=== PATIENT | female | born 1945 | race Caucasian/White ===

== ENCOUNTER 2018-11-25 09:14 | Inpatient (IN) ==
--- NOTE | 2018-10-26 16:10 | PAT Medication Instructions ---
Medication Instructions Date of Service October 26, 2018 Home Medications amlodipine-benazepril 1 cap PO QAM aspirin [Aspir-Low] 81 mg PO HS calcium citrate-vitamin D3 1 tab PO BID dicyclomine 20 mg PO BID esomeprazole magnesium [Nexium] 40 mg PO BID interferon beta-1b [Betaseron] 1 dose SUBCUT Q OTHER DAY potassium chloride 20 meq PO UD pravastatin 80 mg PO HS pregabalin [Lyrica] 75 mg PO BID ranitidine HCl 150 mg PO HS venlafaxine [Effexor XR] 150 mg PO QAM ASK your prescriber and surgeon interferon beta-1b [Betaseron] 1 dose SUBCUT Q OTHER DAY aspirin [Aspir-Low] 81 mg PO HS DO NOT take the morning of surgery amlodipine-benazepril 1 cap PO QAM calcium citrate-vitamin D3 1 tab PO BID dicyclomine 20 mg PO BID potassium chloride 20 meq PO UD ranitidine HCl 150 mg PO HS Take morning of surgery With a small sip of water, OTHERWISE NOTHING TO EAT OR DRINK AFTER MIDNIGHT: esomeprazole magnesium [Nexium] 40 mg PO BID pregabalin [Lyrica] 75 mg PO BID venlafaxine [Effexor XR] 150 mg PO QAM Take evening before surgery calcium citrate-vitamin D3 1 tab PO BID dicyclomine 20 mg PO BID esomeprazole magnesium [Nexium] 40 mg PO BID pravastatin 80 mg PO HS pregabalin [Lyrica] 75 mg PO BID ranitidine HCl 150 mg PO HS Other Notes If you have any questions please call us at [phone] or [phone] or [phone] or [phone]
--- NOTE | 2018-10-27 09:07 | Anesthesiology Consultation ---
Date of Service October 27, 2018 Assessment & Plan (1) Encounter for pre-operative examination: - Cardio addendum: 11/23/18: DSE ordered/reviewed- "acceptable risk to proceed with upcoming surgery without any additional CV testing or intervention." - Possible difficult intubation due to decreased cervical extension/anatomy.* Chart Review Chart Review: Acceptable Risk for Surgery and Patient seen in Pre Admission Te sting Teaching & Discussion Pre-Anesthesia Teaching/Discussion Notes: Instructed NPO after midnight before surgery,except medications with 15 cc of water. Medication instructions provided according to the PAT guidelines. History Surgery Operation Date: 11/25/18 10:55 Proposed Procedures p Laparoscopic Hiatal Hernia Repair, Possible Mesh - Harshil Oconnell, Height/Weight Height: 5 ft 3 in Weight: 69.6 kg Allergies Allergy/AdvReac Type Severity Reaction Status Date / Time No Known Allergies Allergy Verified 10/21/18 15:42 Medications Home Medications Medication Instructions Recorded Confirmed Last Taken amlodipine-benazepril 1 cap PO QAM 10/21/18 10/21/18 Unknown aspirin [Aspir-Low] 81 mg PO HS 10/21/18 10/21/18 Unknown calcium citrate-vitamin D3 1 tab PO BID 10/21/18 10/21/18 Unknown [Citracal + D Maximum] dicyclomine 20 mg PO BID 10/21/18 10/21/18 Unknown esomeprazole magnesium [Nexium] 40 mg PO BID 10/21/18 10/21/18 Unknown interferon beta-1b [Betaseron] 1 dose SUBCUT Q OTHER DAY 10/21/18 10/21/18 U nknown potassium chloride 20 meq PO UD 10/21/18 10/21/18 Unknown pravastatin 80 mg PO HS 10/21/18 10/21/18 Unknown pregabalin [Lyrica] 75 mg PO BID 10/21/18 10/21/18 Unknown ranitidine HCl 150 mg PO HS 10/21/18 10/21/18 Unknown venlafaxine [Effexor XR] 150 mg PO QAM 10/21/18 10/21/18 Unknown Past Medical History Medical History Anxiety Cancer BREAST CANCER S/P CHEMO/RADIATION (20+ YEARS AGO) Depression Fibromyalgia GERD (gastroesophageal reflux disease) CONTROLLED Gout Hyperlipidemia Hypertension Migraine Mitral valve disease ?HX MITRAL STENOSIS PER PATIENT; NO MITRAL STENOSIS OR ANY SIGNIFICANT VALVULAR DISEASE NOTED ON 11/17/18 DSE Multiple sclerosis SPEECH/BALANCE ISSUES; STABLE Osteoarthritis Restless leg syndrome Sleep apnea CPAP; NON-COMPLIANT Temporomandibular joint disorder Past Family History Family History Mother Family history of diabetes mellitus Sister Family history of diabetes mellitus Brother Family history of diabetes mellitus Past Surgical History Surgical History History of appendectomy History of cardiac cath 5 YEARS AGO= NO STENTS History of cataract surgery B/L History of colonoscopy History of esophagogastroduodenoscopy (EGD) History of hysterectomy History of tooth extraction History of total hip arthroplasty RIGHT Hx of lumpectomy RIGHT BREAST Past Anesthesia History No Hx of Anesthesia Complications and No Family Hx of Anesthesia Complications History of PONV No Motion Sickness Screening History of Motion Sickness: Yes Social History Smoking Status: Never smoker Do You Dip or Chew Tobacco: No Hx Alcohol Use: No Hx Substance Use: No substance use type: does not use Exercise / Class Metabolic Activity III < 4 Walking/Shop/Light housework (USES CANE PRN LONG DISTANCES) Review of Systems Patient denies chest pain, shortness of breath, cough, wheezing, palpitations. Physical Exam Vital Signs VITALS BP 119/70 P 98 TEMP 97.7 SP02 93%RA RESP 18 PHYSICAL Decreased cervical extension Full TMJ range of motion. TMD 3 finger breaths Mallampati Score 4 Dentition: missing molars/sides Lungs: clear throughout to auscultation Cardiac: regular rate and rhythm, no murmurs noted Spine: kyphosis Carotid arteries: negative bruit Extremities: no edema Testing Electrocardiogram Date: 10/27/18 NSR at 94bpm. NS TWA. Stress Test Date: 11/17/18 Type: DSE Negative DSE/stress EKG at 99% MPHR. Frequent PVC's. No chest pain. Technically difficult study. EF 55-60%. No RWMA. No significant valvular disease. Laboratory Results 10/27/18 09:52 10/27/18 09:52 Blood Type B Negative 10/27/18 09:52 Antibody Screen NEGATIVE 10/27/18 09:52
[2018-10-27 11:06] LABS: Basophils # (auto) 0.01 K/uL (0-0.2); Basophils % (auto) 0.2 %; Eosinophils # (auto) 0.05 K/uL (0-0.5); Eosinophils % (auto) 0.9 %; Hematocrit (blood only) 40.4 % (37-47); Hemoglobin 13.5 g/dL (12.0-16.0); Immature Granulocytes # (auto) 0.02 K/uL (0.00-0.02); Immature Granulocytes % (auto) 0.4 %; Lymphocytes # (auto) 1.57 K/uL (1.2-3.4); Lymphocytes % (auto) 28.6 %; Mean Corpuscular Hgb Conc 33.4 g/dL (32-36); Mean Corpuscular Volume 87.6 fL (80-100); Mean Platelet Volume 10.9 fL (7.4-10.4); Monocytes # (auto) 0.69 K/uL (0.11-0.59); Monocytes % (auto) 12.6 %; Neutrophils # (auto) 3.15 K/uL (1.4-6.5); Neutrophils % (auto) 57.3 %; Platelet Count 206 K/uL (130-400); RDW Coefficient of Variation 13.4 % (11.5-14.5); RDW Standard Deviation 42.7 fL (36.4-46.3); Red Blood Count 4.61 M/uL (4.2-5.4); White Blood Count 5.49 K/uL (4.8-10.8)
[2018-10-27 11:13] LABS: BUN Creatinine Ratio 17.9 (10-20); Calcium 9.5 mg/dl (8.5-10.1); Creatinine Clr Calc Pharmacy 73.3 ml/min; Est GFR (African American) 102.6; Est GFR (Non-African American) 88.5
[~2018-11-25 09:14] MED LIST: CEFAZOLIN 2000MG 2,000 MG/15 ML SYR IV SCH; DEXAMETHASONE SOD INJ 4 MG/ML VIAL ONE; GLYCOPYRROLATE 0.2 MG/ML VIAL ONE; HYDROmorphone INJ 2 MG/ML SYR/VIAL ONE; LIDOCAINE HCL 2% 2 ML VIAL/AMP(20MG/ML) INFIL ONE; LR 15ML/HR IV SCH; MIDAZOLAM HCL 1 MG/ML 2ML VIAL ONE; NEOSTIGMINE METHYLSULFATE 5 MG/5 ML SYR ONE; ONDANSETRON INJ 2 MG/ML 2 ML VIAL ONE; PROPOFOL IV EMULSION 10 MG/ML 20 ML VIAL IV ONE; ROCURONIUM BROMIDE 10 MG/ML 5 ML VIAL ONE; fentaNYL citrate 100 MCG/2 ML VIAL ONE
[2018-11-25] MEDS ORDERED: HYDROmorphone INJ 2 MG/ML SYR/VIAL ONE ×2 (09:31→13:17)
[2018-11-25] MEDS ORDERED: BUPIVACAINE/EPINEPHRINE 0.5% MPF 1:200,000 30 ML VIAL ONE (10:17)
--- NOTE | 2018-11-25 10:27 | History & Physical Report ---
Date of Service November 25, 2018 Assessment & Plan (1) Hiatal hernia with GERD: Plan is to repair the symptomatic hiatal hernia. pt aware all her symptoms may not resolve as she also has esophageal dysmotility b/c of the dysmotility, Her GI doctor does not recommend fundoplication, which I agree with. discussed risks ( bleeding/infection/dvt/pe/mi/cva/dysphagia/injury to other organs such as spleen, stomach, diaphragm etc...) questions answered will proceed with hiatal hernia repair. (2) Esophageal dysmotility: History of Present Illness Primary Care Provider: NO PCP pt with hx of gerd/dysphagia and w/u revealed large hiatal hernia. Allergies Allergy/AdvReac Type Severity Reaction Status Date / Time No Known Allergies Allergy Verified 11/25/18 09:35 Home Medications Home Medications Medication Instructions Recorded Confirmed Type amlodipine-benazepril 1 cap PO QAM 10/21/18 11/25/18 History aspirin [Aspir-Low] 81 mg PO HS 10/21/18 11/25/18 History calcium citrate-vitamin D3 1 tab PO BID 10/21/18 11/25/18 History [Citracal + D Maximum] dicyclomine 20 mg PO BID 10/21/18 11/25/18 History esomeprazole magnesium [Nexium] 40 mg PO BID 10/21/18 11/25/18 History interferon beta-1b [Betaseron] 1 dose SUBCUT Q OTHER DAY 10/21/18 11/25/18 History potassium chloride 20 meq PO UD 10/21/18 11/25/18 History pravastatin 80 mg PO HS 10/21/18 11/25/18 History pregabalin [Lyrica] 75 mg PO BID 10/21/18 11/25/18 History ranitidine HCl 150 mg PO HS 10/21/18 11/25/18 History venlafaxine [Effexor XR] 150 mg PO QAM 10/21/18 11/25/18 History Past Med/Surg History Family History Mother Family history of diabetes mellitus Sister Family history of diabetes mellitus Brother Family history of diabetes mellitus Social History Preferred Language: Yakut Communication Ability: Effective Pie Maker Machine Required: No Beliefs That Will Affect Care: None Current Living Situation: Spouse Other Information That Helps Us Care for You: No Feels Safe at Home: Yes Safety Concerns: Feels Safe At This Time Smoking Status: Never smoker Do You Dip or Chew Tobacco: No Second Hand Exposure: No Tobacco Cessation Education Requested by Patient: No Hx Alcohol Use: No Hx Substance Use: No Review of Systems dysphagia. gerd. SOB Physical Exam Vital Signs (Past 24 Hours): Last Vital Signs Temp 36.5 C 11/25/18 09:43 Pulse 95 H 11/25/18 09:43 Resp 18 11/25/18 09:43 BP 128/86 11/25/18 09:43 Pulse Ox 97 11/25/18 09:43 Physical Exam: alert/oriented. nad Heent: Pearla. eomi Heart: RRR Lungs: CTA b/l abd: soft. nt. nd. ext: no c/c/e
[2018-11-25] MEDS ORDERED: HYDROmorphone INJ 0.5 MG/0.5 ML SYR IV PRN ×3 (10:29→18:47)
[2018-11-25] MEDS ORDERED: fentaNYL citrate 100 MCG/2 ML VIAL IV PRN ×2 (10:29→18:48)
[2018-11-25] MEDS ORDERED: ONDANSETRON INJ 2 MG/ML 2 ML VIAL IV PRN (10:29)
[2018-11-25] MEDS ORDERED: ATROPINE SULFATE 0.1 MG/ML 10ML SYR IV PRN (10:29)
[2018-11-25] MEDS ORDERED: ePHEDrine sulfate 50 MG/ML AMP IV PRN (10:29)
[2018-11-25] MEDS ORDERED: LARYING-O-JET KIT (LTA) ONE (10:56)
[2018-11-25] MEDS ORDERED: raNITIdine HCl 25 MG/ML VIAL ONE (10:56)
[2018-11-25] MEDS ORDERED: fentaNYL citrate 100 MCG/2 ML VIAL ONE ×4 (10:56→13:17)
[2018-11-25] MEDS ORDERED: METHYLENE BLUE 0.5% 10 ML VIAL ONE (11:29)
[2018-11-25] MEDS ORDERED: PROPOFOL IV EMULSION 10 MG/ML 20 ML VIAL IV ONE (11:29)
[2018-11-25] MEDS ORDERED: ePHEDrine sulfate 50 MG/ML AMP ONE (13:47)
[2018-11-25] MEDS ORDERED: ePHEDrine sulfate 50 MG/ML SYR ONE (13:47)
[2018-11-25] MEDS ORDERED: GLYCOPYRROLATE 0.2 MG/ML VIAL ONE (13:47)
[2018-11-25] MEDS ORDERED: ESMOLOL HCL INJ 10 MG/ML 10ML VIAL IV ONE ×2 (13:47→13:59)
[2018-11-25] MEDS ORDERED: PHENYLEPHRINE HCL 10 MG/ML VIAL ONE ×2 (13:47→17:28)
[2018-11-25] MEDS ORDERED: TISSEEL FIBRIN SEALANT 10ML TOP ONE (14:26)
[2018-11-25] MEDS ORDERED: ALBUMIN HUMAN 5% 12.5 GM/250 ML VIAL IV ONE ×2 (15:29→16:17)
--- NOTE | 2018-11-25 16:09 | Anesthesiology Progress Note ---
Date of Service November 25, 2018 Assessment & Plan (1) Esophageal tear: Subjective Patient with esophageal tear intraop requiring additional surgeons to assist in repair. Esophgeal stent placed unsuccessfully by surgeon and now plan is to open patient for further exploration and repair. Patient noted to have subQ crepitus and surgeons aware. Type and screen was ordered intraop and second IV was inserted (patient right arm restrict) and arterial line was placed by Dr. Martinez (who resumed care of this patient). Full report was given and will determine later if this patient can be appropriately extubated at the end of the procedure. They will also determine appropriate placement whether that be ICU vs surgical floor. Physical Exam Vital Signs: Last Vital Signs Temp 36.5 C 11/25/18 09:43 Pulse 95 H 11/25/18 09:43 Resp 18 11/25/18 09:43 BP 128/86 11/25/18 09:43 Pulse Ox 97 11/25/18 09:43 Results & Data Medications Administered Cefazolin Sodium (Ancef 2000mg) 2,000 mg in 15 mls @ 3.75 mls/min IV PREOP CHERRY; Protocol Stop: 11/25/18 18:00 Last Admin: 11/25/18 10:31 Dose: 3.75 mls/min Documented by: [id number] Lactated Ringer's (Lr) 1,000 mls @ 15 mls/hr IV .Q24H CHERRY Stop: 11/26/18 05:59 Last Infusion: 11/25/18 10:35 Dose: 0 mls/hr Documented by: [id number] Admin: 11/25/18 09:59 Dose: 15 mls/hr Documented by: [id number] (1) Esophageal tear Encounter type: initial encounter Qualified Code(s): S11.21XA - Laceration without foreign body of pharynx and cervical esophagus, initial encounter
[2018-11-25] MEDS ORDERED: CEFAZOLIN 250 MG/ML 1 GM VIAL ONE (16:18)
--- NOTE | 2018-11-25 17:28 | Post Operative Brief Note ---
Immediate Post Op Note v1 Date of Surgery November 25, 2018 Pre & Post Diagnosis Operation Date: 11/25/18 10:55 Pre-Op Diagnosis: Iatrogenic perforation distal esophagus Post-op diagnosis: same Procedure Operation Date: 11/25/18 10:55 Actual Procedures 1. Attempted repair esophageal perforation laparoscopically 2. Attempted insertion esophageal stent 3. Laparotomy with repair of distal esophageal perforation and buttress with fundus patch Surgeon Juan Alfaro MD, FACS Co- Surgeon: Bridgette Cowan DO Projection Camera Operator Marv MAXWELL Estimated Blood Loss 100 Findings Consistent with Post-Op Diagnosis Drains Albright Catheter and Other (Arvizu gastrostomy tube)
--- NOTE | 2018-11-25 18:14 | XRay Report ---
XR CHEST AND ABDOMEN 2 VIEWS CLINICAL HISTORY: Abnormal intraoperative instrument count COMPARISON STUDY: No previous studies for comparison. FINDINGS: There is an endotracheal tube positioned 4.2 cm above the jose antonio. There is extensive subcut aneous emphysema involving both chest ivory and the neck. There are surgical clips in the right axill linda and breast region. There is a right upper quadrant catheter. There is a hemostat projected outsid e the patient to the right of midline. There is a drain projected over the epigastrium. There is radi ographic evidence of mild congestive failure/fluid overload. There is left lower lobe peripheral cons olidation. IMPRESSION: 1. No retained instruments are visualized 2. Other findings as described above. Electronically signed by: Justin Graff M.D. 11/25/2018 6:12 PM
[2018-11-25] MEDS ORDERED: PROPOFOL IV EMULSION 10 MG/ML 100 ML VIAL IV ONE (18:46)
[2018-11-25] MEDS ORDERED: HYDROmorphone INJ 1 MG/ML SYRINGE IV PRN (18:47)
[2018-11-25] MEDS ORDERED: fentaNYL DRIP 1,250 MCG/250 ML BAG IV PRN (18:48)
[2018-11-25] MEDS: PROPOFOL 1,000 MG/100 ML VIAL IV PRN (18:50)
--- NOTE | 2018-11-25 18:53 | Operative Report ---
Post Operative Report Pre & Post Diagnosis Operation Date: 11/25/18 10:55 Pre-Op Diagnosis: Hiatal Hernia Post-Op Diagnosis: hiatal hernia; presbyesophagus; Procedure Operation Date: 11/25/18 10:55 Actual Procedures p Attempted repair esophageal perforation laparoscopically; Attempted insertion esophageal stent; Laparotomy with repair of distal esophageal perforation and bu ttress with fundus patch(Not Applicable) - Harshil Oconnell DO s Exploratory Laparotomy(Not Applicable) - Harshil Oconnell DO Surgeon Harshil Oconnell DO\Laith Alfaro MD Vacuum Filter Operator Marv MAXWELL Estimated Blood Loss 100 Findings Consistent with Post-Op Diagnosis Specimens none Description of Procedure After informed consent was obtained the patient was taken to the operating room and placed in supine position. After successful intubation the abdomen was sterilely prepped and draped in usual fashion. A supraumbilical incision was made with an 11 blade scalpel and carried down through the soft tissue using electrocautery. The anterior rectus fascia was opened using electrocautery and 2 #0 Vicryl stay sutures were placed. Peritoneum was elevated with hemostats and incised under direct vision. A finfer sweep was performed. A 12 mm Medeiros trocar was placed and the abdomen was insufflated to 18 mmHg. Laparoscope was inserted and the abdomen examined 360 degrees. A subxiphoid 12 mm port, a right upper quadrant 5 mm port, a right flank 5 mm port and a left flank 5 mm port were all placed under direct vision. A liver retractor as well as a table billy chment was placed to help elevate the left lobe of the liver. Once we did this we saw a moderate sized hiatal hernia with gastric incarceration as well as partial gastric volvulus. We began by using the harmonic scalpel to take down some of the short gastric vessels laterally as well as the hernia sac along the left sahil and continued to take it down anteriorly. We then came up along the right sahil the diaphragm and took down the hernia sac on the medial side. Eventually we were able to work our way around anteriorly and free up the entire hernia sac and then we were able to untwist and reduce the stomach. At this point in time I had asked anesthesia to pass a 50 Spanish bougie. During this process I rolled the fundus of the stomach slightly medially to get a view and noticed that the bougie had perforated the lower third of the esophagus on the posterolateral side. At this point in time I called our thoracic surgeon Dr. Alfaro who graciously came over and scrubbed in and he and I performed the remainder of the case together. Please see his dictation for the majority of the esophageal repair. I was able to free up the retrogastric space using primarily blunt dissection and primarily closed the hiatal hernia defect with the Endo Stitch device in O [facility] with simple interrupted sutures. After Dr. Alfaro scrubbed in we performed an intraoperative EGD to evaluate the situation. We were able to identify the small perforation and laparoscopically attempted to repair it. We attempted this multiple times as well as attempted an esophageal stent but she had very poor tissue protoplasm... ultimately we ended up performing a laparotomy with primary repair and fundal buttress. There was no leak as air tested with the endoscope at the end of the procedure. Again please see Dr. Ch's full operative note for the details regarding the esophageal repair. Once he was done with the esophageal repair I then placed a Arvizu gastrostomy tube. I placed a 3-0 silk pursestring on the distal stomach. We then made a small gastrotomy and through 1 of the trocar sites advanced a Arvizu gastric/jejunostomy tube. We did test the balloon prior to insertion. We inserted the tube into the stomach and through the pylorus down and around the duodenal sweep. We then secured the silk pursestring. We then inflated the gastric balloon to 20 cc of saline. We pulled this up to the anterior abdominal wall. I also used 2-0 silk with two-point fixation to secure the stomach to the anterior abdominal wall. I then placed a 19 Spanish Arturo drain through 1 of the trocar sites and up along the right sahil the diaphragm into the chest cavity. It was secured to the skin using 2-0 silk as well. We then thoroughly irrigated the abdomen. I closed the fascia using 0-looped PDS starting at either pole and running and securing them in the midline. Soft tissue was irrigated and skin was closed using skin nalini. Sterile dressing was applied. The patient was transferred to the intensive care unit in critical condition and remained intubated. My physician diploma medical assistant was present to the entire case and assisted in all aspects of the procedure. I attest to the content of the Intraoperative Record and any orders documented therein. Any exceptions are noted below.
[2018-11-25 18:58] LABS: iSTAT Arterial Blood Gas HCO3 19 meg/L (19-24); iSTAT Arterial Blood Gas pCO2 34 mmHg (35-46); iSTAT Arterial Blood Gas pH 7.36 (7.35-7.45); iSTAT Carbon Dioxide 20 mEq/l (24-31)
[2018-11-25 18:58] LABS: iSTAT Creatinine 0.7 mg/dl (0.6-1.3); iSTAT Hemoglobin 11.6 g/dl (12.0-16.0); iSTAT Ionized Calcium 1.23 mmol/l (1.12-1.32); iSTAT Potassium 2.9 mEq/L (3.3-5.0)
[2018-11-25 18:58] LABS: iSTAT Arterial Blood Gas HCO3 22 meg/L (19-24); iSTAT Arterial Blood Gas pCO2 49 mmHg (35-46); iSTAT Arterial Blood Gas pH 7.26 (7.35-7.45); iSTAT Carbon Dioxide 24 mEq/l (24-31)
[2018-11-25 18:58] LABS: iSTAT Arterial Blood Gas HCO3 19 meg/L (19-24); iSTAT Arterial Blood Gas pCO2 30 mmHg (35-46); iSTAT Carbon Dioxide 19 mEq/l (24-31)
--- NOTE | 2018-11-25 18:59 | Anesthesiology Progress Note ---
Date of Service November 25, 2018 Anesthesia Post Procedure Vital Signs Vital Signs: Temp Pulse Resp BP Pulse Ox 11/25/18 09:43 97.7 F 95 H 18 128/86 97 Pain Intensity Anterior Head: Pain Intensity: 7 Notes Mental Status: alert / awake / arousable and see notes below Patient Amnestic to Procedure: Yes Nausea / Vomiting: adequately controlled Pain: adequately controlled Airway Patency, RR, SpO2: stable & adequate BP & HR: stable & adequate Hydration State: stable & adequate Anesthetic Complications: no major complications apparent and see Notes below Notes: Pt remained intubated post-operatively. Pt was transferred to SICU with O2 and monitors. Pt had stable vital signs during transport. Report was given to the ICU staff. Care was transferred to the ICU team.
[2018-11-25] MEDS: POTASSIUM CHLORIDE / WTR 10 MEQ/100 ML PLCT IV SCH ×4 (19:06→23:40)
--- NOTE | 2018-11-25 19:18 | XRay Report ---
XR chest 1V portable CLINICAL HISTORY: Postoperative examination COMPARISON STUDY: No previous studies for comparison. FINDINGS: There is an endotracheal tube 4.7 cm above the jose antonio. The heart is mildly enlarged. There is aortic tortuosity. There is no lobar consolidation. Surgical clips project over the right axillary region right breast. There is extensive bilateral subcutaneous emphysema with the chest ivory extend ing to the neck. No pneumothorax is visualized.[ There is a surgical drain projecting over the epigas trium. IMPRESSION: 1. Endotracheal tube 4.7 cm above the jose antonio 2. Extensive subcutaneous emphysema 3. No evidence of focal pulmonary consolidation Electronically signed by: Justin Graff M.D. 11/25/2018 7:17 PM
[2018-11-25] MEDS ORDERED: PIPERACILL/TAZOBAC CONSULT ACTIVE PRN (19:40)
[2018-11-25] MEDS ORDERED: PIPERACILLIN/TAZOBACTAM 3.375 GM in DEXTROSE 5% 100 ML IV ONE (20:00)
[2018-11-25 20:15] LABS: Creatinine Clr Calc Pharmacy 51.6 ml/min; Est GFR (African American) 76.6; Est GFR (Non-African American) 66.1
[2018-11-25] MEDS: LACTATED RINGER'S 1,000 ML IV SCH (20:22)
[2018-11-25 21:33] LABS: Hematocrit (blood only) 32.7 % (37-47); Hemoglobin 11.2 g/dL (12.0-16.0); Mean Corpuscular Hgb Conc 34.3 g/dL (32-36); Mean Corpuscular Volume 85.2 fL (80-100); Mean Platelet Volume 9.6 fL (7.4-10.4); Platelet Count 147 K/uL (130-400); RDW Coefficient of Variation 13.6 % (11.5-14.5); RDW Standard Deviation 42.4 fL (36.4-46.3); Red Blood Count 3.84 M/uL (4.2-5.4); White Blood Count 8.04 K/uL (4.8-10.8)
[2018-11-25 21:51] LABS: BUN Creatinine Ratio 16.6 (10-20); Calcium 8.5 mg/dl (8.5-10.1); Creatinine Clr Calc Pharmacy 59.8 ml/min; Est GFR (African American) 86.1; Est GFR (Non-African American) 74.3; Magnesium 1.5 mg/dl (1.8-2.4); Phosphorus 2.5 mg/dl (2.5-4.9)
--- NOTE | 2018-11-25 22:05 | Critical Care Consultation ---
Date of Consultation November 25, 2018 Assessment & Plan (1) Esophageal tear: Reason Critically Ill: 72-year-old female presents to ICU postoperatively from initial hiatal hernia repair complicated by esophageal perforation requiring open buttress with fundus patch. Left intubated and sedated postop. Neuro - [facility] ICU: [facility], intubated and sedated on ventilator Sedation: Propofol, fentanyl Cardiac - Hypertension: Continue home amlodipinebenazepril when appropriate, A-line left in place postop HLD: Continue home dose ranitidine HCl Currently hemodynamically stable without pressors and NSR, will continue to monitor on telemetry, and continuous monitoring with erick Respiratory - Ventilatory support following procedurecurrently intubated with 7.0 ETT, 21 at lips - VC 12/ 450/5/50% -AB.36/34/271/19 -CXR revealed extensive subcutaneous emphysema, surgical team aware, monitori ng -Pulmonary toilet -HOB greater than 30 degrees -will wean vent in a.m. GI - Hiatal hernia repair/esophageal perforationhiatal hernia repair complicated with esophageal perforation, attempted laparoscopic repair with stent unsuccessful, required open repair with fundus patch -G/J-tube inserted intraoperatively, gastric port to low intermittent suction -N.p.o. -Follow-up GI recs GERDcontinue home meds when appropriate RENAL/LYTES - Hypokalemiapatient takes calcium home meds -We will monitor routine BMPs and treat appropriately Maximize electrolyteS - Albright insertedstrict I's and O's ENDO - Hyperglycemiarequiring insulin drip -We will collect hemoglobin A1c a.m. HEME - H&H stable, monitor with routine CBCs ID - Empiric Zosyn LINES/IV ACCESS - Peripheral IVs, ETT, G/J-tube, Albright, erick DVT PROPHYLAXIS - SCDs, holding anticoagulation per recent surgery (2) Hiatal hernia with GERD: (3) Hypertension: (4) Hyperlipidemia: Supervising Physician Co-Signing Physician Notes I have personally evaluated and examined this patient. I agree with assessment and plan of Shae GARCIA. I discussed this patient with Dr. Alfaro and examined the patient immediately upon arrival in the ICU. We will leave the patient intubated overnight for possible hemodynamic instabilities. Patient had prolonged surgery acute blood loss anemia. Care was transferred to Shae GARCIA I have personally spent 35 minutes of critical care time in the direct management of this patient. This is a life/limb threatening event. This includes time spent evaluating patient, direct bedside care, chart review, placing orders, interpretation of diagnostic studies, discussion with consultants, patient, and/or family members regarding treatment decisions, as well as other required patient management activities. This time is exclusive of all separately billable procedures, and teaching time and separate from and in addition to any other critical care service time. History of Present Illness Attending Physician: Harshil Oconnell, History of Present Illness Ms. Farooq is a 72-year-old female with past medical history of hiatal hernia, GERD, dysphagia who presents to the ICU postoperatively. Patient initially was admitted for scheduled hiatal hernia repair which was complicated with esophageal perforation requiring additional surgery intraoperatively. Laparoscopic attempt to repair esophageal perforation was unsuccessful and patient required open repair of buttress with fundus patch. G/J-tube inserted during procedure. She was left intubated postoperatively and transferred to ICU. Patient presents to the ICU intubated and sedated. Noted subcutaneous crepitus on exam with primary and surgical teams aware and monitoring. Hemodynamically stable on ventilator. Will remain in ICU for management at this time. Allergies Allergy/AdvReac Type Severity Reaction Status Date / Time No Known Allergies Allergy Verified 11/25/18 09:35 Home Medications Home Medications Medication Instructions Recorded Confirmed Type amlodipine-benazepril 1 cap PO QAM 10/21/18 11/25/18 History aspirin [Aspir-Low] 81 mg PO HS 10/21/18 11/25/18 History calcium citrate-vitamin D3 1 tab PO BID 10/21/18 11/25/18 History [Citracal + D Maximum] dicyclomine 20 mg PO BID 10/21/18 11/25/18 History esomeprazole magnesium [Nexium] 40 mg PO BID 10/21/18 11/25/18 History interferon beta-1b [Betaseron] 1 dose SUBCUT Q OTHER DAY 10/21/18 11/25/18 History potassium chloride 20 meq PO UD 10/21/18 11/25/18 History pravastatin 80 mg PO HS 10/21/18 11/25/18 History pregabalin [Lyrica] 75 mg PO BID 10/21/18 11/25/18 History ranitidine HCl 150 mg PO HS 10/21/18 11/25/18 History venlafaxine [Effexor XR] 150 mg PO QAM 10/21/18 11/25/18 History Patient History Family History Mother Family history of diabetes mellitus Sister Family history of diabetes mellitus Brother Family history of diabetes mellitus Social History Preferred Language: Romanian Communication Ability: Effective Formula Checker Required: No Beliefs That Will Affect Care: None Current Living Situation: Spouse Other Information That Helps Us Care for You: No Feels Safe at Home: Yes Safety Concerns: Feels Safe At This Time Smoking Status: Unknown if ever smoked Review of Systems Review of Systems: Unobtainable due to cognitive status and Unobtainable due to endotracheal tube Physical Exam Eyes: PERRL, conjunctivae normal, anicteric sclerae ENMT: ETT 7.0, 21 of the lip Neck: trachea midline, no thyromegaly + neck crepitus Respiratory: normal respiratory effort, lungs clear to auscultation Symmetrical chest rise Cardiovascular: RRR, no murmur, no edema Heart Sounds: normal S1 and normal S2 Extremities: normal capillary refill Gastrointestinal (Abdomen): Abdomen obese, soft. Tenderness over surgical site. Midline abdominal surgical incision well approximated. G/J-tube present, no draining from dressing. Bowel sounds auscultated in all 4 quadrants. Skin: Subcutaneous crepitus palpated in neck and upper anterior chest Neurologic: Sedated, PERRLA, moves all extremities Genitourinary: Albright inserted, adequate urine output Results & Data Vital Signs (Past 12 Hours) Vital Signs Temp Pulse Pulse Resp BP BP BP 11/25/18 21:33 89 12 11/25/18 21:00 87 162/75 H 11/25/18 20:02 91 H 166/71 H 11/25/18 20:00 34.7 C L 91 H 90 17 166/71 H 11/25/18 19:45 93 H 11/25/18 19:30 95 H 11/25/18 19:25 95 H 135/86 11/25/18 19:15 98 H 11/25/18 19:14 98 H 11/25/18 18:55 33.9 C L 94 H 12 135/86 11/25/18 18:50 33.3 C L 93 H 12 106/90 11/25/18 18:45 33.3 C L 89 12 105/90 11/25/18 18:40 33.3 C L 91 H 12 134/114 H 11/25/18 18:35 33.2 C L 93 H 12 100/83 11/25/18 18:29 94 H 12 143/79 H Pulse Ox 11/25/18 21:33 100 11/25/18 21:00 100 11/25/18 20:02 100 11/25/18 20:00 100 11/25/18 19:45 100 11/25/18 19:30 100 11/25/18 19:25 100 11/25/18 19:15 100 11/25/18 19:14 100 11/25/18 18:55 100 11/25/18 18:50 100 11/25/18 18:45 100 11/25/18 18:40 98 11/25/18 18:35 90 11/25/18 18:29 98 Laboratory Results Laboratory Results - last 24 hr 11/25/18 11/25/18 11/25/18 09:38 16:13 16:19 WBC RBC Hgb POC Hgb 11.6 L Hct POC Hct 34 L MCV MCH MCHC RDW Std Deviation RDW Coeff of Tomas Plt Count MPV Immature Gran % (Auto) Neut % (Auto) Lymph % (Auto) [place] % (Auto) Eos % (Auto) Baso % (Auto) Immature Gran # (Auto) Neut # (Auto) Lymph # (Auto) [place] # (Auto) Eos # (Auto) Baso # (Auto) Ovalocytes Echinocytes POC pH 7.26 L POC pCO2 49 H POC pO2 343 H POC HCO3 22 POC Total CO2 24 23 L POC Base Excess -5.0 POC ABG O2 Sat 100.0 H POC Sodium 141 Sodium POC Potassium 2.9 L Potassium POC Chloride 106 Chloride Carbon Dioxide Anion Gap POC Anion Gap 16.0 POC BUN 13 BUN Creatinine POC Creatinine 0.7 Est Cr Clr Drug Dosing Est GFR ( Amer) Est GFR (Non-Af Amer) BUN/Creatinine Ratio Glucose POC Glucose POC Glucose (other) 215 H Lactate Calcium POC Ioniz Calcium Sophie 1.23 Phosphorus Magnesium Nasal Screen MRSA (PCR) Blood Type B Negative Antibody Screen NEGATIVE 11/25/18 11/25/18 11/25/18 16:20 17:14 17:34 WBC RBC Hgb POC Hgb Hct POC Hct MCV MCH MCHC RDW Std Deviation RDW Coeff of Tomas Plt Count MPV Immature Gran % (Auto) Neut % (Auto) Lymph % (Auto) [place] % (Auto) Eos % (Auto) Baso % (Auto) Immature Gran # (Auto) Neut # (Auto) Lymph # (Auto) [place] # (Auto) Eos # (Auto) Baso # (Auto) Ovalocytes Echinocytes POC pH 7.40 7.36 POC pCO2 30 L 34 L POC pO2 303 H 271 H POC HCO3 19 19 POC Total CO2 19 L 20 L POC Base Excess -6.0 -6.0 POC ABG O2 Sat 100.0 H 100.0 H POC Sodium Sodium POC Potassium Potassium 3.1 L POC Chloride Chloride Carbon Dioxide Anion Gap POC Anion Gap POC BUN BUN Creatinine POC Creatinine Est Cr Clr Drug Dosing Est GFR ( Amer) Est GFR (Non-Af Amer) BUN/Creatinine Ratio Glucose POC Glucose POC Glucose (other) Lactate Calcium POC Ioniz Calcium Sophie Phosphorus Magnesium Nasal Screen MRSA (PCR) Blood Type Antibody Screen 11/25/18 11/25/18 11/25/18 19:43 19:51 20:42 WBC RBC Hgb POC Hgb Hct POC Hct MCV MCH MCHC RDW Std Deviation RDW Coeff of Tomas Plt Count MPV Immature Gran % (Auto) Neut % (Auto) Lymph % (Auto) [place] % (Auto) Eos % (Auto) Baso % (Auto) Immature Gran # (Auto) Neut # (Auto) Lymph # (Auto) [place] # (Auto) Eos # (Auto) Baso # (Auto) Ovalocytes Echinocytes POC pH POC pCO2 POC pO2 POC HCO3 POC Total CO2 POC Base Excess POC ABG O2 Sat POC Sodium Sodium POC Potassium Potassium POC Chloride Chloride Carbon Dioxide Anion Gap POC Anion Gap POC BUN BUN Creatinine 0.87 POC Creatinine Est Cr Clr Drug Dosing 51.6 Est GFR ( Amer) 76.6 Est GFR (Non-Af Amer) 66.1 BUN/Creatinine Ratio Glucose POC Glucose 233 H POC Glucose (other) Lactate Calcium POC Ioniz Calcium Sophie Phosphorus Magnesium Nasal Screen MRSA (PCR) Negative Blood Type Antibody Screen 11/25/18 11/25/18 11/25/18 21:24 21:24 21:24 WBC 8.04 RBC 3.84 L Hgb 11.2 L POC Hgb Hct 32.7 L POC Hct MCV 85.2 MCH 29.2 MCHC 34.3 RDW Std Deviation 42.4 RDW Coeff of Tomas 13.6 Plt Count 147 MPV 9.6 Immature Gran % (Auto) 0.1 Neut % (Auto) 85.8 Lymph % (Auto) 8.8 [place] % (Auto) 5.3 Eos % (Auto) 0.0 Baso % (Auto) 0.0 Immature Gran # (Auto) 0.01 Neut # (Auto) 6.89 H Lymph # (Auto) 0.71 L [place] # (Auto) 0.43 Eos # (Auto) 0.00 Baso # (Auto) 0.00 Ovalocytes 1+ Echinocytes 1+ POC pH POC pCO2 POC pO2 POC HCO3 POC Total CO2 POC Base Excess POC ABG O2 Sat POC Sodium Sodium 142 POC Potassium Potassium 3.0 L POC Chloride Chloride 111 H Carbon Dioxide 21 Anion Gap 10.0 POC Anion Gap POC BUN BUN 13 Creatinine 0.79 POC Creatinine Est Cr Clr Drug Dosing 59.8 Est GFR ( Amer) 86.1 Est GFR (Non-Af Amer) 74.3 BUN/Creatinine Ratio 16.6 Glucose 286 H POC Glucose POC Glucose (other) Lactate 3.5 H* Calcium 8.5 POC Ioniz Calcium Sophie Phosphorus 2.5 Magnesium 1.5 L Nasal Screen MRSA (PCR) Blood Type Antibody Screen (1) Esophageal tear Encounter type: initial encounter Qualified Code(s): S11.21XA - Laceration without foreign body of pharynx and cervical esophagus, initial encounter
[2018-11-25 22:17] LABS: Echinocytes 1+; Immature Granulocytes # (auto) 0.01 K/uL (0.00-0.02); Immature Granulocytes % (auto) 0.1 %; Lymphocytes # (auto) 0.71 K/uL (1.2-3.4); Lymphocytes % (auto) 8.8 %; Monocytes # (auto) 0.43 K/uL (0.11-0.59); Monocytes % (auto) 5.3 %; Neutrophils # (auto) 6.89 K/uL (1.4-6.5); Neutrophils % (auto) 85.8 %; Ovalocytes 1+
[2018-11-25] MEDS ORDERED: MAGNESIUM SULFATE / D5W 1 GM/100 ML BAG IV ONE (22:25)
[2018-11-25] MEDS ORDERED: ICU PROTOCOL FOR HYPERGLYCEMIA PRN (22:34)
[2018-11-25] MEDS ORDERED: DEXTROSE 50% 50 ML SYRINGE IV PRN (23:00)
[2018-11-25] MEDS ORDERED: CARBOHYDRATES FOR HYPOGLYCEMIA PO PRN (23:00)
[2018-11-25] MEDS ORDERED: INSULIN REGULAR 250 UNITS in SODIUM CHLORIDE 0.9% 247.5 ML IV SCH (23:00)
[2018-11-25] MEDS ORDERED: GLUCOSE 10 TABS/TUBE PO PRN (23:00)
[2018-11-25] MEDS ORDERED: NovoLIN-R BOLUS FROM BAG IV ONE (23:00)
[2018-11-25] MEDS ORDERED: GLUCAGON FOR INJ 1 MG VIAL IM PRN (23:00)
[2018-11-25] MEDS ORDERED: GLUCOSE 40% GEL 15 GM TUBE PO PRN (23:00)
[2018-11-25] MEDS ORDERED: PHARMACY GLYCEMIC MGMT CONSULT PRN (23:02)
[2018-11-26] MEDS: POTASSIUM CHLORIDE / WTR 10 MEQ/100 ML PLCT IV SCH ×2 (00:40→01:40)
[2018-11-26] MEDS: PROPOFOL 1,000 MG/100 ML VIAL IV PRN (01:55)
[2018-11-26] MEDS ORDERED: LACTATED RINGER'S 250 ML IV ONE (02:16)
[2018-11-26] MEDS: PIPERACILLIN/TAZOBACTAM 3.375 GM in DEXTROSE 5% 100 ML IV SCH ×3 (02:29→19:44)
--- NOTE | 2018-11-26 03:29 | Critical Care Progress Note ---
Date of Service November 26, 2018 Assessment & Plan (1) Esophageal tear: Reason Critically Ill: 72-year-old female presents to ICU postoperatively from initial hiatal hernia repair complicated by esophageal perforation requiring open buttress with fundus patch. Left intubated and sedated postop. Neuro - [facility]: [facility], intubated and sedated on ventilator Sedation: Propofol, fentanyl Cardiac - Hypertension: Continue home amlodipinebenazepril when appropriate, A-line left in place postop HLD: Continue home dose ranitidine HCl Currently hemodynamically stable without pressors and NSR, will continue to monitor on telemetry, and continuous monitoring with erick Respiratory - Ventilatory support following procedurecurrently intubated with 7.0 ETT, 21 at lips - VC 12/ 450/5/50% -AB.36/34/271/19 -CXR revealed extensive subcutaneous emphysema, surgical team aware, monitoring -Pulmonary toilet -HOB greater than 30 degrees -will wean vent in a.m. GI - Hiatal hernia repair/esophageal perforationhiatal hernia repair complicated with esophageal perforation, attempted laparoscopic repair with stent unsuccessful, required open repair with fundus patch -G/J-tube inserted intraoperatively, gastric port to low intermittent suction -N.p.o. -Follow-up GI recs GERDcontinue home meds when appropriate RENAL/LYTES - Hypokalemiapatient takes calcium home meds -We will monitor routine BMPs and treat appropriately Maximize electrolyteS - Albright insertedstrict I's and O's ENDO - Hyperglycemiarequiring insulin drip -We will collect hemoglobin A1c a.m. HEME - H&H stable, monitor with routine CBCs ID - Empiric Zosyn LINES/IV ACCESS - Peripheral IVs, ETT, G/J-tube, Albright, erick DVT PROPHYLAXIS - SCDs, holding anticoagulation per recent surgery (2) Hiatal hernia with GERD: (3) Hypertension: (4) Hyperlipidemia: Supervising Physician Co-Signing Physician Notes I have personally evaluated and examined this patient. I agree with assessment and plan of Shae GARCIA. Patient discussed in multidisciplinary rounds Weaning towards extubation today, adding fluconazole postop day 1 less than 24 hours out from surgery with fever continue Zosyn. Will discuss with Anish/Dominic regarding possible trickle of tube feeds and utilization of COHEN for meds, gastric portion to gravity drain at this time. On insulin infusion. I have personally spent 40 minutes of critical care time in the direct management of this patient. This is a life/limb threatening event. This includes time spent evaluating patient, direct bedside care, chart review, placing orders, interpretation of diagnostic studies, discussion with consultants, patient, and/or family members regarding treatment decisions, as well as other required patient management activities. This time is exclusive of all separately billable procedures, and teaching time and separate from and in addition to any other critical care service time. Clinical update: 154 reviewed surgery notes, no use of feeding tube. Patient successfully liberated from ventilator, continuing antibiotics. Subjective Ms. Farooq is a 72-year-old female with past medical history of hiatal hernia, GERD, dysphagia who presents to the ICU postoperatively. Patient initially was admitted for scheduled hiatal hernia repair which was complicated with esophageal perforation requiring additional surgery intraoperatively. Laparoscopic attempt to repair esophageal perforation was unsuccessful and patient required open repair of buttress with fundus patch. G/J-tube inserted during procedure. She was left intubated postoperatively and transferred to ICU. Patient presented to the ICU intubated and sedated. Noted subcutaneous crepitus on exam with primary and surgical teams aware and monitoring. Hemodynamically stable on ventilator. Patient given 250 cc bolus overnight for decreased urine output and softening pressures with appropriate response. No other acute events overnight. Patient remains hemodynamically stable and intubated and sedated on ventilator. Will begin ventilator weaning this a.m. Review of Systems 2 Review of Systems: Unobtainable due to cognitive status and Unobtainable due to endotracheal tube Physical Exam Eyes: PERRL, conjunctivae normal, anicteric sclerae Neck: trachea midline, no thyromegaly + neck crepitus Respiratory: Intubated with ETT 7.0, 21 at lips; lungs clear to auscultation, bilateral breath sounds, symmetrical chest rise Cardiovascular: RRR, no murmur, no edema Heart Sounds: normal S1 and normal S2 Extremities: normal capillary refill Gastrointestinal (Abdomen): Abdomen obese, soft, midline surgical incision well approximated, G/J-tube, bowel sounds auscultated all 4 quadrants Skin: no rashes, warm and dry Neurologic: Sedated, PERRLA, moves all extremities Genitourinary: Albright, adequate urine output Results & Data Vital Signs (Past 12 Hours) Vital Signs Temp Pulse Pulse Resp BP BP BP 11/26/18 03:00 88 145/67 H 11/26/18 02:30 85 11/26/18 02:07 84 12 11/26/18 02:00 85 11/26/18 01:30 86 11/26/18 01:00 85 11/26/18 00:30 84 11/26/18 00:00 80 156/76 H 11/25/18 23:50 79 14 11/25/18 23:30 83 11/25/18 23:00 82 11/25/18 22:00 86 11/25/18 21:33 89 12 11/25/18 21:31 87 11/25/18 21:30 88 11/25/18 21:00 87 162/75 H 11/25/18 20:02 91 H 166/71 H 11/25/18 20:00 34.7 C L 91 H 90 17 166/71 H 11/25/18 19:45 93 H 11/25/18 19:30 95 H 11/25/18 19:25 95 H 135/86 11/25/18 19:15 98 H 11/25/18 19:14 98 H 11/25/18 18:55 33.9 C L 94 H 12 135/86 11/25/18 18:50 33.3 C L 93 H 12 106/90 11/25/18 18:45 33.3 C L 89 12 105/90 11/25/18 18:40 33.3 C L 91 H 12 134/114 H 11/25/18 18:35 33.2 C L 93 H 12 100/83 11/25/18 18:29 94 H 12 143/79 H Pulse Ox 11/26/18 03:00 96 11/26/18 02:30 97 11/26/18 02:07 98 11/26/18 02:00 98 11/26/18 01:30 98 11/26/18 01:00 99 11/26/18 00:30 99 11/26/18 00:00 98 11/25/18 23:50 99 11/25/18 23:30 99 11/25/18 23:00 100 11/25/18 22:00 100 11/25/18 21:33 100 11/25/18 21:31 100 11/25/18 21:30 100 11/25/18 21:00 100 11/25/18 20:02 100 11/25/18 20:00 100 11/25/18 19:45 100 11/25/18 19:30 100 11/25/18 19:25 100 11/25/18 19:15 100 11/25/18 19:14 100 11/25/18 18:55 100 11/25/18 18:50 100 11/25/18 18:45 100 11/25/18 18:40 98 11/25/18 18:35 90 11/25/18 18:29 98 (1) Esophageal tear Encounter type: initial encounter Qualified Code(s): S11.21XA - Laceration without foreign body of pharynx and cervical esophagus, initial encounter
[2018-11-26 03:54] LABS: Hematocrit (blood only) 30.8 % (37-47); Hemoglobin 10.6 g/dL (12.0-16.0); Mean Corpuscular Hgb Conc 34.4 g/dL (32-36); Mean Corpuscular Volume 84.6 fL (80-100); Mean Platelet Volume 9.9 fL (7.4-10.4); Platelet Count 148 K/uL (130-400); RDW Coefficient of Variation 13.6 % (11.5-14.5); Red Blood Count 3.64 M/uL (4.2-5.4); White Blood Count 6.98 K/uL (4.8-10.8)
[2018-11-26 04:14] LABS: BUN Creatinine Ratio 19.2 (10-20); Calcium 8.4 mg/dl (8.5-10.1); Creatinine Clr Calc Pharmacy 71.5 ml/min; Est GFR (African American) 101.6; Est GFR (Non-African American) 87.6; Phosphorus 1.4 mg/dl (2.5-4.9); Potassium 3.6 mmol/L (3.5-5.1)
[2018-11-26 04:15] LABS: Immature Granulocytes # (auto) 0.01 K/uL (0.00-0.02); Immature Granulocytes % (auto) 0.1 %; Lymphocytes # (auto) 0.36 K/uL (1.2-3.4); Lymphocytes % (auto) 5.2 %; Monocytes # (auto) 0.76 K/uL (0.11-0.59); Monocytes % (auto) 10.9 %; Neutrophils # (auto) 5.85 K/uL (1.4-6.5); Neutrophils % (auto) 83.8 %
[2018-11-26] MEDS ORDERED: POTASSIUM PHOS 3 MMOL/1 ML INFUSION IV STA (04:27)
--- NOTE | 2018-11-26 04:56 | Consultation Report ---
DATE OF CONSULTATION: 11/25/2018 INTRAOPERATIVE CONSULT INDICATION AND REASON FOR CONSULT: Dr. Oconnell admitted and operated on this very nice 72-year-old female electively today on 11/25/2018. During a routine procedure when he noticed that the tip of the bougie which had been inserted had perforated the distal esophagus on the left lateral side. I was asked to come in and help repair this. The patient was hemodynamically stable when I arrived in the operating room. I scrubbed in to help Dr. Oconnell. It is a very complicated case. I attempted to place an esophageal stent which was not successful. We ended up having to open the abdomen and via laparotomy repair this distal esophageal perforation and do a patch with the gastric fundus. Dr. Oconnell also placed a gastrostomy tube and a feeding tube. After the procedure, I went out and spoke to the patient's in detail about the issues which are risen. He will speak to Dr. Oconnell later when the case is completed. I explained to him this is a serious development and we will be watching her very closely. For details of this operative report, please refer to my operative note.
[2018-11-26] MEDS ORDERED: POTASSIUM PHOSPHATE 9 MMOL in SODIUM CHLORIDE 0.9% 250 ML IV ONE (05:00)
--- NOTE | 2018-11-26 05:27 | Operative Report ---
DATE OF OPERATION: 11/25/2018 PREOPERATIVE DIAGNOSIS: Intraoperative perforation of distal esophagus. POSTOPERATIVE DIAGNOSIS: Intraoperative perforation of distal esophagus. PROCEDURE PERFORMED: 1. Attempted repair of distal esophageal perforation laparoscopically. 2. Upper endoscopy with attempted esophageal stent placement. 3. Laparotomy with repair of the distal esophageal perforation and a gastric patch using the fundus. ANESTHESIA: General anesthesia, endotracheal intubation. SURGEON: Juan Alfaro MD. COSURGEON: Dr. Oconnell. KNAPSACK SPRAYER SURGEON: Kane Barajas PA-C INDICATION FOR PROCEDURE AND FINDINGS: Very nice 72-year-old female with a very large hiatal hernia which was becoming more symptomatic and also has multiple sclerosis who was scheduled for elective laparoscopic repair. Dr. Oconnell brought his patient to the operating room and began his operation on 11/25/2018. However, he noticed after a rather routine surgery that the tip of the bougie had perforated the distal esophagus on the left side laterally. He called me to come in. Canceling rest my office hours, I then presented to the operating room and could see the bougie quite easily. I then attempted to repair this perforation by using an EndoStitch with Ti-Cron suture and it appeared we put in a few sutures and I did not see evidence of an air leak. I then performed an upper endoscopy while Dr. Oconnell closed the laparoscopic incisions. We attempted to place an NG tube aided by the gastroscope, however, I did not like the way it is felt and I pulled it back out. Upon replacing the gastroscope and looking down into the distal esophagus, I was not happy with the site of the repair. It was leaking. For this reason, we re-repaired this area. We felt an esophageal stent would be helpful and placed a guidewire through the esophagoscope without difficulty into the stomach. It should be noted I could pass the esophagoscope easily into the stomach. I then selected a Cook 20 mm x 125 mm partially covered stent. I then using fluoroscopy, we marked the proximal and distal aspects of the repair and then over the guidewire, I inserted the stent. I was not happy with the way this felt. I had holdup at the area of the repair. I manipulated this several minutes and then stopped. At this point, Dr. Oconnell had already closed the abdomen. I was very concerned about this, I asked Dr. Oconnell to reinsert the laparoscopes and he did and we did not see evidence of any perforation. I was concerned in the way it felt however, We elected to remove the stent which we had not been deployed and put the gastroscope down again, and we did not see evidence of an obvious perforation. We still felt strongly that a stent would be helpful in this case, so again I put the stent in, at this time it felt the same but I felt we were in place under fluoroscopy. Stent was then deployed. Upon placing the esophagoscope back it was apparent that we had injured the repair of the esophagus. For this reason, we decided at this point to simply open the abdomen and repair this perforation.. An upper midline incision was performed. Upon going in, we did not see any evidence of any bleeding. Did not have obvious soiling of the peritoneal cavity and the stomach looked quite good. Just at the GE junction, the tip of the stent was seen. This was removed and upon evaluating the perforation, I was quite concerned. I then repaired this using several 3-0 interrupted Vicryl sutures in a transverse fashion. At this point, Dr. Oconnell was at the head of the table with the gastroscope and would insufflate air and we repaired all the holes we could see to finally there was no leaking. The gastroscope easily passed through this. I then used a 3-0 silk and sutured the gastric fundus to the esophagus and the anterior crural rim. I did this in 3 separate sutures. This covered the repair quite nicely with the gastric fundus. Esophagoscopy looked quite good. Dr. Oconnell then completed the case and inserted a gastrostomy tube with a feeding tube. We did not lose much blood, but this is a very long case and was quite difficult. I had a long discussion with the patient's afterwards. I attest to the content of the Intraoperative Record and any orders documented therein. Any exceptions are noted below. RAGHU
[2018-11-26] MEDS: LACTATED RINGER'S 1,000 ML IV SCH ×3 (05:28→16:49)
[2018-11-26 05:29] LABS: iSTAT Arterial Blood Gas HCO3 20 meg/L (19-24); iSTAT Arterial Blood Gas pCO2 35 mmHg (35-46); iSTAT Arterial Blood Gas pH 7.36 (7.35-7.45); iSTAT Carbon Dioxide 21 mEq/l (24-31); iSTAT FiO2 30 %; iSTAT Site Art Line
--- NOTE | 2018-11-26 06:27 | Critical Care Progress Note ---
Date of Service November 26, 2018 Results & Data Vital Signs (Past 12 Hours) Vital Signs Temp Pulse Pulse Resp BP BP BP 11/26/18 05:04 96 H 12 11/26/18 03:00 88 145/67 H 11/26/18 02:30 85 11/26/18 02:07 84 12 11/26/18 02:00 85 11/26/18 01:30 86 11/26/18 01:00 85 11/26/18 00:30 84 11/26/18 00:00 80 156/76 H 11/25/18 23:50 79 14 11/25/18 23:30 83 11/25/18 23:00 82 11/25/18 22:00 86 11/25/18 21:33 89 12 11/25/18 21:31 87 11/25/18 21:30 88 11/25/18 21:00 87 162/75 H 11/25/18 20:02 91 H 166/71 H 11/25/18 20:00 34.7 C L 91 H 90 17 166/71 H 11/25/18 19:45 93 H 11/25/18 19:30 95 H 11/25/18 19:25 95 H 135/86 11/25/18 19:15 98 H 11/25/18 19:14 98 H 11/25/18 18:55 33.9 C L 94 H 12 135/86 11/25/18 18:50 33.3 C L 93 H 12 106/90 11/25/18 18:45 33.3 C L 89 12 105/90 11/25/18 18:40 33.3 C L 91 H 12 134/114 H 11/25/18 18:35 33.2 C L 93 H 12 100/83 11/25/18 18:29 94 H 12 143/79 H Pulse Ox 11/26/18 05:04 96 11/26/18 03:00 96 11/26/18 02:30 97 11/26/18 02:07 98 11/26/18 02:00 98 11/26/18 01:30 98 11/26/18 01:00 99 11/26/18 00:30 99 11/26/18 00:00 98 11/25/18 23:50 99 11/25/18 23:30 99 04/18/19 23:00 100 11/25/18 22:00 100 11/25/18 21:33 100 11/25/18 21:31 100 11/25/18 21:30 100 11/25/18 21:00 100 11/25/18 20:02 100 11/25/18 20:00 100 11/25/18 19:45 100 11/25/18 19:30 100 11/25/18 19:25 100 11/25/18 19:15 100 11/25/18 19:14 100 11/25/18 18:55 100 11/25/18 18:50 100 11/25/18 18:45 100 11/25/18 18:40 98 11/25/18 18:35 90 11/25/18 18:29 98
[2018-11-26 06:34] LABS: Estimated Average Glucose 114 mg/dl; Hemoglobin A1C 5.6 % (4.5-5.6)
--- NOTE | 2018-11-26 06:48 | XRay Report ---
XR chest 1V portable CLINICAL HISTORY: f/u dyspnea COMPARISON STUDY: 11/25/2018 FINDINGS: Endotracheal tube is 4 cm above the jose antonio. Subcutaneous emphysema is improved. Mild stable cardiomegaly. Lungs remain grossly clear. IMPRESSION: 1. Endotracheal tube 4 cm above the jose antonio. 2. Improving subcutaneous emphysema. 3. Lungs are considered generally clear. The above report was generated using voice recognition software. It may contain grammatical, syntax or spelling errors. Electronically signed by: Natanael Mobley M.D. 11/26/2018 6:47 AM
[2018-11-26] MEDS: FLUCONAZOLE 200 MG/100 ML BAG IV SCH ×4 (08:53→13:10)
[2018-11-26] MEDS ORDERED: INSULIN ASPART 100 UNITS/ML 3 ML PEN SC SCH (09:00)
[2018-11-26] MEDS: HEPARIN SOD 5,000 UNIT/0.5 ML VIAL SQ SCH ×2 (09:01→20:25)
--- NOTE | 2018-11-26 09:09 | Pharmacy Report ---
Pharmacy Glycemic Short Note 2 - Date of Service November 26, 2018 - Glycemic Short BSG Results (Last 24 hours): 11/25/18 11/25/18 11/25/18 16:19 19:43 21:24 Glucose 286 H POC Glucose 233 H POC Glucose (other) 215 H 11/25/18 11/26/18 11/26/18 22:53 00:16 01:18 Glucose POC Glucose 299 H 257 H 254 H POC Glucose (other) 11/26/18 11/26/18 11/26/18 02:25 03:27 03:41 Glucose 173 H POC Glucose 226 H 178 H POC Glucose (other) 11/26/18 11/26/18 11/26/18 04:18 05:12 06:26 Glucose POC Glucose 169 H 190 H 158 H POC Glucose (other) 11/26/18 11/26/18 11/26/18 07:11 08:15 08:33 Glucose POC Glucose 142 H 100 H 96 POC Glucose (other) 11/26/18 08:51 Glucose POC Glucose 98 POC Glucose (other) OUTPATIENT ANTIDIABETIC REGIMEN: * N/A (no home medications for DM) * A1c = 5.6% 11/26/18 ASSESSMENT: * Non-diabetic admitted to ICU following procedure for hiatal hernia with subsequent esophageal tear * Pt was on vent this AM but is now extubated * Insulin drip was required overnight due to BSGs in upper 200s but as of this AM BSG dropped to upper 90's and drip was placed on hold * Upon chart review, it appears that patient was possibly given dexamethasone IV in the OR (anesthesia does not chart electronically and dexamethasone was dispensed in the OR for this patient). Written anesthesia record not currently available for review. * I suspect pt was given steroids in OR and that this combined with surgical stressors and [facility] ventilation led to hyperglycemia post-op requiring IV insulin drip. * Tube feeds may be initiated later today * Will transition patient off the insulin drip this AM. Will use low doses of insulin as stressors lessening at this point. Doses will be based on weight and low stress level. PLAN FOR INPATIENT GLYCEMIC CONTROL: * DC insulin drip at this time * Basal insulin * Lantus 7 units SQ x 1 this AM, then BID per the following scale: * 0 units if BSG less than 140 * 7 units if BSG 140-200 * 10 units if BSG above 200 * Bolus insulin * NovoLog per scale Q 4 hrs initially * Goal Range: Low 120 mg/dL - High 150 mg/dL * Correction Factor: 25 mg/dL/unit * Nutritional / Prandial insulin per carb ratio of 1 unit per 15 grams CHO consumed PLAN FOR DISCHARGE: * most likely will not require therapy on discharge as acute stressors are causing insulin resistance in a non-diabetic.
[2018-11-26 09:45] LABS: INR 1.1 (0.9-1.1); Partial Thromboplastin Time 27.6 Seconds (21.0-31.0); Prothrombin Time 10.8 Seconds (9.0-12.0)
[2018-11-26] MEDS ORDERED: INSULIN GLARGINE SOLOSTAR 100 UNITS/ML 3 ML PEN SC SCH (10:00)
--- NOTE | 2018-11-26 12:08 | Surgery Progress Note ---
Date of Service November 26, 2018 Assessment & Plan (1) Esophageal tear: POD 1 doing ok so far continue antibiotics would NOT use feeding tube yet....keep G-tube to suction supportive care. pending how she's doing clinically may consider doing leak test early to mid next week. Subjective pt doing ok. extubated without issue this AM. still sedate. opens eyes but cannot answer questions yet. Physical Exam Physical Exam: VSS. comfortable/resting. drain with scant/serous output G-tube putting out bile/acid good respiratory effort. Results & Data Vital Signs (Past 12 Hours) Vital Signs Temp Pulse Resp BP Pulse Ox 11/26/18 08:13 89 11 L 95 11/26/18 07:34 95 H 12 95 11/26/18 07:00 38 C H 94 H 12 138/61 95 11/26/18 06:30 92 H 95 11/26/18 06:00 85 96 11/26/18 05:30 96 H 96 11/26/18 05:04 96 H 12 96 11/26/18 05:00 96 H 96 11/26/18 04:54 97 H 96 11/26/18 04:31 88 96 11/26/18 04:00 87 96 11/26/18 03:30 86 95 11/26/18 03:00 88 145/67 H 96 11/26/18 02:30 85 97 11/26/18 02:07 84 12 98 11/26/18 02:00 85 98 11/26/18 01:30 86 98 11/26/18 01:00 85 99 11/26/18 00:30 84 99 (1) Esophageal tear Encounter type: initial encounter Qualified Code(s): S11.21XA - Laceration wi thout foreign body of pharynx and cervical esophagus, initial encounter
[2018-11-26] MEDS: INSULIN ASPART 100 UNITS/ML 3 ML PEN SC SCH ×3 (12:34→19:46)
[2018-11-26] MEDS ORDERED: ACETAMINOPHEN 1,000 MG/100 ML VIAL IV STA (18:23)
[2018-11-26] MEDS: INSULIN GLARGINE SOLOSTAR 100 UNITS/ML 3 ML PEN SC SCH (20:25)
--- NOTE | 2018-11-26 21:22 | Progress Note ---
DATE: 11/26/2018 Ms. Farooq was seen today on 11/26/2018. She is now extubated. I am a bit concerned about her interactions neurologically; however, her was present at the bedside in the afternoon and states that this has not surprised him at all due to her multiple sclerosis. She is making good urine. Quite pleased with her vital signs. She is not draining much from her stomach. She has put out very good urine. She put out about 195 mL through the [place] drain and put out 250 total from her gastrostomy tube. Her extremities are warm. She is moving air well. White count 6980 with a hemoglobin of 10.6. She is currently on 3 liters with good saturations. She does move all extremities and does respond to stimuli, but I am still concerned about her neurologically. ASSESSMENT AND PLAN: Postoperative day #1, status post complicated repair of esophageal perforation, distal esophagus. The patient certainly does not appear to have any evidence of ongoing sepsis. I would be very concerned about her temperature elevation, but we will continue to watch. I was pleased with her x-ray today.
[2018-11-26 23:50] LABS: Appearance Urine Clear (Clear); Bilirubin Urine Negative (Negative); Blood Urine Negative (Negative); Color Urine Yellow; Glucose Urine UA Negative (Negative); Ketones Urine Negative (Negative); Leukocyte Esterase Urine Negative (Negative); Nitrite Urine Negative (Negative); Protein Urine Negative (Negative); Specific Gravity Urine 1.011 (1.000-1.030); Urobilinogen Urine Negative (Negative); pH Urine 6.5 (4.5-7.5)
[2018-11-27] MEDS: LACTATED RINGER'S 1,000 ML IV SCH ×2 (01:21→08:28)
[2018-11-27] MEDS: HYDROmorphone INJ 0.5 MG/0.5 ML SYR IV PRN ×3 (01:21→18:22)
[2018-11-27] MEDS: INSULIN ASPART 100 UNITS/ML 3 ML PEN SC SCH ×5 (01:21→17:20)
[2018-11-27] MEDS: PIPERACILLIN/TAZOBACTAM 3.375 GM in DEXTROSE 5% 100 ML IV SCH ×3 (02:34→20:50)
[2018-11-27 04:19] LABS: Eosinophils # (auto) 0.01 K/uL (0-0.5); Eosinophils % (auto) 0.1 %; Hematocrit (blood only) 31.6 % (37-47); Hemoglobin 10.5 g/dL (12.0-16.0); Immature Granulocytes # (auto) 0.02 K/uL (0.00-0.02); Immature Granulocytes % (auto) 0.2 %; Lymphocytes # (auto) 1.18 K/uL (1.2-3.4); Lymphocytes % (auto) 12.2 %; Mean Corpuscular Hgb Conc 33.2 g/dL (32-36); Mean Corpuscular Volume 86.8 fL (80-100); Mean Platelet Volume 10.8 fL (7.4-10.4); Monocytes # (auto) 0.98 K/uL (0.11-0.59); Monocytes % (auto) 10.1 %; Neutrophils % (auto) 77.4 %; Platelet Count 138 K/uL (130-400); RDW Standard Deviation 44.8 fL (36.4-46.3); Red Blood Count 3.64 M/uL (4.2-5.4); White Blood Count 9.69 K/uL (4.8-10.8)
[2018-11-27 04:39] LABS: BUN Creatinine Ratio 18.8 (10-20); Calcium 8.4 mg/dl (8.5-10.1); Creatinine Clr Calc Pharmacy 113.9 ml/min; Est GFR (African American) 117.9; Est GFR (Non-African American) 101.7; Magnesium 1.9 mg/dl (1.8-2.4); Potassium 3.2 mmol/L (3.5-5.1)
[2018-11-27 04:40] LABS: Phosphorus 1.8 mg/dl (2.5-4.9)
[2018-11-27] MEDS ORDERED: POTASSIUM PHOS 3 MMOL/1 ML INFUSION IV STA ×2 (05:10→13:56)
[2018-11-27] MEDS ORDERED: POTASSIUM PHOSPHATE 9 MMOL in SODIUM CHLORIDE 0.9% 250 ML IV ONE (05:15)
[2018-11-27] MEDS: POTASSIUM CHLORIDE / WTR 10 MEQ/100 ML PLCT IV SCH ×2 (05:57→07:11)
--- NOTE | 2018-11-27 06:26 | Critical Care Progress Note ---
Date of Service November 27, 2018 Assessment & Plan (1) Esophageal tear: Reason Critically Ill: 72-year-old female presents to ICU postoperatively from initial hiatal hernia repair complicated by esophageal perforation requiring open buttress with fundus patch. Left intubated and sedated postop. Neuro - Altered Mental Status Cardiac - Tachycardic with rates up to the 160s and hypertensive this morning. Irregularly irregular this morning indicating diagnosis of Afib with RVR - Treated with one time doses of Lopressor IV and Amiodarone which provided rate control, patient currently in afib with rates in the 70s. - Workup this morning included TSH which was normal and ECG which did not indicate any ischemia. - Currently hemodynamically stable, will continue to monitor on telemetry, and continuous monitoring with erick Respiratory - Was extubated on 11/26 and currently on NC supplemental O2, maintaining appropriate O2 sats. GI - Hiatal hernia repair/esophageal perforationhiatal hernia repair complicated with esophageal perforation, attempted laparoscopic repair with stent un successful, required open repair with fundus patch -G/J-tube inserted intraoperatively, gastric port to low intermittent suction -N.p.o. -Follow-up GI recs GERDcontinue home meds when appropriate Renal/lytes- Hypokalemia3.2 today - Continue with routine BMPs, treat appropriately Creatinine stable - Albright in placestrict I's and O's Endo - ICU hyperglycemic protocol Heme - Hemoglobin stable, no signs of bleeding ID - Empiric Zosyn and Fluconazole - has been febrile, treating with Yylenol IV Lines - Peripheral IVs, ETT, G/J-tube, Albright, erick DVT Ppx - SCDs, holding anticoagulation per recent surgery Subjective Caveat: History Limited by - Altered Mental Status Suzie only able to verbally state her name this morning. Is sleepy but easily arousable. Review of Systems Review of Systems: Other (Caveat: Unobtainable - Altered Mental Status) Physical Exam Constitutional: WD/WN, vitals as above no acute distress Eyes: opens eyes to voice but does not follow commands to follow finger for EOM testing Neck: normal visual inspection and trachea midline Respiratory: normal respiratory effort, lungs clear to auscultation Cardiovascular: Rate/Rhythm: + tachycardic and + irregularly irregular Gastrointestinal (Abdomen): Inspection/Auscultation: normal bowel sounds Percussion/Palpation: abdomen soft dressing in place, intact, dry. Musculoskeletal: Head/Neck/Chest: normocephalic Skin: no rashes, warm and dry Neurologic: moves all extremities Psychiatric: opens eyes to voice, answers her first name only for orientation to person, is sleepy but responds to stimulus, does smile, but then will fall back asleep. Results & Data Vital Signs (Past 12 Hours) Vital Signs Temp Pulse Pulse Resp BP Pulse Ox 11/27/18 06:00 37.9 C H 97 H 20 144/82 H 94 11/27/18 05:00 37.7 C H 100 H 20 155/79 H 92 11/27/18 04:00 37.7 C H 90 20 142/89 H 95 11/27/18 03:00 36.7 C 91 H 18 132/85 96 11/27/18 02:00 37.6 C H 85 20 128/79 94 11/27/18 01:00 37.7 C H 89 20 128/89 95 11/27/18 00:00 37.8 C H 87 20 132/78 95 11/26/18 23:00 37.8 C H 87 20 123/75 95 11/26/18 22:00 38.3 C H 88 20 133/73 93 11/26/18 21:00 38.3 C H 89 22 126/85 93 11/26/18 20:00 38.5 C H 99 H 22 147/93 H 97 11/26/18 19:00 38.5 C H 105 H 91 Resident Activity Tracking Resident Involvement: Resident Care Provided Care Provided: Adult Hospital Medicine (ICU) (1) Esophageal tear Encounter type: initial encounter Qualified Code(s): S11.21XA - Laceration without foreign body of pharynx and cervical esophagus, initial encounter
--- NOTE | 2018-11-27 07:32 | XRay Report ---
XR chest 1V portable CLINICAL HISTORY: Respiratory failure. Follow-up study. COMPARISON STUDY: 11/26/2018 FINDINGS: The heart remains enlarged. There is been interval removal of the endotracheal tube. There is developing bibasilar atelectasis/consolidation left worse than right. Trace pleural effusions are suspected.[ IMPRESSION: 1. Interval removal of the endotracheal tube 2. Interval development of bibasilar atelectasis/consolidation. 3. Suspected trace pleural effusions Electronically signed by: Justin Graff M.D. 11/27/2018 7:31 AM
[2018-11-27] MEDS ORDERED: METOPROLOL TARTRATE 1 MG/ML VIAL IV STA ×3 (08:10→10:59)
[2018-11-27] MEDS ORDERED: AMIODARONE IV BOLUS / DRIP IV STA (08:35)
[2018-11-27] MEDS ORDERED: AMIODARONE / D5W 150 MG/100 ML BAG IV STA (08:35)
[2018-11-27] MEDS ORDERED: AMIODARONE 150MG / 100ML D5W IV ONE (08:38)
[2018-11-27] MEDS ORDERED: AMIODARONE / D5W 360 MG/200 ML BAG IV SCH (08:45)
--- NOTE | 2018-11-27 08:48 | Surgery Progress Note ---
Date of Service November 27, 2018 Assessment & Plan (1) Esophageal tear: POD 2 now in a-fib +febrile. still with good BP and good urine OP agree with adding diflucan would check cortisol level too continue antibiotics/supportive care ICU team attempting conversion of afib would hold on TF's for now Subjective pod 2. pt awake but appears somnolent. difficult to obtain any interaction currently. Physical Exam Physical Exam: wound looks good ALDEN scant/serous G-tube with 500 cc bilious. Results & Data Vital Signs (Past 12 Hours) Vital Signs Temp Pulse Pulse Resp BP BP Pulse Ox 11/27/18 08:41 155 H 129/95 11/27/18 08:24 160 H 157/110 H 11/27/18 06:00 37.9 C H 97 H 20 144/82 H 94 11/27/18 05:00 37.7 C H 100 H 20 155/79 H 92 11/27/18 04:00 37.7 C H 90 20 142/89 H 95 11/27/18 03:00 36.7 C 91 H 18 132/85 96 11/27/18 02:00 37.6 C H 85 20 128/79 94 11/27/18 01:00 37.7 C H 89 20 128/89 95 11/27/18 00:00 37.8 C H 87 20 132/78 95 11/26/18 23:00 37.8 C H 87 20 123/75 95 11/26/18 22:00 38.3 C H 88 20 133/73 93 11/26/18 21:00 38.3 C H 89 22 126/85 93 (1) Esophageal tear Encounter type: initial encounter Qualified Code(s): S11.21XA - Laceration without foreign body of pharynx and cervical esophagus, initial encounter
[2018-11-27] MEDS: HEPARIN SOD 5,000 UNIT/0.5 ML VIAL SQ SCH ×2 (08:55→20:51)
[2018-11-27] MEDS: INSULIN GLARGINE SOLOSTAR 100 UNITS/ML 3 ML PEN SC SCH ×2 (08:55→21:12)
--- NOTE | 2018-11-27 09:45 | Surgery Progress Note ---
Date of Service November 27, 2018 Assessment & Plan (1) Esophageal tear: POD #2 surgical repair -discussed with Dr. Oconnell: -G-tube to remain on suction and not to be use for tube feeds yet -case discussed with np: -beta-blockers have been initiated for rapid a-fib -broad spectrum antibiotics are in place (zosyn); anti-fungals added, blood cultures sent and are pending -leukocytosis not noted -CXR shows bibasilar atlectasis -will discuss plans for nutrition as well as DVT prevention with np Subjective Pt. does not verbalize, however will nod her head at time when asked questions. Discussed with RN--pt. noted to be hemodynamically stable, but febrile. She has developed a-fib with RVR. Pt. has passed flatus but no BM. G tube has put out about 500 cc fluid last 12 hours. Physical Exam Constitutional: no acute distress Respiratory: BS are present bilaterally but decreased at bases. No wheezing or use of accessory muscles. Cardiovascular: IRR--rapid a-fib noted on monitor Gastrointestinal (Abdomen): Abdomen is soft and tender to palpation. Bowel sounds not present. Results & Data Vital Signs (Past 12 Hours) Vital Signs Temp Pulse Pulse Resp BP BP Pulse Ox 11/27/18 08:41 155 H 129/95 11/27/18 08:24 160 H 157/110 H 11/27/18 06:00 37.9 C H 97 H 20 144/82 H 94 11/27/18 05:00 37.7 C H 100 H 20 155/79 H 92 11/27/18 04:00 37.7 C H 90 20 142/89 H 95 11/27/18 03:00 36.7 C 91 H 18 132/85 96 11/27/18 02:00 37.6 C H 85 20 128/79 94 11/27/18 01:00 37.7 C H 89 20 128/89 95 11/27/18 00:00 37.8 C H 87 20 132/78 95 11/26/18 23:00 37.8 C H 87 20 123/75 95 11/26/18 22:00 38.3 C H 88 20 133/73 93 (1) Esophageal tear Encounter type: initial encounter Qualified Code(s): S11.21XA - Laceration without foreign body of pharynx and cervical esophagus, initial encounter
[2018-11-27] MEDS: FLUCONAZOLE 200 MG/100 ML BAG IV SCH ×2 (10:37→11:49)
[2018-11-27] MEDS ORDERED: METOPROLOL TARTRATE 1 MG/ML VIAL IV ONE (11:00)
[2018-11-27] MEDS ORDERED: POTASSIUM PHOSPHATE 21 MMOL in SODIUM CHLORIDE 0.9% 500 ML IV ONE (14:45)
[2018-11-27] MEDS ORDERED: ACETAMINOPHEN 1,000 MG/100 ML VIAL IV STA (14:59)
[2018-11-27] MEDS: AMIODARONE / D5W 360 MG/200 ML BAG IV SCH (15:04)
[2018-11-27] MEDS: NORMOSOL-R 1,000 ML IV SCH (15:04)
--- NOTE | 2018-11-27 17:04 | Anesthesiology Progress Note ---
Date of Service November 27, 2018 Anesthesia Post Procedure Vital Signs Vital Signs: Temp Pulse Pulse Resp BP BP Pulse Ox 11/27/18 13:00 38.3 C H 76 140/82 94 11/27/18 12:00 38.4 C H 78 139/93 95 11/27/18 11:07 150 H 131/87 11/27/18 11:00 38.4 C H 151 H 131/87 95 11/27/18 10:00 38.4 C H 130 H 132/103 H 95 11/27/18 09:00 38.2 C H 128 H 127/92 91 11/27/18 08:41 155 H 129/95 11/27/18 08:24 160 H 157/110 H 11/27/18 08:00 38 C H 99 H 158/89 H 95 11/27/18 07:00 38 C H 97 H 135/93 98 11/27/18 06:00 37.9 C H 97 H 20 144/82 H 94 11/27/18 05:00 37.7 C H 100 H 20 155/79 H 92 11/27/18 04:00 37.7 C H 90 20 142/89 H 95 11/27/18 03:00 36.7 C 91 H 18 132/85 96 11/27/18 02:00 37.6 C H 85 20 128/79 94 11/27/18 01:00 37.7 C H 89 20 128/89 95 11/27/18 00:00 37.8 C H 87 20 132/78 95 11/26/18 23:00 37.8 C H 87 20 123/75 95 11/26/18 22:00 38.3 C H 88 20 133/73 93 11/26/18 21:00 38.3 C H 89 22 126/85 93 11/26/18 20:00 38.5 C H 99 H 22 147/93 H 97 11/26/18 19:00 38.5 C H 105 H 91 11/26/18 18:01 38.4 C H 103 H 186/119 H 93 11/26/18 18:00 38.4 C H 98 H 93 Notes Mental Status: alert / awake / arousable (patient awake and resting in bed. Will nod to questions.) and see notes below Pain: adequately controlled Airway Patency, RR, SpO2: stable & adequate (SpO2 96% on 3L O2 nasal cannula) BP & HR: stable & adequate (currently on IV amiodarone maintenance dose. Hemodynamics stable. HR 70s, BP 156/87. Pt is Febrile 37.9 C) Hydration State: stable & adequate Notes: Pt awake/resting in bed. Will nod to questions. Currently on IV Amiodarone maintenance dose for recent onset Afib. Hemodynamics stable with HRs 70s, BP- 156/87. Febrile 37.9 C. Currently receiving Zosyn and Fluconazole
[2018-11-28] MEDS: HYDROmorphone INJ 0.5 MG/0.5 ML SYR IV PRN ×3 (00:31→13:07)
[2018-11-28] MEDS: INSULIN ASPART 100 UNITS/ML 3 ML PEN SC SCH ×4 (00:31→18:22)
[2018-11-28] MEDS: PIPERACILLIN/TAZOBACTAM 3.375 GM in DEXTROSE 5% 100 ML IV SCH ×3 (02:17→19:35)
[2018-11-28] MEDS: NORMOSOL-R 1,000 ML IV SCH (02:18)
[2018-11-28] MEDS: AMIODARONE / D5W 360 MG/200 ML BAG IV SCH ×2 (02:18→14:49)
[2018-11-28 03:51] LABS: Basophils # (auto) 0.01 K/uL (0-0.2); Basophils % (auto) 0.1 %; Eosinophils # (auto) 0.04 K/uL (0-0.5); Eosinophils % (auto) 0.4 %; Hematocrit (blood only) 32.3 % (37-47); Hemoglobin 11.2 g/dL (12.0-16.0); Immature Granulocytes # (auto) 0.04 K/uL (0.00-0.02); Immature Granulocytes % (auto) 0.4 %; Lymphocytes % (auto) 9.7 %; Mean Corpuscular Hgb Conc 34.7 g/dL (32-36); Mean Corpuscular Volume 84.3 fL (80-100); Mean Platelet Volume 10.4 fL (7.4-10.4); Monocytes # (auto) 0.97 K/uL (0.11-0.59); Monocytes % (auto) 9.4 %; Neutrophils # (auto) 8.24 K/uL (1.4-6.5); Platelet Count 159 K/uL (130-400); RDW Coefficient of Variation 13.8 % (11.5-14.5); RDW Standard Deviation 42.4 fL (36.4-46.3); Red Blood Count 3.83 M/uL (4.2-5.4)
[2018-11-28 04:28] LABS: Albumin Level 2.4 gm/dl (3.4-5.0); BUN Creatinine Ratio 15.3 (10-20); Bilirubin,Total 0.6 mg/dl (0.2-1); Calcium 8.3 mg/dl (8.5-10.1); Est GFR (African American) 127.6; Est GFR (Non-African American) 110.1; Phosphorus 1.6 mg/dl (2.5-4.9); Potassium 3.2 mmol/L (3.5-5.1); Total Protein 5.2 gm/dl (6.4-8.2); Troponin I 0.021 ng/ml (0-0.045)
[2018-11-28] MEDS ORDERED: POTASSIUM PHOS 3 MMOL/1 ML INFUSION IV STA ×2 (06:00→10:32)
[2018-11-28] MEDS ORDERED: POTASSIUM PHOSPHATE 15 MMOL in SODIUM CHLORIDE 0.9% 250 ML IV ONE (06:15)
[2018-11-28] MEDS: POTASSIUM CHLORIDE / WTR 10 MEQ/100 ML PLCT IV SCH ×3 (06:39→08:56)
--- NOTE | 2018-11-28 07:47 | Surgery Progress Note ---
Date of Service November 28, 2018 Assessment & Plan (1) Esophageal tear: POD #3 surgical repair -case was discussed with Dr. Oconnell yesterday: -G-tube to remain on suction and not to be use for tube feeds -concrete rod buster managing numerous other issues: -amiodarone in place for a-fib -broad spectrum antibiotics are in place (zosyn); anti-fungals are in place -blood culture are (-) to date -CXR shows bilateral atelectasis and pleural effusio -there is no leukocytosis -TPN not felt to be needed yet -DVT prophylaxis with sub-q heparin in place Subjective Pt. does not verbalize, but will intermittently nod her head when asked direct questions. Physical Exam Respiratory: normal respiratory effort; no respiratory distress and no labored breathing BS noted to have decreased sound at bases Cardiovascular: IRR Gastrointestinal (Abdomen): -pain noted with palpation; BS are absent Musculoskeletal: pedal pulse are palpable Results & Data Vital Signs (Past 12 Hours) Vital Signs Temp Pulse Resp BP BP Pulse Ox 11/28/18 06:00 78 20 168/88 H 154/89 H 95 11/28/18 05:00 89 18 148/96 H 144/83 H 96 11/28/18 04:00 37.4 C 75 20 171/84 H 149/82 H 96 11/28/18 03:00 37.3 C 75 20 161/96 H 159/97 H 93 11/28/18 02:00 37.3 C 79 20 159/85 H 141/83 H 95 11/28/18 01:00 37.5 C 74 20 153/92 H 150/84 H 94 11/28/18 00:00 37.5 C 67 20 155/87 H 152/75 H 94 11/27/18 23:00 37.3 C 80 20 167/86 H 156/74 H 95 11/27/18 22:00 37.3 C 74 20 140/93 94 11/27/18 21:00 37.3 C 79 20 154/89 H 156/77 H 94 11/27/18 20:00 37.4 C 74 20 154/74 H 152/75 H 94 (1) Esophageal tear Encounter type: initial encounter Qualified Code(s): S11.21XA - Laceration without foreign body of pharynx and cervical esophagus, initial encounter
--- NOTE | 2018-11-28 07:49 | XRay Report ---
XR chest 1V portable HISTORY: Respiratory failure. COMPARISON: Chest 11/27/2018. FINDINGS: Interval progression of the pulmonary edema and moderate bilateral pleural effusions. There are low lung volumes. No pneumothorax. Old, healed right-sided rib fractures. Appears to be a surgic al drain within the upper abdomen. The heart remains enlarged. IMPRESSION: Interval progression of the pulmonary edema and moderate bilateral pleural effusions. Electronically signed by: Boo Gar M.D. 11/28/2018 7:48 AM
[2018-11-28] MEDS: HEPARIN SOD 5,000 UNIT/0.5 ML VIAL SQ SCH ×2 (08:03→20:19)
[2018-11-28] MEDS: INSULIN GLARGINE SOLOSTAR 100 UNITS/ML 3 ML PEN SC SCH (08:06)
--- NOTE | 2018-11-28 09:49 | Surgery Progress Note ---
Date of Service November 28, 2018 Assessment & Plan (1) Esophageal tear: POD 3 hemodynamically stable. converted from a-fib. HR 80's. good urine op. thoracic drain still serous only OOB today. hopefully will "wake up" soon and start becoming more oriented. fever curve improving. no leukocytosis. continue current care. may consider slowly starting tube feeds tomorrow. Subjective pt more awake however not able to respond/answer. appears comfortable. smiling. Physical Exam Physical Exam: wound c/d/i. no drainage. thoracic drain-pink/serous. G- tube in place putting out bilious/acidic fluid. NAD. Results & Data Vital Signs (Past 12 Hours) Vital Signs Temp Pulse Resp BP BP Pulse Ox 11/28/18 06:00 78 20 168/88 H 154/89 H 95 11/28/18 05:00 89 18 148/96 H 144/83 H 96 11/28/18 04:00 37.4 C 75 20 171/84 H 149/82 H 96 11/28/18 03:00 37.3 C 75 20 161/96 H 159/97 H 93 11/28/18 02:00 37.3 C 79 20 159/85 H 141/83 H 95 11/28/18 01:00 37.5 C 74 20 153/92 H 150/84 H 94 11/28/18 00:00 37.5 C 67 20 155/87 H 152/75 H 94 11/27/18 23:00 37.3 C 80 20 167/86 H 156/74 H 95 11/27/18 22:00 37.3 C 74 20 140/93 94 (1) Esophageal tear Encounter type: initial encounter Qualified Code(s): S11.21XA - Laceration without foreign body of pharynx and cervical esophagus, initial encounter
[2018-11-28] MEDS: FLUCONAZOLE 200 MG/100 ML BAG IV SCH ×2 (10:07→11:38)
[2018-11-28] MEDS ORDERED: POTASSIUM PHOSPHATE 40 MMOL in SODIUM CHLORIDE 0.9% 1000ML 1,000 ML IV ONE (10:45)
--- NOTE | 2018-11-28 10:45 | Critical Care Progress Note ---
Date of Service November 28, 2018 Assessment & Plan (1) Esophageal tear: Reason Critically Ill: 72-year-old female presents to ICU postoperatively from initial hiatal hernia repair complicated by esophageal perforation requiring open buttress with fundus patch. Neuro - Acute encephalopathy CAM ICU: Positive -Per report with prior hip replacement patient took 2 to 3 days to regain orientation Cardiac - Hypertension: Holding home amlodipinebenazepril: Will give when able to take oral medications Atrial fibrillation -We will discontinue IV fluid given positive fluid balance -Continue amiodarone infusion secondary to atrial irritability on bedside monitor HLD: We will restart statin when able to take p.o. Respiratory - Pleural effusion: Likely reactionary from systemic inflammatory response of surgery GI - Hiatal hernia repair/esophageal perforationhiatal hernia repair complicated with esophageal perforation, attempted laparoscopic repair with stent unsuccessful, required open repair with fundus patch -postop day 3 -N.p.o. -We will consider tube feeds tomorrow GERDcontinue home meds when appropriate RENAL/LYTES - [id number] Meq potassium acetate, 40 mmol potassium phosphate Optimize electrolytes -Fluid balance of 1800 mL's positive - Could discontinue Albright ENDO - Hyperglycemialikely reactionary: Normal hemoglobin A1c HEME - Acute blood loss anemia secondary to surgery ID - Esophageal perforation -Zosyn and Diflucan empiric treatment of 7 days LINES/IV ACCESS - Peripheral IVs, G/J-tube, Albright DVT PROPHYLAXIS - SCDs, heparin for chemical prophylaxis Continued ICU observation Case was discussed with Dr. Oconnell of general surgery (2) Hiatal hernia with GERD: (3) Hypertension: (4) Hyperlipidemia: Subjective Continued improvement of mental status pt more awake however not able to respond/answer. appears comfortable. smiling. Review of Systems Review of Systems: Unobtainable due to reduced consciousness Physical Exam Physical Exam: General: Alert. nontoxic. Skin: Warm, dry, incision clean dry and intact examined with general surgery Head: Atraumatic Ears, nose, mouth and throat: airway patent Cardiovascular: Normal peripheral perfusion Respiratory: no respiratory distress Gastrointestinal: Non distended bilious appearing fluid draining from Arvizu tube Musculoskeletal: No deformity Results & Data Vital Signs (Past 12 Hours) Vital Signs Temp Pulse Resp BP BP Pulse Ox 11/28/18 06:00 78 20 168/88 H 154/89 H 95 11/28/18 05:00 89 18 148/96 H 144/83 H 96 11/28/18 04:00 37.4 C 75 20 171/84 H 149/82 H 96 11/28/18 03:00 37.3 C 75 20 161/96 H 159/97 H 93 11/28/18 02:00 37.3 C 79 20 159/85 H 141/83 H 95 11/28/18 01:00 37.5 C 74 20 153/92 H 150/84 H 94 11/28/18 00:00 37.5 C 67 20 155/87 H 152/75 H 94 11/27/18 23:00 37.3 C 80 20 167/86 H 156/74 H 95 Laboratory Results 11/28/18 11/28/18 11/28/18 Range/Units 08:05 03:39 03:39 WBC 10.30 (4.8-10.8) K/uL RBC 3.83 L (4.2-5.4) M/uL Hgb 11.2 L (12.0-16.0) g/dL Hct 32.3 L (37-47) % MCV 84.3 (80-100) fL MCH 29.2 (25-34) pg MCHC 34.7 (32-36) g/dL RDW Std Deviation 42.4 (36.4-46.3) fL RDW Coeff of Tomas 13.8 (11.5-14.5) % Plt Count 159 (130-400) K/uL MPV 10.4 (7.4-10.4) fL Immature Gran % (Auto) 0.4 % Neut % (Auto) 80.0 % Lymph % (Auto) 9.7 % Blanco % (Auto) 9.4 % Eos % (Auto) 0.4 % Baso % (Auto) 0.1 % Immature Gran # (Auto) 0.04 H (0.00-0.02) K/uL Neut # (Auto) 8.24 H (1.4-6.5) K/uL Lymph # (Auto) 1.00 L (1.2-3.4) K/uL Blanco # (Auto) 0.97 H (0.11-0.59) K/uL Eos # (Auto) 0.04 (0-0.5) K/uL Baso # (Auto) 0.01 (0-0.2) K/uL Sodium 141 (136-145) mmol/L Potassium 3.2 L (3.5-5.1) mmol/L Chloride 109 H (98-107) mmol/L Carbon Dioxide 31 (21-32) mmol/L Anion Gap 1.0 L (3-11) BUN 5 L (7-18) mg/dl Creatinine 0.33 L (0.6-1.2) mg/dl Est Cr Clr Drug Dosing 145.0 ml/min Est GFR ( Amer) 127.6 Est GFR (Non-Af Amer) 110.1 BUN/Creatinine Ratio 15.3 (10-20) Glucose 104 H (70-99) mg/dl POC Glucose 105 H (70-99) Calcium 8.3 L (8.5-10.1) mg/dl Phosphorus 1.6 L (2.5-4.9) mg/dl Magnesium 2.0 (1.8-2.4) mg/dl Total Bilirubin 0.6 (0.2-1) mg/dl Direct Bilirubin (0-0.2) mg/dl AST 52 H (15-37) U/L ALT 61 (12-78) U/L Alkaline Phosphatase 57 (45-117) U/L Troponin I 0.021 (0-0.045) ng/ml Total Protein 5.2 L (6.4-8.2) gm/dl Albumin 2.4 L (3.4-5.0) gm/dl TSH (0.300-4.500) uIu/ml Random Cortisol mcg/dl Specimen Hemolysis 11/28/18 11/27/18 11/27/18 Range/Units 00:28 21:01 17:13 WBC (4.8-10.8) K/uL RBC (4.2-5.4) M/uL Hgb (12.0-16.0) g/dL Hct (37-47) % MCV (80-100) fL MCH (25-34) pg MCHC (32-36) g/dL RDW Std Deviation (36.4-46.3) fL RDW Coeff of Tomas (11.5-14.5) % Plt Count (130-400) K/uL MPV (7.4-10.4) fL Immature Gran % (Auto) % Neut % (Auto) % Lymph % (Auto) % Blanco % (Auto) % Eos % (Auto) % Baso % (Auto) % Immature Gran # (Auto) (0.00-0.02) K/uL Neut # (Auto) (1.4-6.5) K/uL Lymph # (Auto) (1.2-3.4) K/uL Blanco # (Auto) (0.11-0.59) K/uL Eos # (Auto) (0-0.5) K/uL Baso # (Auto) (0-0.2) K/uL Sodium (136-145) mmol/L Potassium (3.5-5.1) mmol/L Chloride (98-107) mmol/L Carbon Dioxide (21-32) mmol/L Anion Gap (3-11) BUN (7-18) mg/dl Creatinine (0.6-1.2) mg/dl Est Cr Clr Drug Dosing ml/min Est GFR ( Amer) Est GFR (Non-Af Amer) BUN/Creatinine Ratio (10-20) Glucose (70-99) mg/dl POC Glucose 98 84 91 (70-99) Calcium (8.5-10.1) mg/dl Phosphorus (2.5-4.9) mg/dl Magnesium (1.8-2.4) mg/dl Total Bilirubin (0.2-1) mg/dl Direct Bilirubin (0-0.2) mg/dl AST (15-37) U/L ALT (12-78) U/L Alkaline Phosphatase (45-117) U/L Troponin I (0-0.045) ng/ml Total Protein (6.4-8.2) gm/dl Albumin (3.4-5.0) gm/dl TSH (0.300-4.500) uIu/ml Random Cortisol mcg/dl Specimen Hemolysis 11/27/18 11/27/18 11/27/18 Range/Units 12:44 09:32 09:32 WBC (4.8-10.8) K/uL RBC (4.2-5.4) M/uL Hgb (12.0-16.0) g/dL Hct (37-47) % MCV (80-100) fL MCH (25-34) pg MCHC (32-36) g/dL RDW Std Deviation (36.4-46.3) fL RDW Coeff of Tomas (11.5-14.5) % Plt Count (130-400) K/uL MPV (7.4-10.4) fL Immature Gran % (Auto) % Neut % (Auto) % Lymph % (Auto) % Blanco % (Auto) % Eos % (Auto) % Baso % (Auto) % Immature Gran # (Auto) (0.00-0.02) K/uL Neut # (Auto) (1.4-6.5) K/uL Lymph # (Auto) (1.2-3.4) K/uL Blanco # (Auto) (0.11-0.59) K/uL Eos # (Auto) (0-0.5) K/uL Baso # (Auto) (0-0.2) K/uL Sodium (136-145) mmol/L Potassium (3.5-5.1) mmol/L Chloride (98-107) mmol/L Carbon Dioxide (21-32) mmol/L Anion Gap (3-11) BUN (7-18) mg/dl Creatinine (0.6-1.2) mg/dl Est Cr Clr Drug Dosing ml/min Est GFR ( Amer) Est GFR (Non-Af Amer) BUN/Creatinine Ratio (10-20) Glucose (70-99) mg/dl POC Glucose 110 H (70-99) Calcium (8.5-10.1) mg/dl Phosphorus (2.5-4.9) mg/dl Magnesium (1.8-2.4) mg/dl Total Bilirubin (0.2-1) mg/dl Direct Bilirubin (0-0.2) mg/dl AST (15-37) U/L ALT (12-78) U/L Alkaline Phosphatase (45-117) U/L Troponin I (0-0.045) ng/ml Total Protein (6.4-8.2) gm/dl Albumin (3.4-5.0) gm/dl TSH 3.060 (0.300-4.500) uIu/ml Random Cortisol 31.19 mcg/dl Specimen Hemolysis (1) Esophageal tear Encounter type: initial encounter Qualified Code(s): S11.21XA - Laceration without foreign body of pharynx and cervical esophagus, initial encounter
[2018-11-28] MEDS: POTASSIUM ACETATE 20 MEQ in 0.9 % SODIUM CHLORIDE 100 ML IV SCH ×3 (11:37→16:12)
--- NOTE | 2018-11-28 14:28 | Pharmacy Report ---
Pharmacy Glycemic Sign Off Nt - Date of Service November 28, 2018 - Assessment & Plan ASSESSMENT: * Pharmacy was consulted by Aaron Rahman PA-C on 11/25/18 for glycemic control and to write orders per [facility] inpatient glycemic control protocol. * Patient has been receiving/requiring 0 units of insulin per day for adequate glycemic control * BSGs ranging 87-110 mg/dl * Regimen has only required no adjustments over the past 48hrs to achieve this level of control * No insulin given past 2 days after initial insulin drip and Lantus 7 units x 1 dose on 11/26/18 * Do not anticipate further changes in patient status that would quickly deteriorate glycemic control (i.e. patient to be NPO for upcoming procedure, steroids tapering, starting tube feedings, etc). PLAN FOR INPATIENT GLYCEMIC CONTROL: No changes needed to current regimen. * Discontinued basal insulin with Lantus order * Continue NovoLog per scale ACHS/Q6hrs while NPO * Goal range = 110-140 mg/dl * CF = 30 mg/dl/unit * CR = 1 unit for ever 15 g CHO consumed * Pharmacy is signing off of glycemic consult and will no longer be making adjustments to inpatient regimen. Please feel free to re-consult if needed. Thank you.
[2018-11-28] MEDS: BETASERON SC SCH (18:10)
[2018-11-29] MEDS: HYDROmorphone INJ 0.5 MG/0.5 ML SYR IV PRN ×4 (00:33→20:04)
[2018-11-29] MEDS: INSULIN ASPART 100 UNITS/ML 3 ML PEN SC SCH ×4 (00:38→18:21)
[2018-11-29] MEDS: AMIODARONE / D5W 360 MG/200 ML BAG IV SCH ×2 (02:37→14:45)
[2018-11-29] MEDS: PIPERACILLIN/TAZOBACTAM 3.375 GM in DEXTROSE 5% 100 ML IV SCH ×3 (02:40→20:03)
[2018-11-29 05:15] LABS: Basophils # (auto) 0.02 K/uL (0-0.2); Basophils % (auto) 0.2 %; Eosinophils # (auto) 0.04 K/uL (0-0.5); Eosinophils % (auto) 0.4 %; Hematocrit (blood only) 35.2 % (37-47); Hemoglobin 11.9 g/dL (12.0-16.0); Immature Granulocytes # (auto) 0.02 K/uL (0.00-0.02); Immature Granulocytes % (auto) 0.2 %; Lymphocytes # (auto) 1.01 K/uL (1.2-3.4); Lymphocytes % (auto) 10.8 %; Mean Corpuscular Hgb Conc 33.8 g/dL (32-36); Mean Corpuscular Volume 86.3 fL (80-100); Mean Platelet Volume 10.2 fL (7.4-10.4); Monocytes # (auto) 1.12 K/uL (0.11-0.59); Monocytes % (auto) 11.9 %; Neutrophils # (auto) 7.18 K/uL (1.4-6.5); Neutrophils % (auto) 76.5 %; Platelet Count 194 K/uL (130-400); RDW Coefficient of Variation 13.8 % (11.5-14.5); RDW Standard Deviation 43.5 fL (36.4-46.3); Red Blood Count 4.08 M/uL (4.2-5.4); White Blood Count 9.39 K/uL (4.8-10.8)
--- NOTE | 2018-11-29 05:41 | Procedure Note ---
Procedure Note Date of Service November 29, 2018 Procedure: [employer] Indwelling Peripherally Inserted IV Catheter Placement Attending: Dr. Bray APC: Aaron Rahman PA-C Indication: Need for IV Access, Poor Vascular Access Anesthesia: None A time-out was completed verifying correct patient, procedure, site, positioning, and implant(s) or special equipment if applicable. Utilizing bedside ultrasound, vascularity of the LEFT upper extremity was assessed. Vessel size was noted for appropriate catheter selection and skin was marked with gentle pressure. Patients LEFT upper extremity was prepped and draped in the usual sterile fashion utilizing chlorhexidine. Ultrasound guidance was used to aid needle placement. A 22 g Endurance Catheter was introduced into the LEFT Forearm vein under direct ultrasound guidance. Guide wire was easily deployed without resistance. Catheter was threaded over the guide wire without resistance and the entire apparatus was removed intact. Good venous blood return was noted in the catheter. The IV catheter was easily flushed with sterile saline flush. Sterile clave was attached to the end of the catheter and good blood return was again noted. Tourniquet was released. StatLock device and sterile dressing were applied. The patient tolerated the procedure well. Blood Loss: Minimal Complications: None Procedural Ultrasound Guidance: Procedure Date: 11/29/2018 Indication: Poor Vascular Access Attending: Dr. Bray APC: Aaron Rahman PA-C Artery/Veins Identified: YES Access confirmed in Vein with ultrasound: YES Complications: NONE Patient tolerated procedure: WELL Coding
[2018-11-29 05:55] LABS: Albumin Level 2.4 gm/dl (3.4-5.0); BUN Creatinine Ratio 14.9 (10-20); Bilirubin,Total 0.8 mg/dl (0.2-1); Calcium 8.7 mg/dl (8.5-10.1); Creatinine Clr Calc Pharmacy 129.3 ml/min; Est GFR (African American) 122.9; Phosphorus 2.2 mg/dl (2.5-4.9); Total Protein 5.7 gm/dl (6.4-8.2)
--- NOTE | 2018-11-29 06:51 | XRay Report ---
XR chest 1V portable CLINICAL HISTORY: Abnormal chest x-ray. Follow-up study. COMPARISON STUDY: 11/28/2018 FINDINGS: The heart remains enlarged. There are decreasing bilateral pleural effusions. There is impr oving bilateral pulmonary edema. There is improving aeration of the lung bases. The surgical drain wi thin the upper abdomen.[ IMPRESSION: 1. Improving pulmonary edema. Decreasing bilateral pleural effusions, and improving aeration of the l champ bases. Electronically signed by: Justin Graff M.D. 11/29/2018 6:49 AM
[2018-11-29] MEDS: HEPARIN SOD 5,000 UNIT/0.5 ML VIAL SQ SCH ×2 (07:53→22:10)
[2018-11-29] MEDS: FLUCONAZOLE 200 MG/100 ML BAG IV SCH ×2 (09:38→10:38)
--- NOTE | 2018-11-29 12:56 | Surgery Progress Note ---
Date of Service November 29, 2018 Assessment & Plan (1) Esophageal tear: POD 4 clinically doing ok... delirium slowly improving d/w Dr. Alfaro. will plan leak test/swallow study once pt more awake will start tube feeds through jauregui tube slowly. ok to transfer to [facility]. will consult medicine. Subjective pt slightly more awake but still not answering questions. appears comfortable. at bedside. Physical Exam Physical Exam: awake/but disoriented. ALDEN serous G-tube: bilious wound looks good. appears comfortable. VSS afebrile. Results & Data Vital Signs (Past 12 Hours) Vital Signs Temp Pulse Pulse Resp BP BP BP 11/29/18 09:00 102 H 22 163/84 H 11/29/18 08:00 105 H 25 H 169/98 H 11/29/18 07:00 37.0 C 91 H 16 178/101 H 11/29/18 06:00 36.9 C 89 18 150/89 H 11/29/18 05:00 37.0 C 91 H 18 11/29/18 04:00 37.3 C 78 20 153/101 H 11/29/18 03:00 37.3 C 93 H 18 143/95 H 11/29/18 02:00 37.4 C 81 20 158/86 H 11/29/18 01:00 37.4 C 82 23 134/85 Pulse Ox 11/29/18 09:00 94 11/29/18 08:00 93 11/29/18 07:00 94 11/29/18 06:00 95 11/29/18 05:00 99 11/29/18 04:00 95 11/29/18 03:00 98 11/29/18 02:00 97 11/29/18 01:00 95 (1) Esophageal tear Encounter type: initial encounter Qualified Code(s): S11.21XA - Laceration without foreign body of pharynx and cervical esophagus, initial encounter
--- NOTE | 2018-11-29 13:57 | Critical Care Progress Note ---
Date of Service November 29, 2018 Assessment & Plan (1) Esophageal tear: Impression: 1. Hiatal hernia, esophageal tear, status post open surgical repair. 2. Delirium, secondary to metabolic encephalopathy due to medications. 3. Hypertension. 4. New onset A. fib. 5. Postop abdominal pain, well controlled. Plan: 1. Continue current antibiotics including Diflucan and Zosyn. 2. GI prophylaxis. 3. Minimize narcotics. 4. Continue with amiodarone. 5. PEG tube management per surgery. 6. Hopefully starting tube feeding soon. 7. Glucose control. 8. DVT prophylaxis. 9. At some point she would require full anticoagulation once cleared by surgery. 10. Discussed with the patient, all her questions been answered. Discussed with the staff on rounds and details. Critical care time spent with the patient was 45 minutes. Subjective The patient is confused however she is answering questions or following commands, she does have occasional pain with movement mainly, denies any heartburn, no chest pain, no nausea or vomiting, she went into new onset A. fib, she has been maintained on amiodarone for rate control. Blood pressure has been variable but still elevated. Review of Systems Review of Systems: Review of system showed minimal abdominal pain, no nausea or vomiting, she is somewhat confused but answering questions and following commands, no chest pain, no skin rash, no sore throat, no visual disturbances, no focal weakness. Rest of her review of system otherwise was unremarkable. Physical Exam Physical Exam: Vital signs are stable except for blood pressure elevated at 180/100, heart rate is variable but well controlled, 94% on room air, no JVD, S1-S2 irregularly irregular, distant breath sounds bilaterally, abdomen is postop tenderness, expectedly, slight edema in the right lower extremity. Neurologically she is nonfocal. Delirium with disorientation to time and place. Results & Data Vital Signs (Past 12 Hours) Vital Signs Temp Pulse Pulse Resp BP BP BP 11/29/18 12:00 37.1 C 89 20 179/116 H 11/29/18 11:00 91 H 18 156/102 H 11/29/18 09:00 102 H 22 163/84 H 11/29/18 08:00 105 H 25 H 169/98 H 11/29/18 07:00 37.0 C 91 H 16 178/101 H 11/29/18 06:00 36.9 C 89 18 150/89 H 11/29/18 05:00 37.0 C 91 H 18 11/29/18 04:00 37.3 C 78 20 153/101 H 11/29/18 03:00 37.3 C 93 H 18 143/95 H 11/29/18 02:00 37.4 C 81 20 158/86 H Pulse Ox 11/29/18 12:00 94 11/29/18 11:00 95 11/29/18 09:00 94 11/29/18 08:00 93 11/29/18 07:00 94 11/29/18 06:00 95 11/29/18 05:00 99 11/29/18 04:00 95 11/29/18 03:00 98 11/29/18 02:00 97 Laboratory Results Labs were reviewed with normal CBC, BMP, albumin is slightly low, stable kidney function. Diagnostic Findings I have reviewed the chest x-ray from previous which showed small lung volumes, otherwise no infiltrate, small left-sided pleural effusion. (1) Esophageal tear Encounter type: initial encounter Qualified Code(s): S11.21XA - Laceration without foreign body of pharynx and cervical esophagus, initial encounter
[2018-11-29] MEDS: IMPACT LIQD 1.0 CAL 1,000 ML BAG GT SCH (14:36)
[2018-11-29] MEDS: METOPROLOL TARTRATE 1 MG/ML VIAL IV SCH ×3 (14:37→20:03)
--- NOTE | 2018-11-29 14:40 | Post Anesthesia Assessment ---
Date of Service November 29, 2018 Post Sedation Assessment Vital Signs Temp Pulse Pulse Resp BP BP BP 11/29/18 14:37 87 179/116 H 11/29/18 12:00 37.1 C 89 20 179/116 H 11/29/18 11:00 91 H 18 156/102 H 11/29/18 09:00 102 H 22 163/84 H 11/29/18 08:00 105 H 25 H 169/98 H 11/29/18 07:00 37.0 C 91 H 16 178/101 H 11/29/18 06:00 36.9 C 89 18 150/89 H 11/29/18 05:00 37.0 C 91 H 18 11/29/18 04:00 37.3 C 78 20 153/101 H 11/29/18 03:00 37.3 C 93 H 18 143/95 H 11/29/18 02:00 37.4 C 81 20 158/86 H 11/29/18 01:00 37.4 C 82 23 134/85 11/29/18 00:00 37.6 C H 96 H 23 141/88 H 11/28/18 23:00 77 24 152/94 H 11/28/18 22:00 37.8 C H 90 20 154/95 H 11/28/18 21:00 37.8 C H 88 26 H 155/84 H 11/28/18 20:00 37.9 C H 96 H 20 150/87 H 11/28/18 19:00 37.9 C H 90 17 150/87 H 150/97 H 11/28/18 18:00 37.9 C H 84 26 H 170/90 H 11/28/18 17:00 37.8 C H 82 16 168/101 H 11/28/18 16:00 37.8 C H 85 19 142/105 H 11/28/18 15:00 37.7 C H 83 21 160/101 H Pulse Ox 11/29/18 14:37 11/29/18 12:00 94 11/29/18 11:00 95 11/29/18 09:00 94 11/29/18 08:00 93 11/29/18 07:00 94 11/29/18 06:00 95 11/29/18 05:00 99 11/29/18 04:00 95 11/29/18 03:00 98 11/29/18 02:00 97 11/29/18 01:00 95 11/29/18 00:00 99 11/28/18 23:00 98 11/28/18 22:00 96 11/28/18 21:00 97 11/28/18 20:00 97 11/28/18 19:00 94 11/28/18 18:00 98 11/28/18 17:00 98 11/28/18 16:00 96 11/28/18 15:00 97 Recovery Score Activity: Moves 4 extremities Respiration: Deep Breath/Cough Circulation: +/-20% PreAnes Value Consciousness: Arouseable (by name) Oxygen Saturation: O2 needed for >90% Post Anesthesia Score: 8 Post Sedation Plan On clinical assessment, the patient appears to have tolerated the sedation without complications. Patient is recovering as anticipated. Patient will continue to be monitored by nursing and may be discharged when sedation discharge criteria are met per below protocol. Upon Completions of procedure and additional 15 minutes continue every 5 minute vital signs and the P.A.R. score; then discharge to a Phase I or Fast Track to Phase II per the following guidelines: * Discharge Patient to appropriate Phase II area if PAR is 8 or greater or return to pre- procedure baseline. The post - procedure orders will be as directed. * If PAR score is less than 8 or not return to pre-procedure baseline then patient will follow Phase I monitoring till PAR is reached for Phase II. The Phase I may be done in procedure room or may call to secure a Phase I area. * If naloxone or flumazenil are used for reversal, hold in Phase I for continued monitoring from when last reversal dose was given for a minimum of 60 minutes or longer pending the nurse and/or physician discretion of patient condition before discharge to Phase II. Please call the Sedation Physician to re-evaluate and complete post-note for discharge to Phase II area. Do NOT discharge from procedure sedation or Phase 1 until post- sedation evaluation note is complete by procedure /sedation MD Sedation Discharge Instructions to be given to the patient at discharge to home.
--- NOTE | 2018-11-29 19:30 | Progress Note ---
DATE: 11/29/2018 The patient was seen today. She looks greatly improved. I had a long discussion with the patient's at the bedside. She is answering questions more appropriately. She is much more interactive. Interestingly enough, her was nonplussed by all of this. He states, "This is just as she was after her other surgeries." The patient is on room air and has excellent vital signs. Her pressure has been a bit high. Her temperature has come down. Her maximal temperature over the last 24 hours has been 37.6 and she is 37.1 now. She is moving air fairly well without wheezing or rales. She has an irregularly irregular heart rate. Tongue is midline. She is much better neurologically. She has some mild edema of her lower extremities. She has a small left pleural effusion, we will keep an eye on radiographically. ASSESSMENT AND PLAN: Postoperative day 4 status post repair of an iatrogenic esophageal tear. I think the patient looks quite good. She has put out serous-appearing fluid from her drain and only 75 mL the last 24 hours. She is putting out bilious drainage from her G-tube. She has made good urine. Her BUN and creatinine are 5 and 0.37. Her liver functions are fairly normal. Albumin is a bit low. White count is 9390 with hemoglobin which is stable at 11.9. I would like to check a Gastrografin swallow in the near future. I will discuss this with Dr. Oconnell. Her is also quite pleased with her progress. M[facility] HOSPITALMillicent
--- NOTE | 2018-11-29 21:34 | Consultation ---
Date of Consultation November 29, 2018 Assessment & Plan (1) Hypertension: (2) Esophageal tear: (3) Hiatal hernia with GERD: 72yoF with hx of multiple sclerosis, HTN, HLD, new onset Afib, JOSE MARIA, breast cancer 20 years ago s/p chemo/radiation, migraine headaches, anxiety/depression, gout, fibromyalgia, RLS, GERD, dysphagia, hiatal hernia s/p repair post op day 4 with iatrogenic esophageal perforation. Hiatal hernia attempted repair complicated by iatrogenic esophageal perforation during probe insertion which was repaired only not hiatal hernia- post op day 4 -Operated on 11/25/[address] Oconnell and Dr. Alfaro -ALDEN with 75ml of serosanguinous output in the past 24 hrs - care per surgery -Gtube placed -Enteral feeds started today - Impact at 15ml/hr -Blood cultures negative -Continue Zosyn and Diflucan empiric coverage 7 days total -Continue Ranitidine IV -Continue Dilaudid 0.2mg Q2H PRN for pain -Consider Swallow study tomorrow as pt's mental status continues to improve AMS: likely metabolic encephalopathy secondary to medications vs. delirum -pt received propofol, and fentanyl while intubated and on dilaudid for post op pain control -No concern for infection at this time and pt on empiric coverage with diflucan and zosyn -Minimize narcotics, wean off dilaudid as pain improves -Continue to monitor, appears to be slowly improving New onset Afib -Continue Lopressor 5mg IV Q4H - convert to PO once able to take PO or give medications through G-tube -Start anticoagulation once cleared by surgery Hypoxia in the setting of post op pulmonary edema, hx of JOSE MARIA on CPAP: improving -Successfully extubated and on 6L NC now -Wean O2 as tolerated Multiple Sclerosis -Continue Betaseron SQ HTN/HLD -Continue home amlodipine-benazepril and pravastatin - once able to take PO or can give medications through G-tube -On Lopressor 5mg IV Q4H Anxiety/depression -Continue effexor - once able to take PO or can give medications through G-tube Fibromyalgia -Continue Lyrica - once able to take PO or can give medications through G-tube DVT prop: Heparin Code: Unable to determine based on pt's mental status and no family being in the room Dispo: PCU telemetry in the AM if pt continues to improve (4) New onset a-fib: (5) Multiple sclerosis: (6) Hyperlipidemia: (7) Delirium: (8) Anxiety and depression: Supervising Physician Co-Signing Physician Notes Pt seen/examined following resident MD Paris Cardoza. Managemant discussed with resident, surgery notes reviewed 72 y/o F Hx MS, HTN, HLD, AF, JOSE MARIA, migraines, anxiety/depression, gout, RLS, GERD - the pt underwent hiatal hernia repair which was complicated by esophageal perforation. The medical service is consulted in the post-op period where she has been in the ICU although is showing signs of recovery and is intended for transfer to the floor. It was reported that she became bradycardic after admin of OV B elisa for HTN. HTN has been poorly controlled. The pt has exhibited marked confusion since the surgery. She is not able to provide me with information directly although she can obey some simple commands on occasion. OE Awake - disoriented S1,2 R CTA - shallow effort There is no abdominal distention No CCE No motor deficits P: She has a PEG in place due to her esoph perf - management per surgery HTN had been poorly controlled - we will add PRN Hydralazine as she became bradycardic with a B elisa Due to her AF she may ultimately need a pacer Can receive remainder of her meds IV or via PEG She does not have adequate access and we will order a PICC as she will likely remain hospitalized for an extended period. History of Present Illness Requesting Physician: Dr. Oconnell Reason for Consultation: Post op management Attending Physician: Harshil Oconnell, DO History of Present Illness 72yoF with hx of multiple sclerosis, HTN, HLD, new onset Afib, JOSE MARIA, breast cancer 20 years ago s/p chemo/radiation, migraine headaches, anxiety/depression, gout, RLS, GERD, dysphagia, hiatal hernia with repair attempt complicated by iatrogenic esophageal perforation - post op day 4. Laparoscopic attempt to repair esophageal perforation was unsuccessful and patient required open repair of buttress with fundus patch. G-tube inserted during procedure. She was left intubated postoperatively and transferred to ICU on 11/25/18. Now extubated with improving pulmonary edema requiring 6L NC. Pat ient is alert but confused and disoriented. When evaluated this evening she was unable to answer orientation questions and pleasantly smiling. When asked if she has any discomfort she would not respond. However she was cooperative with exam. Allergies Allergy/AdvReac Type Severity Reaction Status Date / Time No Known Allergies Allergy Verified 11/25/18 09:35 Home Medications Home Medications Medication Instructions Recorded Confirmed Type amlodipine-benazepril 1 cap PO QAM 10/21/18 11/25/18 History aspirin [Aspir-Low] 81 mg PO HS 10/21/18 11/25/18 History calcium citrate-vitamin D3 1 tab PO BID 10/21/18 11/25/18 History [Citracal + D Maximum] dicyclomine 20 mg PO BID 10/21/18 11/25/18 History esomeprazole magnesium [Nexium] 40 mg PO BID 10/21/18 11/25/18 History interferon beta-1b [Betaseron] 1 dose SUBCUT Q OTHER DAY 10/21/18 11/25/18 History potassium chloride 20 meq PO UD 10/21/18 11/25/18 History pravastatin 80 mg PO HS 10/21/18 11/25/18 History pregabalin [Lyrica] 75 mg PO BID 10/21/18 11/25/18 History ranitidine HCl 150 mg PO HS 10/21/18 11/25/18 History venlafaxine [Effexor XR] 150 mg PO QAM 10/21/18 11/25/18 History Patient History Medical History Anxiety Cancer BREAST CANCER S/P CHEMO/RADIATION (20+ YEARS AGO) Depression Fibromyalgia GERD (gastroesophageal reflux disease) CONTROLLED Gout Hyperlipidemia Hypertension Migraine Multiple sclerosis SPEECH/BALANCE ISSUES; STABLE Osteoarthritis Restless leg syndrome Sleep apnea CPAP; NON-COMPLIANT Temporomandibular joint disorder Mitral valve disease ?HX MITRAL STENOSIS PER PATIENT; NO MITRAL STENOSIS OR ANY SIGNIFICANT VALVULAR DISEASE NOTED ON 11/17/18 DSE Surgical History History of appendectomy History of cardiac cath 5 YEARS AGO= NO STENTS History of cataract surgery B/L History of colonoscopy History of esophagogastroduodenoscopy (EGD) History of hysterectomy History of tooth extraction History of total hip arthroplasty RIGHT Hx of lumpectomy RIGHT BREAST Family History Mother Family history of diabetes mellitus Sister Family history of diabetes mellitus Brother Family history of diabetes mellitus Social History Preferred Language: Italian Communication Ability: Impaired Tube Roller Required: No Beliefs That Will Affect Care: None Current Living Situation: Spouse Other Information That Helps Us Care for You: No Feels Safe at Home: Yes Safety Concerns: Feels Safe At This Time Smoking Status: Unknown if ever smoked Review of Systems Review of Systems: Limited due to patient's mental status Physical Exam Physical Exam: General: In NAD Neuro: alert but not oriented to person, place, time or situation CV: Regular rate, irregular rhythm, no m/r/g PULM: CTAB equal breath sounds bilaterally ABDOMEN: +BS, non-distended, soft, patient groans when incision site palpated, dressing C/D/I LE: no calf TTP, no LE edema Results & Data Vital Signs (Past 12 Hours) Vital Signs Temp Pulse Pulse Resp BP BP Pulse Ox 11/29/18 20:03 81 164/99 H 11/29/18 19:00 36.9 C 79 18 197/90 H 93 11/29/18 18:01 77 24 175/90 H 94 11/29/18 18:00 75 26 H 95 11/29/18 17:31 75 22 188/97 H 95 11/29/18 17:00 70 21 200/105 H 93 11/29/18 16:31 81 174/114 H 11/29/18 16:30 84 17 95 11/29/18 16:01 37.2 C 84 19 174/114 H 94 11/29/18 16:00 89 0 L 93 11/29/18 15:30 78 23 95 11/29/18 15:01 75 21 184/106 H 96 11/29/18 15:00 77 25 H 96 11/29/18 14:37 87 179/116 H 11/29/18 14:18 91 H 18 174/115 H 95 11/29/18 14:17 96 H 20 169/126 H 95 11/29/18 13:00 91 H 24 183/101 H 94 11/29/18 12:00 37.1 C 89 20 179/116 H 94 11/29/18 11:00 91 H 18 156/102 H 95 Laboratory Results Abnormal lab results 11/29/18 11/29/18 11/29/18 Range/Units 05:06 05:06 06:24 RBC 4.08 L (4.2-5.4) M/uL Hgb 11.9 L (12.0-16.0) g/dL Hct 35.2 L (37-47) % Neut # (Auto) 7.18 H (1.4-6.5) K/uL Lymph # (Auto) 1.01 L (1.2-3.4) K/uL [place] # (Auto) 1.12 H (0.11-0.59) K/uL BUN 5 L (7-18) mg/dl Creatinine 0.37 L (0.6-1.2) mg/dl POC Glucose (70-99) Phosphorus 2.2 L (2.5-4.9) mg/dl Direct Bilirubin 0.3 H (0-0.2) mg/dl AST 39 H (15-37) U/L Total Protein 5.7 L (6.4-8.2) gm/dl Albumin 2.4 L (3.4-5.0) gm/dl 11/29/18 11/29/18 Range/Units 11:20 18:10 RBC (4.2-5.4) M/uL Hgb (12.0-16.0) g/dL Hct (37-47) % Neut # (Auto) (1.4-6.5) K/uL Lymph # (Auto) (1.2-3.4) K/uL [place] # (Auto) (0.11-0.59) K/uL BUN (7-18) mg/dl Creatinine (0.6-1.2) mg/dl POC Glucose 116 H 117 H (70-99) Phosphorus (2.5-4.9) mg/dl Direct Bilirubin (0-0.2) mg/dl AST (15-37) U/L Total Protein (6.4-8.2) gm/dl Albumin (3.4-5.0) gm/dl Diagnostic Findings XR chest 1V portable CLINICAL HISTORY: Abnormal chest x-ray. Follow-up study. COMPARISON STUDY: 11/28/2018 FINDINGS: The heart remains enlarged. There are decreasing bilateral pleural effusions. There is improving bilateral pulmonary edema. There is improving aeration of the lung bases. The surgical drain within the upper abdomen.[ IMPRESSION: 1. Improving pulmonary edema. Decreasing bilateral pleural effusions, and improving aeration of the lung bases. Medications Administered Current Inpatient Medications Dextrose (Dextrose 50%) 25 - 50 ml IV UD PRN; Protocol PRN Reason: Hypoglycemia Protocol Stop: 12/25/18 22:59 Enteral Nutritional Formula (Impact 1.0 Ludwig) 0 ml GT UD CHERRY; Protocol Stop: 12/29/18 13:59 Last Admin: 11/29/18 14:36 Dose: 1,000 ml Documented by: Glucagon (Glucagen) 1 mg IM UD PRN; Protocol PRN Reason: Hypoglycemia Protocol Stop: 12/25/18 22:59 Glucose (Glucose 40%) 15 - 30 gm PO UD PRN; Protocol PRN Reason: Hypoglycemia Protocol Stop: 12/25/18 22:59 Glucose (Dex4 Glucose) 4 - 8 tabs PO UD PRN; Protocol PRN Reason: Hypoglycemia Protocol Stop: 12/25/18 22:59 Heparin Sodium (Porcine) (Heparin Sodium (Porcine)) 5,000 units SQ BID CHERRY Stop: 12/26/18 08:59 Last Admin: 11/29/18 07:53 Dose: 5,000 units Documented by: Hydromorphone HCl (Dilaudid) 0.2 mg IV Q2H PRN PRN Reason: Pain Stop: 12/10/18 08:08 Last Admin: 11/29/18 20:04 Dose: 0.2 mg Documented by: Piperacillin Sod/Tazobactam (Sod 3.375 gm/ Dextrose) 115 mls @ 28.75 mls/hr IV Q8H CHERRY; Protocol Stop: 12/06/18 02:59 Last Admin: 11/29/18 20:03 Dose: 28.8 mls/hr Documented by: Ranitidine HCl 50 mg/ Dextrose 102 mls @ 200 mls/hr IV Q8H CHERRY Stop: 12/25/18 19:59 Last Infusion: 11/29/18 20:34 Dose: Infused Documented by: Fluconazole (Diflucan) 200 mg in 100 mls @ 100 mls/hr IV DAILY@1000,1100 [facility] Stop: 12/05/18 11:59 Last Infusion: 11/29/18 12:53 Dose: Infused Documented by: Amiodarone HCl/Dextrose (Nexterone / D5w) 360 mg in 200 mls @ 16.667 mls/hr IV .Q12H [facility] Stop: 12/27/18 14:44 Last Admin: 11/29/18 14:45 Dose: 0.5 mg/min, 16.7 mls/hr Documented by: Insulin Aspart (Novolog Flexpen) 0 units SC Q6 [facility] Stop: 12/27/18 17:59 Last Admin: 11/29/18 18:21 Dose: Not Given Documented by: Metoprolol Tartrate (Lopressor) 5 mg IV Q4 [facility] Stop: 12/29/18 14:25 Last Admin: 11/29/18 20:03 Dose: 5 mg Documented by: Miscellaneous (Carbohydrates For Hypoglycemia) 15 - 30 gm PO PRN PRN PRN Reason: Hypoglycemia Treatment Stop: 12/25/18 22:59 Miscellaneous Information (Consult) 1 ea N/A UD PRN PRN Reason: Consult Stop: 12/25/18 19:39 Betaseron 1 ea SC Q48H [facility] Stop: 12/28/18 17:59 Last Admin: 11/28/18 18:10 Dose: 1 ea Documented by: Ondansetron HCl (Zofran) 4 mg IV Q4H PRN PRN Reason: Nausea And Vomiting Stop: 12/25/18 18:46 Resident Activity Tracking Resident Involvement: Resident Care Provided Care Provided: Adult Hospital Medicine (1) Esophageal tear Encounter type: initial encounter Qualified Code(s): S11.21XA - Laceration without foreign body of pharynx and cervical esophagus, initial encounter
[2018-11-30] MEDS: METOPROLOL TARTRATE 1 MG/ML VIAL IV SCH ×6 (00:04→20:50)
[2018-11-30] MEDS: INSULIN ASPART 100 UNITS/ML 3 ML PEN SC SCH ×4 (00:05→18:50)
[2018-11-30] MEDS: AMIODARONE / D5W 360 MG/200 ML BAG IV SCH ×2 (03:01→15:15)
[2018-11-30] MEDS: PIPERACILLIN/TAZOBACTAM 3.375 GM in DEXTROSE 5% 100 ML IV SCH ×3 (03:02→20:47)
[2018-11-30] MEDS: HYDROmorphone INJ 0.5 MG/0.5 ML SYR IV PRN ×5 (03:38→21:59)
[2018-11-30 04:31] LABS: Basophils # (auto) 0.01 K/uL (0-0.2); Basophils % (auto) 0.1 %; Eosinophils # (auto) 0.14 K/uL (0-0.5); Hematocrit (blood only) 35.4 % (37-47); Hemoglobin 12.1 g/dL (12.0-16.0); Immature Granulocytes # (auto) 0.07 K/uL (0.00-0.02); Lymphocytes # (auto) 1.07 K/uL (1.2-3.4); Lymphocytes % (auto) 15.1 %; Mean Corpuscular Hgb Conc 34.2 g/dL (32-36); Mean Corpuscular Volume 85.5 fL (80-100); Mean Platelet Volume 9.6 fL (7.4-10.4); Monocytes % (auto) 16.9 %; Neutrophils # (auto) 4.59 K/uL (1.4-6.5); Neutrophils % (auto) 64.9 %; Platelet Count 207 K/uL (130-400); RDW Coefficient of Variation 13.7 % (11.5-14.5); RDW Standard Deviation 43.2 fL (36.4-46.3); Red Blood Count 4.14 M/uL (4.2-5.4); White Blood Count 7.08 K/uL (4.8-10.8)
[2018-11-30 04:47] LABS: BUN Creatinine Ratio 20.9 (10-20); Calcium 9.2 mg/dl (8.5-10.1); Creatinine Clr Calc Pharmacy 112.1 ml/min; Est GFR (African American) 116.9; Est GFR (Non-African American) 100.9; Potassium 3.5 mmol/L (3.5-5.1)
--- NOTE | 2018-11-30 07:39 | Progress Note ---
DATE: 11/30/2018 Suzie Farooq was seen today. She seems better to me. The nurses state that she is in quite a bit of pain; however, she appears to be comfortable, I had to awake in her from sleep. She is answering questions better. She is in atrial fibrillation with a controlled rate. There have been some issues with her blood pressure. She put out 80 mL of serous fluid from her ALDEN drain. Her urine output has been quite good. She has moved her bowels. We started using her Arvizu tube for feeding. Her white count is normal. Her electrolytes look good. I have discussed this case with the house staff. We are going to check a Gastrografin swallow in the morning. There may be some issues with her inability to stand. I have discussed this case with Dr. Oconnell. I think that we can move her out to a regular room at this point.
[2018-11-30] MEDS: HydrALAZINE HCL 20 MG/ML VIAL IV SCH ×3 (08:15→18:11)
[2018-11-30] MEDS: HEPARIN SOD 5,000 UNIT/0.5 ML VIAL SQ SCH ×2 (08:18→20:50)
[2018-11-30] MEDS ORDERED: HydrALAZINE HCL 20 MG/ML VIAL IV PRN (08:40)
--- NOTE | 2018-11-30 09:23 | Surgery Progress Note ---
Date of Service November 30, 2018 Assessment & Plan (1) Esophageal tear: POD 5 stable. dianelys tube feeds. +BM. will slowly increase WBC normal/afebrile consult PT/OT transfer to Tele will plan swallow study once alert enough to cooperate d/w Dr. Alfaro Subjective pt continues to slowly become more alert. conversing now but still quite disoriented. appears comfortable. Physical Exam Physical Exam: alert/disoriented wound looks good thoracic drain serous'vss. afebrile. Results & Data Vital Signs (Past 12 Hours) Vital Signs Temp Pulse Pulse Resp BP BP Pulse Ox 11/30/18 08:09 77 187/100 H 11/30/18 06:00 73 22 196/99 H 98 11/30/18 05:00 70 18 209/103 H 98 11/30/18 04:00 71 20 181/99 H 94 11/30/18 03:36 80 195/101 H 11/30/18 03:00 78 18 195/101 H 99 11/30/18 02:00 74 18 208/91 H 99 11/30/18 01:00 71 21 194/98 H 99 11/30/18 00:04 69 201/104 H 11/30/18 00:00 37.0 C 63 19 201/104 H 100 11/29/18 23:00 65 24 192/97 H 100 11/29/18 22:00 73 21 149/93 H 98 (1) Esophageal tear Encounter type: initial encounter Qualified Code(s): S11.21XA - Laceration without foreign body of pharynx and cervical esophagus, initial encounter
[2018-11-30] MEDS: FLUCONAZOLE 200 MG/100 ML BAG IV SCH ×2 (09:25→12:47)
[2018-11-30] MEDS: POTASSIUM CHLORIDE / WTR 10 MEQ/100 ML PLCT IV SCH ×4 (11:22→15:21)
--- NOTE | 2018-11-30 15:08 | Hospitalist Progress Note ---
Date of Service November 30, 2018 Assessment & Plan (1) Hypertension: (2) Esophageal tear: 72-year-old female presents to ICU postoperatively from initial hiatal hernia repair complicated by esophageal perforation requiring open buttress with fundus patch. was intubated and and extubated postop. Hospitalist consulted for medical management, Hypertension: Accelerated hypertension, blood pressure still high, continue IV Lopressor and hydralazine, will resume home amlodipinebenazepril , hydralazine as needed, HLD: Continue home medicine Hiatal hernia repair/esophageal perforation hiatal hernia repair complicated with esophageal perforation, attempted laparoscopic repair with stent unsuccessful, required open repair with fundus patch This will be management by the primary team, G/J-tube inserted intraoperatively, gastric port to low intermittent suction, continue n.p.o. GERDcontinue home meds when appropriate, f/u GI input, Abdominal perforation continue empiric Zosyn Anxiety and depression, she was on Effexor at home, continue watch, DVt px, SCDs, holding anticoagulation per recent surgery (3) Hiatal hernia with GERD: (4) New onset a-fib: (5) Multiple sclerosis: (6) Hyperlipidemia: (7) Delirium: (8) Anxiety and depression: Subjective However only awake, orientated times her own name, nursing staff report to me that patient just get Dilaudid for the pain Review of systems not able to obtain pt continues to slowly become more alert. conversing now but still quite disoriented. appears comfortable. Review of Systems Review of Systems: Unobtainable due to mental health condition Obesity, confused, lethargic, Head was normocephalic, pupils equal round response to the night, it was normal nose was normal mild dry mucous membranes, neck was supple heart rate , S1-S2 irregularly irregular, distant breath sounds bilaterally, abdomen is postop tenderness, trace edema in the right lower extremities Neurologically she is nonfocal. No facial droop, moves upper and lower extremities, Results & Data Vital Signs (Past 12 Hours) Vital Signs Temp Pulse Pulse Resp BP BP BP 11/30/18 12:56 36.5 C 73 18 152/96 H 11/30/18 12:00 67 13 11/30/18 11:44 75 140/79 11/30/18 11:00 74 18 140/79 11/30/18 10:30 76 14 145/91 H 11/30/18 10:00 71 20 147/87 H 11/30/18 09:31 72 22 154/83 H 11/30/18 09:00 71 22 170/92 H 11/30/18 08:31 70 0 L 162/94 H 11/30/18 08:09 77 187/100 H 11/30/18 08:00 37.2 C 76 22 187/100 H 11/30/18 07:02 70 22 11/30/18 06:00 73 22 196/99 H 11/30/18 05:00 70 18 209/103 H 11/30/18 04:00 71 20 181/99 H 11/30/18 03:36 80 195/101 H Pulse Ox 11/30/18 12:56 96 11/30/18 12:00 94 11/30/18 11:44 11/30/18 11:00 96 11/30/18 10:30 99 11/30/18 10:00 99 11/30/18 09:31 98 11/30/18 09:00 99 11/30/18 08:31 100 11/30/18 08:09 11/30/18 08:00 93 11/30/18 07:02 99 11/30/18 06:00 98 11/30/18 05:00 98 11/30/18 04:00 94 11/30/18 03:36 Laboratory Results - last 24 hr 11/29/18 11/29/18 11/30/18 18:10 23:39 04:21 WBC 7.08 RBC 4.14 L Hgb 12.1 Hct 35.4 L MCV 85.5 MCH 29.2 MCHC 34.2 RDW Std Deviation 43.2 RDW Coeff of Tomas 13.7 Plt Count 207 MPV 9.6 Immature Gran % (Auto) 1.0 Neut % (Auto) 64.9 Lymph % (Auto) 15.1 [place] % (Auto) 16.9 Eos % (Auto) 2.0 Baso % (Auto) 0.1 Immature Gran # (Auto) 0.07 H Neut # (Auto) 4.59 Lymph # (Auto) 1.07 L [place] # (Auto) 1.20 H Eos # (Auto) 0.14 Baso # (Auto) 0.01 Sodium Potassium Chloride Carbon Dioxide Anion Gap BUN Creatinine Est Cr Clr Drug Dosing Est GFR ( Amer) Est GFR (Non-Af Amer) BUN/Creatinine Ratio Glucose POC Glucose 117 H 113 H Calcium 11/30/18 11/30/18 04:21 11:48 WBC RBC Hgb Hct MCV MCH MCHC RDW Std Deviation RDW Coeff of Tomas Plt Count MPV Immature Gran % (Auto) Neut % (Auto) Lymph % (Auto) [place] % (Auto) Eos % (Auto) Baso % (Auto) Immature Gran # (Auto) Neut # (Auto) Lymph # (Auto) [place] # (Auto) Eos # (Auto) Baso # (Auto) Sodium 137 Potassium 3.5 Chloride 104 Carbon Dioxide 32 Anion Gap 1.0 L BUN 9 Creatinine 0.43 L Est Cr Clr Drug Dosing 112.1 Est GFR ( Amer) 116.9 Est GFR (Non-Af Amer) 100.9 BUN/Creatinine Ratio 20.9 H Glucose 122 H POC Glucose 111 H Calcium 9.2 (1) Esophageal tear Encounter type: initial encounter Qualified Code(s): S11.21XA - Laceration without foreign body of pharynx and cervical esophagus, initial encounter
--- NOTE | 2018-11-30 15:50 | Critical Care Progress Note ---
Date of Service November 30, 2018 Assessment & Plan (1) Esophageal tear: Impression: 1. Hiatal hernia, esophageal tear, status post open surgical repair. 2. Delirium, secondary to metabolic encephalopathy due to medications. 3. Hypertension. 4. New onset A. fib. 5. Postop abdominal pain, well controlled. Plan: 1. Continue current antibiotics including Diflucan and Zosyn. 2. GI prophylaxis. 3. Minimize narcotics. 4. Continue with amiodarone, it can be changed once the J-tube is okay from surgical standpoint to be used for medications. 5. PEG tube management per surgery, the patient was started on trickle feeding.. 6. Replacement of her potassium. 7. Glucose control. 8. DVT prophylaxis. 9. Anticoagulation for paroxysmal A. fib once okay with surgery. 10. Continue with Lopressor and add hydralazine for blood pressure control. Discussed with the staff on rounds and details. Critical care time spent with the patient was 35 minutes. Subjective Although continued to be confused but she is much more improved. Answer questions and following commands, lethargic at times, denies any nausea or vomiting, minimal pain mainly in the epigastric area, no back pain, no increased swelling in her lower extremities, no headache, no fever and no events overnight as well. Review of Systems Review of Systems: Review of system otherwise was unremarkable though it was limited due to the patient confusion. Physical Exam Physical Exam: Vital signs are stable, S1-S2, regular rate and rhythm, lungs are clear, 96% on room air, abdomen is benign and postop, no edema, neurologically apart from confusion she is nonfocal. Results & Data Vital Signs (Past 12 Hours) Vital Signs Temp Pulse Pulse Resp BP BP BP 11/30/18 12:56 36.5 C 73 18 152/96 H 11/30/18 12:00 67 13 11/30/18 11:44 75 140/79 11/30/18 11:00 74 18 140/79 11/30/18 10:30 76 14 145/91 H 11/30/18 10:00 71 20 147/87 H 11/30/18 09:31 72 22 154/83 H 11/30/18 09:00 71 22 170/92 H 11/30/18 08:31 70 0 L 162/94 H 11/30/18 08:09 77 187/100 H 11/30/18 08:00 37.2 C 76 22 187/100 H 11/30/18 07:02 70 22 11/30/18 06:00 73 22 196/99 H 11/30/18 05:00 70 18 209/103 H 11/30/18 04:00 71 20 181/99 H Pulse Ox 11/30/18 12:56 96 11/30/18 12:00 94 11/30/18 11:44 11/30/18 11:00 96 11/30/18 10:30 99 11/30/18 10:00 99 11/30/18 09:31 98 11/30/18 09:00 99 11/30/18 08:31 100 11/30/18 08:09 11/30/18 08:00 93 11/30/18 07:02 99 11/30/18 06:00 98 11/30/18 05:00 98 11/30/18 04:00 94 Laboratory Results Labs were reviewed which showed stable CBC, BMP, slight hypokalemia. Diagnostic Findings No new imaging. (1) Esophageal tear Encounter type: initial encounter Qualified Code(s): S11.21XA - Laceration without foreign body of pharynx and cervical esophagus, initial encounter
[2018-11-30] MEDS: BETASERON SC SCH (18:12)
[2018-12-01] MEDS: INSULIN ASPART 100 UNITS/ML 3 ML PEN SC SCH ×5 (00:33→23:59)
[2018-12-01] MEDS: HYDROmorphone INJ 0.5 MG/0.5 ML SYR IV PRN ×5 (00:56→22:22)
[2018-12-01] MEDS: METOPROLOL TARTRATE 1 MG/ML VIAL IV SCH ×6 (00:57→20:41)
[2018-12-01] MEDS: HydrALAZINE HCL 20 MG/ML VIAL IV SCH ×4 (00:58→18:14)
[2018-12-01] MEDS: AMIODARONE / D5W 360 MG/200 ML BAG IV SCH ×2 (02:10→14:16)
[2018-12-01] MEDS: PIPERACILLIN/TAZOBACTAM 3.375 GM in DEXTROSE 5% 100 ML IV SCH ×3 (03:46→20:41)
[2018-12-01 06:32] LABS: Albumin Level 2.5 gm/dl (3.4-5.0); BUN Creatinine Ratio 20.7 (10-20); Creatinine Clr Calc Pharmacy 89.3 ml/min; Est GFR (African American) 108.5; Est GFR (Non-African American) 93.6; Potassium 3.5 mmol/L (3.5-5.1)
[2018-12-01 06:36] LABS: Albumin Globulin Ratio 0.8 (0.9-2); Bilirubin,Total 0.7 mg/dl (0.2-1); Globulin 3.2 gm/dl (2.5-4.0); Phosphorus 3.1 mg/dl (2.5-4.9); Total Protein 5.7 gm/dl (6.4-8.2)
--- NOTE | 2018-12-01 07:14 | Surgery Progress Note ---
Date of Service December 01, 2018 Assessment & Plan (1) Esophageal tear: POD 6 doing ok clinically. dianelys TF's . will continue to increase slowly. d/w Dr. Alfaro. If she can cooperate, will plan swallow study clinically stable. Subjective pt awake but still disoriented. no new issues per nursing. Physical Exam Physical Exam: abd: soft. incision looks good. ALDEN serous. Arvizu tube in place/functioning. Results & Data Vital Signs (Past 12 Hours) Vital Signs Temp Pulse Pulse Resp BP BP Pulse Ox 12/01/18 03:32 37.1 C 78 18 124/67 95 12/01/18 03:04 80 124/67 12/01/18 00:57 81 131/78 12/01/18 00:00 81 11/30/18 23:30 36.9 C 79 18 131/78 94 11/30/18 20:50 86 147/88 H (1) Esophageal tear Encounter type: initial encounter Qualified Code(s): S11.21XA - Laceration without foreign body of pharynx and cervical esophagus, initial encounter
[2018-12-01] MEDS: HEPARIN SOD 5,000 UNIT/0.5 ML VIAL SQ SCH ×2 (07:24→20:40)
[2018-12-01] MEDS: FLUCONAZOLE 200 MG/100 ML BAG IV SCH ×2 (09:15→10:15)
[2018-12-01] MEDS: SODIUM CHLORIDE 0.9% 1000ML 1,000 ML IV SCH (13:47)
--- NOTE | 2018-12-01 14:21 | Hospitalist Progress Note ---
Date of Service December 01, 2018 Assessment & Plan (1) Hypertension: (2) Esophageal tear: 72-year-old female presents to ICU postoperatively from initial hiatal hernia repair complicated by esophageal perforation requiring open buttress with fundus patch. was intubated and and extubated postop. Hospitalist consulted for medical management. Patient was transferred to PCU on November 09, 2018, continue stable and improving, Hypertension: Accelerated hypertension, has been continue IV Lopressor and hydralazine, patient currently n.p.o., cont hold amlodipinebenazepril , hydralazine as needed, HLD: Continue home medicine Hiatal hernia repair/esophageal perforation hiatal hernia repair complicated with esophageal perforation, attempted laparoscopic repair with stent unsuccessful, required open repair with fundus patch This will be management by the primary team, and chest surgeon, G/J-tube inserted intraoperatively, gastric port to low intermittent suction, continue n.p.o. GERDcontinue home meds when appropriate, f/u GI input, Abdominal perforation continue empiric Zosyn Anxiety and depression, she was on Effexor at home, continue watch, Discussed with patient's risk-benefit PICC line, answered all questions, DVt px, SCDs, holding anticoagulation per recent surgery (3) Hiatal hernia with GERD: (4) New onset a-fib: (5) Multiple sclerosis: (6) Hyperlipidemia: (7) Delirium: (8) Anxiety and depression: Subjective More awake and alert, oriented to name , BD and place, however still feeling tired and looks confused, review of system is unemarkable, denies fever chills denies any abdominal pain diarrhea constipation Review of Systems Review of Systems: All systems reviewed & are unremarkable except as noted in HPI & below Physical Exam Physical Exam: General: looks mild confusion, but is much than yesterday, NAD CV: Regular rate, irregular rhythm, no m/r/g PULM: CTAB equal breath sounds bilaterally ABDOMEN: +BS, non-distended, soft, patient groans when incision site palpated, dressing C/D/I Albright catheter , ALDEN drainage well reduced G-tube in place LE: no calf TTP, no LE edema Neuro: alert but not oriented to person, place, time or situation Results & Data Vital Signs (Past 12 Hours) Vital Signs Temp Pulse Pulse Resp BP BP Pulse Ox 12/01/18 12:43 75 124/67 04/24/19 11:01 36.6 C 74 18 124/74 98 12/01/18 08:00 75 12/01/18 07:38 37.0 C 65 18 124/71 96 12/01/18 07:24 80 124/67 12/01/18 03:32 37.1 C 78 18 124/67 95 12/01/18 03:04 80 124/67 Laboratory Results - last 24 hr 11/30/18 11/30/18 12/01/18 18:30 23:55 05:37 Sodium Potassium Chloride Carbon Dioxide Anion Gap BUN Creatinine Est Cr Clr Drug Dosing Est GFR ( Amer) Est GFR (Non-Af Amer) BUN/Creatinine Ratio Glucose POC Glucose 85 111 H 110 H Calcium Phosphorus Magnesium Total Bilirubin AST ALT Alkaline Phosphatase Total Protein Albumin Globulin Albumin/Globulin Ratio 12/01/18 12/01/18 05:44 12:56 Sodium 138 Potassium 3.5 Chloride 103 Carbon Dioxide 28 Anion Gap 7.0 BUN 11 Creatinine 0.54 L Est Cr Clr Drug Dosing 89.3 Est GFR ( Amer) 108.5 Est GFR (Non-Af Amer) 93.6 BUN/Creatinine Ratio 20.7 H Glucose 112 H POC Glucose 127 H Calcium 10.0 Phosphorus 3.1 Magnesium 2.0 Total Bilirubin 0.7 AST 44 H ALT 47 Alkaline Phosphatase 93 Total Protein 5.7 L Albumin 2.5 L Globulin 3.2 Albumin/Globulin Ratio 0.8 L (1) Esophageal tear Encounter type: initial encounter Qualified Code(s): S11.21XA - Laceration without foreign body of pharynx and cervical esophagus, initial encounter
--- NOTE | 2018-12-01 17:29 | Progress Note ---
DATE: 12/01/2018 The patient is seen today on postop day 6 status post repair of her iatrogenic esophageal perforation. Quite frankly, I think she looks great. She is now on the second floor. Her vital signs are stable. Her abdomen is soft. She does have some bowel sounds. She is not really putting out much from her Bairon-Bull, serous drainage only 50 mL. She is making urine. She is tolerating tube feeds and moved her bowels yesterday. I actually saw this patient in conjunction with Dr. Oconnell today. We are going to order a barium swallow later today and I have discussed this with the radiologist. I am quite pleased with the patient and I am quite hopeful that her esophagogram does not show a leak; however, certainly clinically she is greatly improved. She still has some neurologic issues, not really answering questions appropriately, but according to her , she is talking and moving all extremities and her states, "she does this every time she had surgery." We will continue to follow closely.
--- NOTE | 2018-12-01 17:35 | XRay Report ---
XR chest 1V portable CLINICAL HISTORY: post right IJ insertion COMPARISON STUDY: 11/29/2018 FINDINGS: There is been interval placement of a right internal jugular central venous catheter. The t ip projects near the atriocaval junction. There is no pneumothorax. The heart is enlarged. There is r esolving pulmonary vascular congestion. There is an upper abdominal surgical drain. There are improvi ng basilar airspace opacities. There are surgical clips overlying the right breast and right axillary region. IMPRESSION: 1. Interval placement of a right internal jugular central venous catheter 2. No evidence of pneumothorax. Electronically signed by: Justin Graff M.D. 12/01/2018 5:14 PM
[2018-12-01] MEDS ORDERED: Nursing to Pharmacy Communication ONE (17:52)
--- NOTE | 2018-12-01 18:21 | Procedure Note ---
Procedure Note Date of Service December 01, 2018 Note Central line placement, requested by Dr. Oconnell for IV infusion, the patient failed placement of PICC line due to difficulty visualizing the vein. Consent obtained from the son who was at the bedside, risk and benefit explained the de tails, agreed to the procedure. Under ultrasound guidance, the patient was placed in supine position, using strict sterile field, right IJ anteriorly was approached, the skin was prepped with chlorhexidine, the IJ was visualized above the carotid, with careful axis with a needle, using Seldinger technique, the line was placed without scalpel, to 15 cm, secured with 2 sutures, covered with surgical dressing, all ports were flushed with saline. Tolerated the procedure very well, no immediate complication. Chest x-ray reviewed showed the tip of the catheter at the SVC junction, no pneumothorax, may use the line. Timeout was performed by the nursing staff earlier. Thank you Coding
[2018-12-01] MEDS: ONDANSETRON INJ 2 MG/ML 2 ML VIAL IV PRN (20:40)
[2018-12-02] MEDS: HydrALAZINE HCL 20 MG/ML VIAL IV SCH ×5 (00:02→23:51)
[2018-12-02] MEDS: METOPROLOL TARTRATE 1 MG/ML VIAL IV SCH ×7 (00:02→23:52)
[2018-12-02] MEDS: AMIODARONE / D5W 360 MG/200 ML BAG IV SCH ×3 (01:50→23:50)
[2018-12-02] MEDS: PIPERACILLIN/TAZOBACTAM 3.375 GM in DEXTROSE 5% 100 ML IV SCH ×3 (03:55→20:19)
[2018-12-02] MEDS: HYDROmorphone INJ 0.5 MG/0.5 ML SYR IV PRN ×3 (04:08→23:52)
[2018-12-02] MEDS ORDERED: ACETAMINOPHEN 65 ML IV ONE (04:15)
[2018-12-02] MEDS: INSULIN ASPART 100 UNITS/ML 3 ML PEN SC SCH ×4 (06:01→23:52)
[2018-12-02 06:30] LABS: Hematocrit (blood only) 29.2 % (37-47); Hemoglobin 9.9 g/dL (12.0-16.0); Mean Corpuscular Hgb Conc 33.9 g/dL (32-36); Mean Corpuscular Volume 84.9 fL (80-100); Mean Platelet Volume 9.6 fL (7.4-10.4); Platelet Count 261 K/uL (130-400); RDW Coefficient of Variation 14.1 % (11.5-14.5); RDW Standard Deviation 43.6 fL (36.4-46.3); Red Blood Count 3.44 M/uL (4.2-5.4); White Blood Count 10.94 K/uL (4.8-10.8)
[2018-12-02 07:00] LABS: Albumin Level 2.1 gm/dl (3.4-5.0); BUN Creatinine Ratio 27.9 (10-20); Calcium 9.5 mg/dl (8.5-10.1); Creatinine Clr Calc Pharmacy 76.5 ml/min; Est GFR (African American) 103.1; Potassium 3.3 mmol/L (3.5-5.1)
[2018-12-02 07:03] LABS: Albumin Globulin Ratio 0.7 (0.9-2); Bilirubin,Total 0.5 mg/dl (0.2-1); Globulin 2.9 gm/dl (2.5-4.0); Phosphorus 3.5 mg/dl (2.5-4.9)
[2018-12-02] MEDS: SODIUM CHLORIDE 0.9% 1000ML 1,000 ML IV SCH (08:11)
[2018-12-02] MEDS: HEPARIN SOD 5,000 UNIT/0.5 ML VIAL SQ SCH ×2 (08:15→21:29)
[2018-12-02] MEDS: FLUCONAZOLE 200 MG/100 ML BAG IV SCH ×2 (10:03→11:05)
[2018-12-02] MEDS: POTASSIUM CHLORIDE / WTR 10 MEQ/100 ML PLCT IV SCH ×2 (10:07→11:05)
--- NOTE | 2018-12-02 13:57 | Hospitalist Progress Note ---
Date of Service December 02, 2018 Assessment & Plan (1) Hypertension: (2) Esophageal tear: 72-year-old female was admitted to ICU postoperatively on November 25, from initial hiatal hernia repair complicated by esophageal perforation requiring open buttress with fundus patch. was intubated and and extubated postop. Hospitalist consulted for medical management. Patient was transferred to PCU on November 29, 2018, continue stable and improving, on November 29, 2018hospitalist consult for medical management, her internal condition has been stable improving Left are phlebitis is checking Doppler ultrasound to rule out DVT, ordered warm compression, pain control, Hypertension: has been continue IV Lopressor and hydralazine, patient currently n.p.o., cont hold amlodipinebenazepril , hydralazine as needed, HLD: Continue home medicine, hold his medicine because on n.p.o., Hiatal hernia repair/esophageal perforation hiatal hernia repair complicated with esophageal perforation, attempted laparoscopic repair with stent unsuccessful, required open repair with fundus patch This will be management by the primary team, and chest surgeon, G/J-tube inserted intraoperatively , continue n.p.o. GERDcontinue home meds when appropriate, continue Zantac for GI prophylaxis, Abdominal perforation , see above, continue empiric Zosyn, is also on Diflucan because of possible treatment for a fungal in the ICU after perforation, he has been 7 days, no obvious signs of fungimiaa, spiking fever I feel should be okay to discontinue Anxiety and depression, was on Effexor at home, continue watch, Discussed with patient's risk-benefit PICC line, answered all questions, DVt px, SCDs, and heparin for DVT prophylaxis, (3) Hiatal hernia with GERD: (4) New onset a-fib: (5) Multiple sclerosis: (6) Hyperlipidemia: (7) Delirium: (8) Anxiety and depression: Subjective Was not able to get PICC line because of neck cellulitis yesterday, instead she got right IJ, and TPN started, nursing staff reported left arm erythema and swelling and tender, Patient generally doing okay, smiling conversational, breathing room air, more interactive, Review of Systems Review of Systems: Not completed because of decreased cognition, Mild lethargic, is looks better than yesterday, Head was normocephalic, pupils equal round response to the night, it was normal nose was normal mild dry mucous membranes, neck was supple heart rate , S1-S2 irregularly irregular, distant breath sounds bilaterally, abdomen is postop tenderness, mild tenderness, decreased bowel sounds trace edema in the right lower extremities Neurologically no facial droop is noted speech is a local weakness, No facial droop, moves upper and lower extremities, Physical Exam Physical Exam: General: looks much better than yesterday, NAD CV: normal rate, irregular rhythm, no m/r/g PULM: CTAB equal breath sounds bilaterally ABDOMEN: +BS, non-distended, soft, patient groans when incision site palpated, dressing C/D/I Albright catheter , ALDEN drainage well reduced G-tube in place LE: left arm TTP, no LE edema Neuro: alert , oriented to person, place, however not BD and time Results & Data Vital Signs (Past 12 Hours) Vital Signs Temp Pulse Pulse Resp BP BP BP 12/02/18 11:00 36.6 C 72 18 103/69 12/02/18 08:12 72 115/63 12/02/18 07:43 36.7 C 69 19 116/65 12/02/18 04:08 76 108/97 12/02/18 03:11 37.8 C H 75 18 108/68 Pulse Ox 12/02/18 11:00 94 12/02/18 08:12 12/02/18 07:43 93 12/02/18 04:08 12/02/18 03:11 96 Laboratory Results - last 24 hr 12/01/18 12/01/18 12/02/18 18:19 23:55 05:56 WBC RBC Hgb Hct MCV MCH MCHC RDW Std Deviation RDW Coeff of Tomas Plt Count MPV Sodium Potassium Chloride Carbon Dioxide Anion Gap BUN Creatinine Est Cr Clr Drug Dosing Est GFR ( Amer) Est GFR (Non-Af Amer) BUN/Creatinine Ratio Glucose POC Glucose 129 H 146 H 131 H Calcium Phosphorus Magnesium Total Bilirubin AST ALT Alkaline Phosphatase Total Protein Albumin Globulin Albumin/Globulin Ratio 12/02/18 12/02/18 12/02/18 06:11 06:11 11:35 WBC 10.94 H RBC 3.44 L Hgb 9.9 L Hct 29.2 L MCV 84.9 MCH 28.8 MCHC 33.9 RDW Std Deviation 43.6 RDW Coeff of Tomas 14.1 Plt Count 261 MPV 9.6 Sodium 135 L Potassium 3.3 L Chloride 102 Carbon Dioxide 31 Anion Gap 2.0 L BUN 17 D Creatinine 0.63 Est Cr Clr Drug Dosing 76.5 Est GFR ( Amer) 103.1 Est GFR (Non-Af Amer) 89.0 BUN/Creatinine Ratio 27.9 H Glucose 134 H POC Glucose 103 H Calcium 9.5 Phosphorus 3.5 Magnesium 2.0 Total Bilirubin 0.5 AST 38 H ALT 43 Alkaline Phosphatase 94 Total Protein 5.0 L Albumin 2.1 L Globulin 2.9 Albumin/Globulin Ratio 0.7 L Microbiology 11/26/18 22:18 Blood Blood Culture - Final No growth 11/26/18 22:01 Blood Blood Culture - Final No growth (1) Esophageal tear Encounter type: initial encounter Qualified Code(s): S11.21XA - Laceration without foreign body of pharynx and cervical esophagus, initial encounter
[2018-12-02] MEDS: BETASERON SC SCH (14:34)
--- NOTE | 2018-12-02 15:30 | Surgery Progress Note ---
Date of Service December 02, 2018 Assessment & Plan (1) Esophageal tear: hopefully tomorrow we can attempt swallow study increase activity -discussed with nursing. OOB to chair at least tonight will continue to slowly increase TF's. tolerating so far. +BM Subjective more awake/alert today. faimily at bedside. still mild/moderate confusion Physical Exam Physical Exam: alert. answers some questions appropriately. ALDEN serous wound looks good. Results & Data Vital Signs (Past 12 Hours) Vital Signs Temp Pulse Pulse Resp BP BP Pulse Ox 12/02/18 11:00 36.6 C 72 18 103/69 94 12/02/18 08:12 72 115/63 12/02/18 07:43 36.7 C 69 19 116/65 93 12/02/18 04:08 76 108/97 (1) Esophageal tear Encounter type: initial encounter Qualified Code(s): S11.21XA - Laceration without foreign body of pharynx and cervical esophagus, initial encounter
--- NOTE | 2018-12-02 16:01 | Ultrasound Report ---
US venous doppler UE LT CLINICAL HISTORY: 72 years-old Female presenting with to rule out dvt. TECHNIQUE: Real-time grayscale and color and spectral Doppler ultrasound imaging of the veins of the left upper extremity was performed. Compression and augmentation were also utilized. COMPARISON: None. FINDINGS: LEFT: Internal jugular vein: Patent. Subclavian vein: Patent. Axillary vein: Patent. Brachial vein: Patent. Basilic vein (superficial): Patent. Cephalic vein (superficial): Filling defect consistent with thrombus 1.7 cm from the subclavian vein. Radial vein: Patent. Ulnar vein: Patent. Other: None. IMPRESSION: 1. No evidence of deep venous thrombosis. 2. Acute superficial venous thrombosis in the cephalic vein 1.7 cm from the subclavian vein. The report will be called/faxed according to standard departmental protocol. Electronically signed by: Markel Ross M.D. 12/02/2018 4:00 PM
--- NOTE | 2018-12-02 19:23 | Progress Note ---
DATE: 12/02/2018 Ms. Farooq was seen today and she is much more awake and alert. She is on room air. Her drain around her repair site is almost 75 mL over the last day. She is moving her bowels and tolerating her tube feedings. Her white count today is 10,940 with a hemoglobin of 9.9. She did spike a temperature to 37.8, but she is down to 36.6 today. Her cultures thus far have all been negative, although she has not been cultured since the . Due to technical difficulties, we did not obtain our barium swallow. I would like to do that tomorrow, but she really does look better to me. I am quite pleased with her neurologic recovery. She will see how she does and hopefully be able to get that swallow tomorrow.
[2018-12-02] MEDS: IMPACT LIQD 1.0 CAL 1,000 ML BAG GT SCH (21:55)
[2018-12-03] MEDS: PIPERACILLIN/TAZOBACTAM 3.375 GM in DEXTROSE 5% 100 ML IV SCH ×3 (03:50→21:12)
[2018-12-03] MEDS: METOPROLOL TARTRATE 1 MG/ML VIAL IV SCH ×5 (03:51→21:12)
[2018-12-03] MEDS: SODIUM CHLORIDE 0.9% 1000ML 1,000 ML IV SCH (03:51)
[2018-12-03] MEDS: INSULIN ASPART 100 UNITS/ML 3 ML PEN SC SCH ×3 (06:12→17:45)
[2018-12-03] MEDS: HydrALAZINE HCL 20 MG/ML VIAL IV SCH ×3 (06:14→17:33)
[2018-12-03] MEDS ORDERED: ACETAMINOPHEN 65 ML IV ONE (06:45)
[2018-12-03 07:00] LABS: BUN Creatinine Ratio 29.5 (10-20); Calcium 9.4 mg/dl (8.5-10.1); Creatinine Clr Calc Pharmacy 89.3 ml/min; Est GFR (African American) 108.5; Est GFR (Non-African American) 93.6; Magnesium 1.9 mg/dl (1.8-2.4); Potassium 3.6 mmol/L (3.5-5.1)
[2018-12-03 07:12] LABS: Albumin Globulin Ratio 0.7 (0.9-2); Bilirubin,Total 0.6 mg/dl (0.2-1); Globulin 2.9 gm/dl (2.5-4.0); Phosphorus 1.9 mg/dl (2.5-4.9); Total Protein 4.9 gm/dl (6.4-8.2)
[2018-12-03] MEDS: HEPARIN SOD 5,000 UNIT/0.5 ML VIAL SQ SCH ×2 (08:04→21:13)
--- NOTE | 2018-12-03 08:26 | Surgery Progress Note ---
Date of Service December 03, 2018 Assessment & Plan (1) Esophageal tear: no acute changes had fever last last night. wbc today still pending will check urine/blood cx's/cxr. restart antifungals continue zosyn pt not ready to cooperated with UGI. will obtain when capable. she is tolerating tube feeds and drained so we should be ok to take our time evaluating. continue to encourage OOB/PT Subjective awake/alert. still confused. about the same as yesterday. dianelys TF's @ 45 cc's /hour Physical Exam Physical Exam: wound looks good. ALDEN scant /serous alert but disoriented. appears comfortable. Results & Data Vital Signs (Past 12 Hours) Vital Signs Temp Pulse Pulse Resp BP BP Pulse Ox 12/03/18 07:03 75 18 93 12/03/18 06:19 39.1 C H 12/03/18 04:05 37.4 C 80 22 136/65 94 12/03/18 03:51 80 130/65 12/02/18 23:52 80 116/61 12/02/18 23:35 37.5 C 80 26 H 116/61 91 (1) Esophageal tear Encounter type: initial encounter Qualified Code(s): S11.21XA - Laceration without foreign body of pharynx and cervical esophagus, initial encounter
--- NOTE | 2018-12-03 08:50 | XRay Report ---
XR chest 1V portable CLINICAL HISTORY: 72 years-old Female presenting with post op, fever. TECHNIQUE: Portable upright AP view of the chest was obtained. COMPARISON: 12/01/2018. FINDINGS: Right internal jugular central venous catheter terminates in the lower SVC. Numerous overlying entry level web developer al leads project over the thorax degrading evaluation. An abdominal surgical drain may be in place pr ojecting over the epigastrium. Skin nalini also noted in the midline abdomen. Atherosclerosis of the aortic arch. Cardiac silhouette mildly enlarged. Lung aeration is improved at the lung bases most pr onounced on the left.. No focal opacity. No large effusion or pneumothorax. Surgical clips noted in t he right axilla or within the right breast. IMPRESSION: 1. Improved aeration of the lung bases. 2. Cardiomegaly. 3. Unchanged position of the right IJ central venous catheter. Electronically signed by: Markel Ross M.D. 12/03/2018 8:48 AM
[2018-12-03] MEDS: FLUCONAZOLE 200 MG/100 ML BAG IV SCH (09:09)
--- NOTE | 2018-12-03 11:20 | CT Scan Report ---
CT OF THE ABDOMEN AND PELVIS WITHOUT CONTRAST CLINICAL HISTORY: Status post repair of esophageal perforation and oral contrast swallow using Optira y. COMPARISON STUDY: KUB November 25, 2018. TECHNIQUE: Axial images of the abdomen and pelvis were obtained without IV contrast. Images were revi ewed in the axial, sagittal, and coronal planes. Automated exposure control was utilized for the natividad dy. A dose lowering technique was utilized adhering to the principles of ALARA. FINDINGS: Imaged portions of the lower chest partially visualize small to moderate right and small le ft pleural effusions with atelectasis. No pneumatosis, free air or portal venous gas is present. Skin nalini from laparotomy are noted. There is no fluid collection is suggest an abscess. There is trac e fluid within the laparotomy site. There is oral contrast within the distal esophagus, stomach and d uodenum. There is no extraluminal contrast. Bairon-Bull drain is in place. There is no definite opa cification. Intraluminal catheter within the stomach is noted. Unenhanced images of the liver, spleen , adrenal glands and pancreas are unremarkable. There is no evidence for a bowel obstruction. There i s moderate presacral infiltration/fluid. There is a moderate amount of stool within the rectum. A Fol ey balloon within the bladder is noted. Right hip arthroplasty is incidentally noted. Old T12 mary jarad fracture is present. There are postoperative findings within the right breast. IMPRESSION: 1. No contrast extravasation to suggest leak status post distal esophageal repair. 2. Small to moderate right and small left pleural effusions. 3. Moderate presacral fluid with mild perirectal infiltration, a nonspecific finding. No extraluminal gas. Moderate amount stool within the rectum. No bowel obstruction. Electronically signed by: Micheal Worthy M.D. 12/03/2018 11:18 AM
[2018-12-03] MEDS: AMIODARONE / D5W 360 MG/200 ML BAG IV SCH (11:57)
--- NOTE | 2018-12-03 12:08 | Fluoroscopy Report ---
SINGLE CONTRAST SWALLOW UTILIZING OPTIRAY CLINICAL HISTORY: Status post repair of esophageal perforation. COMPARISON STUDY: Chest radiograph performed earlier today. FLUOROSCOPY TIME: 3.3 minutes. Cine fluoroscopic imaging was performed. FINDINGS: Surgical drains are in place. There are skin nalini from laparotomy. No extraluminal contr ast is identified to suggest a leak. There is moderate narrowing at the gastroesophageal junction whi ch is expected. There is mild holdup of contrast within the esophagus. However, contrast did pass int o the stomach. Gastric emptying is suboptimally assessed on this exam. IMPRESSION: 1. No extraluminal contrast to suggest leak status post esophageal repair. 2. Moderate narrowing at the gastroesophageal junction which is expected. Mild holdup of contrast wit hin the esophagus. However, contrast did pass into the stomach. Electronically signed by: Micheal Worthy M.D. 12/03/2018 12:07 PM
[2018-12-03] MEDS ORDERED: POTASSIUM PHOS 3 MMOL/1 ML INFUSION IV STA (12:16)
[2018-12-03] MEDS ORDERED: POTASSIUM PHOSPHATE 21 MMOL in SODIUM CHLORIDE 0.9% 500 ML IV ONE (12:30)
--- NOTE | 2018-12-03 12:34 | XRay Report ---
KUB HISTORY: F/U contrast study COMPARISON: Abdomen and pelvis CT 12/03/2018. FINDINGS: There is again noted a gastrojejunostomy tube which terminates in the expected location of the duodenal/jejunal junction. This remains unchanged. There is a midline percutaneous drain identifi ed the tip at the level of the distal esophagus. There is residual contrast within the stomach, uncha nged. Right hip prosthesis. Mildly distended gas and stool-filled colon. This favors a mild ileus. N o renal calculi. No ureteral calculi. No pneumoperitoneum or pneumatosis. Midline skin nalini are no reza. IMPRESSION: 1. Contrast remains within the stomach. No extraluminal contrast to suggest a leak.. 2. Mildly distended gas and stool focal which favors a mild ileus. No evidence for bowel obstruction. 3. Lines/tubes remain unchanged in position Electronically signed by: Boo Gar M.D. 12/03/2018 12:33 PM
--- NOTE | 2018-12-03 15:20 | Cardiology Consultation ---
Date of Consultation December 03, 2018 Assessment & Plan (1) New onset a-fib: Patient had an episode of atrial fibrillation and associated high ventricular rates in the postoperative period. It is unclear whether this is related to her operation and acute illness or whether this is simply paroxysmal atrial fibrillation finally identified during this admission. She has had symptoms of palpitations for some time. These are self limited and may represent paroxysmal atrial fibrillation. She did have a lot of atrial ectopy on her dobutamine study which also suggests some substrate for development of atrial fibrillation. Her echocardiogram was surprisingly normal. She is not appear to have a large left atrium or significant valvular disease. I would agree with continuation of amiodarone in the perioperative period. I think we can treat this in a similar fashion to other episodes of atrial fibrillation associated with thoracic surgery. As she cannot take oral medications currently I will keep her on the amiodarone infusion until she can take pills. Metoprolol can certainly be stopped. When she is taking oral medications I would advocate 400 milligrams of amiodarone twice daily for perhaps 5 days and then switch to 200 milligrams daily. This can be continued on discharged and amiodarone readdressed in the outpatient setting. With respect to anticoagulation. Her chads Vasc score is 3. This would put her in a category of patients who likely benefit from systemic anticoagulation. I would advocate initiation of anticoagulation some point prior to discharge at the discretion of her surgeons. My preference would be either Xarelto 20 milligrams daily or Eliquis 5 milligrams twice daily. I will be away from the hospital for the next 2 days. Please address any questions regarding her cardiac care to Dr. Zhou Jimenez the intern product marketing manager on- call. History of Present Illness Reason for Consultation: Atrial fibrillation Requesting Physician: Lindsay Attending Physician: Harshil Oconnell DO History of Present Illness The patient is a 72-year-old woman without a known history of cardiac disease who recently underwent operative intervention for large hiatal hernia. This appears to have been complicated by esophageal perforation. Her hospital course was also complicated by an episode of atrial fibrillation and associated rapid ventricular response. At the time the arrhythmia occurred the patient underwent an amiodarone infusion and eventually affected return to normal sinus rhythm. She has not been able to take oral medications as result of her recent surgery and has been maintained on amiodarone infusion since that time. I reviewed the patient's outpatient chart suggests that she does have occasional palpitations. I reviewed the symptoms with the patient and her today in the both endorse occasional episodes of palpitations. These appear to be fairly short-lived. Did not appear to be associated with other symptoms. She cannot recall the episode of atrial fibrillation during her hospitalization. Currently she claims to be comfortable. She has some discomfort at her operative site but this appears to be fairly minor. She denies any breathing difficulty. She is not aware of any palpitations currently. No chest pain. In general she ambulates with a cane and is limited by her multiple sclerosis and prior hip replacement. She does have some dyspnea while at ascending stairs or performing moderate activity. She does not report history of orthopnea or paroxysmal nocturnal dyspnea. Allergies Allergy/AdvReac Type Severity Reaction Status Date / Time No Known Allergies Allergy Verified 11/25/18 09:35 Home Medications Home Medications Medication Instructions Recorded Confirmed Type Betaseron 1 dose SUBCUT Q OTHER DAY 10/21/18 11/25/18 History Lyrica 75 mg PO BID 10/21/18 11/25/18 History amlodipine-benazepril 1 cap PO QAM 10/21/18 11/25/18 History aspirin [Aspir-Low] 81 mg PO HS 10/21/18 11/25/18 History calcium citrate-vitamin D3 1 tab PO BID 10/21/18 11/25/18 History [Citracal + D Maximum] dicyclomine 20 mg PO BID 10/21/18 11/25/18 History esomeprazole magnesium [Nexium] 40 mg PO BID 10/21/18 11/25/18 History pravastatin 80 mg PO HS 10/21/18 11/25/18 History ranitidine HCl 150 mg PO HS 10/21/18 11/25/18 History venlafaxine [Effexor XR] 150 mg PO QAM 10/21/18 11/25/18 History amiodarone 200 mg PO DAILY #30 tab 12/17/18 Rx ferrous sulfate 325 mg PO BID #60 tab 12/17/18 Rx potassium chloride 20 meq PO DAILY #30 tab 12/17/18 11/25/18 Rx Patient History Medical History Phlebitis (Acute) Hypophosphatemia Anxiety Cancer BREAST CANCER S/P CHEMO/RADIATION (20+ YEARS AGO) Depression Fibromyalgia GERD (gastroesophageal reflux disease) CONTROLLED Gout Hyperlipidemia Hypertension Migraine Multiple sclerosis SPEECH/BALANCE ISSUES; STABLE Osteoarthritis Restless leg syndrome Sleep apnea CPAP; NON-COMPLIANT Temporomandibular joint disorder Mitral valve disease ?HX MITRAL STENOSIS PER PATIENT; NO MITRAL STENOSIS OR ANY SIGNIFICANT VALVULAR DISEASE NOTED ON 11/17/18 DSE Surgical History History of appendectomy History of cardiac cath 5 YEARS AGO= NO STENTS History of cataract surgery B/L History of colonoscopy History of esophagogastroduodenoscopy (EGD) History of hysterectomy History of tooth extraction History of total hip arthroplasty RIGHT Hx of lumpectomy RIGHT BREAST Family History Mother Family history of diabetes mellitus Sister Family history of diabetes mellitus Brother Family history of diabetes mellitus Social History Preferred Language: Maltese Communication Ability: Impaired Cement Paver Required: No Beliefs That Will Affect Care: None Current Living Situation: Spouse Other Information That Helps Us Care for You: No Feels Safe at Home: Yes Safety Concerns: Feels Safe At This Time Smoking Status: Unknown if ever smoked Review of Systems Review of Systems: Unobtainable due to cognitive status The patient was able to follow commands and did answer some questions although it is unclear whether she was providing accurate history. Some of the history was obtained by her . Physical Exam Physical Exam: She is alert oriented to person. Mood affect appear normal. She answered all questions appropriately. HEENT: Sclerae are anicteric. Pupils are equal and reactive to light and accommodation. Extraocular movements were intact. Neuro: Cranial nerves intact Neck: Examination of the submandibular region did not reveal any significant lymphadenopathy. Carotids are palpable bilaterally and free of bruits on auscultation. There was no evidence of jugular venous distention. The thyroid was not enlarged. Lungs: Lungs are clear to auscultation bilaterally. There are no rales wheezes or rhonchi. She has normal respiratory effort without use of accessory muscles. There is normal pulmonary excursion. Cardiac: The rhythm was regular. S1 and S2 were normal. There are no murmurs on examination. The PMI was not markedly displaced on palpation. Abdomen: There is a large abdominal bandaged with both a feeding tube in a drain. Extremities: Patient has bilateral radial pulses that are equal in intensity. There is no evidence cyanosis or clubbing. There was no evidence of significant peripheral edema bilaterally. Skin: There are no rashes noted on examination today. Results & Data Vital Signs (Past 12 Hours) Vital Signs Temp Pulse Pulse Resp BP BP Pulse Ox 12/03/18 11:59 70 12/03/18 11:28 36.5 C 68 18 126/68 92 12/03/18 07:03 75 18 93 12/03/18 06:19 39.1 C H 12/03/18 04:05 37.4 C 80 22 136/65 94 12/03/18 03:51 80 130/65 Laboratory Results Abnormal Lab Results 12/02/18 12/02/18 12/03/18 18:08 23:06 05:30 Sodium Potassium Chloride Carbon Dioxide Anion Gap BUN Creatinine Est Cr Clr Drug Dosing Est GFR ( Amer) Est GFR (Non-Af Amer) BUN/Creatinine Ratio Glucose POC Glucose 138 H 134 H 153 H Calcium Phosphorus Magnesium Total Bilirubin AST ALT Alkaline Phosphatase Total Protein Albumin Globulin Albumin/Globulin Ratio 12/03/18 12/03/18 06:06 11:57 Sodium 136 Potassium 3.6 Chloride 103 Carbon Dioxide 29 Anion Gap 4.0 BUN 16 Creatinine 0.54 L Est Cr Clr Drug Dosing 89.3 Est GFR ( Amer) 108.5 Est GFR (Non-Af Amer) 93.6 BUN/Creatinine Ratio 29.5 H Glucose 129 H POC Glucose 111 H Calcium 9.4 Phosphorus 1.9 L D Magnesium 1.9 Total Bilirubin 0.6 AST 44 H ALT 53 Alkaline Phosphatase 112 Total Protein 4.9 L Albumin 2.0 L Globulin 2.9 Albumin/Globulin Ratio 0.7 L Diagnostic Findings Dobutamine echocardiogram performed on 11/17/2018: Normal LV function. Ejection fraction 55-60 percent. No valvular abnormalities. No evidence of ischemia. ECG Additional Comments: EKG on 11/27/2018 demonstrated atrial fibrillation rapid ventricular response
--- NOTE | 2018-12-03 16:21 | Hospitalist Progress Note ---
Date of Service December 03, 2018 Assessment & Plan (1) Esophageal tear: The patient suffered an esophageal tear intraoperatively during hiatal hernia repair. CT scan today and video swallow negative for leakage. Surgery is following and will order diet when appropriate.The patient has had i ntermittent fever and blood cultures and urine cultures are pending. She remains on intravenous Zosyn therapy and intravenous fluconazole therapy. Present on Admission?: Yes (2) New onset a-fib: Currently in normal sinus rhythm. Cardiac echo was unremarkable. Cardiology consultation noted. Intravenous metoprolol has been discontinued. She will will remain on intravenous amiodarone until taking p.o. at which time she will be switched to oral amiodarone therapy. Present on Admission?: No (3) Hypertension: Currently being treated with intravenous hydralazine. Controlled Present on Admission?: Yes (4) Hypophosphatemia: Corrected with intravenous Potassium phosphate infusion. Serial labs pending. Present on Admission?: No (5) Phlebitis: Superficial left cephalic vein thrombosis being treated with Subcutaneous heparin therapy Present on Admission?: No (6) DVT prophylaxis: Continue subcutaneous heparin therapy Subjective The patient is alert but seems to be somewhat confused. She had a CAT scan of the abdomen and video swallow todayWhich did not reveal any evidence of leakage.Hopefully she can be started on a clear liquid diet soon. She has had some fever and blood cultures and urine cultures were obtained. Cardiology consultation was also requested and she will remain on intravenous amiodarone until she is taking oral medication. Metoprolol intravenously has been discontinued. Cardiac echo reveals normal left ventricular ejection fraction. Review of Systems Review of Systems: Unobtainable due to cognitive status Physical Exam Constitutional: WD/WN, vitals as above Eyes: PERRL, conjunctivae normal, anicteric sclerae ENMT: external ear and nose normal, oropharynx normal Neck: trachea midline, no thyromegaly Respiratory: normal respiratory effort, lungs clear to auscultation Cardiovascular: Rate/Rhythm: regular rate and regular rhythm Heart Sounds: normal S1, normal S2 and + murmur (1+ blowing systolic murmur at the apex) Gastrointestinal (Abdomen): Inspection/Auscultation: + abdomen distended and normal bowel sounds Percussion/Palpation: no guarding, abdomen not rigid and no ascites Skin: no rashes, warm and dry Neurologic: moves all extremities; no focal motor deficits Results & Data Vital Signs (Past 12 Hours) Vital Signs Temp Pulse Pulse Resp BP BP Pulse Ox 12/03/18 16:03 75 12/03/18 15:21 36.9 C 75 24 134/68 94 12/03/18 11:59 70 12/03/18 11:28 36.5 C 68 18 126/68 92 12/03/18 07:03 75 18 93 12/03/18 06:19 39.1 C H Laboratory Results 12/02/18 06:11 Laboratory Tests 12/02/18 06:11 WBC 10.94 H 12/03/18 06:06 Diagnostic Findings XR chest 1V portable CLINICAL HISTORY: 72 years-old Female presenting with post op, fever. TECHNIQUE: Portable upright AP view of the chest was obtained. COMPARISON: 12/01/2018. FINDINGS: Right internal jugular central venous catheter terminates in the lower SVC. Numerous overlying external leads project over the thorax degrading evaluation. An abdominal surgical drain may be in place projecting over the epigastrium. Skin nalini also noted in the midline abdomen. Atherosclerosis of the aortic arch. Cardiac silhouette mildly enlarged. Lung aeration is improved at the lung bases most pronounced on the left.. No focal opacity. No large effusion or pneumothorax. Surgical clips noted in the right axilla or within the right breast. IMPRESSION: 1. Improved aeration of the lung bases. 2. Cardiomegaly. 3. Unchanged position of the right IJ central venous catheter. Electronically signed by: Markel Ross M.D. 12/03/2018 8:48 AM SINGLE CONTRAST SWALLOW UTILIZING OPTIRAY CLINICAL HISTORY: Status post repair of esophageal perforation. COMPARISON STUDY: Chest radiograph performed earlier today. FLUOROSCOPY TIME: 3.3 minutes. Cine fluoroscopic imaging was performed. FINDINGS: Surgical drains are in place. There are skin nalini from laparotomy. No extraluminal contrast is identified to suggest a leak. There is moderate narrowing at the gastroesophageal junction which is expected. There is mild holdup of contrast within the esophagus. However, contrast did pass into the stomach. Gastric emptying is suboptimally assessed on this exam. IMPRESSION: 1. No extraluminal contrast to suggest leak status post esophageal repair. 2. Moderate narrowing at the gastroesophageal junction which is expected. Mild holdup of contrast within the esophagus. However, contrast did pass into the stomach. Electronically signed by: Micheal Worthy M.D. 12/03/2018 12:[address] OF THE ABDOMEN AND PELVIS WITHOUT CONTRAST CLINICAL HISTORY: Status post repair of esophageal perforation and oral contrast swallow using Optiray. COMPARISON STUDY: KUB November 25, 2018. TECHNIQUE: Axial images of the abdomen and pelvis were obtained without IV contrast. Images were reviewed in the axial, sagittal, and coronal planes. Automated exposure control was utilized for the study. A dose lowering technique was utilized adhering to the principles of ALARA. FINDINGS: Imaged portions of the lower chest partially visualize small to moderate right and small left pleural effusions with atelectasis. No pneumatosis, free air or portal venous gas is present. Skin nalini from laparotomy are noted. There is no fluid collection is suggest an abscess. There is trace fluid within the laparotomy site. There is oral contrast within the distal esophagus, stomach and duodenum. There is no extraluminal contrast. Bairon-Bull drain is in place. There is no definite opacification. Intraluminal catheter within the stomach is noted. Unenhanced images of the liver, spleen, adrenal glands and pancreas are unremarkable. There is no evidence for a bowel obstruction. There is moderate presacral infiltration/fluid. There is a moderate amount of stool within the rectum. A Albright balloon within the bladder is noted. Right hip arthroplasty is incidentally noted. Old T12 compression fracture is present. There are postoperative findings within the right breast. IMPRESSION: 1. No contrast extravasation to suggest leak status post distal esophageal repair. 2. Small to moderate right and small left pleural effusions. 3. Moderate presacral fluid with mild perirectal infiltration, a nonspecific finding. No extraluminal gas. Moderate amount stool within the rectum. No bowel obstruction. Electronically signed by: Micheal Worthy M.D. 12/03/2018 11:18 AM KUB HISTORY: F/U contrast study COMPARISON: Abdomen and pelvis CT 12/03/2018. FINDINGS: There is again noted a gastrojejunostomy tube which terminates in the expected location of the duodenal/jejunal junction. This remains unchanged. There is a midline percutaneous drain identified the tip at the level of the di stal esophagus. There is residual contrast within the stomach, unchanged. Right hip prosthesis. Mildly distended gas and stool-filled colon. This favors a mild ileus. No renal calculi. No ureteral calculi. No pneumoperitoneum or pneumatosis. Midline skin nalini are noted. IMPRESSION: 1. Contrast remains within the stomach. No extraluminal contrast to suggest a leak.. 2. Mildly distended gas and stool focal which favors a mild ileus. No evidence for bowel obstruction. 3. Lines/tubes remain unchanged in position Electronically signed by: Boo Gar M.D. 12/03/2018 12:33 PM ECG Additional Comments: Currently normal sinus rhythm (1) Esophageal tear Encounter type: initial encounter Qualified Code(s): S11.21XA - Laceration without foreign body of pharynx and cervical esophagus, initial encounter
--- NOTE | 2018-12-03 16:58 | Progress Note ---
DATE: 12/03/2018 Ms. Farooq is now 8 days status post repair of her iatrogenic perforation in the distal esophagus. The patient was able to undergo a barium swallow which showed no evidence of a leak. The stomach is not emptying as well as I would like; however, the fluid does go down through the small bowel. We did do a CT scan after the barium swallow, it appears to me that the barium goes through the esophagus quite nicely. She had difficulty swallowing, however, and I had a long talk with the patient and her family including her and her son and she has been having trouble with her swallowing because of her MS. This appears to be upper esophageal. At any rate, I was quite pleased with the study. She is much more awake and interactive. She is on room air. She is not in any pain in her abdominal incision, but quite frankly I think she looks good. I would be fairly aggressive in removing her tubes including her Albright catheter and giving her up with PT and also get a speech and swallowing evaluation. I discussed this with Dr. Oconnell and I am quite pleased.
[2018-12-03] MEDS: IMPACT LIQD 1.0 CAL 1,000 ML BAG GT SCH (21:16)
[2018-12-04] MEDS: AMIODARONE / D5W 360 MG/200 ML BAG IV SCH (01:15)
[2018-12-04] MEDS: SODIUM CHLORIDE 0.9% 1000ML 1,000 ML IV SCH (01:16)
[2018-12-04] MEDS: METOPROLOL TARTRATE 1 MG/ML VIAL IV SCH ×3 (01:16→08:04)
[2018-12-04] MEDS: HydrALAZINE HCL 20 MG/ML VIAL IV SCH ×2 (01:17→05:39)
[2018-12-04] MEDS: INSULIN ASPART 100 UNITS/ML 3 ML PEN SC SCH ×4 (01:25→18:07)
[2018-12-04] MEDS: PIPERACILLIN/TAZOBACTAM 3.375 GM in DEXTROSE 5% 100 ML IV SCH (05:38)
[2018-12-04] MEDS: HEPARIN SOD 5,000 UNIT/0.5 ML VIAL SQ SCH ×2 (08:03→20:52)
[2018-12-04] MEDS: FLUCONAZOLE 200 MG/100 ML BAG IV SCH (08:04)
[2018-12-04] MEDS ORDERED: POTASSIUM PHOS 3 MMOL/1 ML INFUSION IV STA (08:30)
[2018-12-04] MEDS ORDERED: NON-FORMULARY MEDICATION (Amlodipine-Benazepril 1 CAP) PO SCH (09:00)
--- NOTE | 2018-12-04 09:53 | Surgery Progress Note ---
Date of Service December 04, 2018 Assessment & Plan (1) Esophageal tear: UGI yesterday neg for leak will obtain speech/swallowing eval d/w medicine and Dr. Alfaro. will change amiodarone to oral ( g-tube) d/c da silva ( will place picwick) we really need to get her up/oob/moving better. more aggressive PT/OT. d/w nursing afebrile now. will try some oral intake in near future after speech/swallow eval Subjective awake/alert. still somewhat confused. answers some questions appropriately. Physical Exam Physical Exam: ALDEN serous dianelys TF's at 55 cc/hr wound looks good. Results & Data Vital Signs (Past 12 Hours) Vital Signs Temp Pulse Pulse Resp BP BP BP 12/04/18 08:04 80 129/65 12/04/18 07:08 36.9 C 77 17 129/65 12/04/18 05:37 81 143/75 H 12/04/18 03:24 36.8 C 73 20 143/75 H 12/04/18 01:16 72 111/51 L 12/04/18 00:00 36.8 C 71 20 111/51 L Pulse Ox 12/04/18 08:04 12/04/18 07:08 94 12/04/18 05:37 12/04/18 03:24 95 12/04/18 01:16 12/04/18 00:00 95 (1) Esophageal tear Encounter type: initial encounter Qualified Code(s): S11.21XA - Laceration without foreign body of pharynx and cervical esophagus, initial encounter
[2018-12-04] MEDS ORDERED: GLUCAGON FOR INJ 1 MG VIAL IM PRN (10:00)
[2018-12-04] MEDS ORDERED: GLUCOSE 10 TABS/TUBE PO PRN (10:00)
[2018-12-04] MEDS ORDERED: CARBOHYDRATES FOR HYPOGLYCEMIA PO PRN (10:00)
[2018-12-04] MEDS ORDERED: DEXTROSE 50% 50 ML SYRINGE IV PRN (10:00)
[2018-12-04] MEDS ORDERED: POTASSIUM PHOSPHATE 24 MMOL in SODIUM CHLORIDE 0.9% 500 ML IV ONE (10:00)
[2018-12-04] MEDS ORDERED: GLUCOSE 40% GEL 15 GM TUBE PO PRN (10:00)
--- NOTE | 2018-12-04 10:10 | Progress Note ---
DATE: 12/04/2018 SUBJECTIVE: Ms. Farooq was seen today. Actually, I think she looks a bit better. Her neuro status is quite concerning; however, I think at baseline, she does have some issues with her multiple sclerosis. She appears comfortable on room air today. OBJECTIVE: Her maximal temperature was 39.1 yesterday morning. She has been afebrile for over 24 hours. Her vital signs have also been stable. Her heart rate has been stable on amiodarone drip. She was seen by cardiology yesterday who recommended transitioning her to p.o. meds if possible. Her lungs actually sound good except she has got some decreased breath sounds. She has a regular rate and rhythm of her heart with a rate in the 70s. Her oral mucosa is fairly moist. She is following commands and answering questions, although she still has some issues and is quite weak. Her Bairon-Bull drain only put out 50 mL and is serous. She has made excellent urine. She is putting out a large amount through the gastric portion of her Arvizu tube. She put out 1900 mL. ASSESSMENT AND PLAN: Postoperative day #9 status post repair of iatrogenic esophageal perforation. I was quite pleased with this study yesterday. It appears that it does not hold up much, but she is not leaking. In addition, she does appear to have transitioned from the stomach into the small bowel rather quickly, but she has some pooling in her stomach. I think being on her back does not help this. I am going to change all of her medications over to p.o. I stopped some medication. I do not think she needs to be on Diflucan. We are going to stop the Zosyn, but put her on Augmentin for a few more days. We will also change her amiodarone over to her J-tube and we will get speech and swallowing to see her. We will also like to get her up to the chair. I would like for her to start taking some p.o. before we pulled this Bairon-Bull drain out. I would also like to get her Albright out, but we may need to hold that off for another day or so.
[2018-12-04] MEDS: ENALAPRIL MALEATE 10 MG TAB PO SCH (11:13)
[2018-12-04] MEDS: VENLAFAXINE HCL XR 150 MG CAPXR PO SCH (11:13)
[2018-12-04] MEDS: DICYCLOMINE HCL 20 MG TAB PO SCH ×2 (11:13→20:55)
[2018-12-04] MEDS: AMLODIPINE BESYLATE 5 MG TAB PO SCH (11:13)
[2018-12-04] MEDS: AMIODARONE 200 MG TAB PO SCH ×2 (11:14→20:54)
[2018-12-04] MEDS: LANSOPRAZOLE 15 MG SOLTAB PO SCH ×2 (11:14→20:54)
[2018-12-04] MEDS: PREGABALIN 75 MG CAP PO SCH ×2 (11:16→20:55)
[2018-12-04] MEDS: AMOXICILLIN/CLAVULANATE SUSP 400MG/5ML 50ML BOTTLE PO SCH ×2 (13:04→19:55)
--- NOTE | 2018-12-04 13:55 | Hospitalist Progress Note ---
Date of Service December 04, 2018 Assessment & Plan (1) Esophageal tear: The patient suffered an esophageal tear intraoperatively during hiatal hernia repair. CT scan 12/03 and video swallow negative for leakage. Surgery is following and will order diet when appropriate.The patient has had intermittent fever and blood cultures and urine cultures are negative. She remains on intravenous Zosyn therapy and intravenous fluconazole therapy. (2) New onset a-fib: Currently in normal sinus rhythm. Cardiac echo was unremarkable. Cardiology consultation noted. Intravenous metoprolol has been discontinued. She will has been switched to oral amiodarone. Continue telemetry (3) Hypertension: Now on oral medications. Controlled (4) Hypophosphatemia: Being treated with intravenous Potassium phosphate infusion. Serial labs pending. (5) Phlebitis: Superficial left cephalic vein thrombosis being treated with Subcutaneous heparin therapy (6) DVT prophylaxis: Continue subcutaneous heparin therapy Subjective The patient is alert. No new complaints. Oral medications have been restarted. Intravenous metoprolol discontinued. Phosphorus will be replaced again intravenously today. She remains on intravenous fluconazole and Zosyn. She continues with enteral feeding. She remains n.p.o. except meds. Review of Systems Review of Systems: All systems reviewed & are unremarkable except as noted in HPI & below Gastrointestinal: All sounds are active. She does have some diffuse abdominal discomfort. No guarding rebound or rigidity. G-tube site intact and dry Physical Exam Constitutional: WD/WN, vitals as above Eyes: PERRL, conjunctivae normal, anicteric sclerae ENMT: external ear and nose normal, oropharynx normal Neck: trachea midline, no thyromegaly Respiratory: normal respiratory effort, lungs clear to auscultation Cardiovascular: Rate/Rhythm: regular rate and regular rhythm Heart Sounds: normal S1, normal S2 and + murmur (1+ blowing systolic murmur at the apex) Gastrointestinal (Abdomen): Inspection/Auscultation: + abdomen distended and normal bowel sounds Percussion/Palpation: no guarding, abdomen not rigid and no ascites G-tube site intact and dry Skin: no rashes, warm and dry Neurologic: moves all extremities; no focal motor deficits Results & Data Vital Signs (Past 12 Hours) Vital Signs Temp Pulse Pulse Resp BP BP BP 12/04/18 11:21 80 20 110/68 12/04/18 08:04 80 129/65 12/04/18 07:08 36.9 C 77 17 129/65 12/04/18 05:37 81 143/75 H 12/04/18 03:24 36.8 C 73 20 143/75 H Pulse Ox 12/04/18 11:21 96 12/04/18 08:04 12/04/18 07:08 94 12/04/18 05:37 12/04/18 03:24 95 Laboratory Results 12/02/18 06:11 12/03/18 06:06 (1) Esophageal tear Encounter type: initial encounter Qualified Code(s): S11.21XA - Laceration without foreign body of pharynx and cervical esophagus, initial encounter
[2018-12-04] MEDS: IMPACT LIQD 1.0 CAL 1,000 ML BAG GT SCH (17:12)
[2018-12-04] MEDS: BETASERON SC SCH (17:13)
[2018-12-04] MEDS: ASPIRIN 81 MG CHEW PO SCH (20:54)
[2018-12-04] MEDS: PRAVASTATIN SOD 40 MG TAB PO SCH (20:55)
[2018-12-04] MEDS ORDERED: ASPIRIN 81 MG ECTAB PO SCH (21:00)
[2018-12-05] MEDS: INSULIN ASPART 100 UNITS/ML 3 ML PEN SC SCH ×4 (00:11→18:05)
[2018-12-05] MEDS: ONDANSETRON INJ 2 MG/ML 2 ML VIAL IV PRN (00:51)
[2018-12-05 06:50] LABS: Basophils # (auto) 0.03 K/uL (0-0.2); Basophils % (auto) 0.2 %; Eosinophils # (auto) 0.15 K/uL (0-0.5); Hematocrit (blood only) 27.3 % (37-47); Hemoglobin 9.1 g/dL (12.0-16.0); Immature Granulocytes # (auto) 0.09 K/uL (0.00-0.02); Immature Granulocytes % (auto) 0.6 %; Lymphocytes # (auto) 1.34 K/uL (1.2-3.4); Lymphocytes % (auto) 9.2 %; Mean Corpuscular Hgb Conc 33.3 g/dL (32-36); Mean Corpuscular Volume 86.9 fL (80-100); Mean Platelet Volume 9.4 fL (7.4-10.4); Monocytes # (auto) 1.41 K/uL (0.11-0.59); Monocytes % (auto) 9.7 %; Neutrophils # (auto) 11.54 K/uL (1.4-6.5); Neutrophils % (auto) 79.3 %; Platelet Count 436 K/uL (130-400); RDW Coefficient of Variation 14.7 % (11.5-14.5); RDW Standard Deviation 46.9 fL (36.4-46.3); Red Blood Count 3.14 M/uL (4.2-5.4); White Blood Count 14.56 K/uL (4.8-10.8)
--- NOTE | 2018-12-05 07:03 | XRay Report ---
XR chest 1V portable HISTORY: 72 years-old Female post-op postoperative exam. COMPARISON: Chest radiograph 12/03/2018 TECHNIQUE: Portable AP view the chest FINDINGS: Cardiac silhouette is mildly enlarged. Stable positioning of the right internal jugular intravenous c atheter. Catheter projecting over the upper abdomen is also unchanged with midline skin nalini of th e abdomen. Skin nalini are also noted projecting over the right axillary/lateral right breast distri bution. No pneumothorax or large pleural effusion. There is mild pulmonary vascular congestion. Subse gmental bibasilar opacities. Degenerative changes of the shoulders and spine. IMPRESSION: 1. Cardiomegaly with mild pulmonary vascular congestion. 2. Mild subsegmental bibasilar opacities favor atelectasis. The above report was generated using voice recognition software. It may contain grammatical, syntax o r spelling errors. Electronically signed by: Cristian Kennedy M.D. 12/05/2018 7:01 AM
[2018-12-05 07:25] LABS: BUN Creatinine Ratio 44.3 (10-20); Calcium 10.3 mg/dl (8.5-10.1); Creatinine Clr Calc Pharmacy 107.2 ml/min; Est GFR (African American) 115.2; Est GFR (Non-African American) 99.4; Phosphorus 2.5 mg/dl (2.5-4.9); Potassium 4.4 mmol/L (3.5-5.1)
[2018-12-05] MEDS: DICYCLOMINE HCL 20 MG TAB PO SCH ×2 (08:09→22:11)
[2018-12-05] MEDS: AMOXICILLIN/CLAVULANATE SUSP 400MG/5ML 50ML BOTTLE PO SCH ×2 (08:09→17:22)
[2018-12-05] MEDS: LANSOPRAZOLE 15 MG SOLTAB PO SCH ×2 (08:10→22:11)
[2018-12-05] MEDS: VENLAFAXINE HCL XR 150 MG CAPXR PO SCH (08:10)
[2018-12-05] MEDS: AMLODIPINE BESYLATE 5 MG TAB PO SCH (08:10)
[2018-12-05] MEDS: AMIODARONE 200 MG TAB PO SCH ×2 (08:10→22:10)
[2018-12-05] MEDS: ENALAPRIL MALEATE 10 MG TAB PO SCH (08:10)
[2018-12-05] MEDS: HEPARIN SOD 5,000 UNIT/0.5 ML VIAL SQ SCH ×2 (08:11→21:07)
[2018-12-05] MEDS: PREGABALIN 75 MG CAP PO SCH ×2 (08:12→22:11)
--- NOTE | 2018-12-05 09:40 | Surgery Progress Note ---
Date of Service December 05, 2018 Assessment & Plan (1) Esophageal tear: clinically looking pretty good speech/swallowing to re-evaluate today. can start oral intake pending their rec's cont tube feeds. pt with improving oral yeast infection. restart diflucan afebrile. suspect WBC is trending down. will recheck tomorrow. need agressive PT/OT Subjective much more awake/alert today. answering questions. denies pain. Physical Exam Physical Exam: awake/alert. nad wound looks good thoracic drain serous Results & Data Vital Signs (Past 12 Hours) Vital Signs Temp Pulse Pulse Resp BP BP BP 12/05/18 07:35 36.8 C 81 24 125/73 12/05/18 03:49 36.8 C 75 17 131/73 12/04/18 23:59 36.9 C 81 18 119/69 12/04/18 23:00 78 Pulse Ox 12/05/18 07:35 93 12/05/18 03:49 95 12/04/18 23:59 93 12/04/18 23:00 (1) Esophageal tear Encounter type: initial encounter Qualified Code(s): S11.21XA - Laceration without foreign body of pharynx and cervical esophagus, initial encounter
[2018-12-05] MEDS: FLUCONAZOLE 200 MG/100 ML BAG IV SCH (10:21)
[2018-12-05] MEDS: IMPACT LIQD 1.0 CAL 1,000 ML BAG GT SCH (10:23)
--- NOTE | 2018-12-05 11:03 | Progress Note ---
DATE: 12/05/2018 SUBJECTIVE: Ms. Farooq looks great today. She is interactive and conversant as I have seen her. There are some issues; however, at this point I feel better about her. Her gastric output has decreased dramatically. An x-ray looks better to me as far as pleural effusions go as she has really a very small effusions. In addition, the barium has emptied out of her stomach which is quite good. Her bowel pattern looks good. She has had some smears for bowel movements. She is tolerating her feeds. She has had some problems; one problem she has had is her white count is bit elevated at 14. In addition, the patient has developed urinary retention and her Albright catheter had to be replaced. Her CVP has not been removed as of yet but it is going to be. She also had some swelling and does not move her left leg well, but I think she had some of this preoperatively. Speech And Swallowing saw her yesterday and there are concerns about possible aspiration and swallowing dysfunction which she had preoperatively. ASSESSMENT AND PLAN: At this point, I have discussed the case with Dr. Oconnell and Dr. Montoya. We all saw the patient at the bedside simultaneously. Quite frankly, I think she looks good. I would continue to push her in PT and OT and I would start her on a diet when Speech [facility] Swallowing clears her.
--- NOTE | 2018-12-05 11:19 | Ultrasound Report ---
BILATERAL LOWER EXTREMITY VENOUS DOPPLER HISTORY: Acute pain and swelling of the bilateral legs left leg swelling and pain COMPARISON STUDY: None. FINDINGS: There is normal compressibility, flow, and augmentation within the bilateral lower extremit y deep venous systems. Mildly complex right-sided Armendariz's cyst, 2.8 x 3.2 x 1.1 cm. IMPRESSION: No sonographic evidence of deep venous thrombosis within the right or left lower extremity. Electronically signed by: Cristian Kennedy M.D. 12/05/2018 11:17 AM
--- NOTE | 2018-12-05 12:43 | Hospitalist Progress Note ---
Date of Service December 05, 2018 Assessment & Plan (1) Esophageal tear: The patient suffered an esophageal tear intraoperatively during hiatal hernia repair. CT scan 12/03 and video swallow negative for leakage. Surgery is following and will order diet when appropriate.The patient has had intermittent fever and blood cultures and urine cultures are negative. She remains on intravenous Zosyn therapy and intravenous fluconazole therapy. (2) New onset a-fib: Currently in normal sinus rhythm. Cardiac echo was unremarkable. Cardiology consultation noted. Intravenous metoprolol has been discontinued. She has been switched to oral amiodarone. Continue telemetry (3) Hypertension: Now on oral medications. Controlled (4) Hypophosphatemia: Corrected. (5) Phlebitis: Superficial left cephalic vein thrombosis being treated with Subcutaneous heparin therapy (6) DVT prophylaxis: Continue subcutaneous heparin therapy Subjective The patient is alert but disoriented in no acute distress. She has considerable lower extremity edema more pronounced on the left and is complaining of some leg pain. Venous Doppler study is negative for DVT. She will be given intravenous Lasix every 12 hours to help mobilize fluid overload. She also needs incentive spirometry and mobilization. Case discussed with thoracic surgery and general s urgery. Hypophosphatemia has been corrected. Blood cultures and urine cultures are negative. Review of Systems Review of Systems: All systems reviewed & are unremarkable except as noted in HPI & below Physical Exam Constitutional: WD/WN, vitals as above Eyes: PERRL, conjunctivae normal, anicteric sclerae ENMT: external ear and nose normal, oropharynx normal Neck: trachea midline, no thyromegaly Respiratory: normal respiratory effort, lungs clear to auscultation Cardiovascular: Rate/Rhythm: regular rate and regular rhythm Heart Sounds: normal S1, normal S2 and + murmur (1+ blowing systolic murmur at the apex) Gastrointestinal (Abdomen): Inspection/Auscultation: + abdomen distended and normal bowel sounds Percussion/Palpation: no guarding, abdomen not rigid and no ascites Skin: no rashes, warm and dry Neurologic: moves all extremities; no focal motor deficits Results & Data Vital Signs (Past 12 Hours) Vital Signs Temp Pulse Pulse Resp BP BP Pulse Ox 12/05/18 11:42 36.9 C 85 22 112/67 95 12/05/18 08:00 78 12/05/18 07:35 36.8 C 81 24 125/73 93 12/05/18 03:49 36.8 C 75 17 131/73 95 Laboratory Results 12/05/18 06:26 12/05/18 06:26 (1) Esophageal tear Encounter type: initial encounter Qualified Code(s): S11.21XA - Laceration without foreign body of pharynx and cervical esophagus, initial encounter
[2018-12-05] MEDS: FUROSEMIDE 20 MG in SYRINGE 0 ML IV SCH (21:05)
[2018-12-05] MEDS: PRAVASTATIN SOD 40 MG TAB PO SCH (22:11)
[2018-12-05] MEDS: ASPIRIN 81 MG CHEW PO SCH (22:11)
[2018-12-06] MEDS: INSULIN ASPART 100 UNITS/ML 3 ML PEN SC SCH ×4 (00:34→18:47)
[2018-12-06 06:28] LABS: Basophils # (auto) 0.05 K/uL (0-0.2); Basophils % (auto) 0.3 %; Eosinophils # (auto) 0.23 K/uL (0-0.5); Eosinophils % (auto) 1.4 %; Hematocrit (blood only) 29.9 % (37-47); Hemoglobin 9.8 g/dL (12.0-16.0); Immature Granulocytes # (auto) 0.08 K/uL (0.00-0.02); Immature Granulocytes % (auto) 0.5 %; Lymphocytes # (auto) 1.72 K/uL (1.2-3.4); Lymphocytes % (auto) 10.2 %; Mean Corpuscular Hgb Conc 32.8 g/dL (32-36); Mean Corpuscular Volume 88.2 fL (80-100); Mean Platelet Volume 9.8 fL (7.4-10.4); Monocytes # (auto) 1.87 K/uL (0.11-0.59); Monocytes % (auto) 11.1 %; Neutrophils # (auto) 12.92 K/uL (1.4-6.5); Neutrophils % (auto) 76.5 %; Platelet Count 525 K/uL (130-400); RDW Coefficient of Variation 15.1 % (11.5-14.5); RDW Standard Deviation 48.7 fL (36.4-46.3); Red Blood Count 3.39 M/uL (4.2-5.4); White Blood Count 16.87 K/uL (4.8-10.8)
[2018-12-06 06:30] LABS: BUN Creatinine Ratio 38.3 (10-20); Creatinine Clr Calc Pharmacy 86.3 ml/min; Est GFR (African American) 107.2; Est GFR (Non-African American) 92.5; Potassium 4.4 mmol/L (3.5-5.1)
--- NOTE | 2018-12-06 08:35 | Surgery Progress Note ---
Date of Service December 06, 2018 Subjective pt alert/awake. answers some questions. still confused. Physical Exam Physical Exam: alert. nad abd: soft. wound looks great. drain scant/serous G-tube functioning ok now ( had clog yesteday) WBC slightly up. UA/blood cx's neg. CT scan neg. ? etiology. continue diflucan for oral yeast still unable to take PO per speech /swallowing. had dysmotility prior to surgery. May need [facility] to talk to PT. must get her moving better will consult neurology. unable to give her effexor down tube. ? if contributing to her delirium. any advice for her prolonged post op confustion case d/w Dr. Alfaro. Results & Data Vital Signs (Past 12 Hours) Vital Signs Temp Pulse Pulse Resp BP Pulse Ox 12/06/18 07:06 37.2 C 90 20 149/77 H 95 12/06/18 03:57 36.4 C L 86 24 123/73 95 12/06/18 00:00 36.9 C 88 89 22 119/61 95
[2018-12-06] MEDS: AMOXICILLIN/CLAVULANATE SUSP 400MG/5ML 50ML BOTTLE PO SCH ×2 (09:05→16:30)
[2018-12-06] MEDS: FUROSEMIDE 20 MG in SYRINGE 0 ML IV SCH ×2 (09:06→22:25)
[2018-12-06] MEDS: FLUCONAZOLE 200 MG/100 ML BAG IV SCH (09:06)
[2018-12-06] MEDS: HEPARIN SOD 5,000 UNIT/0.5 ML VIAL SQ SCH ×2 (09:06→22:32)
[2018-12-06] MEDS: POTASSIUM CHLORIDE 20 MEQ TABCR PO SCH ×2 (09:07→22:32)
[2018-12-06] MEDS: LANSOPRAZOLE 15 MG SOLTAB PO SCH ×2 (09:07→22:29)
[2018-12-06] MEDS: AMLODIPINE BESYLATE 5 MG TAB PO SCH (09:08)
[2018-12-06] MEDS: VENLAFAXINE HCL XR 150 MG CAPXR PO SCH (09:08)
[2018-12-06] MEDS: AMIODARONE 200 MG TAB PO SCH ×2 (09:08→22:31)
[2018-12-06] MEDS: ENALAPRIL MALEATE 10 MG TAB PO SCH (09:08)
[2018-12-06] MEDS: DICYCLOMINE HCL 20 MG TAB PO SCH ×2 (09:08→22:28)
[2018-12-06] MEDS: PREGABALIN 75 MG CAP PO SCH ×2 (09:10→22:34)
--- NOTE | 2018-12-06 10:27 | Neurology Consultation ---
Date of Consultation December 06, 2018 Assessment & Plan (1) Acute encephalopathy: This is a 72-year-old female with acute encephalopathy since her hiatal hernia repair November 25. Patient has significant stroke risk factors including A. fib not on anticoagulation, hypertension, dyslipidemia, and recent surgery. Patient does not appear to be moving her left upper extremity normally and I am concerned that she potentially could have had a stroke perioperative. Recommendations: Recommend trying to obtain an MRI of the brain to see if there is been any acute stroke. If patient is unable to get an MRI of the brain could, check a CT of the head, although this will be less sensitive EEG has been ordered to rule out focal seizures (low suspicion for this) Could consider rechecking TSH, and cultures due to elevated WBCs. Could consider checking a B12 level with goal B12 level above 400, although I think B12 deficiency is less likely to be the reason for her encephalopathy. No history of alcoholism, but again could consider checking her thiamine. If there is any questions or concerns, feel free to call/page me. History of Present Illness Reason for Consultation: Consultation for persistent altered mental status Attending Physician: Harshil Oconnell, DO History of Present Illness This is a 72-year-old right-handed female who presented initially November 25 for hiatal hernia repair. Surgery was complicated by esophageal tear and repair. Patient was noted to have fevers postop but blood cultures were negative and urine cultures were negative. Patient does have known A. fib but has been reports that she was only taking aspirin. Echocardiogram was unremarkable. Dopplers were negative for DVTs. Her hypophosphatemia was corrected. Continues to be confused. reports that it fluctuates. He denies any cognitive concerns before surgery. Patient has been noted to have some swelling on the left side. Has never had any seizure-like events. Reduction of sedating or pain medications has been attempted to see if this would improve her mental status. On review of blood work her WBCs today are noted to be elevated at 16. Her blood gas was unremarkable. TSH on the was unremarkable. Past medical history significant for hypertension, obstructive sleep apnea on CPAP, multiple sclerosis with no residual motor deficits (managed by neurologist in [place]), dyslipidemia, anxiety/depression, fibromyalgia, A. fib. Allergies Allergy/AdvReac Type Severity Reaction Status Date / Time No Known Allergies Allergy Verified 11/25/18 09:35 Home Medications Home Medications Medication Instructions Recorded Confirmed Type amlodipine-benazepril 1 cap PO QAM 10/21/18 11/25/18 History aspirin [Aspir-Low] 81 mg PO HS 10/21/18 11/25/18 History calcium citrate-vitamin D3 1 tab PO BID 10/21/18 11/25/18 History [Citracal + D Maximum] dicyclomine 20 mg PO BID 10/21/18 11/25/18 History esomeprazole magnesium [Nexium] 40 mg PO BID 10/21/18 11/25/18 History interferon beta-1b [Betaseron] 1 dose SUBCUT Q OTHER DAY 10/21/18 11/25/18 History potassium chloride 20 meq PO UD 10/21/18 11/25/18 History pravastatin 80 mg PO HS 10/21/18 11/25/18 History pregabalin [Lyrica] 75 mg PO BID 10/21/18 11/25/18 History ranitidine HCl 150 mg PO HS 10/21/18 11/25/18 History venlafaxine [Effexor XR] 150 mg PO QAM 10/21/18 11/25/18 History Patient History Medical History Phlebitis (Acute) Hypophosphatemia Anxiety Cancer BREAST CANCER S/P CHEMO/RADIATION (20+ YEARS AGO) Depression Fibromyalgia GERD (gastroesophageal reflux disease) CONTROLLED Gout Hyperlipidemia Hypertension Migraine Multiple sclerosis SPEECH/BALANCE ISSUES; STABLE Osteoarthritis Restless leg syndrome Sleep apnea CPAP; NON-COMPLIANT Temporomandibular joint disorder Mitral valve disease ?HX MITRAL STENOSIS PER PATIENT; NO MITRAL STENOSIS OR ANY SIGNIFICANT VALVULAR DISEASE NOTED ON 11/17/18 DSE Surgical History History of appendectomy History of cardiac cath 5 YEARS AGO= NO STENTS History of cataract surgery B/L History of colonoscopy History of esophagogastroduodenoscopy (EGD) History of hysterectomy History of tooth extraction History of total hip arthroplasty RIGHT Hx of lumpectomy RIGHT BREAST Family History Mother Family history of diabetes mellitus Sister Family history of diabetes mellitus Brother Family history of diabetes mellitus Social History Preferred Language: Romanian Communication Ability: Impaired [employer] Required: No Beliefs That Will Affect Care: None Current Living Situation: Spouse Other Information That Helps Us Care for You: No Feels Safe at Home: Yes Safety Concerns: Feels Safe At This Time Smoking Status: Unknown if ever smoked Review of Systems Review of Systems: All systems reviewed & are unremarkable except as noted in HPI & below Physical Exam Physical Exam: Gen.: Patient is alert and oriented in no acute distress sitting in chair Heart: Regular rate and rhythm Extremities: Significant edema in left upper extremity and mildly in left lower extremity Neurological examination: Mental status: Patient is alert and oriented to person only. unable to give own history. Poor fund of knowledge. Attention and concentration fair for the situation. Recent and remote memory impaired Speech is fluent without any dysarthria or aphasia noted Cranial nerves: Visual shin grossly intact to confrontation. Funduscopic examination was difficult to visualize. Pupils equally round and reactive to light. Patient did not follow commands for extraocular muscle testing but appeared to be able to look in all directions. No facial asymmetry noted. Facial sensation intact. Tongue midline. Good palatal elevation. Good shoulder shrug bilaterally. Hearing grossly intact voice. Strength: Patient did not follow commands for formal strength examination due to mental status. Appears to have full strength with right upper extremity. Able to move right lower extremity but did not demonstrate any antigravity strength. Demonstrated some mild movement of the left upper extremity but no antigravity strength. Left lower extremity was able to wiggle toes and foot and had pain when attempting to elevate the leg which appeared to possibly could be coming from her knee which was tender to palpation. Sensation: Grossly intact to light touch in all extremities Deep tendon reflexes: +1 in bilateral biceps and patellar. Toes are downgoing to plantar stimulation bilaterally Coordination: Patient was able to reach out and grab with her right hand without any signs of dysmetria or ataxia. Station within the chair is normal. Results & Data Vital Signs (Past 12 Hours) Vital Signs Temp Pulse Pulse Resp BP Pulse Ox 12/06/18 08:00 88 12/06/18 07:06 37.2 C 90 20 149/77 H 95 12/06/18 03:57 36.4 C L 86 24 123/73 95 12/06/18 00:00 36.9 C 88 89 22 119/61 95
--- NOTE | 2018-12-06 12:45 | Progress Note ---
DATE: 12/06/2018 Ms. Farooq was seen today. She had a quiet night. I discussed her with the house staff as well as Dr. Oconnell who is at bedside. She remains on room air. Her vital signs seem quite good. Her hemoglobin is stable at 9.8; however, her white count has risen. It was 14.56 yesterday and is 16.87 today. Having said that, the patient is afebrile, temperature 37.1 this morning. Her gastric output continues to decrease with 725 mL over the last 24 hours. The serous drainage in her [place] drain is also down to 65 mL. While I remain concerned about the patient's mild leukocytosis, overall I think she is improving. I would be very aggressive about trying to get as many lines out of her as I could and to get her up moving with physical therapy and occupational therapy. Dr. Oconnell and I discussed the patient in detail this morning and we feel that a neurology consult to handle her medications for her multiple sclerosis has been ordered. We cannot give her the Effexor through the J tube.
--- NOTE | 2018-12-06 14:59 | Hospitalist Progress Note ---
Date of Service December 06, 2018 Assessment & Plan (1) Esophageal tear: The patient suffered an esophageal tear intraoperatively during hiatal hernia repair. CT scan 12/03 and video swallow negative for leakage. Surgery is following and will order diet when appropriate.The patient has had intermittent fever and blood cultures and urine cultures are negative. She remains on intravenous Zosyn therapy and intravenous fluconazole therapy. WBC trending up slightly but clinical picture improved general surgery and thoracic surgery following (2) New onset a-fib: Currently in normal sinus rhythm. Cardiac echo was unremarkable. Cardiology consultation noted. Intravenous metoprolol has been discontinued. She has been switched to oral amiodarone. Continue telemetry (3) Hypertension: Now on oral medications. Controlled (4) Hypophosphatemia: Corrected. (5) Phlebitis: Superficial left cephalic vein thrombosis being treated with Subcutaneous heparin therapy (6) DVT prophylaxis: Continue subcutaneous heparin therapy (7) Acute encephalopathy: continues to be pleasantly confused EEG today with evidence of encephalopathy CT head with prior ischemic damage, no acute stroke could not tolerate MRI brain continue supportive care, frequent re-orientation appropriate sleep wake cycle limit stimuli, limit tethers (8) Delirium: see above, her encephalopathy would appear to be delirium no obvious cause Subjective patient sitting up in chair today, pleasantly confused had EEG that showed moderate encephalopathy, no seizure activity CT brain done, no acute strokes seen, chronic ischemic changes and old strokes seen could not tolerate MRI J tube clogged, will need to use G tube surgery plans for some IV fluids d/w general surgery appreciate neurology consultation patient denies chest pain, abdominal pain, fever, nausea Review of Systems Review of Systems: All systems reviewed & are unremarkable except as noted in HPI & below Constitutional: no fever, no chills and no sweats Respiratory: no cough, no dyspnea and no dyspnea on exertion Cardiovascular: no chest pain, no palpitations and no edema Gastrointestinal: no abdominal pain, no nausea, no vomiting, no constipation and no diarrhea/loose stools Physical Exam Constitutional: WD/WN, vitals as above Eyes: PERRL, conjunctivae normal, anicteric sclerae ENMT: external ear and nose normal, oropharynx normal Neck: trachea midline, no thyromegaly Respiratory: normal respiratory effort, lungs clear to auscultation Cardiovascular: RRR, no murmur, no edema Gastrointestinal (Abdomen): normal bowel sounds, soft, nontender, no hepatosplenomegaly J tube and G tube in place, incision clean and dry, intact Musculoskeletal: no cyanosis or clubbing, extremities motor strength 5/5 Skin: no rashes, warm and dry Neurologic: patellar DTR's 2+ bilat, sensation intact and PERRL, EOMI, accommodation nl, no face palsy, no dysarthria Psychiatric: Orientation: alert, oriented to person and cooperative; + not oriented to place and + not oriented to time Apperance: appropriately dressed and appeared stated age Eye Contact: good eye contact Speech: normal rate/rhythm/volume of speech Lymphatic: no cervical or axillary lymphadenopathy Results & Data Vital Signs (Past 12 Hours) Vital Signs Temp Pulse Pulse Resp BP BP Pulse Ox 12/06/18 11:57 37.1 C 94 H 17 108/71 94 12/06/18 08:00 88 12/06/18 07:06 37.2 C 90 20 149/77 H 95 12/06/18 03:57 36.4 C L 86 24 123/73 95 Laboratory Results Laboratory Results - last 24 hr 12/05/18 12/06/18 12/06/18 18:02 00:04 05:46 WBC RBC Hgb Hct MCV MCH MCHC RDW Std Deviation RDW Coeff of Tomas Plt Count MPV Immature Gran % (Auto) Neut % (Auto) Lymph % (Auto) [place] % (Auto) Eos % (Auto) Baso % (Auto) Immature Gran # (Auto) Neut # (Auto) Lymph # (Auto) [place] # (Auto) Eos # (Auto) Baso # (Auto) Sodium 136 Potassium 4.4 Chloride 105 Carbon Dioxide 27 Anion Gap 4.0 BUN 21 H Creatinine 0.56 L Est Cr Clr Drug Dosing 86.3 Est GFR ( Amer) 107.2 Est GFR (Non-Af Amer) 92.5 BUN/Creatinine Ratio 38.3 H Glucose 114 H POC Glucose 127 H 103 H Calcium 10.0 12/06/18 12/06/18 12/06/18 05:46 06:01 11:53 WBC 16.87 H RBC 3.39 L Hgb 9.8 L Hct 29.9 L MCV 88.2 MCH 28.9 MCHC 32.8 RDW Std Deviation 48.7 H RDW Coeff of Tomas 15.1 H Plt Count 525 H MPV 9.8 Immature Gran % (Auto) 0.5 Neut % (Auto) 76.5 Lymph % (Auto) 10.2 [place] % (Auto) 11.1 Eos % (Auto) 1.4 Baso % (Auto) 0.3 Immature Gran # (Auto) 0.08 H Neut # (Auto) 12.92 H Lymph # (Auto) 1.72 [place] # (Auto) 1.87 H Eos # (Auto) 0.23 Baso # (Auto) 0.05 Sodium Potassium Chloride Carbon Dioxide Anion Gap BUN Creatinine Est Cr Clr Drug Dosing Est GFR ( Amer) Est GFR (Non-Af Amer) BUN/Creatinine Ratio Glucose POC Glucose 114 H 105 H Calcium Diagnostic Findings HEAD CT NONCONTRAST CT DOSE: 881.47 mGy.cm HISTORY: post-op delirium TECHNIQUE: Multiaxial CT images of the head were performed without the use of intravenous contrast. Automated exposure control was utilized for this study. A dose lowering technique was utilized adhering to the principles of ALARA. Comparison: None. Findings: The paranasal sinuses and mastoid air cells are clear. The calvarium and skull base are intact. There is no mass, hematoma, midline shift, acute infarct. White matter hypodensity is nonspecific but suggestive of microvascular ischemic change. The ventricles and sulci are within normal limits. Small hypodense foci within the basal ganglia and thalami likely represent old lacunar infarcts. Impression: No acute intracranial abnormality. Atrophy and microvascular ischemic changes. Old punctate lacunar infarcts within the thalami and basal ganglia are noted. Medications Administered Current Inpatient Medications Amiodarone HCl (Cordarone) 400 mg PO BID [facility] Stop: 12/08/18 21:01 Last Admin: 12/06/18 09:08 Dose: 400 mg Documented by: Amiodarone HCl (Cordarone) 200 mg PO DAILY [facility] Stop: 01/08/19 08:59 Amlodipine Besylate (Norvasc) 5 mg PO DAILY [facility] Stop: 01/03/19 09:59 Last Admin: 12/06/18 09:08 Dose: 5 mg Documented by: Amoxicillin/Clavulanate Potassium ([facility]in Susp) [facility] [place] Protocol Stop: 12/08/18 17:01 Last Admin: 12/06/18 09:05 Dose: 875 mg Documented by: Aspirin (Aspirin Chew) 81 mg PO [facility] Stop: 01/03/19 20:59 Last Admin: 12/05/18 22:11 Dose: 81 mg Documented by: Dextrose (Dextrose 50%) 25 - 50 ml IV UD PRN; Protocol PRN Reason: Hypoglycemia Protocol Stop: 01/03/19 09:59 Dicyclomine HCl (Bentyl) 20 mg PO BID [facility] Stop: 01/03/19 08:59 Last Admin: 12/06/18 09:08 Dose: 20 mg Documented by: Enalapril Maleate (Vasotec) 20 mg PO DAILY [facility] Stop: 01/03/19 09:59 Last Admin: 12/06/18 09:08 Dose: 20 mg Documented by: Enteral Nutritional Formula (Impact 1.0 Ludwig) 0 ml GT UD [facility]; Protocol Stop: 12/29/18 13:59 Last Admin: 12/05/18 10:23 Dose: 1,000 ml Documented by: Glucagon (Glucagen) 1 mg IM UD PRN; Protocol PRN Reason: Hypoglycemia Protocol Stop: 01/03/19 09:59 Glucose (Glucose 40%) 15 - 30 gm PO UD PRN; Protocol PRN Reason: Hypoglycemia Protocol Stop: 01/03/19 09:59 Glucose (Dex4 Glucose) 4 - 8 tabs PO UD PRN; Protocol PRN Reason: Hypoglycemia Protocol Stop: 01/03/19 09:59 Heparin Sodium (Beef Lung) (Heparin Sod 10 Unit/Ml Flush) 5 ml FLUSH PRN PRN PRN Reason: Flush Stop: 01/02/19 23:00 Last Admin: 12/05/18 00:51 Dose: 5 ml Documented by: Heparin Sodium (Porcine) (Heparin Sodium (Porcine)) 5,000 units SQ BID [facility] Stop: 12/26/18 08:59 Last Admin: 12/06/18 09:06 Dose: 5,000 units Documented by: Fluconazole (Diflucan) 200 mg in 100 mls @ 100 mls/hr IV DAILY [facility] Stop: 12/15/18 09:59 Last Infusion: 12/06/18 10:29 Dose: Infused Documented by: Furosemide 20 mg/ Syringe 2 mls @ 4 mls/min IV Q12 [facility] Stop: 01/04/19 20:59 Last Admin: 12/06/18 09:06 Dose: 4 mls/min Documented by: Insulin Aspart (Novolog Flexpen) 0 units SC Q6 [facility] Stop: 12/27/18 11:59 Last Admin: 12/06/18 12:39 Dose: Not Given Documented by: Lansoprazole (Prevacid) 15 mg PO BID [facility] Stop: 01/03/19 09:44 Last Admin: 12/06/18 09:07 Dose: 15 mg Documented by: Miscellaneous (Carbohydrates For Hypoglycemia) 15 - 30 gm PO UD PRN PRN Reason: Hypoglycemia Treatment Stop: 01/03/19 09:59 Betaseron 1 ea SC Q48H [facility] Stop: 12/28/18 17:59 Last Admin: 12/04/18 17:13 Dose: 1 ea Documented by: Ondansetron HCl (Zofran) 4 mg IV Q4H PRN PRN Reason: Nausea And Vomiting Stop: 12/25/18 18:46 Last Admin: 12/05/18 00:51 Dose: 4 mg Documented by: Potassium Chloride (Klor-Con M20) 20 meq PO [id number] [facility] Stop: 01/05/19 08:59 Last Admin: 12/06/18 09:07 Dose: 20 meq Documented by: Potassium Chloride (Klor-Con M20) 20 meq PO [email or web address] [facility] Stop: 01/05/19 20:59 Pravastatin Sodium (Pravachol) 80 mg PO [facility] Stop: 01/03/19 20:59 Last Admin: 12/05/18 22:11 Dose: 80 mg Documented by: Pregabalin (Lyrica) 75 mg PO BID [facility] Stop: 01/03/19 08:59 Last Admin: 12/06/18 09:10 Dose: 75 mg Documented by: Ranitidine HCl (Zantac) 150 mg PO [facility] Stop: 01/03/19 20:59 Last Admin: 12/05/18 22:11 Dose: 150 mg Documented by: Venlafaxine HCl (Effexor Extended Release) [facility] [place] Stop: 01/03/19 08:59 Last Admin: 12/06/18 09:08 Dose: Not Given Documented by: (1) Esophageal tear Encounter type: initial encounter Qualified Code(s): S11.21XA - Laceration without foreign body of pharynx and cervical esophagus, initial encounter
[2018-12-06] MEDS ORDERED: LACTATED RINGER'S 1,000 ML IV SCH (16:15)
--- NOTE | 2018-12-06 17:36 | Procedure Note ---
EEG Procedure Note Date of Service December 06, 2018 Start / End Times Start Time: 10:53 AM End Time: 11:13 AM Referring Physician Mariah Obando History This is a 72-year-old female who is been persistently confused since her surgery on the . EEG for further evaluation of possible seizure etiology. Home Medication List Home Medications Medication Instructions Recorded Confirmed Type amlodipine-benazepril 1 cap PO QAM 10/21/18 11/25/18 History aspirin [Aspir-Low] 81 mg PO HS 10/21/18 11/25/18 History calcium citrate-vitamin D3 1 tab PO BID 10/21/18 11/25/18 History [Citracal + D Maximum] dicyclomine 20 mg PO BID 10/21/18 11/25/18 History esomeprazole magnesium [Nexium] 40 mg PO BID 10/21/18 11/25/18 History interferon beta-1b [Betaseron] 1 dose SUBCUT Q OTHER DAY 10/21/18 11/25/18 History potassium chloride 20 meq PO UD 10/21/18 11/25/18 History pravastatin 80 mg PO HS 10/21/18 11/25/18 History pregabalin [Lyrica] 75 mg PO BID 10/21/18 11/25/18 History ranitidine HCl 150 mg PO HS 10/21/18 11/25/18 History venlafaxine [Effexor XR] 150 mg PO QAM 10/21/18 11/25/18 History Inpatient Medication List Amiodarone HCl (Cordarone) 400 mg PO BID [facility] Stop: 12/08/18 21:01 Last Admin: 12/06/18 09:08 Dose: 400 mg Documented by: [id number] Admin: 12/05/18 22:10 Dose: 400 mg Documented by: [id number] Admin: 12/05/18 08:10 Dose: 400 mg Documented by: [id number] Admin: 12/04/18 20:54 Dose: 400 mg Documented by: [id number] Admin: 12/04/18 11:14 Dose: 400 mg Documented by: [id number] Amlodipine Besylate (Norvasc) 5 mg PO DAILY [facility] Stop: 01/03/19 09:59 Last Admin: 12/06/18 09:08 Dose: 5 mg Documented by: [id number] Admin: 12/05/18 08:10 Dose: 5 mg Documented by: [id number] Admin: 12/04/18 11:13 Dose: 5 mg Documented by: [id number] Amoxicillin/Clavulanate Potassium (Augmentin Susp) 875 mg PO BIDM [facility]; Protocol Stop: 12/08/18 17:01 Last Admin: 12/06/18 16:30 Dose: 875 mg Documented by: [id number] Admin: 12/06/18 09:05 Dose: 875 mg Documented by: [id number] Admin: 12/05/18 17:22 Dose: 875 mg Documented by: [id number] Admin: 12/05/18 08:09 Dose: 875 mg Documented by: [id number] Admin: 12/04/18 19:55 Dose: 875 mg Documented by: [id number] Admin: 12/04/18 13:04 Dose: 875 mg Documented by: [id number] Aspirin (Aspirin Chew) 81 mg PO HS [facility] Stop: 01/03/19 20:59 Last Admin: 12/05/18 22:11 Dose: 81 mg Documented by: [id number] Admin: 12/04/18 20:54 Dose: 81 mg Documented by: [id number] Dicyclomine HCl (Bentyl) 20 mg PO BID [facility] Stop: 01/03/19 08:59 Last Admin: 12/06/18 09:08 Dose: 20 mg Documented by: [id number] Admin: 12/05/18 22:11 Dose: 20 mg Documented by: [id number] Admin: 12/05/18 08:09 Dose: 20 mg Documented by: [id number] Admin: 12/04/18 20:55 Dose: 20 mg Documented by: [id number] Admin: 12/04/18 11:13 Dose: 20 mg Documented by: [id number] Enalapril Maleate (Vasotec) 20 mg PO DAILY [facility] Stop: 01/03/19 09:59 Last Admin: 12/06/18 09:08 Dose: 20 mg Documented by: [id number] Admin: 12/05/18 08:10 Dose: 20 mg Documented by: [id number] Admin: 12/04/18 11:13 Dose: 20 mg Documented by: [id number] Enteral Nutritional Formula (Impact 1.0 Ludwig) 0 ml GT UD [facility]; Protocol Stop: 12/29/18 13:59 Last Admin: 12/05/18 10:23 Dose: 1,000 ml Documented by: [id number] Admin: 12/04/18 17:12 Dose: 1,000 ml Documented by: [id number] Admin: 12/03/18 21:16 Dose: 55 ml Documented by: [id number] Admin: 12/02/18 21:55 Dose: 1,000 ml Documented by: [id number] Admin: 11/29/18 14:36 Dose: 1,000 ml Documented by: [id number] Heparin Sodium (Beef Lung) (Heparin Sod 10 Unit/Ml Flush) 5 ml FLUSH PRN PRN PRN Reason: Flush Stop: 01/02/19 23:00 Last Admin: 12/05/18 00:51 Dose: 5 ml Documented by: [id number] Heparin Sodium (Porcine) (Heparin Sodium (Porcine)) 5,000 units SQ BID [facility] Stop: 12/26/18 08:59 Last Admin: 12/06/18 09:06 Dose: 5,000 units Documented by: [id number] Cosigned by: [id number] Admin: 12/05/18 21:07 Dose: 5,000 units Documented by: [id number] Cosigned by: [id number] Admin: 12/05/18 08:11 Dose: 5,000 units Documented by: [id number] Cosigned by: [id number] Admin: 12/04/18 20:52 Dose: 5,000 units Documented by: [id number] Cosigned by: [id number] Admin: 12/04/18 08:03 Dose: 5,000 units Documented by: [id number] Cosigned by: [id number] Admin: 12/03/18 21:13 Dose: 5,000 units Documented by: [id number] Cosigned by: [id number] Admin: 12/03/18 08:04 Dose: 5,000 units Documented by: [id number] Cosigned by: [id number] Admin: 12/02/18 21:29 Dose: 5,000 units Documented by: [id number] Cosigned by: [id number] Admin: 12/02/18 08:15 Dose: 5,000 units Documented by: [id number] Cosigned by: [id number] Admin: 12/01/18 20:40 Dose: 5,000 units Documented by: [id number] Cosigned by: [id number] Admin: 12/01/18 07:24 Dose: 5,000 units Documented by: [id number] Cosigned by: [id number] Admin: 11/30/18 20:50 Dose: 5,000 units Documented by: [id number] Cosigned by: [id number] Admin: 11/30/18 08:18 Dose: 5,000 units Documented by: [id number] Cosigned by: [id number] Admin: 11/29/18 22:10 Dose: 5,000 units Documented by: [id number] Cosigned by: [id number] Admin: 11/29/18 07:53 Dose: 5,000 units Documented by: [id number] Cosigned by: [id number] Admin: 11/28/18 20:19 Dose: 5,000 units Documented by: [id number] Cosigned by: [id number] Admin: 11/28/18 08:03 Dose: 5,000 units Documented by: [id number] Cosigned by: [id number] Admin: 11/27/18 20:51 Dose: 5,000 units Documented by: [id number] Cosigned by: [id number] Admin: 11/27/18 08:55 Dose: 5,000 units Documented by: [id number] Cosigned by: [id number] Admin: 11/26/18 20:25 Dose: 5,000 units Documented by: [id number] Cosigned by: [id number] Admin: 11/26/18 09:01 Dose: 5,000 units Documented by: [id number] Cosigned by: [id number] Fluconazole (Diflucan) 200 mg in 100 mls @ 100 mls/hr IV DAILY [facility] Stop: 12/15/18 09:59 Last Infusion: 12/06/18 10:29 Dose: 0 mls/hr Documented by: [id number] Admin: 12/06/18 09:06 Dose: 100 mls/hr Documented by: [id number] Infusion: 12/05/18 11:21 Dose: 0 mls/hr Documented by: [id number] Admin: 12/05/18 10:21 Dose: 100 mls/hr Documented by: [id number] Furosemide 20 mg/ Syringe 2 mls @ 4 mls/min IV Q12 [facility] Stop: 01/04/19 20:59 Last Admin: 12/06/18 09:06 Dose: 4 mls/min Documented by: [id number] Admin: 12/05/18 21:05 Dose: 4 mls/min Documented by: [id number] Insulin Aspart (Novolog Flexpen) 0 units SC Q6 [facility] Stop: 12/27/18 11:59 Last Admin: 12/06/18 12:39 Dose: Not Given Documented by: [id number] Cosigned by: [id number] Admin: 12/06/18 06:34 Dose: Not Given Documented by: [id number] Cosigned by: [id number] Admin: 12/06/18 00:34 Dose: Not Given Documented by: [id number] Cosigned by: [id number] Admin: 12/05/18 18:05 Dose: Not Given Documented by: [id number] Cosigned by: [id number] Admin: 12/05/18 12:28 Dose: Not Given Documented by: [id number] Cosigned by: [id number] Admin: 12/05/18 06:23 Dose: Not Given Documented by: [id number] Cosigned by: [id number] Admin: 12/05/18 00:11 Dose: Not Given Documented by: [id number] Cosigned by: [id number] Admin: 12/04/18 18:07 Dose: Not Given Documented by: [id number] Cosigned by: [id number] Admin: 12/04/18 13:04 Dose: 1 units Documented by: [id number] Cosigned by: [id number] Lansoprazole (Prevacid) 15 mg PO BID [facility] Stop: 01/03/19 09:44 Last Admin: 12/06/18 09:07 Dose: 15 mg Documented by: [id number] Admin: 12/05/18 22:11 Dose: 15 mg Documented by: [id number] Admin: 12/05/18 08:10 Dose: 15 mg Documented by: [id number] Admin: 12/04/18 20:54 Dose: 15 mg Documented by: [id number] Admin: 12/04/18 11:14 Dose: 15 mg Documented by: [id number] Betaseron 1 ea SC Q48H [facility] Stop: 12/28/18 17:59 Last Admin: 12/04/18 17:13 Dose: 1 ea Documented by: [id number] Admin: 12/02/18 14:34 Dose: Not Given Documented by: [id number] Admin: 11/30/18 18:12 Dose: 1 ea Documented by: [id number] Admin: 11/28/18 18:10 Dose: 1 ea Documented by: [id number] Ondansetron HCl (Zofran) 4 mg IV Q4H PRN PRN Reason: Nausea And Vomiting Stop: 12/25/18 18:46 Last Admin: 12/05/18 00:51 Dose: 4 mg Documented by: [id number] Admin: 12/01/18 20:40 Dose: 4 mg Documented by: [id number] Potassium Chloride (Klor-Con M20) 20 meq PO [id number] [facility] Stop: 01/05/19 08:59 Last Admin: 12/06/18 09:07 Dose: 20 meq Documented by: [id number] Pravastatin Sodium (Pravachol) 80 mg PO [facility] Stop: 01/03/19 20:59 Last Admin: 12/05/18 22:11 Dose: 80 mg Documented by: [id number] Admin: 12/04/18 20:55 Dose: 80 mg Documented by: [id number] Pregabalin (Lyrica) 75 mg PO BID [facility] Stop: 01/03/19 08:59 Last Admin: 12/06/18 09:10 Dose: 75 mg Documented by: [id number] Admin: 12/05/18 22:11 Dose: 75 mg Documented by: [id number] Admin: 12/05/18 08:12 Dose: 75 mg Documented by: [id number] Admin: 12/04/18 20:55 Dose: 75 mg Documented by: [id number] Admin: 12/04/18 11:16 Dose: 75 mg Documented by: [id number] Ranitidine HCl (Zantac) 150 mg PO [facility] Stop: 01/03/19 20:59 Last Admin: 12/05/18 22:11 Dose: 150 mg Documented by: [id number] Admin: 12/04/18 20:55 Dose: 150 mg Documented by: [id number] Venlafaxine HCl (Effexor Extended Release) 150 mg PO [facility] Stop: 01/03/19 08:59 Last Admin: 12/06/18 09:08 Dose: Not Given Documented by: [id number] Admin: 12/05/18 08:10 Dose: Not Given Documented by: [id number] Admin: 12/04/18 11:13 Dose: 150 mg Documented by: [id number] Discontinued Medications Amiodarone HCl/Dextrose (Nexterone / D5w) Confirm Administered Dose 150 mg IV .STK-MED ONE Stop: 11/27/18 08:39 Last Admin: 11/27/18 08:56 Dose: Not Given Documented by: [id number] Bupivacaine HCl/Epinephrine Bitart (Sensorcaine/Epinephrine 0.5% Mpf 1:200,000) Confirm Administered Dose 30 ml .ROUTE .STK-MED ONE Stop: 11/25/18 10:18 Last Admin: 11/25/18 14:41 Dose: 30 ml Documented by: [id number] Cefazolin Sodium (Ancef) Confirm Administered Dose 1,000 mg .ROUTE .STK-MED ONE Stop: 11/25/18 16:19 Last Admin: 11/25/18 19:11 Dose: Not Given Documented by: [id number] Fentanyl Citrate (Fentanyl Drip) Confirm Administered Dose 1,250 mcg IV .STK-MED ONE Stop: 11/25/18 18:56 Last Admin: 11/25/18 20:21 Dose: Not Given Documented by: [id number] Hydralazine HCl (Hydralazine Hcl) 2.5 mg IV Q6H [facility] Stop: 12/30/18 06:44 Last Admin: 11/30/18 13:21 Dose: 2.5 mg Documented by: [id number] Admin: 11/30/18 08:15 Dose: 2.5 mg Documented by: [id number] Hydralazine HCl (Hydralazine Hcl) 5 mg IV Q6 [facility] Stop: 12/30/18 17:59 Last Admin: 12/04/18 05:39 Dose: 5 mg Documented by: [id number] Admin: 12/04/18 01:17 Dose: 5 mg Documented by: [id number] Admin: 12/03/18 17:33 Dose: 5 mg Documented by: [id number] Admin: 12/03/18 11:59 Dose: 5 mg Documented by: [id number] Admin: 12/03/18 06:14 Dose: 5 mg Documented by: [id number] Admin: 12/02/18 23:51 Dose: Not Given Documented by: [id number] Admin: 12/02/18 17:08 Dose: 5 mg Documented by: [id number] Admin: 12/02/18 11:09 Dose: Not Given Documented by: [id number] Admin: 12/02/18 06:01 Dose: 5 mg Documented by: [id number] Admin: 12/02/18 00:02 Dose: Not Given Documented by: [id number] Admin: 12/01/18 18:14 Dose: 5 mg Documented by: [id number] Admin: 12/01/18 12:51 Dose: 5 mg Documented by: [id number] Admin: 12/01/18 06:34 Dose: 5 mg Documented by: [id number] Admin: 12/01/18 00:58 Dose: 5 mg Documented by: [id number] Admin: 11/30/18 18:11 Dose: 5 mg Documented by: [id number] Hydromorphone HCl (Dilaudid) 0.4 mg IV Q2H PRN PRN Reason: Pain Stop: 12/10/18 08:08 Last Admin: 11/28/18 09:06 Dose: 0.4 mg Documented by: [id number] Admin: 11/28/18 00:31 Dose: 0.4 mg Documented by: [id number] Admin: 11/27/18 18:22 Dose: 0.4 mg Documented by: [id number] Admin: 11/27/18 11:54 Dose: 0.4 mg Documented by: [id number] Admin: 11/27/18 01:21 Dose: 0.4 mg Documented by: [id number] Hydromorphone HCl (Dilaudid) 0.2 mg IV Q2H PRN PRN Reason: Pain Stop: 12/10/18 08:08 Last Admin: 12/02/18 23:52 Dose: 0.2 mg Documented by: [id number] Admin: 12/02/18 16:13 Dose: 0.2 mg Documented by: [id number] Admin: 12/02/18 04:08 Dose: 0.2 mg Documented by: [id number] Admin: 12/01/18 22:22 Dose: 0.2 mg Documented by: [id number] Admin: 12/01/18 15:44 Dose: 0.2 mg Documented by: [id number] Admin: 12/01/18 07:34 Dose: 0.2 mg Documented by: [id number] Admin: 12/01/18 04:41 Dose: 0.2 mg Documented by: [id number] Admin: 12/01/18 00:56 Dose: 0.2 mg Documented by: [id number] Admin: 11/30/18 21:59 Dose: 0.2 mg Documented by: [id number] Admin: 11/30/18 15:33 Dose: 0.2 mg Documented by: [id number] Admin: 11/30/18 11:34 Dose: 0.2 mg Documented by: [id number] Admin: 11/30/18 09:25 Dose: 0.2 mg Documented by: [id number] Admin: 11/30/18 03:38 Dose: 0.2 mg Documented by: [id number] Admin: 11/29/18 20:04 Dose: 0.2 mg Documented by: [id number] Admin: 11/29/18 16:42 Dose: 0.2 mg Documented by: [id number] Admin: 11/29/18 08:13 Dose: 0.2 mg Documented by: [id number] Admin: 11/29/18 00:33 Dose: 0.2 mg Documented by: [id number] Admin: 11/28/18 13:07 Dose: 0.2 mg Documented by: [id number] Cefazolin Sodium (Ancef 2000mg) 2,000 mg in 15 mls @ 3.75 mls/min IV PREOP [facility]; Protocol Stop: 11/25/18 18:00 Last Admin: 11/25/18 10:31 Dose: 3.75 mls/min Documented by: [id number] Lactated Ringer's (Lr) 1,000 mls @ 15 mls/hr IV .Q24H [facility] Stop: 11/26/18 05:59 Last Infusion: 11/25/18 10:35 Dose: 0 mls/hr Documented by: [id number] Admin: 11/25/18 09:59 Dose: 15 mls/hr Documented by: [id number] Potassium Chloride (K Abran / Wtr) 10 meq in 100 mls @ 100 mls/hr IV Q1H [facility] Stop: 11/25/18 18:59 Last Admin: 11/25/18 19:11 Dose: Not Given Documented by: [id number] Admin: 11/25/18 19:06 Dose: Not Given Documented by: [id number] Lactated Ringer's (Lr) 1,000 mls @ 150 mls/hr IV .Q6H40M [facility] Stop: 12/25/18 18:46 Last Infusion: 11/27/18 15:04 Dose: 0 mls/hr Documented by: [id number] Admin: 11/27/18 08:28 Dose: 150 mls/hr Documented by: [id number] Infusion: 11/27/18 08:02 Dose: 150 mls/hr Documented by: [id number] Admin: 11/27/18 01:21 Dose: 150 mls/hr Documented by: [id number] Infusion: 11/26/18 23:30 Dose: 150 mls/hr Documented by: [id number] Admin: 11/26/18 16:49 Dose: 150 mls/hr Documented by: [id number] Infusion: 11/26/18 16:39 Dose: 150 mls/hr Documented by: [id number] Admin: 11/26/18 09:58 Dose: 150 mls/hr Documented by: [id number] Infusion: 11/26/18 09:58 Dose: 150 mls/hr Documented by: [id number] Admin: 11/26/18 05:28 Dose: 150 mls/hr Documented by: [id number] Infusion: 11/26/18 05:24 Dose: 150 mls/hr Documented by: [id number] Infusion: 11/26/18 02:55 Dose: 150 mls/hr Documented by: [id number] Infusion: 11/26/18 02:40 Dose: 0 mls/hr Documented by: [id number] Admin: 11/25/18 20:22 Dose: 100 mls/hr Documented by: [id number] Piperacillin Sod/Tazobactam (Sod 3.375 gm/ Dextrose) 115 mls @ 28.75 mls/hr IV Q8H [facility]; Protocol Stop: 12/06/18 02:59 Last Infusion: 12/04/18 09:49 Dose: 0 mls/hr Documented by: [id number] Admin: 12/04/18 05:38 Dose: 28.8 mls/hr Documented by: [id number] Infusion: 12/04/18 01:20 Dose: 0 mls/hr Documented by: [id number] Admin: 12/03/18 21:12 Dose: 28.8 mls/hr Documented by: [id number] Infusion: 12/03/18 16:02 Dose: 0 mls/hr Documented by: [id number] Admin: 12/03/18 12:00 Dose: 28.8 mls/hr Documented by: [id number] Infusion: 12/03/18 08:10 Dose: 0 mls/hr Documented by: [id number] Admin: 12/03/18 03:50 Dose: 28.8 mls/hr Documented by: [id number] Infusion: 12/03/18 00:53 Dose: 0 mls/hr Documented by: [id number] Admin: 12/02/18 20:19 Dose: 28.8 mls/hr Documented by: [id number] Infusion: 12/02/18 12:18 Dose: 0 mls/hr Documented by: [id number] Admin: 12/02/18 11:45 Dose: 28 mls/hr Documented by: [id number] Infusion: 12/02/18 08:28 Dose: 0 mls/hr Documented by: [id number] Admin: 12/02/18 03:55 Dose: 28.8 mls/hr Documented by: [id number] Infusion: 12/02/18 00:11 Dose: 0 mls/hr Documented by: [id number] Admin: 12/01/18 20:41 Dose: 28 mls/hr Documented by: [id number] Infusion: 12/01/18 18:38 Dose: 0 mls/hr Documented by: [id number] Infusion: 12/01/18 16:53 Dose: 28 mls/hr Documented by: [id number] Infusion: 12/01/18 14:02 Dose: 0 mls/hr Documented by: [id number] Admin: 12/01/18 11:50 Dose: 28.8 mls/hr Documented by: [id number] Infusion: 12/01/18 07:42 Dose: 0 mls/hr Documented by: [id number] Admin: 12/01/18 03:46 Dose: 28.8 mls/hr Documented by: [id number] Infusion: 12/01/18 02:09 Dose: 0 mls/hr Documented by: [id number] Infusion: 11/30/18 22:20 Dose: 28.8 mls/hr Documented by: [id number] Infusion: 11/30/18 21:08 Dose: 0 mls/hr Documented by: [id number] Admin: 11/30/18 20:47 Dose: 28.8 mls/hr Documented by: [id number] Infusion: 11/30/18 14:29 Dose: 0 mls/hr Documented by: [id number] Admin: 11/30/18 10:29 Dose: 28.8 mls/hr Documented by: [id number] Infusion: 11/30/18 07:05 Dose: 0 mls/hr Documented by: [id number] Admin: 11/30/18 03:02 Dose: 28.8 mls/hr Documented by: [id number] Infusion: 11/30/18 00:03 Dose: 28.8 mls/hr Documented by: [id number] Admin: 11/29/18 20:03 Dose: 28.8 mls/hr Documented by: [id number] Infusion: 11/29/18 14:47 Dose: 0 mls/hr Documented by: [id number] Admin: 11/29/18 10:42 Dose: 28.8 mls/hr Documented by: [id number] Infusion: 11/29/18 07:10 Dose: 0 mls/hr Documented by: [id number] Admin: 11/29/18 02:40 Dose: 28.8 mls/hr Documented by: [id number] Infusion: 11/28/18 23:35 Dose: 28.8 mls/hr Documented by: [id number] Admin: 11/28/18 19:35 Dose: 28.8 mls/hr Documented by: [id number] Infusion: 11/28/18 16:43 Dose: 0 mls/hr Documented by: [id number] Admin: 11/28/18 11:36 Dose: 28.8 mls/hr Documented by: [id number] Infusion: 11/28/18 06:17 Dose: 28.8 mls/hr Documented by: [id number] Admin: 11/28/18 02:17 Dose: 28.8 mls/hr Documented by: [id number] Infusion: 11/28/18 00:50 Dose: 28.8 mls/hr Documented by: [id number] Admin: 11/27/18 20:50 Dose: 28.8 mls/hr Documented by: [id number] Infusion: 11/27/18 17:19 Dose: 0 mls/hr Documented by: [id number] Admin: 11/27/18 12:17 Dose: 28.8 mls/hr Documented by: [id number] Infusion: 11/27/18 07:59 Dose: 0 mls/hr Documented by: [id number] Admin: 11/27/18 02:34 Dose: 28.8 mls/hr Documented by: [id number] Infusion: 11/26/18 23:44 Dose: 28.8 mls/hr Documented by: [id number] Admin: 11/26/18 19:44 Dose: 28.8 mls/hr Documented by: [id number] Infusion: 11/26/18 15:35 Dose: 0 mls/hr Documented by: [id number] Admin: 11/26/18 11:00 Dose: 28.8 mls/hr Documented by: [id number] Infusion: 11/26/18 06:30 Dose: 0 mls/hr Documented by: [id number] Admin: 11/26/18 02:29 Dose: 28.8 mls/hr Documented by: [id number] Ranitidine HCl 50 mg/ Dextrose 102 mls @ 200 mls/hr IV Q8H [facility] Stop: 12/25/18 19:59 Last Infusion: 12/04/18 06:25 Dose: 0 mls/hr Documented by: [id number] Admin: 12/04/18 05:38 Dose: 200 mls/hr Documented by: [id number] Infusion: 12/03/18 22:38 Dose: 0 mls/hr Documented by: [id number] Admin: 12/03/18 21:32 Dose: 200 mls/hr Documented by: [id number] Infusion: 12/03/18 12:43 Dose: 0 mls/hr Documented by: [id number] Admin: 12/03/18 12:00 Dose: 200 mls/hr Documented by: [id number] Infusion: 12/03/18 04:32 Dose: 0 mls/hr Documented by: [id number] Admin: 12/03/18 03:50 Dose: 200 mls/hr Documented by: [id number] Infusion: 12/02/18 20:55 Dose: 0 mls/hr Documented by: [id number] Admin: 12/02/18 20:20 Dose: 200 mls/hr Documented by: [id number] Infusion: 12/02/18 12:18 Dose: 0 mls/hr Documented by: [id number] Admin: 12/02/18 11:38 Dose: 200 mls/hr Documented by: [id number] Infusion: 12/02/18 04:30 Dose: 0 mls/hr Documented by: [id number] Admin: 12/02/18 03:55 Dose: 200 mls/hr Documented by: [id number] Infusion: 12/01/18 21:23 Dose: 0 mls/hr Documented by: [id number] Admin: 12/01/18 20:41 Dose: 200 mls/hr Documented by: [id number] Infusion: 12/01/18 11:48 Dose: 0 mls/hr Documented by: [id number] Admin: 12/01/18 11:17 Dose: 200 mls/hr Documented by: [id number] Infusion: 12/01/18 03:45 Dose: 0 mls/hr Documented by: [id number] Admin: 12/01/18 03:04 Dose: 200 mls/hr Documented by: [id number] Infusion: 11/30/18 22:20 Dose: 0 mls/hr Documented by: [id number] Infusion: 11/30/18 21:47 Dose: 200 mls/hr Documented by: [id number] Infusion: 11/30/18 21:09 Dose: 0 mls/hr Documented by: [id number] Admin: 11/30/18 20:48 Dose: 200 mls/hr Documented by: [id number] Infusion: 11/30/18 15:46 Dose: 0 mls/hr Documented by: [id number] Admin: 11/30/18 15:15 Dose: 200 mls/hr Documented by: [id number] Infusion: 11/30/18 04:06 Dose: 200 mls/hr Documented by: [id number] Admin: 11/30/18 03:35 Dose: 200 mls/hr Documented by: [id number] Infusion: 11/29/18 20:34 Dose: 200 mls/hr Documented by: [id number] Admin: 11/29/18 20:03 Dose: 200 mls/hr Documented by: [id number] Infusion: 11/29/18 11:17 Dose: 0 mls/hr Documented by: [id number] Admin: 11/29/18 10:42 Dose: 200 mls/hr Documented by: [id number] Infusion: 11/29/18 04:26 Dose: 200 mls/hr Documented by: [id number] Admin: 11/29/18 03:55 Dose: 200 mls/hr Documented by: [id number] Infusion: 11/28/18 20:06 Dose: 200 mls/hr Documented by: [id number] Admin: 11/28/18 19:35 Dose: 200 mls/hr Documented by: [id number] Infusion: 11/28/18 13:05 Dose: 0 mls/hr Documented by: [id number] Admin: 11/28/18 12:29 Dose: 200 mls/hr Documented by: [id number] Infusion: 11/28/18 03:36 Dose: 200 mls/hr Documented by: [id number] Admin: 11/28/18 03:05 Dose: 200 mls/hr Documented by: [id number] Infusion: 11/27/18 21:21 Dose: 200 mls/hr Documented by: [id number] Admin: 11/27/18 20:50 Dose: 200 mls/hr Documented by: [id number] Infusion: 11/27/18 12:59 Dose: 0 mls/hr Documented by: [id number] Admin: 11/27/18 12:17 Dose: 200 mls/hr Documented by: [id number] Infusion: 11/27/18 03:54 Dose: 200 mls/hr Documented by: [id number] Admin: 11/27/18 03:23 Dose: 200 mls/hr Documented by: [id number] Infusion: 11/26/18 20:14 Dose: 200 mls/hr Documented by: [id number] Admin: 11/26/18 19:43 Dose: 200 mls/hr Documented by: [id number] Infusion: 11/26/18 12:42 Dose: 0 mls/hr Documented by: [id number] Admin: 11/26/18 11:40 Dose: 200 mls/hr Documented by: [id number] Infusion: 11/26/18 05:20 Dose: 0 mls/hr Documented by: [id number] Admin: 11/26/18 04:36 Dose: 200 mls/hr Documented by: [id number] Infusion: 11/25/18 22:34 Dose: 0 mls/hr Documented by: [id number] Admin: 11/25/18 21:35 Dose: 200 mls/hr Documented by: [id number] Fentanyl Citrate (Fentanyl Drip) 1,250 mcg in 250 mls @ 0 mls/hr IV .Q0M PRN; Protocol PRN Reason: PROTOCOL Stop: 12/09/18 18:47 Last Titration: 11/26/18 08:41 Dose: 0 mcg/hr, 0 mls/hr Documented by: [id number] Titration: 11/26/18 07:19 Dose: 0 mcg/hr, 0 mls/hr Documented by: [id number] Titration: 11/26/18 06:52 Dose: 75 mcg/hr, 15 mls/hr Documented by: [id number] Cosigned by: [id number] Titration: 11/26/18 05:15 Dose: 75 mcg/hr, 15 mls/hr Documented by: [id number] Titration: 11/25/18 23:45 Dose: 100 mcg/hr, 20 mls/hr Documented by: [id number] Titration: 11/25/18 22:34 Dose: 75 mcg/hr, 15 mls/hr Documented by: [id number] Titration: 11/25/18 20:57 Dose: 50 mcg/hr, 10 mls/hr Documented by: [id number] Admin: 11/25/18 19:05 Dose: 25 mcg/hr, 5 mls/hr Documented by: [id number] Cosigned by: [id number] Propofol (Diprivan) 1,000 mg in 100 mls @ 0 mls/hr IV .Q0M PRN; Protocol PRN Reason: PROTOCOL Stop: 11/28/18 18:47 Last Titration: 11/27/18 09:16 Dose: 0 mcg/kg/min, 0 mls/hr Documented by: [id number] Titration: 11/26/18 07:19 Dose: 0 mcg/kg/min, 0 mls/hr Documented by: [id number] Titration: 11/26/18 06:52 Dose: 25 mcg/kg/min, 9.5 mls/hr Documented by: [id number] Cosigned by: [id number] Titration: 11/26/18 05:15 Dose: 25 mcg/kg/min, 9.5 mls/hr Documented by: [id number] Admin: 11/26/18 01:55 Dose: 30 mcg/kg/min, 11.4 mls/hr Documented by: [id number] Cosigned by: [id number] Titration: 11/26/18 01:55 Dose: 40 mcg/kg/min, 15.2 mls/hr Documented by: [id number] Cosigned by: [id number] Titration: 11/25/18 23:14 Dose: 40 mcg/kg/min, 15.2 mls/hr Documented by: [id number] Titration: 11/25/18 23:05 Dose: 35 mcg/kg/min, 13.3 mls/hr Documented by: [id number] Titration: 11/25/18 23:00 Dose: 30 mcg/kg/min, 11.4 mls/hr Documented by: [id number] Titration: 11/25/18 22:30 Dose: 25 mcg/kg/min, 9.5 mls/hr Documented by: [id number] Admin: 11/25/18 18:50 Dose: 20 mcg/kg/min, 7.6 mls/hr Documented by: [id number] Cosigned by: [id number] Piperacillin Sod/Tazobactam (Sod 3.375 gm/ Dextrose) 115 mls @ 230 mls/hr IV 2000 ONE; Protocol Stop: 11/25/18 20:29 Last Infusion: 11/25/18 21:35 Dose: 0 mls/hr Documented by: [id number] Admin: 11/25/18 20:52 Dose: 230 mls/hr Documented by: [id number] Potassium Chloride (K Abran / Wtr) 10 meq in 100 mls @ 100 mls/hr IV Q1H CHERRY Stop: 11/26/18 02:24 Last Infusion: 11/26/18 02:47 Dose: 0 mls/hr Documented by: [id number] Admin: 11/26/18 01:40 Dose: 100 mls/hr Documented by: [id number] Infusion: 11/26/18 01:40 Dose: 100 mls/hr Documented by: [id number] Admin: 11/26/18 00:40 Dose: 100 mls/hr Documented by: [id number] Infusion: 11/26/18 00:40 Dose: 100 mls/hr Documented by: [id number] Admin: 11/25/18 23:40 Dose: 100 mls/hr Documented by: [id number] Infusion: 11/25/18 23:40 Dose: 100 mls/hr Documented by: [id number] Admin: 11/25/18 22:40 Dose: 100 mls/hr Documented by: [id number] Magnesium Sulfate/Dextrose (Magnesium Sulfate / D5w) 1 gm in 100 mls @ 100 mls/hr IV ONE ONE Stop: 11/25/18 23:24 Last Infusion: 11/25/18 23:52 Dose: 0 mls/hr Documented by: [id number] Admin: 11/25/18 22:35 Dose: 100 mls/hr Documented by: [id number] Insulin Human Regular 250 (units/ Sodium Chloride) 250 mls @ 0 mls/hr IV .Q0M CHERRY; Protocol Stop: 12/25/18 22:59 Last Titration: 11/26/18 13:10 Dose: 0 units/hr, 0 mls/hr Documented by: [id number] Cosigned by: [id number] Titration: 11/26/18 08:17 Dose: 0 units/hr, 0 mls/hr Documented by: [id number] Cosigned by: [id number] Titration: 11/26/18 07:11 Dose: 2.1 units/hr, 2.1 mls/hr Documented by: [id number] Cosigned by: [id number] Titration: 11/26/18 06:52 Dose: 2.1 units/hr, 2.1 mls/hr Documented by: [id number] Cosigned by: [id number] Titration: 11/26/18 06:15 Dose: 2.1 units/hr, 2.1 mls/hr Documented by: [id number] Cosigned by: [id number] Titration: 11/26/18 05:15 Dose: 2.6 units/hr, 2.6 mls/hr Documented by: [id number] Cosigned by: [id number] Titration: 11/26/18 04:15 Dose: 2.2 units/hr, 2.2 mls/hr Documented by: [id number] Cosigned by: [id number] Titration: 11/26/18 03:15 Dose: 2.2 units/hr, 2.2 mls/hr Documented by: [id number] Cosigned by: [id number] Titration: 11/26/18 02:15 Dose: 2.7 units/hr, 2.7 mls/hr Documented by: [id number] Cosigned by: [id number] Titration: 11/26/18 01:15 Dose: 2.7 units/hr, 2.7 mls/hr Documented by: [id number] Cosigned by: [id number] Titration: 11/26/18 00:15 Dose: 2.7 units/hr, 2.7 mls/hr Documented by: [id number] Cosigned by: [id number] Admin: 11/25/18 23:11 Dose: 2.7 units/hr, 2.7 mls/hr Documented by: [id number] Cosigned by: [id number] Lactated Ringer's (Lr) 250 mls @ 999 mls/hr IV .Q16M ONE Stop: 11/26/18 02:31 Last Infusion: 11/26/18 02:55 Dose: 0 mls/hr Documented by: [id number] Admin: 11/26/18 02:39 Dose: 999 mls/hr Documented by: [id number] Potassium Phosphate 9 mmol/ (Sodium Chloride) 253 mls @ 88 mls/hr IV ONE ONE Stop: 11/26/18 07:52 Last Infusion: 11/26/18 08:37 Dose: 0 mls/hr Documented by: [id number] Admin: 11/26/18 05:19 Dose: 88 mls/hr Documented by: [id number] Fluconazole (Diflucan) 200 mg in 100 mls @ 100 mls/hr IV Q1H [facility] Stop: 11/26/18 12:59 Last Infusion: 11/26/18 16:49 Dose: 0 mls/hr Documented by: [id number] Admin: 11/26/18 13:10 Dose: 100 mls/hr Documented by: [id number] Infusion: 11/26/18 13:10 Dose: 100 mls/hr Documented by: [id number] Admin: 11/26/18 12:33 Dose: 100 mls/hr Documented by: [id number] Infusion: 11/26/18 12:25 Dose: 100 mls/hr Documented by: [id number] Admin: 11/26/18 11:25 Dose: 100 mls/hr Documented by: [id number] Infusion: 11/26/18 09:57 Dose: 0 mls/hr Documented by: [id number] Admin: 11/26/18 08:53 Dose: 100 mls/hr Documented by: [id number] Fluconazole (Diflucan) 200 mg in 100 mls @ 100 mls/hr IV DAILY@1000,1100 [facility] Stop: 12/05/18 11:59 Last Infusion: 12/02/18 12:18 Dose: 0 mls/hr Documented by: [id number] Admin: 12/02/18 11:05 Dose: 100 mls/hr Documented by: [id number] Infusion: 12/02/18 11:03 Dose: 100 mls/hr Documented by: [id number] Admin: 12/02/18 10:03 Dose: 100 mls/hr Documented by: [id number] Infusion: 12/01/18 11:15 Dose: 0 mls/hr Documented by: [id number] Admin: 12/01/18 10:15 Dose: 100 mls/hr Documented by: [id number] Infusion: 12/01/18 10:15 Dose: 0 mls/hr Documented by: [id number] Admin: 12/01/18 09:15 Dose: 100 mls/hr Documented by: [id number] Infusion: 11/30/18 13:47 Dose: 0 mls/hr Documented by: [id number] Admin: 11/30/18 12:47 Dose: 100 mls/hr Documented by: [id number] Infusion: 11/30/18 10:30 Dose: 0 mls/hr Documented by: [id number] Admin: 11/30/18 09:25 Dose: 100 mls/hr Documented by: [id number] Infusion: 11/29/18 12:53 Dose: 0 mls/hr Documented by: [id number] Admin: 11/29/18 10:38 Dose: 100 mls/hr Documented by: [id number] Infusion: 11/29/18 10:38 Dose: 0 mls/hr Documented by: [id number] Admin: 11/29/18 09:38 Dose: 100 mls/hr Documented by: [id number] Infusion: 11/28/18 13:05 Dose: 0 mls/hr Documented by: [id number] Admin: 11/28/18 11:38 Dose: 100 mls/hr Documented by: [id number] Infusion: 11/28/18 11:07 Dose: 100 mls/hr Documented by: [id number] Admin: 11/28/18 10:07 Dose: 100 mls/hr Documented by: [id number] Infusion: 11/27/18 12:59 Dose: 0 mls/hr Documented by: [id number] Admin: 11/27/18 11:49 Dose: 100 mls/hr Documented by: [id number] Infusion: 11/27/18 11:37 Dose: 100 mls/hr Documented by: [id number] Admin: 11/27/18 10:37 Dose: 100 mls/hr Documented by: [id number] Acetaminophen (Ofirmev) 1,000 mg in 100 mls @ 400 mls/hr IV NOW STA Stop: 11/26/18 18:37 Last Infusion: 11/26/18 19:19 Dose: 0 mls/hr Documented by: [id number] Admin: 11/26/18 18:40 Dose: 400 mls/hr Documented by: [id number] Potassium Chloride (K Abran / Wtr) 10 meq in 100 mls @ 100 mls/hr IV Q1H [facility] Stop: 11/27/18 07:04 Last Admin: 11/27/18 07:11 Dose: Not Given Documented by: [id number] Infusion: 11/27/18 06:57 Dose: 100 mls/hr Documented by: [id number] Admin: 11/27/18 05:57 Dose: 100 mls/hr Documented by: [id number] Potassium Phosphate 9 mmol/ (Sodium Chloride) 253 mls @ 88 mls/hr IV ONE ONE Stop: 11/27/18 08:07 Last Infusion: 11/27/18 09:16 Dose: 0 mls/hr Documented by: [id number] Admin: 11/27/18 05:56 Dose: 88 mls/hr Documented by: [id number] Amiodarone HCl/Dextrose (Nexterone / D5w) 150 mg in 100 mls @ 600 mls/hr IV ONE STA Stop: 11/27/18 08:44 Last Infusion: 11/27/18 09:00 Dose: 0 mls/hr Documented by: [id number] Cosigned by: [id number] Admin: 11/27/18 08:48 Dose: 600 mls/hr Documented by: [id number] Cosigned by: [id number] Amiodarone HCl/Dextrose (Nexterone / D5w) 360 mg in 200 mls @ 33.333 mls/hr IV .Q6H [facility] Stop: 11/27/18 14:44 Last Infusion: 11/27/18 15:04 Dose: 0 mg/min, 0 mls/hr Documented by: [id number] Cosigned by: [id number] Admin: 11/27/18 09:00 Dose: 1 mg/min, 33.3 mls/hr Documented by: [id number] Cosigned by: [id number] Amiodarone HCl/Dextrose (Nexterone / D5w) 360 mg in 200 mls @ 16.667 mls/hr IV .Q12H [facility] Stop: 12/27/18 14:44 Last Infusion: 12/04/18 09:49 Dose: 0 mg/min, 0 mls/hr Documented by: [id number] Cosigned by: [id number] Infusion: 12/04/18 07:18 Dose: 0.5 mg/min, 16.7 mls/hr Documented by: [id number] Cosigned by: [id number] Admin: 12/04/18 01:15 Dose: 0.5 mg/min, 16.7 mls/hr Documented by: [id number] Cosigned by: [id number] Infusion: 12/03/18 23:56 Dose: 0.5 mg/min, 16.7 mls/hr Documented by: [id number] Cosigned by: [id number] Admin: 12/03/18 11:57 Dose: 0.5 mg/min, 16.7 mls/hr Documented by: [id number] Cosigned by: [id number] Infusion: 12/03/18 11:49 Dose: 0.5 mg/min, 16.7 mls/hr Documented by: [id number] Cosigned by: [id number] Admin: 12/02/18 23:50 Dose: 0.5 mg/min, 16.7 mls/hr Documented by: [id number] Cosigned by: [id number] Infusion: 12/02/18 23:50 Dose: 0.5 mg/min, 16.7 mls/hr Documented by: [id number] Cosigned by: [id number] Admin: 12/02/18 12:57 Dose: 0.5 mg/min, 16.7 mls/hr Documented by: [id number] Cosigned by: [id number] Infusion: 12/02/18 12:57 Dose: 0.5 mg/min, 16.7 mls/hr Documented by: [id number] Cosigned by: [id number] Admin: 12/02/18 01:50 Dose: 0.5 mg/min, 16.7 mls/hr Documented by: [id number] Cosigned by: [id number] Infusion: 12/02/18 01:50 Dose: 0.5 mg/min, 16.7 mls/hr Documented by: [id number] Cosigned by: [id number] Admin: 12/01/18 14:16 Dose: 0.5 mg/min, 16.7 mls/hr Documented by: [id number] Cosigned by: [id number] Infusion: 12/01/18 14:09 Dose: 0 mg/min, 0 mls/hr Documented by: [id number] Cosigned by: [id number] Admin: 12/01/18 02:10 Dose: 0.5 mg/min, 16.7 mls/hr Documented by: [id number] Cosigned by: [id number] Infusion: 12/01/18 02:10 Dose: 0.5 mg/min, 16.7 mls/hr Documented by: [id number] Cosigned by: [id number] Admin: 11/30/18 15:15 Dose: 0.5 mg/min, 16.7 mls/hr Documented by: [id number] Cosigned by: [id number] Infusion: 11/30/18 15:00 Dose: 0.5 mg/min, 16.7 mls/hr Documented by: [id number] Cosigned by: [id number] Admin: 11/30/18 03:01 Dose: 0.5 mg/min, 16.7 mls/hr Documented by: [id number] Cosigned by: [id number] Infusion: 11/30/18 02:44 Dose: 0.5 mg/min, 16.7 mls/hr Documented by: [id number] Cosigned by: [id number] Admin: 11/29/18 14:45 Dose: 0.5 mg/min, 16.7 mls/hr Documented by: [id number] Cosigned by: [id number] Infusion: 11/29/18 14:36 Dose: 0.5 mg/min, 16.7 mls/hr Documented by: [id number] Cosigned by: [id number] Admin: 11/29/18 02:37 Dose: 0.5 mg/min, 16.7 mls/hr Documented by: [id number] Cosigned by: [id number] Infusion: 11/29/18 02:37 Dose: 0.5 mg/min, 16.7 mls/hr Documented by: [id number] Cosigned by: [id number] Admin: 11/28/18 14:49 Dose: 0.5 mg/min, 16.7 mls/hr Documented by: [id number] Cosigned by: [id number] Infusion: 11/28/18 14:49 Dose: 0.5 mg/min, 16.7 mls/hr Documented by: [id number] Cosigned by: [id number] Admin: 11/28/18 02:18 Dose: 0.5 mg/min, 16.7 mls/hr Documented by: [id number] Cosigned by: [id number] Infusion: 11/28/18 02:18 Dose: 0.5 mg/min, 16.7 mls/hr Documented by: [id number] Cosigned by: [id number] Admin: 11/27/18 15:04 Dose: 0.5 mg/min, 16.7 mls/hr Documented by: [id number] Cosigned by: [id number] Parenteral Electrolytes (Normosol-R) 1,000 mls @ 80 mls/hr IV .[id number] [facility] Stop: 12/27/18 13:59 Last Infusion: 11/28/18 12:01 Dose: 0 mls/hr Documented by: [id number] Admin: 11/28/18 02:18 Dose: 80 mls/hr Documented by: [id number] Infusion: 11/28/18 02:18 Dose: 80 mls/hr Documented by: [id number] Admin: 11/27/18 15:04 Dose: 80 mls/hr Documented by: [id number] Potassium Phosphate 21 mmol/ (Sodium Chloride) 507 mls @ 144 mls/hr IV ONE ONE Stop: 11/27/18 18:16 Last Infusion: 11/27/18 19:36 Dose: 144 mls/hr Documented by: [id number] Admin: 11/27/18 15:04 Dose: 144 mls/hr Documented by: [id number] Acetaminophen (Ofirmev) 1,000 mg in 100 mls @ 400 mls/hr IV NOW STA Stop: 11/27/18 15:13 Last Infusion: 11/27/18 16:01 Dose: 0 mls/hr Documented by: [id number] Admin: 11/27/18 15:40 Dose: 400 mls/hr Documented by: [id number] Potassium Chloride (K Abran / Wtr) 10 meq in 100 mls @ 100 mls/hr IV Q1H [facility] Stop: 11/28/18 08:59 Last Infusion: 11/28/18 09:35 Dose: 0 mls/hr Documented by: [id number] Admin: 11/28/18 08:56 Dose: 100 mls/hr Documented by: [id number] Infusion: 11/28/18 08:56 Dose: 100 mls/hr Documented by: [id number] Admin: 11/28/18 08:03 Dose: 100 mls/hr Documented by: [id number] Infusion: 11/28/18 07:39 Dose: 100 mls/hr Documented by: [id number] Admin: 11/28/18 06:39 Dose: 100 mls/hr Documented by: [id number] Potassium Phosphate 15 mmol/ (Sodium Chloride) 255 mls @ 88 mls/hr IV ONE ONE Stop: 11/28/18 09:08 Last Infusion: 11/28/18 09:35 Dose: 0 mls/hr Documented by: [id number] Admin: 11/28/18 06:26 Dose: 88 mls/hr Documented by: [id number] Potassium Acetate 20 meq/ (Sodium Chloride) 110 mls @ 55 mls/hr IV Q2H [facility] Stop: 11/28/18 16:59 Last Infusion: 11/28/18 18:50 Dose: 0 mls/hr Documented by: [id number] Admin: 11/28/18 16:12 Dose: 55 mls/hr Documented by: [id number] Infusion: 11/28/18 15:09 Dose: 55 mls/hr Documented by: [id number] Admin: 11/28/18 13:09 Dose: 55 mls/hr Documented by: [id number] Infusion: 11/28/18 13:09 Dose: 55 mls/hr Documented by: [id number] Admin: 11/28/18 11:37 Dose: 55 mls/hr Documented by: [id number] Potassium Phosphate 40 mmol/ (Sodium Chloride) 1,013.3333 mls @ 152 mls/hr IV ONE ONE Stop: 11/28/18 17:24 Last Infusion: 11/28/18 18:11 Dose: 0 mls/hr Documented by: [id number] Admin: 11/28/18 11:37 Dose: 152 mls/hr Documented by: [id number] Potassium Chloride (K Abran / Wtr) 10 meq in 100 mls @ 100 mls/hr IV Q1H [facility] Stop: 11/30/18 15:29 Last Infusion: 11/30/18 16:21 Dose: 0 mls/hr Documented by: [id number] Admin: 11/30/18 15:21 Dose: 100 mls/hr Documented by: [id number] Infusion: 11/30/18 15:15 Dose: 0 mls/hr Documented by: [id number] Admin: 11/30/18 14:15 Dose: 100 mls/hr Documented by: [id number] Infusion: 11/30/18 14:14 Dose: 0 mls/hr Documented by: [id number] Admin: 11/30/18 13:16 Dose: 100 mls/hr Documented by: [id number] Infusion: 11/30/18 12:42 Dose: 0 mls/hr Documented by: [id number] Admin: 11/30/18 11:22 Dose: 100 mls/hr Documented by: [id number] Sodium Chloride (Nss 1000ml) 1,000 mls @ 50 mls/hr IV .Q20H [facility] Stop: 12/31/18 11:29 Last Infusion: 12/04/18 09:49 Dose: 0 mls/hr Documented by: [id number] Admin: 12/04/18 01:16 Dose: 50 mls/hr Documented by: [id number] Infusion: 12/03/18 23:51 Dose: 50 mls/hr Documented by: [id number] Admin: 12/03/18 03:51 Dose: 50 mls/hr Documented by: [id number] Infusion: 12/03/18 03:50 Dose: 50 mls/hr Documented by: [id number] Admin: 12/02/18 08:11 Dose: 50 mls/hr Documented by: [id number] Infusion: 12/02/18 08:11 Dose: 50 mls/hr Documented by: [id number] Infusion: 12/01/18 16:53 Dose: 50 mls/hr Documented by: [id number] Infusion: 12/01/18 14:02 Dose: 0 mls/hr Documented by: [id number] Admin: 12/01/18 13:47 Dose: 50 mls/hr Documented by: [id number] Acetaminophen (Ofirmev) 65 mls @ 200 mls/hr IV NOW ONE Stop: 12/02/18 04:34 Last Infusion: 12/02/18 05:12 Dose: 0 mls/hr Documented by: [id number] Admin: 12/02/18 04:25 Dose: 200 mls/hr Documented by: [id number] Potassium Chloride (K Abran / Wtr) 10 meq in 100 mls @ 100 mls/hr IV Q1H [facility] Stop: 12/02/18 11:44 Last Infusion: 12/02/18 12:18 Dose: 0 mls/hr Documented by: [id number] Admin: 12/02/18 11:05 Dose: 100 mls/hr Documented by: [id number] Infusion: 12/02/18 11:05 Dose: 100 mls/hr Documented by: [id number] Admin: 12/02/18 10:07 Dose: 100 mls/hr Documented by: [id number] Acetaminophen (Ofirmev) 65 mls @ 200 mls/hr IV NOW ONE Stop: 12/03/18 07:04 Last Infusion: 12/03/18 08:10 Dose: 0 mls/hr Documented by: [id number] Admin: 12/03/18 06:45 Dose: 200 mls/hr Documented by: [id number] Fluconazole (Diflucan) 200 mg in 100 mls @ 100 mls/hr IV DAILY@0900 [facility] Stop: 12/13/18 08:59 Last Infusion: 12/04/18 09:49 Dose: 0 mls/hr Documented by: [id number] Admin: 12/04/18 08:04 Dose: 100 mls/hr Documented by: [id number] Infusion: 12/03/18 11:34 Dose: 0 mls/hr Documented by: [id number] Admin: 12/03/18 09:09 Dose: 100 mls/hr Documented by: [id number] Potassium Phosphate 21 mmol/ (Sodium Chloride) 507 mls @ 88 mls/hr IV NOW ONE Stop: 12/03/18 18:15 Last Infusion: 12/03/18 18:26 Dose: 0 mls/hr Documented by: [id number] Admin: 12/03/18 12:43 Dose: 88 mls/hr Documented by: [id number] Potassium Phosphate 24 mmol/ (Sodium Chloride) 508 mls @ 88 mls/hr IV 1000 ONE Stop: 12/04/18 15:46 Last Infusion: 12/04/18 16:09 Dose: 0 mls/hr Documented by: [id number] Admin: 12/04/18 10:19 Dose: 88 mls/hr Documented by: [id number] Insulin Aspart (Novolog Flexpen) 0 units SC PCHS [facility] Stop: 12/26/18 08:59 Last Admin: 11/26/18 08:25 Dose: Not Given Documented by: [id number] Cosigned by: [id number] Insulin Aspart (Novolog Flexpen) 0 units SC Q4 [facility] Stop: 12/26/18 11:59 Last Admin: 11/27/18 12:45 Dose: Not Given Documented by: [id number] Cosigned by: [id number] Admin: 11/27/18 08:55 Dose: Not Given Documented by: [id number] Cosigned by: [id number] Admin: 11/27/18 05:25 Dose: Not Given Documented by: [id number] Cosigned by: [id number] Admin: 11/27/18 01:21 Dose: Not Given Documented by: [id number] Cosigned by: [id number] Admin: 11/26/18 19:46 Dose: Not Given Documented by: [id number] Cosigned by: [id number] Admin: 11/26/18 16:50 Dose: Not Given Documented by: [id number] Cosigned by: [id number] Admin: 11/26/18 12:34 Dose: Not Given Documented by: [id number] Cosigned by: [id number] Insulin Aspart (Novolog Flexpen) 0 units SC Q6 [facility] Stop: 12/27/18 17:59 Last Admin: 12/04/18 06:41 Dose: 1 units Documented by: [id number] Cosigned by: [id number] Admin: 12/04/18 01:25 Dose: Not Given Documented by: [id number] Cosigned by: [id number] Admin: 12/03/18 17:45 Dose: Not Given Documented by: [id number] Cosigned by: [id number] Admin: 12/03/18 11:58 Dose: Not Given Documented by: [id number] Cosigned by: [id number] Admin: 12/03/18 06:12 Dose: 1 units Documented by: [id number] Cosigned by: [id number] Admin: 12/02/18 23:52 Dose: Not Given Documented by: [id number] Cosigned by: [id number] Admin: 12/02/18 18:11 Dose: Not Given Documented by: [id number] Cosigned by: [id number] Admin: 12/02/18 11:38 Dose: Not Given Documented by: [id number] Cosigned by: [id number] Admin: 12/02/18 06:01 Dose: Not Given Documented by: [id number] Cosigned by: [id number] Admin: 12/01/18 23:59 Dose: 1 units Documented by: [id number] Cosigned by: [id number] Admin: 12/01/18 18:37 Dose: Not Given Documented by: [id number] Cosigned by: [id number] Admin: 12/01/18 12:57 Dose: Not Given Documented by: [id number] Cosigned by: [id number] Admin: 12/01/18 05:42 Dose: Not Given Documented by: [id number] Cosigned by: [id number] Admin: 12/01/18 00:33 Dose: Not Given Documented by: [id number] Cosigned by: [id number] Admin: 11/30/18 18:50 Dose: Not Given Documented by: [id number] Cosigned by: [id number] Admin: 11/30/18 12:06 Dose: Not Given Documented by: [id number] Cosigned by: [id number] Admin: 11/30/18 06:02 Dose: Not Given Documented by: [id number] Cosigned by: [id number] Admin: 11/30/18 00:05 Dose: Not Given Documented by: [id number] Cosigned by: [id number] Admin: 11/29/18 18:21 Dose: Not Given Documented by: [id number] Cosigned by: [id number] Admin: 11/29/18 11:22 Dose: Not Given Documented by: [id number] Cosigned by: [id number] Admin: 11/29/18 06:23 Dose: Not Given Documented by: [id number] Cosigned by: [id number] Admin: 11/29/18 00:38 Dose: Not Given Documented by: [id number] Cosigned by: [id number] Admin: 11/28/18 18:22 Dose: Not Given Documented by: [id number] Cosigned by: [id number] Admin: 11/28/18 12:49 Dose: Not Given Documented by: [id number] Cosigned by: [id number] Admin: 11/28/18 05:35 Dose: Not Given Documented by: [id number] Cosigned by: [id number] Admin: 11/28/18 00:31 Dose: Not Given Documented by: [id number] Cosigned by: [id number] Admin: 11/27/18 17:20 Dose: Not Given Documented by: [id number] Cosigned by: [id number] Insulin Glargine (Lantus Solostar Pen) 7 units SC TODAY@1000 [facility] Stop: 11/26/18 12:00 Last Admin: 11/26/18 11:00 Dose: 7 units Documented by: [id number] Cosigned by: [id number] Insulin Glargine (Lantus Solostar Pen) 0 units SC BID [facility]; Protocol Stop: 12/26/18 20:59 Last Admin: 11/28/18 08:06 Dose: Not Given Documented by: [id number] Cosigned by: [id number] Admin: 11/27/18 21:12 Dose: Not Given Documented by: [id number] Cosigned by: [id number] Admin: 11/27/18 08:55 Dose: Not Given Documented by: [id number] Cosigned by: [id number] Admin: 11/26/18 20:25 Dose: Not Given Documented by: [id number] Cosigned by: [id number] Insulin Human Regular (Novolin R Bolus From Bag) 2.5 units IV ONE ONE Stop: 11/25/18 23:01 Last Admin: 11/25/18 23:12 Dose: 2.5 units Documented by: [id number] Cosigned by: [id number] Methylene Blue (Provayblue 0.5%) Confirm Administered Dose 10 ml .ROUTE .STK-MED ONE Stop: 11/25/18 11:30 Last Admin: 11/25/18 18:00 Dose: Not Given Documented by: [id number] Metoprolol Tartrate (Lopressor) 5 mg IV NOW STA Stop: 11/27/18 08:11 Last Admin: 11/27/18 08:24 Dose: 5 mg Documented by: [id number] Metoprolol Tartrate (Lopressor) 5 mg IV NOW STA Stop: 11/27/18 08:35 Last Admin: 11/27/18 08:41 Dose: 5 mg Documented by: [id number] Metoprolol Tartrate (Lopressor) 5 mg IV NOW STA Stop: 11/27/18 11:00 Last Admin: 11/27/18 11:07 Dose: 5 mg Documented by: [id number] Metoprolol Tartrate (Lopressor) Confirm Administered Dose 5 mg IV .STK-MED ONE Stop: 11/27/18 11:01 Last Admin: 11/27/18 11:29 Dose: Not Given Documented by: [id number] Metoprolol Tartrate (Lopressor) 5 mg IV Q4 [facility] Stop: 12/29/18 14:25 Last Admin: 12/04/18 08:04 Dose: 5 mg Documented by: [id number] Admin: 12/04/18 05:37 Dose: 5 mg Documented by: [id number] Admin: 12/04/18 01:16 Dose: 5 mg Documented by: [id number] Admin: 12/03/18 21:12 Dose: 5 mg Documented by: [id number] Admin: 12/03/18 16:03 Dose: 5 mg Documented by: [id number] Admin: 12/03/18 11:59 Dose: 5 mg Documented by: [id number] Admin: 12/03/18 08:01 Dose: 5 mg Documented by: [id number] Admin: 12/03/18 03:51 Dose: 5 mg Documented by: [id number] Admin: 12/02/18 23:52 Dose: 5 mg Documented by: [id number] Admin: 12/02/18 20:20 Dose: 5 mg Documented by: [id number] Admin: 12/02/18 16:00 Dose: 5 mg Documented by: [id number] Admin: 12/02/18 11:31 Dose: Not Given Documented by: [id number] Admin: 12/02/18 08:12 Dose: 5 mg Documented by: [id number] Admin: 12/02/18 04:08 Dose: 5 mg Documented by: [id number] Admin: 12/02/18 00:02 Dose: 5 mg Documented by: [id number] Admin: 12/01/18 20:41 Dose: 5 mg Documented by: [id number] Admin: 12/01/18 18:14 Dose: 5 mg Documented by: [id number] Admin: 12/01/18 12:43 Dose: 5 mg Documented by: [id number] Admin: 12/01/18 07:24 Dose: 5 mg Documented by: [id number] Admin: 12/01/18 03:04 Dose: 5 mg Documented by: [id number] Admin: 12/01/18 00:57 Dose: 5 mg Documented by: [id number] Admin: 11/30/18 20:50 Dose: 5 mg Documented by: [id number] Admin: 11/30/18 18:10 Dose: 5 mg Documented by: [id number] Admin: 11/30/18 11:44 Dose: 5 mg Documented by: [id number] Admin: 11/30/18 08:09 Dose: 5 mg Documented by: [id number] Admin: 11/30/18 03:36 Dose: 5 mg Documented by: [id number] Admin: 11/30/18 00:04 Dose: 5 mg Documented by: [id number] Admin: 11/29/18 20:03 Dose: 5 mg Documented by: [id number] Admin: 11/29/18 16:31 Dose: 5 mg Documented by: [id number] Admin: 11/29/18 14:37 Dose: 5 mg Documented by: [id number] Miscellaneous (Tisseel Fibrin Sealant 10ml) 10 ml TOP ONCE ONE Stop: 11/25/18 14:27 Last Admin: 11/25/18 13:55 Dose: 5 ml Documented by: [id number] Miscellaneous (Order Awaiting Action) 1 ea N/A QS [facility] Stop: 12/25/18 19:59 Last Admin: 11/28/18 15:55 Dose: Not Given Documented by: [id number] Admin: 11/28/18 07:17 Dose: Not Given Documented by: [id number] Admin: 11/28/18 00:22 Dose: Not Given Documented by: [id number] Admin: 11/27/18 17:20 Dose: Not Given Documented by: [id number] Admin: 11/27/18 08:28 Dose: Not Given Documented by: [id number] Admin: 11/27/18 01:04 Dose: Not Given Documented by: [id number] Admin: 11/26/18 15:35 Dose: Not Given Documented by: [id number] Admin: 11/26/18 11:45 Dose: Not Given Documented by: [id number] Admin: 11/25/18 23:57 Dose: Not Given Documented by: [id number] Admin: 11/25/18 20:56 Dose: Not Given Documented by: [id number] Propofol (Diprivan) Confirm Administered Dose 1,000 mg IV .STK-MED ONE Stop: 11/25/18 18:47 Last Admin: 11/25/18 19:10 Dose: Not Given Documented by: [id number] Description This is a 21 electrode EEG with a single channel dedicated to limited EKG. The electrodes were placed in accordance with the International 10-20 system. There was intermittent movement artifact noted. At the start of this recording patient was in an awake but confused state. Background was poorly organized with no well formed anterior to posterior gradient. Background was composed of predominantly 5 to 6 Hz theta frequency with intermittent generalized delta and intermixed alpha and beta frequencies. There was no state changes. Hyperventilation was not done. Photic stimulation done at various frequencies did not produce any abnormalities. Interpretation This is an abnormal routine EEG secondary to moderate background disorganization and slowing There was no electrographic seizures or epileptiform discharges. Clinical Correlation This EEG indicates moderate encephalopathy of nonspecific etiology.
[2018-12-06] MEDS: BETASERON SC SCH (17:40)
--- NOTE | 2018-12-06 17:42 | CT Scan Report ---
HEAD CT NONCONTRAST CT DOSE: 881.47 mGy.cm HISTORY: post-op delirium TECHNIQUE: Multiaxial CT images of the head were performed without the use of intravenous contrast. A utomated exposure control was utilized for this study. A dose lowering technique was utilized adheri ng to the principles of ALARA. Comparison: None. Findings: The paranasal sinuses and mastoid air cells are clear. The calvarium and skull base are int act. There is no mass, hematoma, midline shift, acute infarct. White matter hypodensity is nonspecifi c but suggestive of microvascular ischemic change. The ventricles and sulci are within normal limits. Small hypodense foci within the basal ganglia and thalami likely represent old lacunar infarcts. Impression: No acute intracranial abnormality. Atrophy and microvascular ischemic changes. Old punctate lacunar i nfarcts within the thalami and basal ganglia are noted. Electronically signed by: Boo Gar M.D. 12/06/2018 5:40 PM
[2018-12-06] MEDS: IMPACT LIQD 1.0 CAL 1,000 ML BAG GT SCH (18:35)
[2018-12-06] MEDS: PRAVASTATIN SOD 40 MG TAB PO SCH (22:30)
[2018-12-06] MEDS: ASPIRIN 81 MG CHEW PO SCH (22:33)
[2018-12-07] MEDS: INSULIN ASPART 100 UNITS/ML 3 ML PEN SC SCH ×4 (00:45→18:55)
[2018-12-07 06:57] LABS: Basophils # (auto) 0.03 K/uL (0-0.2); Basophils % (auto) 0.2 %; Eosinophils # (auto) 0.06 K/uL (0-0.5); Eosinophils % (auto) 0.4 %; Hematocrit (blood only) 28.6 % (37-47); Hemoglobin 9.5 g/dL (12.0-16.0); Immature Granulocytes # (auto) 0.08 K/uL (0.00-0.02); Immature Granulocytes % (auto) 0.5 %; Lymphocytes # (auto) 1.71 K/uL (1.2-3.4); Lymphocytes % (auto) 10.4 %; Mean Corpuscular Hgb Conc 33.2 g/dL (32-36); Mean Corpuscular Volume 87.7 fL (80-100); Mean Platelet Volume 9.6 fL (7.4-10.4); Monocytes # (auto) 2.07 K/uL (0.11-0.59); Monocytes % (auto) 12.6 %; Neutrophils # (auto) 12.45 K/uL (1.4-6.5); Neutrophils % (auto) 75.9 %; Platelet Count 622 K/uL (130-400); RDW Coefficient of Variation 14.8 % (11.5-14.5); RDW Standard Deviation 47.4 fL (36.4-46.3); Red Blood Count 3.26 M/uL (4.2-5.4)
[2018-12-07 07:30] LABS: BUN Creatinine Ratio 46.2 (10-20); Calcium 10.5 mg/dl (8.5-10.1); Creatinine Clr Calc Pharmacy 85.5 ml/min; Est GFR (African American) 107.2; Est GFR (Non-African American) 92.5; Potassium 4.2 mmol/L (3.5-5.1)
[2018-12-07] MEDS: AMOXICILLIN/CLAVULANATE SUSP 400MG/5ML 50ML BOTTLE PO SCH ×2 (07:43→17:57)
--- NOTE | 2018-12-07 08:33 | XRay Report ---
XR chest 1V portable HISTORY: 72 years-old Female fever acute fever COMPARISON: Chest radiograph 12/05/2018 TECHNIQUE: Portable AP view of the chest FINDINGS: Status post removal of the right internal jugular central venous catheter. Cardiac silhouette is mild ly enlarged. There is improved aeration of the bilateral lungs. No pneumothorax, pleural effusion, ov ert pulmonary edema or focal airspace consolidation identified. The lungs are mildly hypoinflated. De generative changes of the shoulders and spine. Catheter projects over the lower chest and upper abdom en. The ventral midline skin nalini are noted. Surgical clips also noted projecting over the right c hest and right breast. IMPRESSION: 1. Cardiomegaly without overt pulmonary edema. 2. Improved aeration of the lungs without focal airspace consolidation identified. 3. Status post removal of the right internal jugular central venous catheter. The above report was generated using voice recognition software. It may contain grammatical, syntax o r spelling errors. Electronically signed by: Cristian Kennedy M.D. 12/07/2018 8:31 AM
[2018-12-07] MEDS: PREGABALIN 75 MG CAP PO SCH ×2 (08:52→20:23)
[2018-12-07] MEDS: AMIODARONE 200 MG TAB PO SCH ×2 (08:55→20:12)
[2018-12-07] MEDS: AMLODIPINE BESYLATE 5 MG TAB PO SCH (08:58)
[2018-12-07] MEDS: ENALAPRIL MALEATE 10 MG TAB PO SCH (08:58)
[2018-12-07] MEDS: DICYCLOMINE HCL 20 MG TAB PO SCH ×2 (09:00→20:13)
[2018-12-07] MEDS: LANSOPRAZOLE 15 MG SOLTAB PO SCH ×2 (09:00→20:59)
[2018-12-07] MEDS: FUROSEMIDE 20 MG in SYRINGE 0 ML IV SCH ×2 (09:03→20:12)
[2018-12-07] MEDS: VENLAFAXINE HCL XR 150 MG CAPXR PO SCH ×2 (09:03→13:45)
[2018-12-07] MEDS: HEPARIN SOD 5,000 UNIT/0.5 ML VIAL SQ SCH ×2 (09:06→20:11)
[2018-12-07] MEDS: ACETAMINOPHEN 1,000 MG/100 ML VIAL IV PRN (09:13)
--- NOTE | 2018-12-07 09:18 | Surgery Progress Note ---
Date of Service December 07, 2018 Results & Data Vital Signs (Past 12 Hours) Vital Signs Temp Pulse Pulse Resp BP Pulse Ox 12/07/18 06:57 38.7 C H 91 H 17 107/69 95 12/07/18 03:59 36.9 C 88 17 107/73 93 12/07/18 00:00 38.0 C H 98 H 18 105/77 90 12/06/18 22:25 94 H
[2018-12-07] MEDS: FLUCONAZOLE 200 MG/100 ML BAG IV SCH (09:45)
[2018-12-07 09:55] LABS: Appearance Urine Clear (Clear); Bacteria Urine Automated Negative (Negative); Bilirubin Urine Negative (Negative); Blood Urine Negative (Negative); Color Urine Dark Yellow; Epithelial Cell Urine Auto 20-30 /lpf (0-5); Glucose Urine UA Negative (Negative); Ketones Urine Negative (Negative); Leukocyte Esterase Urine Trace (Negative); Nitrite Urine Negative (Negative); Protein Urine Trace (Negative); Specific Gravity Urine 1.025 (1.000-1.030); Urobilinogen Urine Negative (Negative); pH Urine 5.5 (4.5-7.5)
--- NOTE | 2018-12-07 10:17 | Neurology Progress Note ---
Date of Service December 07, 2018 Assessment & Plan (1) Acute encephalopathy: This is a 72-year-old female with acute encephalopathy since her hiatal hernia repair November 25. Patient has significant stroke risk factors including A. fib not on anticoagulation, hypertension, dyslipidemia, and recent surgery. Patient does appear to have some component of left hemiplegia and I am highly suspicious that she has had a right hemispheric stroke not imaged on CT of the head. Her stroke risk factors include A. fib not on anticoagulation and hypertension. Recommendations: Recommend trying to obtain an MRI of the brain to see if there is been any acute stroke when able. Recommend checking echocardiogram to rule out cardiac thrombus, and ultrasound of the carotids to rule out critical stenosis. Recommend checking lipid profile and hemoglobin A1c for modifiable stroke risk factors. Would recommend starting anticoagulation for stroke prevention in the setting of A. fib when able to do so from a postsurgical standpoint. Avoid dehydration and hypotension Blood pressure recommendations while in hospital 175/95-150/80 For the first month after hospital discharge, blood pressure recommendations 150/90-130/80. After the first month, blood pressure recommendations 130/80-110/70 Follow-up PT/OT and speech recommendations for discharge planning Neurological recommendations for stroke risk factor modifications: Total cholesterol goal 100-200, and LDL goal less than 100 Hemoglobin A1c goal less than 7 Encourage regular exercise at least 30 minutes 3 times per week Hospital Follow-up in neurology clinic in 1 month after discharge. If there is any questions or concerns, feel free to call/page me. Subjective No acute changes overnight. Patient does not have any current complaints. EEG noted encephalopathy, but no signs of seizures CT of the head report and images were reviewed. No acute stroke was imaged. Patient is not able to get an MRI at this time due to surgical clips. Review of Systems Review of Systems: Unobtainable due to cognitive status Physical Exam Physical Exam: Neurological examination: Mental status: Patient is lethargic and oriented to person only. unable to give own history. Poor fund of knowledge. Attention and concentration fair for the situation. Speech is fluent without any dysarthria or aphasia noted Cranial nerves: No facial asymmetry noted. Facial sensation intact. Hearing grossly intact voice. Strength: Patient did not follow commands for formal strength examination due to mental status. Appears to have full strength with right upper extremity. Able to move right lower extremity but did not demonstrate any antigravity strength. Demonstrated some mild movement of the left upper extremity but no antigravity strength. Left lower extremity was able to wiggle toes and foot and had pain when attempting to elevate the leg which appeared to possibly could be coming from her knee which was tender to palpation. Overall appears to be weaker on the left compared to the right. Sensation: Grossly intact to light touch in all extremities Deep tendon reflexes: Toes are downgoing to plantar stimulation bilaterally Results & Data Vital Signs (Past 12 Hours) Vital Signs Temp Pulse Pulse Resp BP Pulse Ox 12/07/18 06:57 38.7 C H 91 H 17 107/69 95 12/07/18 03:59 36.9 C 88 17 107/73 93 12/07/18 00:00 38.0 C H 98 H 18 105/77 90 12/06/18 22:25 94 H
[2018-12-07 10:24] LABS: RBC Urine Automated 0-4 /hpf (0-4)
[2018-12-07 10:25] LABS: Renal Epithelial Cells Urine 0-5 /lpf (0-5)
--- NOTE | 2018-12-07 11:00 | Surgery Progress Note ---
Date of Service December 07, 2018 Assessment & Plan (1) Esophageal tear: doing well from the surgery standpoint. no evidence of leak. ?etiology of the encephalopathy. Neurology consulted. CT negative. will obtain MRI will need to start thyroid replacement. will d/w medicine. fever with leukocytosis. drain looks good. recheck urine/cxr. recent cx's were negative. on antibiotics and antifungals. if fever persists and leukocytosis worsens may need to repeat ct chest/abdomen/pelvis. speech path still rec NPO. dianelys TF's for nutrition. can restart effexor via Gtube. will d/w medicine. attempted to contact yesterday unsuccessfully. will try again today to discuss. (2) Acute encephalopathy: Subjective pt awake. still confused. appears comfortable. denies pain. Physical Exam Physical Exam: abd: soft. wound looks good. G-tube in place/functioning. dianelys TF's at 65 cc/hr drain: scant/serous Results & Data Vital Signs (Past 12 Hours) Vital Signs Temp Pulse Pulse Resp BP Pulse Ox 12/07/18 07:30 92 H 12/07/18 06:57 38.7 C H 91 H 17 107/69 95 12/07/18 03:59 36.9 C 88 17 107/73 93 12/07/18 00:00 38.0 C H 98 H 18 105/77 90 (1) Esophageal tear Encounter type: initial encounter Qualified Code(s): S11.21XA - Laceration without foreign body of pharynx and cervical esophagus, initial encounter
--- NOTE | 2018-12-07 11:22 | Hospitalist Progress Note ---
Date of Service December 07, 2018 Assessment & Plan (1) Esophageal tear: The patient suffered an esophageal tear intraoperatively during hiatal hernia repair. CT scan 12/03 and video swallow negative for leakage. Surgery is following and will order diet when appropriate.The patient has had intermittent fever and blood cultures and urine cultures are negative. She remains on intravenous Zosyn therapy and intravenous fluconazole therapy. WBC still high at 16k but stable, had a fever today repeat CBC this afternoon, WBC up to 17k on antibiotics may need to consider ID consult CXR normal today, perhaps she needs CT of chest and abd/pelvis general surgery and thoracic surgery following (2) New onset a-fib: Currently in normal sinus rhythm. Cardiac echo was unremarkable. Cardiology consultation noted. Intravenous metoprolol has been discontinued. She has been switched to oral amiodarone. Continue telemetry (3) Hypertension: Now on oral medications. Controlled (4) Hypophosphatemia: Corrected. (5) Phlebitis: Superficial left cephalic vein thrombosis being treated with Subcutaneous heparin therapy (6) Acute encephalopathy: continues to be confused and lethargic symptoms do seem to wax and wane EEG 12/06 with evidence of encephalopathy CT head with prior ischemic damage, no acute stroke MRI brain without stroke continue supportive care, frequent re-orientation appropriate sleep wake cycle limit stimuli, limit tethers most likely etiology or contributing factor would be infection continues to have leukocytosis and fevers despite abx (7) Delirium: see above, her encephalopathy would appear to be delirium no obvious cause (8) Elevated TSH: up at 8, was 3.0 on admission, difficult to assess in the setting of acute illness TSH lower at 6 and T4 nml likely the changes are just due to acute illness, levels fluctuate (9) DVT prophylaxis: Continue subcutaneous heparin therapy Subjective patient lethargic and confused today discussed with general surgery, TSH elevated but this can fluctuate in acute illness repeat TSH lower at 6 and T4 normal continues to have leukocytosis at 17k, up slightly spiking fevers MRI brain without acute stroke CXR today without infiltrate tolerating tube feeds Review of Systems Review of Systems: Unobtainable due to cognitive status Physical Exam Constitutional: WD/WN, vitals as above Eyes: PERRL, conjunctivae normal, anicteric sclerae ENMT: external ear and nose normal, oropharynx normal Neck: trachea midline, no thyromegaly Respiratory: normal respiratory effort, lungs clear to auscultation Auscultation: + diminished lung sounds (bases) Cardiovascular: RRR, no murmur, no edema Gastrointestinal (Abdomen): normal bowel sounds, soft, nontender, no hepatosplenomegaly Musculoskeletal: no cyanosis or clubbing, extremities motor strength 5/5 Skin: no rashes, warm and dry Neurologic: patellar DTR's 2+ bilat, sensation intact and PERRL, EOMI, accommodation nl, no face palsy, no dysarthria Psychiatric: Orientation: cooperative; + not alert (lethargic), + not oriented to person, + not oriented to place and + not oriented to time Apperance: appropriately dressed and appeared stated age Eye Contact: + poor eye contact Speech: normal rate/rhythm/volume of speech Lymphatic: no cervical or axillary lymphadenopathy Results & Data Vital Signs (Past 12 Hours) Vital Signs Temp Pulse Pulse Resp BP Pulse Ox 12/07/18 07:30 92 H 12/07/18 06:57 38.7 C H 91 H 17 107/69 95 12/07/18 03:59 36.9 C 88 17 107/73 93 12/07/18 00:00 38.0 C H 98 H 18 105/77 90 Laboratory Results Laboratory Results - last 24 hr 12/07/18 12/07/18 12/07/18 00:43 06:14 06:14 WBC 16.40 H RBC 3.26 L Hgb 9.5 L Hct 28.6 L MCV 87.7 MCH 29.1 MCHC 33.2 RDW Std Deviation 47.4 H RDW Coeff of Tomas 14.8 H Plt Count 622 H MPV 9.6 Immature Gran % (Auto) 0.5 Neut % (Auto) 75.9 Lymph % (Auto) 10.4 Reagan % (Auto) 12.6 Eos % (Auto) 0.4 Baso % (Auto) 0.2 Immature Gran # (Auto) 0.08 H Neut # (Auto) 12.45 H Lymph # (Auto) 1.71 Reagan # (Auto) 2.07 H Eos # (Auto) 0.06 Baso # (Auto) 0.03 Sodium 137 Potassium 4.2 Chloride 103 Carbon Dioxide 29 Anion Gap 5.0 BUN 26 H Creatinine 0.56 L Est Cr Clr Drug Dosing 85.5 Est GFR ( Amer) 107.2 Est GFR (Non-Af Amer) 92.5 BUN/Creatinine Ratio 46.2 H Glucose 139 H POC Glucose 94 Calcium 10.5 H Ammonia TSH Free T4 Thyroxine (T4) Free T3 Urine Color Urine Appearance Urine pH Ur Specific [place] Urine Protein Urine Glucose (UA) Urine Ketones Urine Blood Urine Nitrite Urine Bilirubin Urine Urobilinogen Ur Leukocyte Esterase Urine WBC (Auto) Urine RBC (Auto) U Hyaline Cast (Auto) U Epithel Cells (Auto) Urine Bacteria (Auto) Ur Renal Epithelial Cell Urine Yeast 12/07/18 12/07/18 12/07/18 07:03 08:50 10:50 WBC RBC Hgb Hct MCV MCH MCHC RDW Std Deviation RDW Coeff of Tomas Plt Count MPV Immature Gran % (Auto) Neut % (Auto) Lymph % (Auto) Reagan % (Auto) Eos % (Auto) Baso % (Auto) Immature Gran # (Auto) Neut # (Auto) Lymph # (Auto) Reagan # (Auto) Eos # (Auto) Baso # (Auto) Sodium Potassium Chloride Carbon Dioxide Anion Gap BUN Creatinine Est Cr Clr Drug Dosing Est GFR ( Amer) Est GFR (Non-Af Amer) BUN/Creatinine Ratio Glucose POC Glucose 175 H Calcium Ammonia 32.0 TSH Free T4 Thyroxine (T4) Free T3 Urine Color Dark Yellow Urine Appearance Clear Urine pH 5.5 Ur Specific [place] 1.025 Urine Protein Trace H Urine Glucose (UA) Negative Urine Ketones Negative Urine Blood Negative Urine Nitrite Negative Urine Bilirubin Negative Urine Urobilinogen Negative Ur Leukocyte Esterase Trace H Urine WBC (Auto) 1-5 Urine RBC (Auto) 0-4 U Hyaline Cast (Auto) 5-10 H U Epithel Cells (Auto) 20-30 H Urine Bacteria (Auto) Negative Ur Renal Epithelial Cell 0-5 Urine Yeast Budding H 12/07/18 12/07/18 12/07/18 12:09 13:53 13:53 WBC 17.29 H RBC 3.01 L Hgb 8.7 L Hct 26.0 L MCV 86.4 MCH 28.9 MCHC 33.5 RDW Std Deviation 46.3 RDW Coeff of Tomas 14.7 H Plt Count 582 H MPV 9.3 Immature Gran % (Auto) 0.5 Neut % (Auto) 75.7 Lymph % (Auto) 9.3 Reagan % (Auto) 13.8 Eos % (Auto) 0.5 Baso % (Auto) 0.2 Immature Gran # (Auto) 0.08 H Neut # (Auto) 13.10 H Lymph # (Auto) 1.61 Reagan # (Auto) 2.39 H Eos # (Auto) 0.08 Baso # (Auto) 0.03 Sodium Potassium Chloride Carbon Dioxide Anion Gap BUN Creatinine Est Cr Clr Drug Dosing Est GFR ( Amer) Est GFR (Non-Af Amer) BUN/Creatinine Ratio Glucose POC Glucose 175 H Calcium Ammonia TSH 6.250 H Free T4 1.23 Thyroxine (T4) Free T3 Urine Color Urine Appearance Urine pH Ur Specific [place] Urine Protein Urine Glucose (UA) Urine Ketones Urine Blood Urine Nitrite Urine Bilirubin Urine Urobilinogen Ur Leukocyte Esterase Urine WBC (Auto) Urine RBC (Auto) U Hyaline Cast (Auto) U Epithel Cells (Auto) Urine Bacteria (Auto) Ur Renal Epithelial Cell Urine Yeast 12/07/18 12/07/18 13:53 18:34 WBC RBC Hgb Hct MCV MCH MCHC RDW Std Deviation RDW Coeff of Tomas Plt Count MPV Immature Gran % (Auto) Neut % (Auto) Lymph % (Auto) Reagan % (Auto) Eos % (Auto) Baso % (Auto) Immature Gran # (Auto) Neut # (Auto) Lymph # (Auto) Reagan # (Auto) Eos # (Auto) Baso # (Auto) Sodium Potassium Chloride Carbon Dioxide Anion Gap BUN Creatinine Est Cr Clr Drug Dosing Est GFR ( Amer) Est GFR (Non-Af Amer) BUN/Creatinine Ratio Glucose POC Glucose 145 H Calcium Ammonia TSH Free T4 Thyroxine (T4) 5.7 Free T3 2.00 L Urine Color Urine Appearance Urine pH Ur Specific [place] Urine Protein Urine Glucose (UA) Urine Ketones Urine Blood Urine Nitrite Urine Bilirubin Urine Urobilinogen Ur Leukocyte Esterase Urine WBC (Auto) Urine RBC (Auto) U Hyaline Cast (Auto) U Epithel Cells (Auto) Urine Bacteria (Auto) Ur Renal Epithelial Cell Urine Yeast Medications Administered Current Inpatient Medications Amiodarone HCl (Cordarone) 400 mg PO BID [facility] Stop: 12/08/18 21:01 Last Admin: 12/07/18 20:12 Dose: 400 mg Documented by: Amiodarone HCl (Cordarone) 200 mg PO DAILY [facility] Stop: 01/08/19 08:59 Amlodipine Besylate (Norvasc) 5 mg PO DAILY [facility] Stop: 01/03/19 09:59 Last Admin: 12/07/18 08:58 Dose: 5 mg Documented by: Amoxicillin/Clavulanate Potassium ([facility]in Susp) [facility] Protocol Stop: 12/08/18 17:01 Last Admin: 12/07/18 17:57 Dose: 875 mg Documented by: Aspirin (Aspirin Chew) 81 mg PO HS [facility] Stop: 01/03/19 20:59 Last Admin: 12/07/18 20:13 Dose: 81 mg Documented by: Dextrose (Dextrose 50%) 25 - 50 ml IV UD PRN; Protocol PRN Reason: Hypoglycemia Protocol Stop: 01/03/19 09:59 Dicyclomine HCl (Bentyl) 20 mg PO BID [facility] Stop: 01/03/19 08:59 Last Admin: 12/07/18 20:13 Dose: 20 mg Documented by: Enalapril Maleate (Vasotec) 20 mg PO DAILY [facility] Stop: 01/03/19 09:59 Last Admin: 12/07/18 08:58 Dose: 20 mg Documented by: Enteral Nutritional Formula (Impact 1.0 Ludwig) 0 ml GT UD [facility]; Protocol Stop: 12/29/18 13:59 Last Admin: 12/07/18 12:16 Dose: 1,000 ml Documented by: Glucagon (Glucagen) 1 mg IM UD PRN; Protocol PRN Reason: Hypoglycemia Protocol Stop: 01/03/19 09:59 Glucose (Glucose 40%) 15 - 30 gm PO UD PRN; Protocol PRN Reason: Hypoglycemia Protocol Stop: 01/03/19 09:59 Glucose (Dex4 Glucose) 4 - 8 tabs PO UD PRN; Protocol PRN Reason: Hypoglycemia Protocol Stop: 01/03/19 09:59 Heparin Sodium (Beef Lung) (Heparin Sod 10 Unit/Ml Flush) 5 ml FLUSH PRN PRN PRN Reason: Flush Stop: 01/02/19 23:00 Last Admin: 12/05/18 00:51 Dose: 5 ml Documented by: Heparin Sodium (Porcine) (Heparin Sodium (Porcine)) 5,000 units SQ BID [facility] Stop: 12/26/18 08:59 Last Admin: 12/07/18 20:11 Dose: 5,000 units Documented by: Fluconazole (Diflucan) 200 mg in 100 mls @ 100 mls/hr IV DAILY [facility] Stop: 12/15/18 09:59 Last Infusion: 12/07/18 11:03 Dose: Infused Documented by: Furosemide 20 mg/ Syringe 2 mls @ 4 mls/min IV Q12 [facility] Stop: 01/04/19 20:59 Last Admin: 12/07/18 20:12 Dose: 4 mls/min Documented by: Acetaminophen (Ofirmev) 1,000 mg in 100 mls @ 400 mls/hr IV Q8H PRN PRN Reason: Fever Stop: 01/06/19 08:11 Last Infusion: 12/07/18 09:45 Dose: Infused Documented by: Insulin Aspart (Novolog Flexpen) 0 units SC Q6 [facility] Stop: 12/27/18 11:59 Last Admin: 12/07/18 18:55 Dose: 1 units Documented by: Lansoprazole (Prevacid) 15 mg PO BID [facility] Stop: 01/03/19 09:44 Last Admin: 12/07/18 20:59 Dose: 15 mg Documented by: Miscellaneous (Carbohydrates For Hypoglycemia) 15 - 30 gm PO UD PRN PRN Reason: Hypoglycemia Treatment Stop: 01/03/19 09:59 Betaseron 1 ea SC Q48H [facility] Stop: 12/28/18 17:59 Last Admin: 12/06/18 17:40 Dose: Not Given Documented by: Ondansetron HCl (Zofran) 4 mg IV Q4H PRN PRN Reason: Nausea And Vomiting Stop: 12/25/18 18:46 Last Admin: 12/05/18 00:51 Dose: 4 mg Documented by: Potassium Chloride (Klor-Con M20) 20 meq PO [id number] [facility] Stop: 01/05/19 08:59 Last Admin: 12/06/18 09:07 Dose: 20 meq Documented by: Potassium Chloride (Klor-Con M20) 20 meq PO [email or web address] [facility] Stop: 01/05/19 20:59 Last Admin: 12/06/18 22:32 Dose: 20 meq Documented by: Pravastatin Sodium (Pravachol) 80 mg PO HS [facility] Stop: 01/03/19 20:59 Last Admin: 12/07/18 20:12 Dose: 80 mg Documented by: Pregabalin (Lyrica) 75 mg PO BID [facility] Stop: 01/03/19 08:59 Last Admin: 12/07/18 20:23 Dose: 75 mg Documented by: Ranitidine HCl (Zantac) 150 mg PO HS [facility] Stop: 01/03/19 20:59 Last Admin: 12/07/18 20:12 Dose: 150 mg Documented by: Venlafaxine HCl (Effexor Extended Release) 150 mg PO QAM [facility] Stop: 01/03/19 08:59 Last Admin: 12/07/18 13:45 Dose: 150 mg Documented by: (1) Esophageal tear Encounter type: initial encounter Qualified Code(s): S11.21XA - Laceration without foreign body of pharynx and cervical esophagus, initial encounter
[2018-12-07] MEDS: IMPACT LIQD 1.0 CAL 1,000 ML BAG GT SCH (12:16)
[2018-12-07 14:15] LABS: Basophils # (auto) 0.03 K/uL (0-0.2); Basophils % (auto) 0.2 %; Eosinophils # (auto) 0.08 K/uL (0-0.5); Eosinophils % (auto) 0.5 %; Hemoglobin 8.7 g/dL (12.0-16.0); Immature Granulocytes # (auto) 0.08 K/uL (0.00-0.02); Immature Granulocytes % (auto) 0.5 %; Lymphocytes # (auto) 1.61 K/uL (1.2-3.4); Lymphocytes % (auto) 9.3 %; Mean Corpuscular Hgb Conc 33.5 g/dL (32-36); Mean Corpuscular Volume 86.4 fL (80-100); Mean Platelet Volume 9.3 fL (7.4-10.4); Monocytes # (auto) 2.39 K/uL (0.11-0.59); Monocytes % (auto) 13.8 %; Neutrophils % (auto) 75.7 %; Platelet Count 582 K/uL (130-400); RDW Coefficient of Variation 14.7 % (11.5-14.5); RDW Standard Deviation 46.3 fL (36.4-46.3); Red Blood Count 3.01 M/uL (4.2-5.4); White Blood Count 17.29 K/uL (4.8-10.8)
[2018-12-07 14:51] LABS: T4 Free Thyroxine 1.23 ng/dl (0.8-1.6)
--- NOTE | 2018-12-07 16:12 | Progress Note ---
DATE: 12/07/2018 Ms. Farooq was awake but confused today. Her incision looks good. She has excellent bowel sounds. She is actually moving air pretty well. She did spike a fever however and this is concerning. I ordered a urinalysis this morning, which does show some budding yeast; really not much in the way of white cells. I believe that her chest x-ray looks better. ASSESSMENT AND PLAN: Status post repair of iatrogenic perforation of esophagus. She is now postop day 12. She does not appear to be leaking. I discussed this case with Dr. Oconnell today. Unfortunately it does not appear that she is going to tolerate anything p.o. because of her swallowing dysfunction. I believe we will probably be able to pull this [place]-Bull drain in the near future. I do not believe her fevers and leukocytosis are coming from her abdomen based on our CT scans and other studies.
--- NOTE | 2018-12-07 17:10 | Magnetic Resonance Report ---
Brain MRI WITHOUT CONTRAST HISTORY: post-op delirium TECHNIQUE: Multiplanar multisequence MRI of the brain was performed without the use of contrast. COMPARISON STUDY: Head CT 12/06/2018. FINDINGS: No areas of restricted diffusion to suggest acute infarction. The midline structures are in tact. The major vascular flow-voids at the skull base are well-maintained. The paranasal sinuses and left mastoid air cells are clear. There are are a few opacified right inferior mastoid air cells. The ventricles and sulci are within normal limits for age. Extensive T2 hyperintensity throughout the pe riventricular white matter of the supratentorial brain. This also extends into the external capsules. There are few punctate T2 hyperintense foci within the basal ganglia and thalami. No mass, midline s hift, or intracranial hemorrhage identified. IMPRESSION: 1. No acute infarct within the brain. 2. . Extensive T2 hyperintensity throughout the periventricular white matter of the supratentorial br ain. This also extends into the external capsules. There are few punctate T2 hyperintense foci within the basal ganglia and thalami. This is nonspecific but could be seen the setting of severe microvasc ular ischemic change or edema and disease such as multiple sclerosis. Additional leukoencephalopathie s including [place] disease could also have a similar appearance. Electronically signed by: Boo Gar M.D. 12/07/2018 5:08 PM
[2018-12-07] MEDS: PRAVASTATIN SOD 40 MG TAB PO SCH (20:12)
[2018-12-07] MEDS: ASPIRIN 81 MG CHEW PO SCH (20:13)
[2018-12-08] MEDS: INSULIN ASPART 100 UNITS/ML 3 ML PEN SC SCH ×4 (00:48→18:25)
[2018-12-08] MEDS: IMPACT LIQD 1.0 CAL 1,000 ML BAG GT SCH (06:23)
[2018-12-08 07:25] LABS: Basophils # (auto) 0.03 K/uL (0-0.2); Basophils % (auto) 0.2 %; Eosinophils # (auto) 0.14 K/uL (0-0.5); Immature Granulocytes % (auto) 0.7 %; Lymphocytes # (auto) 1.39 K/uL (1.2-3.4); Lymphocytes % (auto) 9.5 %; Mean Corpuscular Hgb Conc 33.3 g/dL (32-36); Mean Corpuscular Volume 86.5 fL (80-100); Mean Platelet Volume 9.4 fL (7.4-10.4); Monocytes # (auto) 1.88 K/uL (0.11-0.59); Monocytes % (auto) 12.8 %; Neutrophils % (auto) 75.8 %; Platelet Count 659 K/uL (130-400); RDW Coefficient of Variation 14.7 % (11.5-14.5); Red Blood Count 3.12 M/uL (4.2-5.4); White Blood Count 14.64 K/uL (4.8-10.8)
[2018-12-08] MEDS: PREGABALIN 75 MG CAP PO SCH ×2 (08:33→21:19)
[2018-12-08] MEDS: ENALAPRIL MALEATE 10 MG TAB PO SCH (08:34)
[2018-12-08] MEDS: POTASSIUM CHLORIDE 20 MEQ TABCR PO SCH ×2 (08:35→21:19)
[2018-12-08] MEDS: DICYCLOMINE HCL 20 MG TAB PO SCH ×2 (08:35→21:19)
[2018-12-08] MEDS: VENLAFAXINE HCL XR 150 MG CAPXR PO SCH (08:35)
[2018-12-08] MEDS: AMIODARONE 200 MG TAB PO SCH ×2 (08:35→21:19)
[2018-12-08] MEDS: AMLODIPINE BESYLATE 5 MG TAB PO SCH (08:35)
[2018-12-08] MEDS: AMOXICILLIN/CLAVULANATE SUSP 400MG/5ML 50ML BOTTLE PO SCH ×2 (08:40→17:48)
[2018-12-08] MEDS: HEPARIN SOD 5,000 UNIT/0.5 ML VIAL SQ SCH ×2 (08:40→21:26)
[2018-12-08] MEDS: LANSOPRAZOLE 15 MG SOLTAB PO SCH ×2 (08:41→21:20)
--- NOTE | 2018-12-08 09:30 | Cardiology Progress Note ---
Date of Service December 08, 2018 Assessment & Plan (1) New onset a-fib: Patient had an episode of atrial fibrillation and associated high ventricular rates in the postoperative period. It is unclear whether this is related to her operation and acute illness or whether this is simply paroxysmal atrial fibrillation finally identified during this admission. She has not had recurrence of her atrial fibrillation now in several days. She is currently on oral amiodarone delivered through G-tube. Hemodynamically she appears to be doing well. There was some concern over a cerebral vascular accident, but her MRI performed yesterday did not reveal any evidence of an infarct. I would change her amiodarone dosing to 200 milligrams daily starting tomorrow. As noted previously she would benefit from systemic anticoagulation. She appears to be a good candidate for either apixaban 5 milligrams twice daily or Xarelto 20 milligrams daily. If no additional surgeries are anticipated in her risk of bleeding from her prior surgeries is felt to be low, this could be initiated immediately. Subjective This morning the patient answer questions but not always appropriately. She did appear to be somewhat confused. She did complain of some pain but was able to localize this pain. She did not report any breathing difficulty. She was not aware of any palpitations. Review of Systems Review of Systems: Unobtainable due to cognitive status Physical Exam Physical Exam: She is alert HEENT: Sclerae are anicteric. Pupils are equal and reactive to light and accommodation. Extraocular movements were intact. Mouth was dry. Cardiac: The rhythm was regular. Abdomen: The abdomen was soft . G-tube in place Extremities: Patient has bilateral radial pulses that are equal in intensity. There is no evidence cyanosis or clubbing. There was no evidence of significant peripheral edema bilaterally. Some erythema on the dorsal aspect of the left foot. Skin: There are no rashes noted on examination today. Results & Data Vital Signs (Past 12 Hours) Vital Signs Temp Pulse Pulse Resp BP Pulse Ox 12/08/18 07:12 37.1 C 87 18 107/67 91 12/08/18 03:23 37.4 C 83 18 109/69 94 12/07/18 23:18 36.7 C 80 18 99/53 L 92 12/07/18 22:20 84 Laboratory Results Abnormal Lab Results 12/07/18 12/07/18 12/07/18 08:50 10:50 12:09 WBC RBC Hgb Hct MCV MCH MCHC RDW Std Deviation RDW Coeff of Tomas Plt Count MPV Immature Gran % (Auto) Neut % (Auto) Lymph % (Auto) Blaine % (Auto) Eos % (Auto) Baso % (Auto) Immature Gran # (Auto) Neut # (Auto) Lymph # (Auto) Blaine # (Auto) Eos # (Auto) Baso # (Auto) POC Glucose 175 H Ammonia 32.0 TSH Free T4 Thyroxine (T4) Free T3 Urine Color Dark Yellow Urine Appearance Clear Urine pH 5.5 Ur Specific [place] 1.025 Urine Protein Trace H Urine Glucose (UA) Negative Urine Ketones Negative Urine Blood Negative Urine Nitrite Negative Urine Bilirubin Negative Urine Urobilinogen Negative Ur Leukocyte Esterase Trace H Urine WBC (Auto) 1-5 Urine RBC (Auto) 0-4 U Hyaline Cast (Auto) 5-10 H U Epithel Cells (Auto) 20-30 H Urine Bacteria (Auto) Negative Ur Renal Epithelial Cell 0-5 Urine Yeast Budding H 12/07/18 12/07/18 12/07/18 13:53 13:53 13:53 WBC 17.29 H RBC 3.01 L Hgb 8.7 L Hct 26.0 L MCV 86.4 MCH 28.9 MCHC 33.5 RDW Std Deviation 46.3 RDW Coeff of Tomas 14.7 H Plt Count 582 H MPV 9.3 Immature Gran % (Auto) 0.5 Neut % (Auto) 75.7 Lymph % (Auto) 9.3 Blaine % (Auto) 13.8 Eos % (Auto) 0.5 Baso % (Auto) 0.2 Immature Gran # (Auto) 0.08 H Neut # (Auto) 13.10 H Lymph # (Auto) 1.61 Blaine # (Auto) 2.39 H Eos # (Auto) 0.08 Baso # (Auto) 0.03 POC Glucose Ammonia TSH 6.250 H Free T4 1.23 Thyroxine (T4) 5.7 Free T3 2.00 L Urine Color Urine Appearance Urine pH Ur Specific [place] Urine Protein Urine Glucose (UA) Urine Ketones Urine Blood Urine Nitrite Urine Bilirubin Urine Urobilinogen Ur Leukocyte Esterase Urine WBC (Auto) Urine RBC (Auto) U Hyaline Cast (Auto) U Epithel Cells (Auto) Urine Bacteria (Auto) Ur Renal Epithelial Cell Urine Yeast 12/07/18 12/07/1819 18:34 23:37 06:07 WBC RBC Hgb Hct MCV MCH MCHC RDW Std Deviation RDW Coeff of Tomas Plt Count MPV Immature Gran % (Auto) Neut % (Auto) Lymph % (Auto) Blaine % (Auto) Eos % (Auto) Baso % (Auto) Immature Gran # (Auto) Neut # (Auto) Lymph # (Auto) Blaine # (Auto) Eos # (Auto) Baso # (Auto) POC Glucose 145 H 148 H 144 H Ammonia TSH Free T4 Thyroxine (T4) Free T3 Urine Color Urine Appearance Urine pH Ur Specific [place] Urine Protein Urine Glucose (UA) Urine Ketones Urine Blood Urine Nitrite Urine Bilirubin Urine Urobilinogen Ur Leukocyte Esterase Urine WBC (Auto) Urine RBC (Auto) U Hyaline Cast (Auto) U Epithel Cells (Auto) Urine Bacteria (Auto) Ur Renal Epithelial Cell Urine Yeast 12/08/18 06:42 WBC 14.64 H RBC 3.12 L Hgb 9.0 L Hct 27.0 L MCV 86.5 MCH 28.8 MCHC 33.3 RDW Std Deviation 46.0 RDW Coeff of Tomas 14.7 H Plt Count 659 H MPV 9.4 Immature Gran % (Auto) 0.7 Neut % (Auto) 75.8 Lymph % (Auto) 9.5 Blaine % (Auto) 12.8 Eos % (Auto) 1.0 Baso % (Auto) 0.2 Immature Gran # (Auto) 0.10 H Neut # (Auto) 11.10 H Lymph # (Auto) 1.39 Blaine # (Auto) 1.88 H Eos # (Auto) 0.14 Baso # (Auto) 0.03 POC Glucose Ammonia TSH Free T4 Thyroxine (T4) Free T3 Urine Color Urine Appearance Urine pH Ur Specific [place] Urine Protein Urine Glucose (UA) Urine Ketones Urine Blood Urine Nitrite Urine Bilirubin Urine Urobilinogen Ur Leukocyte Esterase Urine WBC (Auto) Urine RBC (Auto) U Hyaline Cast (Auto) U Epithel Cells (Auto) Urine Bacteria (Auto) Ur Renal Epithelial Cell Urine Yeast ECG Additional Comments: EKG demonstrates normal sinus rhythm. No atrial fibrillation.
[2018-12-08] MEDS: FUROSEMIDE 20 MG in SYRINGE 0 ML IV SCH ×2 (09:48→21:26)
[2018-12-08] MEDS: FLUCONAZOLE 200 MG/100 ML BAG IV SCH (09:48)
--- NOTE | 2018-12-08 09:51 | Neurology Progress Note ---
Date of Service December 08, 2018 Assessment & Plan (1) Acute encephalopathy: This is a 72-year-old female with acute encephalopathy after surgery. Would continue management and evaluation of infectious and metabolic etiologies. MRI of the brain did not show any acute stroke and EEG did not suggest any seizure etiology. Likely encephalopathy is multifactorial. Pseudo-weakness of left arm and leg due to pain. No additional neurological recommendations at this time. Please call the neurology consult if there is any additional questions or concerns. Subjective Patient reports that she is leery. No other complaints, but while examining her she does report that her left arm hurts. Unable to localize. MRI of the brain reported images were reviewed. Patient does have an extensive white matter disease consistent with her diagnosis of MS but no acute stroke. Physical Exam Physical Exam: Patient is alert and oriented to person only. Follows some commands. She is able to demonstrate full strength in her right upper and lower extremity. Left upper extremity is tender to touch and passive movement. Does not seem to localize to a single joint or area of the arm. Patient may have pseudo-weakness in the left arm and leg due to pain. Results & Data Vital Signs (Past 12 Hours) Vital Signs Temp Pulse Pulse Resp BP Pulse Ox 12/08/18 07:12 37.1 C 87 18 107/67 91 12/08/18 03:23 37.4 C 83 18 109/69 94 12/07/18 23:18 36.7 C 80 18 99/53 L 92 12/07/18 22:20 84
--- NOTE | 2018-12-08 10:34 | Hospitalist Progress Note ---
Date of Service December 08, 2018 Assessment & Plan (1) Esophageal tear: The patient suffered an esophageal tear intraoperatively during hiatal hernia repair. CT scan 12/03 and video swallow negative for leakage. Surgery is following and will order diet when appropriate.The patient has had intermittent fever and blood cultures and urine cultures are negative. She remains on intravenous Zosyn therapy and intravenous fluconazole therapy. WBC trending down to 14k, no fever today which is first time on antibiotics CXR normal 12/07, hold on further imaging since no fever and WBC trending down general surgery and thoracic surgery following (2) New onset a-fib: Currently in normal sinus rhythm. Cardiac echo was unremarkable. Cardiology consultation noted. Intravenous metoprolol has been discontinued. She has been switched to oral amiodarone. Continue telemetry (3) Hypertension: Now on oral medications. Controlled (4) Hypophosphatemia: Corrected. (5) Phlebitis: Superficial left cephalic vein thrombosis being treated with Subcutaneous heparin therapy (6) Acute encephalopathy: continues to be confused, disoriented more alert today waxes and wanes between alert and lethargic but always confused EEG 12/06 with evidence of encephalopathy CT head with prior ischemic damage, no acute stroke MRI brain without stroke continue supportive care, frequent re-orientation appropriate sleep wake cycle limit stimuli, limit tethers appreciate neuro consult, etiology likely multifactorial (7) Delirium: see above, her encephalopathy would appear to be delirium no obvious cause (8) Elevated TSH: up at 8, was 3.0 on admission, difficult to assess in the setting of acute illness TSH lower at 6 and T4 nml on 12/07 likely the changes are just due to acute illness, levels fluctuate (9) DVT prophylaxis: Continue subcutaneous heparin therapy Subjective visited with patient and her at the bedside she continues to be confused completely disoriented more alert today reviewed labs and imaging appreciate neurology recommendations no fever today which is improvement WBC down to 14k Review of Systems Review of Systems: Unobtainable due to cognitive status Physical Exam Constitutional: WD/WN, vitals as above Eyes: PERRL, conjunctivae normal, anicteric sclerae ENMT: external ear and nose normal, oropharynx normal Neck: trachea midline, no thyromegaly Respiratory: normal respiratory effort, lungs clear to auscultation Auscultation: + diminished lung sounds (bases) Cardiovascular: RRR, no murmur, no edema Gastrointestinal (Abdomen): normal bowel sounds, soft, nontender, no hepatosplenomegaly Musculoskeletal: no cyanosis or clubbing, extremities motor strength 5/5 Skin: no rashes, warm and dry Neurologic: patellar DTR's 2+ bilat, sensation intact and PERRL, EOMI, accommodation nl, no face palsy, no dysarthria Psychiatric: Orientation: alert and cooperative; + not oriented to person, + not oriented to place and + not oriented to time Apperance: appropriately dressed and appeared stated age Eye Contact: + poor eye contact Speech: normal rate/rhythm/volume of speech Lymphatic: no cervical or axillary lymphadenopathy Results & Data Vital Signs (Past 12 Hours) Vital Signs Temp Pulse Resp BP Pulse Ox 12/08/18 07:12 37.1 C 87 18 107/67 91 12/08/18 03:23 37.4 C 83 18 109/69 94 12/07/18 23:18 36.7 C 80 18 99/53 L 92 Laboratory Results Laboratory Results - last 24 hr 12/07/18 12/07/18 12/07/18 10:50 12:09 13:53 WBC 17.29 H RBC 3.01 L Hgb 8.7 L Hct 26.0 L MCV 86.4 MCH 28.9 MCHC 33.5 RDW Std Deviation 46.3 RDW Coeff of Tomas 14.7 H Plt Count 582 H MPV 9.3 Immature Gran % (Auto) 0.5 Neut % (Auto) 75.7 Lymph % (Auto) 9.3 Gladwin % (Auto) 13.8 Eos % (Auto) 0.5 Baso % (Auto) 0.2 Immature Gran # (Auto) 0.08 H Neut # (Auto) 13.10 H Lymph # (Auto) 1.61 Gladwin # (Auto) 2.39 H Eos # (Auto) 0.08 Baso # (Auto) 0.03 POC Glucose 175 H Ammonia 32.0 TSH Free T4 Thyroxine (T4) Free T3 12/07/18 12/07/18 12/07/18 13:53 13:53 18:34 WBC RBC Hgb Hct MCV MCH MCHC RDW Std Deviation RDW Coeff of Tomas Plt Count MPV Immature Gran % (Auto) Neut % (Auto) Lymph % (Auto) [place] % (Auto) Eos % (Auto) Baso % (Auto) Immature Gran # (Auto) Neut # (Auto) Lymph # (Auto) Gladwin # (Auto) Eos # (Auto) Baso # (Auto) POC Glucose 145 H Ammonia TSH 6.250 H Free T4 1.23 Thyroxine (T4) 5.7 Free T3 2.00 L 12/07/18 12/08/18 12/08/18 23:37 06:07 06:42 WBC 14.64 H RBC 3.12 L Hgb 9.0 L Hct 27.0 L MCV 86.5 MCH 28.8 MCHC 33.3 RDW Std Deviation 46.0 RDW Coeff of Tomas 14.7 H Plt Count 659 H MPV 9.4 Immature Gran % (Auto) 0.7 Neut % (Auto) 75.8 Lymph % (Auto) 9.5 Gladwin % (Auto) 12.8 Eos % (Auto) 1.0 Baso % (Auto) 0.2 Immature Gran # (Auto) 0.10 H Neut # (Auto) 11.10 H Lymph # (Auto) 1.39 Gladwin # (Auto) 1.88 H Eos # (Auto) 0.14 Baso # (Auto) 0.03 POC Glucose 148 H 144 H Ammonia TSH Free T4 Thyroxine (T4) Free T3 Medications Administered Current Inpatient Medications Amiodarone HCl (Cordarone) 400 mg PO BID [facility] Stop: 12/08/18 21:01 Last Admin: 12/08/18 08:35 Dose: 400 mg Documented by: Amiodarone HCl (Cordarone) 200 mg PO DAILY [facility] Stop: 01/08/19 08:59 Amlodipine Besylate (Norvasc) 5 mg PO DAILY [facility] Stop: 01/03/19 09:59 Last Admin: 12/08/18 08:35 Dose: 5 mg Documented by: Amoxicillin/Clavulanate Potassium (Augmentin Susp) [facility] [place] Protocol Stop: 12/08/18 17:01 Last Admin: 12/08/18 08:40 Dose: 875 mg Documented by: Aspirin (Aspirin Chew) 81 mg PO [facility] Stop: 01/03/19 20:59 Last Admin: 12/07/18 20:13 Dose: 81 mg Documented by: Dextrose (Dextrose 50%) 25 - 50 ml IV UD PRN; Protocol PRN Reason: Hypoglycemia Protocol Stop: 01/03/19 09:59 Dicyclomine HCl (Bentyl) 20 mg PO BID [facility] Stop: 01/03/19 08:59 Last Admin: 12/08/18 08:35 Dose: 20 mg Documented by: Enalapril Maleate (Vasotec) 20 mg PO DAILY [facility] Stop: 01/03/19 09:59 Last Admin: 12/08/18 08:34 Dose: 20 mg Documented by: Enteral Nutritional Formula (Impact 1.0 Ludwig) 0 ml GT UD [facility]; Protocol Stop: 12/29/18 13:59 Last Admin: 12/08/18 06:23 Dose: 1,000 ml Documented by: Glucagon (Glucagen) 1 mg IM UD PRN; Protocol PRN Reason: Hypoglycemia Protocol Stop: 01/03/19 09:59 Glucose (Glucose 40%) 15 - 30 gm PO UD PRN; Protocol PRN Reason: Hypoglycemia Protocol Stop: 01/03/19 09:59 Glucose (Dex4 Glucose) 4 - 8 tabs PO UD PRN; Protocol PRN Reason: Hypoglycemia Protocol Stop: 01/03/19 09:59 Heparin Sodium (Beef Lung) (Heparin Sod 10 Unit/Ml Flush) 5 ml FLUSH PRN PRN PRN Reason: Flush Stop: 01/02/19 23:00 Last Admin: 12/05/18 00:51 Dose: 5 ml Documented by: Heparin Sodium (Porcine) (Heparin Sodium (Porcine)) 5,000 units SQ BID [facility] Stop: 12/26/18 08:59 Last Admin: 12/08/18 08:40 Dose: 5,000 units Documented by: Fluconazole (Diflucan) 200 mg in 100 mls @ 100 mls/hr IV DAILY [facility] Stop: 12/15/18 09:59 Last Admin: 12/08/18 09:48 Dose: 100 mls/hr Documented by: Furosemide 20 mg/ Syringe 2 mls @ 4 mls/min IV Q12 [facility] Stop: 01/04/19 20:59 Last Admin: 12/08/18 09:48 Dose: 4 mls/min Documented by: Acetaminophen (Ofirmev) 1,000 mg in 100 mls @ 400 mls/hr IV Q8H PRN PRN Reason: Fever Stop: 01/06/19 08:11 Last Infusion: 12/07/18 09:45 Dose: Infused Documented by: Insulin Aspart (Novolog Flexpen) 0 units SC Q6 [facility] Stop: 12/27/18 11:59 Last Admin: 12/08/18 06:09 Dose: 1 units Documented by: Lansoprazole (Prevacid) 15 mg PO BID [facility] Stop: 01/03/19 09:44 Last Admin: 12/08/18 08:41 Dose: 15 mg Documented by: Miscellaneous (Carbohydrates For Hypoglycemia) 15 - 30 gm PO UD PRN PRN Reason: Hypoglycemia Treatment Stop: 01/03/19 09:59 Betaseron 1 ea SC Q48H [facility] Stop: 12/28/18 17:59 Last Admin: 12/06/18 17:40 Dose: Not Given Documented by: Ondansetron HCl (Zofran) 4 mg IV Q4H PRN PRN Reason: Nausea And Vomiting Stop: 12/25/18 18:46 Last Admin: 12/05/18 00:51 Dose: 4 mg Documented by: Potassium Chloride (Klor-Con M20) 20 meq PO MoWeFr@0900 [facility] Stop: 01/05/19 08:59 Last Admin: 12/08/18 08:35 Dose: 20 meq Documented by: Potassium Chloride (Klor-Con M20) 20 meq PO MoWeFr@2100 [facility] Stop: 01/05/19 20:59 Last Admin: 12/06/18 22:32 Dose: 20 meq Documented by: Pravastatin Sodium (Pravachol) 80 mg PO [facility] Stop: 01/03/19 20:59 Last Admin: 12/07/18 20:12 Dose: 80 mg Documented by: Pregabalin (Lyrica) 75 mg PO BID [facility] Stop: 01/03/19 08:59 Last Admin: 12/08/18 08:33 Dose: 75 mg Documented by: Ranitidine HCl (Zantac) 150 mg PO [facility] Stop: 01/03/19 20:59 Last Admin: 12/07/18 20:12 Dose: 150 mg Documented by: Venlafaxine HCl (Effexor Extended Release) [facility] [place] Stop: 01/03/19 08:59 Last Admin: 12/08/18 08:35 Dose: 150 mg Documented by: (1) Esophageal tear Encounter type: initial encounter Qualified Code(s): S11.21XA - Laceration without foreign body of pharynx and cervical esophagus, initial encounter
[2018-12-08] MEDS ORDERED: Nursing to Pharmacy Communication PRN (11:03)
[2018-12-08] MEDS: SODIUM BICARBONATE 650 MG TAB PO PRN ×2 (11:49→14:28)
[2018-12-08] MEDS: PANCREAZE (LIPASE 4,200U) CAP PO PRN ×2 (11:50→14:28)
--- NOTE | 2018-12-08 13:00 | Surgery Progress Note ---
Date of Service December 08, 2018 Assessment & Plan (1) Esophageal tear: 12/08/2018 Patient seen and examined with AM. Both J tube and G tube clogged- nurse will attempt using amlyase/lipase/protease to unclog. MRI yesterday ruled out acute stroke. Per neurology note- no further recommendations regarding post-op delirium. WBC improved from yesterday. Discussed TSH level with Dr. Wylie- repeat TSH decreased. Speech ok with advancing diet to PO clears, nectar thick. Dr. Oconnell able to meet with and update patient's spouse. 12/07/2018 doing well from the surgery standpoint. no evidence of leak. ?etiology of the encephalopathy. Neurology consulted. CT negative. will obtain MRI will need to start thyroid replacement. will d/w medicine. fever with leukocytosis. drain looks good. recheck urine/cxr. recent cx's were negative. on antibiotics and antifungals. if fever persists and leukocytosis worsens may need to repeat ct chest/abdomen/pelvis. speech path still rec NPO. dianelys TF's for nutrition. can restart effexor via Gtube. will d/w medicine. attempted to contact yesterday unsuccessfully. will try again today to discuss. Subjective Patient a bit more conversational this AM. Per nursing- J and G tube clogged after AM med administration. Have tried coca cola, cranberry juice and meat tenderizer. Afebrile overnight. Physical Exam Gastrointestinal (Abdomen): Percussion/Palpation: abdomen soft nalini removed yesterday without issue steri-strips placed. clean, dry Results & Data Vital Signs (Past 12 Hours) Vital Signs Temp Pulse Pulse Resp BP Pulse Ox 12/08/18 12:12 37.5 C 86 25 H 93/68 L 95 12/08/18 07:30 85 12/08/18 07:12 37.1 C 87 18 107/67 91 12/08/18 03:23 37.4 C 83 18 109/69 94 (1) Esophageal tear Encounter type: initial encounter Qualified Code(s): S11.21XA - Laceration without foreign body of pharynx and cervical esophagus, initial encounter
--- NOTE | 2018-12-08 14:07 | Surgery Progress Note ---
Date of Service December 08, 2018 Assessment & Plan (1) Esophageal tear: Had a long discussion with at bedside this is the best she has looked. d/w nursing, we must be more aggressive getting pt OOB/attempt at standing etc... pt tolerated applesauce by speech therapy. will await their report/recs feeding tube clogged. attempting pancreatic enzymes. if fails I will attempt to unclog with a guidewire tomorrow. Subjective much more awake/alert. answering questions appropriately at bedside. Physical Exam Physical Exam: awake/alert and for most part oriented. best since surgery denies pain ALDEN scant /serous wound looks good. Results & Data Vital Signs (Past 12 Hours) Vital Signs Temp Pulse Pulse Resp BP Pulse Ox 12/08/18 12:12 37.5 C 86 25 H 93/68 L 95 12/08/18 07:30 85 12/08/18 07:12 37.1 C 87 18 107/67 91 12/08/18 03:23 37.4 C 83 18 109/69 94 (1) Esophageal tear Encounter type: initial encounter Qualified Code(s): S11.21XA - Laceration without foreign body of pharynx and cervical esophagus, initial encounter
--- NOTE | 2018-12-08 17:25 | Progress Note ---
DATE: 12/08/2018 The patient was seen today. She continues to, I think, look stable. Her white count is 14,600. She has not spiked a fever in 24 hours. Her x-ray I thought looked quite good. She has no infiltrates and I really do not see pleural effusions. She is on room air with good saturations. Her drainage continues to decrease as down to 20 mL. Unfortunately, she cannot really eat because of her swallowing dysfunction, probably secondary to her neurologic issues. She was seen by Neurology and an MRI showed no evidence of acute stroke or any seizure activity. Her history of multiple sclerosis, I doubt, would create a role in her slow recovery from this from a neurologic standpoint. I think she is improving. I am hopeful that we can start feeding her. I think we will probably remove her Bairon-Bull drain tomorrow. There have been some issues with her jejunostomy tube and we will have to see how this looks. I am hopeful that we can treat this occlusion.
[2018-12-08] MEDS: BETASERON SC SCH (18:36)
[2018-12-08] MEDS: ASPIRIN 81 MG CHEW PO SCH (21:18)
[2018-12-08] MEDS: PRAVASTATIN SOD 40 MG TAB PO SCH (21:20)
[2018-12-09] MEDS: INSULIN ASPART 100 UNITS/ML 3 ML PEN SC SCH ×4 (00:29→18:26)
[2018-12-09] MEDS: PREGABALIN 75 MG CAP PO SCH ×2 (07:54→21:16)
[2018-12-09] MEDS: LANSOPRAZOLE 15 MG SOLTAB PO SCH ×2 (07:54→21:14)
[2018-12-09] MEDS: AMLODIPINE BESYLATE 5 MG TAB PO SCH (07:55)
[2018-12-09] MEDS: DICYCLOMINE HCL 20 MG TAB PO SCH ×2 (07:55→21:13)
[2018-12-09] MEDS: VENLAFAXINE HCL XR 150 MG CAPXR PO SCH (07:56)
[2018-12-09] MEDS: AMIODARONE 200 MG TAB PO SCH (07:56)
[2018-12-09] MEDS: ENALAPRIL MALEATE 10 MG TAB PO SCH (07:57)
[2018-12-09] MEDS: HEPARIN SOD 5,000 UNIT/0.5 ML VIAL SQ SCH ×2 (08:00→21:13)
[2018-12-09] MEDS: ONDANSETRON INJ 2 MG/ML 2 ML VIAL IV PRN (08:11)
[2018-12-09] MEDS: FUROSEMIDE 20 MG in SYRINGE 0 ML IV SCH ×2 (08:44→21:13)
[2018-12-09] MEDS: FLUCONAZOLE 200 MG/100 ML BAG IV SCH (08:44)
--- NOTE | 2018-12-09 09:55 | Surgery Progress Note ---
Date of Service December 09, 2018 Assessment & Plan (1) Esophageal tear: 12/09/2018 Lili instilled pancreatic enzymes into feeding tube yesterday and this AM, looks better, but still unable to flush. Will discuss with Dr. Oconnell. While feeding this am, patient became nauseous and started to cough. Nursing stopped feeding. Nausea resolved with Zofran. Patient does answer questions appropriately- knows that she is in hospital, asking for something to drink. Patient afebrile for last 48hrs. OOB to chair PT/OT on board. Speech on board. as above. will attempt to open feeding tubes with wire today left food with erythema/tender. will obtain xray and consult ortho for opinion confused again today. unable to cooperate with PT or eating breakfast earlier. for video esophagram tomorrow. afebrile currently. wound looks good. drain looks good. delirium biggest issue at this point. 12/08/2018 Had a long discussion with at bedside this is the best she has looked. d/w nursing, we must be more aggressive getting pt OOB/attempt at standing etc... pt tolerated applesauce by speech therapy. will await their report/recs feeding tube clogged. attempting pancreatic enzymes. if fails I will attempt to unclog with a guidewire tomorrow. Subjective Patient in bed- awake. Somewhat conversational this AM. Nurse, Lili, was feeding patient breakfast this AM- started coughing with broth and became nauseous. Intake was stopped when patient became nauseous and started coughing. Results & Data Vital Signs (Past 12 Hours) Vital Signs Temp Pulse Pulse Resp BP Pulse Ox 12/09/18 07:52 37 C 86 20 124/66 96 12/09/18 04:00 36.8 C 82 17 93/72 L 94 12/09/18 00:00 37.0 C 87 84 17 100/73 99 (1) Esophageal tear Encounter type: initial encounter Qualified Code(s): S11.21XA - Laceration without foreign body of pharynx and cervical esophagus, initial encounter
--- NOTE | 2018-12-09 15:45 | Hospitalist Progress Note ---
Date of Service December 09, 2018 Assessment & Plan (1) Esophageal tear: The patient suffered an esophageal tear intraoperatively during hiatal hernia repair. CT scan 12/03 and video swallow negative for leakage. Surgery is following and will order diet when appropriate.The patient has had intermittent fever and blood cultures and urine cultures are negative. She remains on intravenous Zosyn therapy and intravenous fluconazole therapy. WBC trending down to 14k, no fever for two days now, improvement on antibiotics CXR normal 12/07, hold on further imaging since no fever and WBC trending down general surgery and thoracic surgery following (2) New onset a-fib: Currently in normal sinus rhythm. Cardiac echo was unremarkable. Cardiology consultation noted. Intravenous metoprolol has been discontinued. She has been switched to oral amiodarone. Continue telemetry (3) Hypertension: Now on oral medications. Controlled (4) Hypophosphatemia: Corrected. (5) Phlebitis: Superficial left cephalic vein thrombosis being treated with Subcutaneous heparin therapy (6) Acute encephalopathy: continues to be confused, disoriented more alert today waxes and wanes between alert and lethargic but always confused EEG 12/06 with evidence of encephalopathy CT head with prior ischemic damage, no acute stroke MRI brain without stroke continue supportive care, frequent re-orientation appropriate sleep wake cycle limit stimuli, limit tethers appreciate neuro consult, etiology likely multifactorial if still confused tomorrow will consider adding low dose atypical antipsychotic (7) Delirium: see above, her encephalopathy would appear to be delirium no obvious cause (8) Elevated TSH: up at 8, was 3.0 on admission, difficult to assess in the setting of acute illness TSH lower at 6 and T4 nml on 12/07 likely the changes are just due to acute illness, levels fluctuate (9) DVT prophylaxis: Continue subcutaneous heparin therapy Subjective patient still pleasantly confused today, less lethargic no fever, which is improvement discussed with general surgery, Dr. Oconnell, no signs of infection in the belly or chest updated at the bedside Review of Systems Review of Systems: Unobtainable due to cognitive status Physical Exam Constitutional: WD/WN, vitals as above Eyes: PERRL, conjunctivae normal, anicteric sclerae ENMT: external ear and nose normal, oropharynx normal Neck: trachea midline, no thyromegaly Respiratory: normal respiratory effort, lungs clear to auscultation Auscultation: + diminished lung sounds (bases) Cardiovascular: RRR, no murmur, no edema Gastrointestinal (Abdomen): normal bowel sounds, soft, nontender, no hepatosplenomegaly Musculoskeletal: no cyanosis or clubbing, extremities motor strength 5/5 Skin: no rashes, warm and dry Neurologic: patellar DTR's 2+ bilat, sensation intact and PERRL, EOMI, accom modation nl, no face palsy, no dysarthria Psychiatric: Orientation: alert and cooperative; + not oriented to person, + not oriented to place and + not oriented to time Apperance: appropriately dressed and appeared stated age Eye Contact: + poor eye contact Speech: normal rate/rhythm/volume of speech Lymphatic: no cervical or axillary lymphadenopathy Results & Data Vital Signs (Past 12 Hours) Vital Signs Temp Pulse Pulse Resp BP Pulse Ox 12/09/18 11:50 37.1 C 85 18 116/65 91 12/09/18 07:52 37 C 86 20 124/66 96 12/09/18 07:40 85 12/09/18 04:00 36.8 C 82 17 93/72 L 94 Laboratory Results Laboratory Results - last 24 hr 12/08/18 12/09/18 12/09/18 18:22 00:16 06:05 POC Glucose 123 H 101 H 93 12/09/18 11:48 POC Glucose 104 H Medications Administered Current Inpatient Medications Amiodarone HCl (Cordarone) 200 mg PO DAILY [facility] Stop: 01/08/19 08:59 Last Admin: 12/09/18 07:56 Dose: 200 mg Documented by: Amlodipine Besylate (Norvasc) 5 mg PO DAILY [facility] Stop: 01/03/19 09:59 Last Admin: 12/09/18 07:55 Dose: 5 mg Documented by: Lipase/Protease/Amylase (Pancreaze (Lipase 4200u)) 1 cap PO UD PRN PRN Reason: G-TUBE CLOGGING Stop: 01/07/19 11:05 Last Admin: 12/08/18 14:28 Dose: 1 cap Documented by: Aspirin (Aspirin Chew) 81 mg PO HS [facility] Stop: 01/03/19 20:59 Last Admin: 12/08/18 21:18 Dose: Not Given Documented by: Dextrose (Dextrose 50%) 25 - 50 ml IV UD PRN; Protocol PRN Reason: Hypoglycemia Protocol Stop: 01/03/19 09:59 Dicyclomine HCl (Bentyl) 20 mg PO BID [facility] Stop: 01/03/19 08:59 Last Admin: 12/09/18 07:55 Dose: 20 mg Documented by: Enalapril Maleate (Vasotec) 20 mg PO DAILY [facility] Stop: 01/03/19 09:59 Last Admin: 12/09/18 07:57 Dose: 20 mg Documented by: Enteral Nutritional Formula (Impact 1.0 Ludwig) 0 ml GT UD [facility]; Protocol Stop: 12/29/18 13:59 Last Admin: 12/08/18 06:23 Dose: 1,000 ml Documented by: Glucagon (Glucagen) 1 mg IM UD PRN; Protocol PRN Reason: Hypoglycemia Protocol Stop: 01/03/19 09:59 Glucose (Glucose 40%) 15 - 30 gm PO UD PRN; Protocol PRN Reason: Hypoglycemia Protocol Stop: 01/03/19 09:59 Glucose (Dex4 Glucose) 4 - 8 tabs PO UD PRN; Protocol PRN Reason: Hypoglycemia Protocol Stop: 01/03/19 09:59 Heparin Sodium (Beef Lung) (Heparin Sod 10 Unit/Ml Flush) 5 ml FLUSH PRN PRN PRN Reason: Flush Stop: 01/02/19 23:00 Last Admin: 12/05/18 00:51 Dose: 5 ml Documented by: Heparin Sodium (Porcine) (Heparin Sodium (Porcine)) 5,000 units SQ BID [facility] Stop: 12/26/18 08:59 Last Admin: 12/09/18 08:00 Dose: 5,000 units Documented by: Fluconazole (Diflucan) 200 mg in 100 mls @ 100 mls/hr IV DAILY [facility] Stop: 12/15/18 09:59 Last Infusion: 12/09/18 09:52 Dose: Infused Documented by: Furosemide 20 mg/ Syringe 2 mls @ 4 mls/min IV Q12 [facility] Stop: 01/04/19 20:59 Last Admin: 12/09/18 08:44 Dose: 4 mls/min Documented by: Acetaminophen (Ofirmev) 1,000 mg in 100 mls @ 400 mls/hr IV Q8H PRN PRN Reason: Fever Stop: 01/06/19 08:11 Last Infusion: 12/07/18 09:45 Dose: Infused Documented by: Insulin Aspart (Novolog Flexpen) 0 units SC Q6 [facility] Stop: 12/27/18 11:59 Last Admin: 12/09/18 12:38 Dose: Not Given Documented by: Lansoprazole (Prevacid) 15 mg PO BID [facility] Stop: 01/03/19 09:44 Last Admin: 12/09/18 07:54 Dose: 15 mg Documented by: Miscellaneous (Carbohydrates For Hypoglycemia) 15 - 30 gm PO UD PRN PRN Reason: Hypoglycemia Treatment Stop: 01/03/19 09:59 Betaseron 1 ea SC Q48H [facility] Stop: 12/28/18 17:59 Last Admin: 12/08/18 18:36 Dose: Not Given Documented by: Ondansetron HCl (Zofran) 4 mg IV Q4H PRN PRN Reason: Nausea And Vomiting Stop: 12/25/18 18:46 Last Admin: 12/09/18 08:11 Dose: 4 mg Documented by: Potassium Chloride (Klor-Con M20) 20 meq PO [email or web address]@[id number] [facility] Stop: 01/05/19 08:59 Last Admin: 12/08/18 08:35 Dose: 20 meq Documented by: Potassium Chloride (Klor-Con M20) 20 meq PO [email or web address] [facility] Stop: 01/05/19 20:59 Last Admin: 12/08/18 21:19 Dose: Not Given Documented by: Pravastatin Sodium (Pravachol) [address] [facility] Stop: 01/03/19 20:59 Last Admin: 12/08/18 21:20 Dose: Not Given Documented by: Pregabalin (Lyrica) 75 mg PO BID [facility] Stop: 01/03/19 08:59 Last Admin: 12/09/18 07:54 Dose: 75 mg Documented by: Ranitidine HCl (Zantac) [address] [facility] Stop: 01/03/19 20:59 Last Admin: 12/08/18 21:21 Dose: Not Given Documented by: Sodium Bicarbonate (Sodium Bicarbonate) 650 mg PO UD PRN PRN Reason: G-TUBE CLOGGING Stop: 01/07/19 11:08 Last Admin: 12/08/18 14:28 Dose: 650 mg Documented by: Venlafaxine HCl (Effe[facility] Extended Release) [facility] Stop: 01/03/19 08:59 Last Admin: 12/09/18 07:56 Dose: 150 mg Documented by: (1) Esophageal tear Encounter type: initial encounter Qualified Code(s): S11.21XA - Laceration without foreign body of pharynx and cervical esophagus, initial encounter
--- NOTE | 2018-12-09 15:55 | XRay Report ---
XR ankle LT min 3V routine, XR foot LT min 3V routine HISTORY: 72 years-old Female red, swollen left foot and ankle acute pain and swelling of the left fo ot and ankle COMPARISON: None available TECHNIQUE: 3 views of the left ankle and 3 views of the left foot FINDINGS: ANKLE: Demineralized appearance of the bones. Corticated ossifications are noted about the medial malleolus suggestive of fragment osteophytes and/or remote avulsion fracture fragments. Spurring of the calcane us with adjacent dystrophic calcifications. Small to moderate joint effusion. No acute fracture, disl ocation or osteochondral defect. FOOT: Demineralized appearance of the bones. No acute fracture or dislocation. Mild degenerative changes of the metatarsal-phalangeal joints with mild to moderate degenerative changes of the interphalangeal j oints. Soft tissue prominence with adjacent soft tissue calcifications noted about the first MTP join t. No acute fracture or dislocation. Marginal spurring of the calcaneus with adjacent dystrophic calc ifications. IMPRESSION: 1. No acute fracture or dislocation. 2. Degenerative changes as above. The above report was generated using voice recognition software. It may contain grammatical, syntax o r spelling errors. Electronically signed by: Cristian Kennedy M.D. 12/09/2018 3:53 PM
[2018-12-09] MEDS: IMPACT LIQD 1.0 CAL 1,000 ML BAG GT SCH (18:08)
--- NOTE | 2018-12-09 20:17 | Progress Note ---
DATE: 12/09/2018 Ms. Farooq was seen today on 12/09/2018. She is sitting up in the chair and actually looks quite good. She is still very confused, but her speech is clear. She is a bit more lucid. She points directly to her left antecubital fossa as the source of her pain. She is able to move both her legs, but her left leg hurts to move. Her abdomen is soft. She has good bowel sounds. She appeared to be tolerating her tube feeds. Speech and swallow think that she is at a high risk for aspiration. Her temperature has been normal. Her white count is trending down. I am quite pleased with her at this point. We had a long discussion about removal of the Bairon-Bull drain. As we are unable to feed her, we have been a bit uncomfortable; however, it has now been 2 weeks today and her swallow last week showed that we have no evidence of a leak, so I am pleased and I think we can safely remove this.
[2018-12-09] MEDS: ASPIRIN 81 MG CHEW PO SCH (21:12)
[2018-12-09] MEDS: PRAVASTATIN SOD 40 MG TAB PO SCH (21:14)
[2018-12-10] MEDS: INSULIN ASPART 100 UNITS/ML 3 ML PEN SC SCH ×5 (00:07→21:00)
[2018-12-10] MEDS: FUROSEMIDE 20 MG in SYRINGE 0 ML IV SCH ×2 (08:16→20:57)
[2018-12-10] MEDS: POTASSIUM CHLORIDE 20 MEQ TABCR PO SCH ×2 (08:28→21:54)
[2018-12-10] MEDS: FLUCONAZOLE 200 MG/100 ML BAG IV SCH (08:28)
[2018-12-10] MEDS: DICYCLOMINE HCL 20 MG TAB PO SCH ×2 (08:28→21:54)
[2018-12-10] MEDS: VENLAFAXINE HCL XR 150 MG CAPXR PO SCH (08:28)
[2018-12-10] MEDS: AMIODARONE 200 MG TAB PO SCH (08:28)
[2018-12-10] MEDS: AMLODIPINE BESYLATE 5 MG TAB PO SCH (08:29)
[2018-12-10] MEDS: HEPARIN SOD 5,000 UNIT/0.5 ML VIAL SQ SCH ×2 (08:29→20:57)
[2018-12-10] MEDS: LANSOPRAZOLE 15 MG SOLTAB PO SCH ×2 (08:29→21:55)
[2018-12-10] MEDS: PREGABALIN 75 MG CAP PO SCH ×2 (08:29→21:54)
[2018-12-10] MEDS: ENALAPRIL MALEATE 10 MG TAB PO SCH (08:29)
--- NOTE | 2018-12-10 09:01 | Surgery Progress Note ---
Date of Service December 10, 2018 Assessment & Plan (1) Esophageal tear: from abdominal/esophageal standpoint, pt doing well. the main issue at this point is her delirium not resolving. etiology unclear. tube feeds restarted. d/w nursing, no more crushed meds via feeding tubes foot xray ok. erythema/tenderness improved. ortho consult pending but clinically improved today pt for video esophagram today by speech path if she can cooperate I have to think delirium will resolve but may need to consider placement for awhile with tube feeds/PT/OT [facility] covering for weekend. Subjective pt awake /alert. confused. no acute distress. Physical Exam Physical Exam: wound looks good. j-tube now working. tolerating tube feeds at 65 cc/hour foot erythema improved. appears non-tender today. Results & Data Vital Signs (Past 12 Hours) Vital Signs Temp Pulse Pulse Resp BP Pulse Ox 12/10/18 07:10 37.0 C 90 17 148/78 H 90 12/10/18 04:00 36.9 C 93 H 17 134/76 94 12/10/18 00:00 36.8 C 87 17 107/59 L 91 12/09/18 22:45 89 (1) Esophageal tear Encounter type: initial encounter Qualified Code(s): S11.21XA - Laceration without foreign body of pharynx and cervical esophagus, initial encounter
[2018-12-10] MEDS: IMPACT LIQD 1.0 CAL 1,000 ML BAG GT SCH (12:15)
--- NOTE | 2018-12-10 13:29 | Fluoroscopy Report ---
FL video swallow CLINICAL HISTORY: 72 years-old Female with assess for aspiration. Recent distal esophageal repair. C linical concern for aspiration TECHNIQUE: Video fluoroscopic evaluation of swallowing was performed in the AP and lateral projection s by the speech pathology staff. The patient is fed nectar-thick and thin liquid barium, a barium coa reza wafer, and barium pudding. FLUOROSCOPY TIME: 3.6 minutes.. COMPARISON STUDY: Barium swallow study 12/03/2018, CT abdomen and pelvis 12/03/2018. FINDINGS: There is penetration without aspiration noted with thin liquid and nectar thick consistenci es. Prolonged oropharyngeal phase of swallowing with solid consistencies. Advanced degenerative landon es of the spine. IMPRESSION: 1. Penetration without aspiration identified. 2. Please see the speech pathologist report for detailed findings and recommendations. Electronically signed by: Cristian Kennedy M.D. 12/10/2018 1:28 PM
--- NOTE | 2018-12-10 14:32 | Progress Note ---
DATE: 12/10/2018 Mrs. Farooq was seen today with her . She is not quite as animated as she was yesterday. She still has at some neurologic issues. She is scheduled for another video esophagram today. I removed her Bairon-Bull drain and her incision looks good. Her abdomen looks good. I discussed her situation in detail with her . I would push hard in therapy and I think that she would benefit from an extended care facility stay. RAGHU
--- NOTE | 2018-12-10 15:21 | Hospitalist Progress Note ---
Date of Service December 10, 2018 Assessment & Plan (1) Esophageal tear: The patient suffered an esophageal tear intraoperatively during hiatal hernia repair. CT scan 12/03 and video swallow negative for leakage. Surgery is following and will order diet when appropriate.The patient has had intermittent fever and blood cultures and urine cultures are negative. She remains on intravenous Zosyn therapy and intravenous fluconazole therapy. repeat CBC tomorrow continue antibiotics low grade temperature at 37.8 but no true fever CXR normal 12/07, hold on further imaging since no fever and WBC trending down general surgery and thoracic surgery following (2) New onset a-fib: Currently in normal sinus rhythm. Cardiac echo was unremarkable. Cardiology consultation noted. Intravenous metoprolol has been discontinued. She has been switched to oral amiodarone. Continue telemetry (3) Hypertension: Now on oral medications. Controlled (4) Hypophosphatemia: Corrected. (5) Phlebitis: Superficial left cephalic vein thrombosis being treated with Subcutaneous heparin therapy (6) Acute encephalopathy: continues to be confused, disoriented alert but won't answer questions waxes and wanes between alert and lethargic but always confused EEG 12/06 with evidence of encephalopathy CT head with prior ischemic damage, no acute stroke MRI brain without stroke continue supportive care, frequent re-orientation appropriate sleep wake cycle limit stimuli, limit tethers consider transfer to medical floor for less stimulation no arrythmias on the monitor appreciate neuro consult, etiology likely multifactorial (7) Delirium: see above, her encephalopathy would appear to be delirium no obvious cause (8) Elevated TSH: up at 8, was 3.0 on admission, difficult to assess in the setting of acute illness TSH lower at 6 and T4 nml on 12/07 likely the changes are just due to acute illness, levels fluctuate (9) DVT prophylaxis: Continue subcutaneous heparin therapy Subjective [place] drain pulled today seen by thoracic and general surgery swallow study done, no aspiration no labs today continues to be pleasantly confused could transfer to medical floor, less tethers, less stimulation Review of Systems Review of Systems: Unobtainable due to cognitive status Physical Exam Constitutional: WD/WN, vitals as above Eyes: PERRL, conjunctivae normal, anicteric sclerae ENMT: external ear and nose normal, oropharynx normal Neck: trachea midline, no thyromegaly Respiratory: normal respiratory effort, lungs clear to auscultation Auscultation: + diminished lung sounds (bases) Cardiovascular: RRR, no murmur, no edema Gastrointestinal (Abdomen): normal bowel sounds, soft, nontender, no hepatosplenomegaly Musculoskeletal: no cyanosis or clubbing, extremities motor strength 5/5 Skin: no rashes, warm and dry Neurologic: patellar DTR's 2+ bilat, sensation intact and PERRL, EOMI, accommodation nl, no face palsy, no dysarthria Psychiatric: Orientation: alert and cooperative; + not oriented to person, + not oriented to place and + not oriented to time Apperance: appropriately dressed and appeared stated age Speech: normal rate/rhythm/volume of speech Lymphatic: no cervical or axillary lymphadenopathy Results & Data Vital Signs (Past 12 Hours) Vital Signs Temp Pulse Resp BP Pulse Ox 12/10/18 11:38 37.8 C H 85 18 121/60 93 12/10/18 07:10 37.0 C 90 17 148/78 H 90 12/10/18 04:00 36.9 C 93 H 17 134/76 94 Laboratory Results Laboratory Results - last 24 hr 12/06/18 12/09/18 12/09/18 15:19 16:04 17:56 POC Glucose 98 Uric Acid 4.5 Vitamin B1 17 12/10/18 12/10/18 12/10/18 00:04 06:12 07:36 POC Glucose 171 H 212 H 235 H Uric Acid Vitamin B1 12/10/18 11:29 POC Glucose 224 H Uric Acid Vitamin B1 Microbiology 12/07/18 08:50 Urine,Indwelling Cath Urine Culture - Final No growth - less than 1,000 colonies/mL. 12/03/18 08:59 Blood Blood Culture - Final No growth 12/03/18 08:58 Blood Blood Culture - Final No growth 12/03/18 09:04 Urine,Indwelling Cath Urine Culture - Final No growth - less than 1,000 colonies/mL. 11/26/18 22:18 Blood Blood Culture - Final No growth 11/26/18 22:01 Blood Blood Culture - Final No growth Diagnostic Findings FL video swallow CLINICAL HISTORY: 72 years-old Female with assess for aspiration. Recent distal esophageal repair. Clinical concern for aspiration TECHNIQUE: Video fluoroscopic evaluation of swallowing was performed in the AP and lateral projections by the speech pathology staff. The patient is fed nectar-thick and thin liquid barium, a barium coated wafer, and barium pudding. FLUOROSCOPY TIME: 3.6 minutes.. COMPARISON STUDY: Barium swallow study 12/03/2018, CT abdomen and pelvis 12/03/2018. FINDINGS: There is penetration without aspiration noted with thin liquid and nectar thick consistencies. Prolonged oropharyngeal phase of swallowing with solid consistencies. Advanced degenerative changes of the spine. IMPRESSION: 1. Penetration without aspiration identified. 2. Please see the speech pathologist report for detailed findings and recommend ations. Medications Administered Current Inpatient Medications Amiodarone HCl (Cordarone) 200 mg PO DAILY [facility] Stop: 01/08/19 08:59 Last Admin: 12/10/18 08:28 Dose: Not Given Documented by: Amlodipine Besylate (Norvasc) 5 mg PO DAILY [facility] Stop: 01/03/19 09:59 Last Admin: 12/10/18 08:29 Dose: Not Given Documented by: Lipase/Protease/Amylase (Pancreaze (Lipase 4200u)) 1 cap PO UD PRN PRN Reason: G-TUBE CLOGGING Stop: 01/07/19 11:05 Last Admin: 12/08/18 14:28 Dose: 1 cap Documented by: Aspirin (Aspirin Chew) 81 mg PO HS [facility] Stop: 01/03/19 20:59 Last Admin: 12/09/18 21:12 Dose: 81 mg Documented by: Dextrose (Dextrose 50%) 25 - 50 ml IV UD PRN; Protocol PRN Reason: Hypoglycemia Protocol Stop: 01/03/19 09:59 Dicyclomine HCl (Bentyl) 20 mg PO BID [facility] Stop: 01/03/19 08:59 Last Admin: 12/10/18 08:28 Dose: Not Given Documented by: Enalapril Maleate (Vasotec) 20 mg PO DAILY [facility] Stop: 01/03/19 09:59 Last Admin: 12/10/18 08:29 Dose: Not Given Documented by: Enteral Nutritional Formula (Impact 1.0 Ludwig) 0 ml GT UD [facility]; Protocol Stop: 12/29/18 13:59 Last Admin: 12/10/18 12:15 Dose: 1,000 ml Documented by: Glucagon (Glucagen) 1 mg IM UD PRN; Protocol PRN Reason: Hypoglycemia Protocol Stop: 01/03/19 09:59 Glucose (Glucose 40%) 15 - 30 gm PO UD PRN; Protocol PRN Reason: Hypoglycemia Protocol Stop: 01/03/19 09:59 Glucose (Dex4 Glucose) 4 - 8 tabs PO UD PRN; Protocol PRN Reason: Hypoglycemia Protocol Stop: 01/03/19 09:59 Heparin Sodium (Beef Lung) (Heparin Sod 10 Unit/Ml Flush) 5 ml FLUSH PRN PRN PRN Reason: Flush Stop: 01/02/19 23:00 Last Admin: 12/05/18 00:51 Dose: 5 ml Documented by: Heparin Sodium (Porcine) (Heparin Sodium (Porcine)) 5,000 units SQ BID [facility] Stop: 12/26/18 08:59 Last Admin: 12/10/18 08:29 Dose: 5,000 units Documented by: Fluconazole (Diflucan) 200 mg in 100 mls @ 100 mls/hr IV DAILY [facility] Stop: 12/15/18 09:59 Last Infusion: 12/10/18 09:29 Dose: Infused Documented by: Furosemide 20 mg/ Syringe 2 mls @ 4 mls/min IV Q12 [facility] Stop: 01/04/19 20:59 Last Admin: 12/10/18 08:16 Dose: 4 mls/min Documented by: Acetaminophen (Ofirmev) 1,000 mg in 100 mls @ 400 mls/hr IV Q8H PRN PRN Reason: Fever Stop: 01/06/19 08:11 Last Infusion: 12/07/18 09:45 Dose: Infused Documented by: Insulin Aspart (Novolog Flexpen) 0 units SC Q6 [facility] Stop: 12/27/18 11:59 Last Admin: 12/10/18 12:40 Dose: 3 units Documented by: Lansoprazole (Prevacid) 15 mg PO BID [facility] Stop: 01/03/19 09:44 Last Admin: 12/10/18 08:29 Dose: Not Given Documented by: Miscellaneous (Carbohydrates For Hypoglycemia) 15 - 30 gm PO UD PRN PRN Reason: Hypoglycemia Treatment Stop: 01/03/19 09:59 Betaseron 1 ea SC Q48H [facility] Stop: 12/28/18 17:59 Last Admin: 12/08/18 18:36 Dose: Not Given Documented by: Ondansetron HCl (Zofran) 4 mg IV Q4H PRN PRN Reason: Nausea And Vomiting Stop: 12/25/18 18:46 Last Admin: 12/09/18 08:11 Dose: 4 mg Documented by: Potassium Chloride (Klor-Con M20) 20 meq PO [email or web address]@0900 [facility] Stop: 01/05/19 08:59 Last Admin: 12/10/18 08:28 Dose: Not Given Documented by: Potassium Chloride (Klor-Con M20) 20 meq PO [email or web address] [facility] Stop: 01/05/19 20:59 Last Admin: 12/08/18 21:19 Dose: Not Given Documented by: Pravastatin Sodium (Pravachol) 80 mg PO [facility] Stop: 01/03/19 20:59 Last Admin: 12/09/18 21:14 Dose: 80 mg Documented by: Pregabalin (Lyrica) 75 mg PO BID [facility] Stop: 01/03/19 08:59 Last Admin: 12/10/18 08:29 Dose: Not Given Documented by: Ranitidine HCl (Zantac) 150 mg PO [facility] Stop: 01/03/19 20:59 Last Admin: 12/09/18 21:14 Dose: 150 mg Documented by: Sodium Bicarbonate (Sodium Bicarbonate) 650 mg PO UD PRN PRN Reason: G-TUBE CLOGGING Stop: 01/07/19 11:08 Last Admin: 12/08/18 14:28 Dose: 650 mg Documented by: Venlafaxine HCl (Effexor Extended Release) 150 mg PO [facility] Stop: 01/03/19 08:59 Last Admin: 12/10/18 08:28 Dose: Not Given Documented by: (1) Esophageal tear Encounter type: initial encounter Qualified Code(s): S11.21XA - Laceration w ithout foreign body of pharynx and cervical esophagus, initial encounter
[2018-12-10] MEDS: BETASERON SC SCH (17:30)
[2018-12-10] MEDS: ASPIRIN 81 MG CHEW PO SCH (21:54)
[2018-12-10] MEDS: PRAVASTATIN SOD 40 MG TAB PO SCH (21:55)
--- NOTE | 2018-12-10 22:13 | Magnetic Resonance Report ---
MRI OF THE LEFT FOREFOOT WITHOUT IV CONTRAST CLINICAL HISTORY: Left foot erythema and swelling. COMPARISON STUDY: Radiographs of the left foot dated 12/09/2018. TECHNIQUE: MRI of left forefoot is performed using various T1 and T2-weighted sequences in the axial, sagittal, and coronal planes. IV contrast was not administered for this examination. FINDINGS: There is no marrow signal abnormality identified throughout the forefoot typical in appeara nce for osteomyelitis. There is no MRI evidence of fracture. Mild arthritic change is present at the tarsometatarsal and first metatarsophalangeal joints. Mild soft tissue edema is present throughout th e foot. There is no organized fluid collection. The visualized flexor and extensor tendons are intact . The visualized portions of the plantar fascia are normal in appearance. IMPRESSION: 1. No marrow signal abnormality is identified throughout the forefoot to suggest osteomyelitis. 2. There is no MRI evidence of fracture. 3. Mild diffuse soft tissue edema is noted and suggests cellulitis. Clinical correlation will be requ ired. 4. No organized fluid collection is seen to indicate abscess. Electronically signed by: Evan Mccracken M.D. 12/10/2018 10:11 PM
--- NOTE | 2018-12-11 02:21 | Consultation Report ---
DATE OF CONSULTATION: 12/10/2018 HISTORY OF PRESENT ILLNESS: This is a consultation at the request of Dr. Oconnell and his PA, Carmela Rios regarding left foot pain, possible cellulitis and possible gout. The patient has a complicated medical course which initially started for an admission dated 11/25/2018 for hiatal hernia with gastroesophageal reflux disease and esophageal dysmotility. She initially presented to have a procedure performed, had some complications and has been in the hospital since that time. She then developed some redness and swelling of her left foot and some regarding her right foot. Question about a possible history of gout versus cellulitis of the lower extremities. The patient initially presented on 11/25/2018. She is seen at the request of Dr. Oconnell and his PA, Carmela Rios. She presented initially to the hospital for hiatal hernia repair complicated by esophageal perforation requiring open buttress fundus patch. She was left intubated and sedated. She spent a significant period of time in the intensive care unit. She presented to the regular floor today. She has significant medical and surgical issues throughout the course of this hospital admission. PAST MEDICAL HISTORY: Recent esophageal tear, hypertension, hyperlipidemia, hiatal hernia, esophageal perforation, gastroesophageal reflux and hypokalemia. History of gout per the patient's sister at the bedside. PAST SURGICAL HISTORY: Hiatal hernia repair with esophageal perforation requiring open buttress fundus patch. As noted in addition to no other associated surgical history, noncontributory. ALLERGIES: No known drug allergies. MEDICATIONS: Please note the medication list in the medical history. SOCIAL HISTORY: Unknown smoking status historically. No current smoking. No drug use. No alcohol use. She lives with her who is a preacher. She is retired. PHYSICAL EXAMINATION: GENERAL: The patient is at bedside with her sister. She is somewhat confused and she is a poor historian. History is per her sister present at bedside. She is alert to person only, needs redirection, appears to have a flight of ideas, inappropriate comments at times. Does redirect. Poor historian. Poor fund of knowledge. EXTREMITIES: Bilateral lower extremities demonstrate dorsalis pedis, posterior tibial pulse 2/4. Skin is warm, dry and intact. Slight increased warmth in the dorsum of the left foot compared to the right. There is an area of cellulitis in the dorsum of the left foot, central portion midfoot. Also, less intense area of erythema in the dorsum of the right midfoot. There is tenderness to palpation over the left dorsum of the midfoot and dorsum of the right midfoot. No proximal streaking. Scant hair growth in bilateral lower extremities. Limited range of motion due to pain and guarding in bilateral feet with grimacing and unintelligible speech at times. Radiographs of the left foot and ankle demonstrate osteopenia. No obvious fractures and demineralization with degenerative changes throughout the midfoot and the ankle. Spurring of the calcaneus with adjacent dystrophic calcifications and small to moderate joint effusion. Uric acid is normal. IMPRESSION: 1. Left foot cellulitis. 2. 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 Recommend MRI of the left foot to assess for occult osteomyelitis. Also assess for occult fracture. Maintain nonweightbearing in bilateral lower extremities. We will follow with you. Current nonoperative management. Thank you for the opportunity to consult and the care of this patient.
--- NOTE | 2018-12-11 07:29 | Orthopedic Progress Note ---
Date of Service December 11, 2018 Assessment & Plan (1) Cellulitis of left foot: MRI did not show any fluid collection or abscess formation, no marrow abnormalities to suggest osteomyelitis, but did show some soft tissue edema to suggest cellulitis. will have Dr Mondragon review scan as well. did not see any occult fracture. she can advance her WB to WBAT Subjective patient resting in bed, does not appear in any distress. does not answer questions well but is awaken during examination of her foot Physical Exam Physical Exam: Vital Signs Temp Pulse Pulse Resp BP BP Pulse Ox 12/10/18 23:35 37.0 C 85 14 98/60 L 95 12/10/18 15:55 36.8 C 88 22 126/71 96 12/10/18 11:38 37.8 C H 85 18 121/60 93 Intake and Output 12/10/18 12/11/18 12/11/18 22:59 06:59 14:59 Output Total 300 / 1350 525 / 1350 Balance -300 / -1250 -525 / -1250 Output: Urine Amount (Ca theter) 300 / 1325 525 / 1325 Albright/Indwelli ng 300 / 1325 525 / 1325 Gastric Drainage 0 / 25 Right Upper Qu adrant 0 / 25 Gastrostomy Musculoskeletal: EXTREMITIES: Bilateral lower extremities DP +2, mild erythema noted over the dorsum of her foot, central portion of the midfoot. tenderness present over the midfoot region. the redness has not extended, there is no streaking noted. no discomfort with gentle motion of the ankle joint. Results & Data Vital Signs (Past 12 Hours) Vital Signs Temp Pulse Resp BP Pulse Ox 12/10/18 23:35 37.0 C 85 14 98/60 L 95 Laboratory Results Laboratory Results WBC 14.64 K/uL (4.8-10.8) H 12/08/18 06:42 RBC 3.12 M/uL (4.2-5.4) L 12/08/18 06:42 Hgb 9.0 g/dL (12.0-16.0) L 12/08/18 06:42 POC Hgb 11.6 g/dl (12.0-16.0) L 11/25/18 16:19 Hct 27.0 % (37-47) L 12/08/18 06:42 POC Hct 34 % (37-47) L 11/25/18 16:19 MCV 86.5 fL (80-100) 12/08/18 06:42 MCH 28.8 pg (25-34) 12/08/18 06:42 MCHC 33.3 g/dL (32-36) 12/08/18 06:42 RDW Std Deviation 46.0 fL (36.4-46.3) 12/08/18 06:42 RDW Coeff of Tomas 14.7 % (11.5-14.5) H 12/08/18 06:42 Plt Count 659 K/uL (130-400) H 12/08/18 06:42 MPV 9.4 fL (7.4-10.4) 12/08/18 06:42 Immature Gran % (Auto) 0.7 % 12/08/18 06:42 Neut % (Auto) 75.8 % 12/08/18 06:42 Lymph % (Auto) 9.5 % 12/08/18 06:42 Stanly % (Auto) 12.8 % 12/08/18 06:42 Eos % (Auto) 1.0 % 12/08/18 06:42 Baso % (Auto) 0.2 % 12/08/18 06:42 Immature Gran # (Auto) 0.10 K/uL (0.00-0.02) H 12/08/18 06:42 Neut # (Auto) 11.10 K/uL (1.4-6.5) H 12/08/18 06:42 Lymph # (Auto) 1.39 K/uL (1.2-3.4) 12/08/18 06:42 Stanly # (Auto) 1.88 K/uL (0.11-0.59) H 12/08/18 06:42 Eos # (Auto) 0.14 K/uL (0-0.5) 12/08/18 06:42 Baso # (Auto) 0.03 K/uL (0-0.2) 12/08/18 06:42 Ovalocytes 1+ 11/25/18 21:24 Echinocytes 1+ 11/25/18 21:24 PT 10.8 Seconds (9.0-12.0) 11/26/18 09:13 INR 1.1 (0.9-1.1) 11/26/18 09:13 APTT 27.6 Seconds (21.0-31.0) 11/26/18 09:13 PTT Ratio 1.0 11/26/18 09:13 Sample Site Art Line 11/26/18 05:16 POC pH 7.36 (7.35-7.45) 11/26/18 05:16 POC pCO2 35 mmHg (35-46) 11/26/18 05:16 POC pO2 81 mmHg (80-95) 11/26/18 05:16 POC HCO3 20 susan/L (19-24) 11/26/18 05:16 POC Total CO2 21 mEq/l (24-31) L 11/26/18 05:16 POC Base Excess -6.0 susan/L (-9-1.8) 11/26/18 05:16 POC ABG O2 Sat 96.0 % (90-95) H 11/26/18 05:16 Paul Test NA 11/26/18 05:16 O2 Delivery Device Ventilator 11/26/18 05:16 POC O2 Rate 12 11/26/18 05:16 Minute Ventilation 5.4 11/26/18 05:16 POC FiO2 30 % 11/26/18 05:16 Tidal Volume 450 11/26/18 05:16 PEEP 5 11/26/18 05:16 POC Sodium 141 mEq/L (135-144) 11/25/18 16:19 Sodium 137 mmol/L (136-145) 12/07/18 06:14 POC Potassium 2.9 mEq/L (3.3-5.0) L 11/25/18 16:19 Potassium 4.2 mmol/L (3.5-5.1) 12/07/18 06:14 POC Chloride 106 mEq/L (101-112) 11/25/18 16:19 Chloride 103 mmol/L (98-107) 12/07/18 06:14 Carbon Dioxide 29 mmol/L (21-32) 12/07/18 06:14 POC Total CO2 23 mEq/l (24-31) L 11/25/18 16:19 Anion Gap 5.0 (3-11) 12/07/18 06:14 POC Anion Gap 16.0 mmol/L (16-25) 11/25/18 16:19 POC BUN 13 mg/dl (7-18) 11/25/18 16:19 BUN 26 mg/dl (7-18) H 12/07/18 06:14 Creatinine 0.56 mg/dl (0.6-1.2) L 12/07/18 06:14 POC Creatinine 0.7 mg/dl (0.6-1.3) 11/25/18 16:19 Est Cr Clr Drug Dosing 85.5 ml/min 12/07/18 06:14 Est GFR ( Amer) 107.2 12/07/18 06:14 Est GFR (Non-Af Amer) 92.5 12/07/18 06:14 BUN/Creatinine Ratio 46.2 (10-20) H 12/07/18 06:14 Glucose 139 mg/dl (70-99) H 12/07/18 06:14 POC Glucose 169 (70-99) H 12/10/18 20:57 POC Glucose (other) 215 mg/dl (70-99) H 11/25/18 16:19 Estimat Average Glucose 114 mg/dl 11/26/18 03:41 Hemoglobin A1c 5.6 % (4.5-5.6) 11/26/18 03:41 Lactate 1.5 mmol/L (0.4-2.0) 11/26/18 08:19 Uric Acid 4.5 mg/dl (2.6-7.2) 12/09/18 16:04 Calcium 10.5 mg/dl (8.5-10.1) H 12/07/18 06:14 POC Ioniz Calcium Sophie 1.23 mmol/l (1.12-1.32) 11/25/18 16:19 Phosphorus 2.5 mg/dl (2.5-4.9) 12/05/18 06:26 Magnesium 2.0 mg/dl (1.8-2.4) 12/05/18 06:26 Total Bilirubin 0.6 mg/dl (0.2-1) 12/03/18 06:06 Direct Bilirubin 0.3 mg/dl (0-0.2) H 11/29/18 06:24 AST 44 U/L (15-37) H 12/03/18 06:06 ALT 53 U/L (12-78) 12/03/18 06:06 Alkaline Phosphatase 112 U/L (45-117) 12/03/18 06:06 Ammonia 32.0 umol/L (11-32) 12/07/18 10:50 Troponin I 0.021 ng/ml (0-0.045) 11/28/18 03:39 Total Protein 4.9 gm/dl (6.4-8.2) L 12/03/18 06:06 Albumin 2.0 gm/dl (3.4-5.0) L 12/03/18 06:06 Globulin 2.9 gm/dl (2.5-4.0) 12/03/18 06:06 Albumin/Globulin Ratio 0.7 (0.9-2) L 12/03/18 06:06 Vitamin B1 17 nmol/L (8-30) 12/06/18 15: Vitamin B12 516 pg/ml (211-911) 12/06/18 15:19 Procalcitonin 2.39 ng/ml (0-0.5) H 11/26/18 22:01 TSH 6.250 uIu/ml (0.300-4.500) H 12/07/18 13:53 Free T4 1.23 ng/dl (0.8-1.6) 12/07/18 13:53 Thyroxine (T4) 5.7 mcg/dl (4.5-10.9) 12/07/18 13:53 Free T3 2.00 pg/ml (2.3-4.2) L 12/07/18 13:53 Random Cortisol 31.19 mcg/dl 11/27/18 09:32 Specimen Hemolysis 11/28/18 03:39 Urine Color Dark Yellow 12/07/18 08:50 Urine Appearance Clear (Clear) 12/07/18 08:50 Urine pH 5.5 (4.5-7.5) 12/07/18 08:50 Ur Specific [place] 1.025 (1.000-1.030) 12/07/18 08:50 Urine Protein Trace (Negative) H 12/07/18 08:50 Urine Glucose (UA) Negative (Negative) 12/07/18 08:50 Urine Ketones Negative (Negative) 12/07/18 08:50 Urine Blood Negative (Negative) 12/07/18 08:50 Urine Nitrite Negative (Negative) 12/07/18 08:50 Urine Bilirubin Negative (Negative) 12/07/18 08:50 Urine Urobilinogen Negative (Negative) 12/07/18 08:50 Ur Leukocyte Esterase Trace (Negative) H 12/07/18 08:50 Urine WBC (Auto) 1-5 /hpf (0-5) 12/07/18 08:50 Urine RBC (Auto) 0-4 /hpf (0-4) 12/07/18 08:50 U Hyaline Cast (Auto) 5-10 /lpf (0-5) H 12/07/18 08:50 U Epithel Cells (Auto) 20-30 /lpf (0-5) H 12/07/18 08:50 Urine Bacteria (Auto) Negative (Negative) 12/07/18 08:50 Ur Renal Epithelial Cell 0-5 /lpf (0-5) 12/07/18 08:50 Urine Yeast Budding (None Prsent) H 12/07/18 08:50 Nasal Screen MRSA (PCR) Negative (Negative) 11/25/18 20:42 Blood Type B Negative 11/25/18 09:38 Antibody Screen NEGATIVE 11/25/18 09:38 Diagnostic Findings MRI OF THE LEFT FOREFOOT WITHOUT IV CONTRAST CLINICAL HISTORY: Left foot erythema and swelling. COMPARISON STUDY: Radiographs of the left foot dated 12/09/2018. TECHNIQUE: MRI of left forefoot is performed using various T1 and T2-weighted sequences in the axial, sagittal, and coronal planes. IV contrast was not administered for this examination. FINDINGS: There is no marrow signal abnormality identified throughout the forefoot typical in appearance for osteomyelitis. There is no MRI evidence of fracture. Mild arthritic change is present at the tarsometatarsal and first metatarsophalangeal joints. Mild soft tissue edema is present throughout the foot. There is no organized fluid collection. The visualized flexor and extensor tendons are intact. The visualized portions of the plantar fascia are normal in appearance. IMPRESSION: 1. No marrow signal abnormality is identified throughout the forefoot to suggest osteomyelitis. 2. There is no MRI evidence of fracture. 3. Mild diffuse soft tissue edema is noted and suggests cellulitis. Clinical correlation will be required. 4. No organized fluid collection is seen to indicate abscess.
[2018-12-11 08:01] LABS: Basophils # (auto) 0.03 K/uL (0-0.2); Basophils % (auto) 0.3 %; Eosinophils # (auto) 0.14 K/uL (0-0.5); Eosinophils % (auto) 1.3 %; Hematocrit (blood only) 26.8 % (37-47); Hemoglobin 8.8 g/dL (12.0-16.0); Immature Granulocytes # (auto) 0.03 K/uL (0.00-0.02); Immature Granulocytes % (auto) 0.3 %; Lymphocytes # (auto) 1.31 K/uL (1.2-3.4); Lymphocytes % (auto) 12.5 %; Mean Corpuscular Hgb Conc 32.8 g/dL (32-36); Mean Corpuscular Volume 88.2 fL (80-100); Mean Platelet Volume 8.7 fL (7.4-10.4); Monocytes # (auto) 1.21 K/uL (0.11-0.59); Monocytes % (auto) 11.5 %; Neutrophils # (auto) 7.77 K/uL (1.4-6.5); Neutrophils % (auto) 74.1 %; Platelet Count 650 K/uL (130-400); RDW Coefficient of Variation 14.6 % (11.5-14.5); RDW Standard Deviation 47.8 fL (36.4-46.3); Red Blood Count 3.04 M/uL (4.2-5.4); White Blood Count 10.49 K/uL (4.8-10.8)
[2018-12-11 08:40] LABS: BUN Creatinine Ratio 70.8 (10-20); Est GFR (African American) 113.6
[2018-12-11] MEDS: FLUCONAZOLE 200 MG/100 ML BAG IV SCH (10:05)
[2018-12-11] MEDS: FUROSEMIDE 20 MG in SYRINGE 0 ML IV SCH ×2 (10:05→20:26)
[2018-12-11] MEDS: ENALAPRIL MALEATE 10 MG TAB PO SCH (10:06)
[2018-12-11] MEDS: AMIODARONE 200 MG TAB PO SCH (10:06)
[2018-12-11] MEDS: LANSOPRAZOLE 15 MG SOLTAB PO SCH ×2 (10:06→20:22)
[2018-12-11] MEDS: VENLAFAXINE HCL XR 150 MG CAPXR PO SCH (10:06)
[2018-12-11] MEDS: AMLODIPINE BESYLATE 5 MG TAB PO SCH (10:06)
[2018-12-11] MEDS: HEPARIN SOD 5,000 UNIT/0.5 ML VIAL SQ SCH ×2 (10:07→20:22)
[2018-12-11] MEDS: PREGABALIN 75 MG CAP PO SCH ×2 (10:09→20:26)
[2018-12-11] MEDS: DICYCLOMINE HCL 20 MG TAB PO SCH ×2 (10:10→20:22)
[2018-12-11] MEDS: INSULIN ASPART 100 UNITS/ML 3 ML PEN SC SCH ×4 (10:14→20:56)
--- NOTE | 2018-12-11 10:46 | Surgery Progress Note ---
Date of Service December 11, 2018 Assessment & Plan (1) Cellulitis of left foot: management as per ortho (2) Hiatal hernia with GERD: POD#16 hiatal hernia repair with esophageal perforation/ repair. Swallow eval shows no leak/ aspiration. Diet via mouth started. On tube feeds and tolerating well. No new recommendations. Subjective Overall feeling well. Tolerating j tube feeds. Left foot cellulitis (ortho following). Had her swallow yesterday and diet started with clear liquids/ nectar thick. No complaints of pain or nausea. Review of Systems Review of Systems: All systems reviewed & are unremarkable except as noted in HPI & below Physical Exam Respiratory: normal respiratory effort, lungs clear to auscultation Cardiovascular: RRR, no murmur, no edema Gastrointestinal (Abdomen): normal bowel sounds, soft, nontender, no hepatosplenomegaly incision clean and intact, j tube site clean Neurologic: moves all extremities; no focal motor deficits Psychiatric: A+Ox3, euthymic affect Results & Data Vital Signs (Past 12 Hours) Vital Signs Temp Pulse Pulse Resp BP Pulse Ox 12/11/18 08:00 36.6 C 82 14 125/70 95 12/10/18 23:35 37.0 C 85 14 98/60 L 95
--- NOTE | 2018-12-11 11:00 | Surgery Progress Note ---
Date of Service December 11, 2018 Assessment & Plan (1) Esophageal tear: s/p repair of esophageal tear pt. is tolerating TFS video swallow noted and no aspiration so clear liquids allowed continue treatment of LE cellulitis (no osteo or abscess noted on LE MRI) mobilize as able sub-q heparin is in place for DVT prevention Subjective Pt. offer no complaints of abdominal pain or N/V. Discussed with RN and no issues noted overnight. Physical Exam Constitutional: no acute distress Respiratory: BS decreased at bases, no distress Gastrointestinal (Abdomen): abdomen is soft and not distended Results & Data Vital Signs (Past 12 Hours) Vital Signs Temp Pulse Pulse Resp BP Pulse Ox 12/11/18 08:00 36.6 C 82 14 125/70 95 12/10/18 23:35 37.0 C 85 14 98/60 L 95 (1) Esophageal tear Encounter type: initial encounter Qualified Code(s): S11.21XA - Laceration without foreign body of pharynx and cervical esophagus, initial encounter
--- NOTE | 2018-12-11 16:03 | Hospitalist Progress Note ---
Date of Service December 11, 2018 Assessment & Plan (1) Esophageal tear: The patient suffered an esophageal tear intraoperatively during hiatal hernia repair. CT scan 12/03 and video swallow negative for leakage. Surgery is following and will order diet when appropriate.The patient has had intermittent fever and blood cultures and urine cultures are negative. She remains on intravenous Zosyn therapy and intravenous fluconazole therapy. WBC 10k, no fever continue antibiotics CXR normal 12/07, hold on further imaging since no fever and WBC trending down general surgery and thoracic surgery following (2) New onset a-fib: normal sinus rhythm for the week Cardiac echo was unremarkable continue on Amiodarone per cardiology transferred off tele on 12/10, stable (3) Hypertension: Now on oral medications. Controlled (4) Hypophosphatemia: Corrected. (5) Phlebitis: Superficial left cephalic vein thrombosis being treated with Subcutaneous heparin therapy (6) Acute encephalopathy: continues to be confused, disoriented alert but won't answer questions was more lethargic in the beginning of the week but now alert consistently EEG 12/06 with evidence of encephalopathy CT head with prior ischemic damage, no acute stroke MRI brain without stroke continue supportive care, frequent re-orientation appropriate sleep wake cycle limit stimuli, limit tethers transfered to medical floor for less stimulation no arrythmias on the monitor appreciate neuro consult, etiology likely multifactorial continue supportive care until it improves (7) Delirium: see above, her encephalopathy would appear to be delirium no obvious cause (8) Elevated TSH: up at 8, was 3.0 on admission, difficult to assess in the setting of acute illness TSH lower at 6 and T4 nml on 12/07 likely the changes are just due to acute illness, levels fluctuate can repeat TSH as outpatient in several weeks (9) DVT prophylaxis: Continue subcutaneous heparin therapy Subjective patient alert but confused again no fever labs stable updated at the bedside Review of Systems Review of Systems: Unobtainable due to cognitive status Physical Exam Constitutional: WD/WN, vitals as above Eyes: PERRL, conjunctivae normal, anicteric sclerae ENMT: external ear and nose normal, oropharynx normal Neck: trachea midline, no thyromegaly Respiratory: normal respiratory effort, lungs clear to auscultation Cardiovascular: RRR, no murmur, no edema Gastrointestinal (Abdomen): normal bowel sounds, soft, nontender, no hepatosplenomegaly Musculoskeletal: no cyanosis or clubbing, extremities motor strength 5/5 Skin: no rashes, warm and dry Neurologic: patellar DTR's 2+ bilat, sensation intact and PERRL, EOMI, accommodation nl, no face palsy, no dysarthria Psychiatric: Orientation: alert and cooperative; + not oriented to person, + not oriented to place and + not oriented to time Apperance: appropriately dressed and appeared stated age Speech: normal rate/rhythm/volume of speech Lymphatic: no cervical or axillary lymphadenopathy Results & Data Vital Signs (Past 12 Hours) Vital Signs Temp Pulse Resp BP BP Pulse Ox 12/11/18 15:27 37 C 81 18 106/65 94 12/11/18 11:45 36.8 C 80 17 110/67 94 12/11/18 08:00 36.6 C 82 14 125/70 95 Laboratory Results Laboratory Results - last 24 hr 12/10/18 12/10/18 12/11/18 18:01 20:57 07:50 WBC 10.49 RBC 3.04 L Hgb 8.8 L Hct 26.8 L MCV 88.2 MCH 28.9 MCHC 32.8 RDW Std Deviation 47.8 H RDW Coeff of Tomas 14.6 H Plt Count 650 H MPV 8.7 Immature Gran % (Auto) 0.3 Neut % (Auto) 74.1 Lymph % (Auto) 12.5 [place] % (Auto) 11.5 Eos % (Auto) 1.3 Baso % (Auto) 0.3 Immature Gran # (Auto) 0.03 H Neut # (Auto) 7.77 H Lymph # (Auto) 1.31 [place] # (Auto) 1.21 H Eos # (Auto) 0.14 Baso # (Auto) 0.03 Sodium Potassium Chloride Carbon Dioxide Anion Gap BUN Creatinine Est Cr Clr Drug Dosing Est GFR ( Amer) Est GFR (Non-Af Amer) BUN/Creatinine Ratio Glucose POC Glucose 194 H 169 H Calcium 12/11/18 12/11/18 12/11/18 07:50 10:06 12:23 WBC RBC Hgb Hct MCV MCH MCHC RDW Std Deviation RDW Coeff of Tomas Plt Count MPV Immature Gran % (Auto) Neut % (Auto) Lymph % (Auto) [place] % (Auto) Eos % (Auto) Baso % (Auto) Immature Gran # (Auto) Neut # (Auto) Lymph # (Auto) [place] # (Auto) Eos # (Auto) Baso # (Auto) Sodium 142 Potassium 4.0 Chloride 107 Carbon Dioxide 33 H Anion Gap 2.0 L BUN 33 H Creatinine 0.47 L Est Cr Clr Drug Dosing 102.0 Est GFR ( Amer) 113.6 Est GFR (Non-Af Amer) 98.0 BUN/Creatinine Ratio 70.8 H Glucose 131 H POC Glucose 164 H 176 H Calcium 10.0 Medications Administered Current Inpatient Medications Amiodarone HCl (Cordarone) 200 mg PO DAILY [facility] Stop: 01/08/19 08:59 Last Admin: 12/11/18 10:06 Dose: 200 mg Documented by: Amlodipine Besylate (Norvasc) 5 mg PO DAILY [facility] Stop: 01/03/19 09:59 Last Admin: 12/11/18 10:06 Dose: 5 mg Documented by: Lipase/Protease/Amylase (Pancreaze (Lipase [id number])) 1 cap PO UD PRN PRN Reason: G-TUBE CLOGGING Stop: 01/07/19 11:05 Last Admin: 12/08/18 14:28 Dose: 1 cap Documented by: Aspirin (Aspirin Chew) 81 mg PO HS [facility] Stop: 01/03/19 20:59 Last Admin: 12/10/18 21:54 Dose: 81 mg Documented by: Dextrose (Dextrose 50%) 25 - 50 ml IV UD PRN; Protocol PRN Reason: Hypoglycemia Protocol Stop: 01/03/19 09:59 Dicyclomine HCl (Bentyl) 20 mg PO BID [facility] Stop: 01/03/19 08:59 Last Admin: 12/11/18 10:10 Dose: 20 mg Documented by: Enalapril Maleate (Vasotec) 20 mg PO DAILY [facility] Stop: 01/03/19 09:59 Last Admin: 12/11/18 10:06 Dose: 20 mg Documented by: Enteral Nutritional Formula (Impact 1.0 Ludwig) 0 ml GT UD [facility]; Protocol Stop: 12/29/18 13:59 Last Admin: 12/10/18 12:15 Dose: 1,000 ml Documented by: Glucagon (Glucagen) 1 mg IM UD PRN; Protocol PRN Reason: Hypoglycemia Protocol Stop: 01/03/19 09:59 Glucose (Glucose 40%) 15 - 30 gm PO UD PRN; Protocol PRN Reason: Hypoglycemia Protocol Stop: 01/03/19 09:59 Glucose (Dex4 Glucose) 4 - 8 tabs PO UD PRN; Protocol PRN Reason: Hypoglycemia Protocol Stop: 01/03/19 09:59 Heparin Sodium (Beef Lung) (Heparin Sod 10 Unit/Ml Flush) 5 ml FLUSH PRN PRN PRN Reason: Flush Stop: 01/02/19 23:00 Last Admin: 12/05/18 00:51 Dose: 5 ml Documented by: Heparin Sodium (Porcine) (Heparin Sodium (Porcine)) 5,000 units SQ BID [facility] Stop: 12/26/18 08:59 Last Admin: 12/11/18 10:07 Dose: 5,000 units Documented by: Fluconazole (Diflucan) 200 mg in 100 mls @ 100 mls/hr IV DAILY [facility] Stop: 12/15/18 09:59 Last Infusion: 12/11/18 12:00 Dose: Infused Documented by: Furosemide 20 mg/ Syringe 2 mls @ 4 mls/min IV Q12 [facility] Stop: 01/04/19 20:59 Last Admin: 12/11/18 10:05 Dose: 4 mls/min Documented by: Acetaminophen (Ofirmev) 1,000 mg in 100 mls @ 400 mls/hr IV Q8H PRN PRN Reason: Fever Stop: 01/06/19 08:11 Last Infusion: 12/07/18 09:45 Dose: Infused Documented by: Insulin Aspart (Novolog Flexpen) 0 units SC ACHS [facility] Stop: 01/09/19 20:59 Last Admin: 12/11/18 13:23 Dose: 2 units Documented by: Lansoprazole (Prevacid) 15 mg PO BID [facility] Stop: 01/03/19 09:44 Last Admin: 12/11/18 10:06 Dose: 15 mg Documented by: Miscellaneous (Carbohydrates For Hypoglycemia) 15 - 30 gm PO UD PRN PRN Reason: Hypoglycemia Treatment Stop: 01/03/19 09:59 Betaseron 1 ea SC Q48H [facility] Stop: 12/28/18 17:59 Last Admin: 12/10/18 17:30 Dose: 1 ea Documented by: Ondansetron HCl (Zofran) 4 mg IV Q4H PRN PRN Reason: Nausea And Vomiting Stop: 12/25/18 18:46 Last Admin: 12/09/18 08:11 Dose: 4 mg Documented by: Potassium Chloride (Klor-Con M20) 20 meq PO [id number] [facility] Stop: 01/05/19 08:59 Last Admin: 12/10/18 08:28 Dose: Not Given Documented by: Potassium Chloride (Klor-Con M20) 20 meq PO [id number] [facility] Stop: 01/05/19 20:59 Last Admin: 12/10/18 21:54 Dose: Not Given Documented by: Pravastatin Sodium (Pravachol) 80 mg PO [facility] Stop: 01/03/19 20:59 Last Admin: 12/10/18 21:55 Dose: 80 mg Documented by: Pregabalin (Lyrica) 75 mg PO BID [facility] Stop: 01/03/19 08:59 Last Admin: 12/11/18 10:09 Dose: 75 mg Documented by: Ranitidine HCl (Zantac) 150 mg PO [facility] Stop: 01/03/19 20:59 Last Admin: 12/10/18 21:55 Dose: 150 mg Documented by: Sodium Bicarbonate (Sodium Bicarbonate) 650 mg PO UD PRN PRN Reason: G-TUBE CLOGGING Stop: 01/07/19 11:08 Last Admin: 12/08/18 14:28 Dose: 650 mg Documented by: Venlafaxine HCl (Effexor Extended Release) 150 mg PO [facility] Stop: 01/03/19 08:59 Last Admin: 12/11/18 10:06 Dose: 150 mg Documented by: (1) Esophageal tear Encounter type: initial encounter Qualified Code(s): S11.21XA - Laceration without foreign body of pharynx and cervical esophagus, initial encounter
[2018-12-11] MEDS: ACETAMINOPHEN 1,000 MG/100 ML VIAL IV PRN (18:33)
[2018-12-11] MEDS: ASPIRIN 81 MG CHEW PO SCH (20:26)
[2018-12-11] MEDS: PRAVASTATIN SOD 40 MG TAB PO SCH (20:27)
[2018-12-11] MEDS: CEFAZOLIN 1000MG 1,000 MG/7.5 ML SYR IV SCH (20:58)
[2018-12-12] MEDS: IMPACT LIQD 1.0 CAL 1,000 ML BAG GT SCH ×2 (00:46→16:39)
[2018-12-12] MEDS: CEFAZOLIN 1000MG 1,000 MG/7.5 ML SYR IV SCH ×3 (05:50→20:52)
[2018-12-12 06:05] LABS: Basophils # (auto) 0.04 K/uL (0-0.2); Basophils % (auto) 0.4 %; Eosinophils # (auto) 0.31 K/uL (0-0.5); Eosinophils % (auto) 3.3 %; Hematocrit (blood only) 26.4 % (37-47); Hemoglobin 8.7 g/dL (12.0-16.0); Immature Granulocytes # (auto) 0.04 K/uL (0.00-0.02); Immature Granulocytes % (auto) 0.4 %; Lymphocytes # (auto) 1.55 K/uL (1.2-3.4); Lymphocytes % (auto) 16.4 %; Mean Platelet Volume 8.8 fL (7.4-10.4); Monocytes # (auto) 0.95 K/uL (0.11-0.59); Monocytes % (auto) 10.1 %; Neutrophils # (auto) 6.56 K/uL (1.4-6.5); Neutrophils % (auto) 69.4 %; Platelet Count 661 K/uL (130-400); RDW Coefficient of Variation 14.5 % (11.5-14.5); RDW Standard Deviation 46.9 fL (36.4-46.3); White Blood Count 9.45 K/uL (4.8-10.8)
[2018-12-12 06:27] LABS: Est GFR (Non-African American) 96.7; Potassium 4.2 mmol/L (3.5-5.1)
[2018-12-12 06:28] LABS: BUN Creatinine Ratio 65.5 (10-20); Calcium 9.6 mg/dl (8.5-10.1); Creatinine Clr Calc Pharmacy 97.8 ml/min
--- NOTE | 2018-12-12 06:36 | Orthopedic Progress Note ---
Date of Service December 12, 2018 Assessment & Plan (1) Cellulitis of left foot: MRI did not show any fluid collection or abscess formation, no marrow abnormalities to suggest osteomyelitis, but did show some soft tissue edema to suggest cellulitis. will have Dr Mondragon review scan as well. did not see any occult fracture. she can advance her WB to WBAT . started on Ancef, will check her response clinically Subjective patient much more vocal today, able to answer questions appropriately. having pain in her left foot, 10. denies fever or chills Physical Exam Physical Exam: Vital Signs Temp Pulse Pulse Resp BP BP BP 12/12/18 00:05 36.7 C 68 18 101/56 L 12/11/18 15:27 37 C 81 18 106/65 12/11/18 11:45 36.8 C 80 17 110/67 12/11/18 08:00 36.6 C 82 14 125/70 Pulse Ox 12/12/18 00:05 96 12/11/18 15:27 94 12/11/18 11:45 94 12/11/18 08:00 95 Intake and Output 12/11/18 12/11/18 12/12/18 14:59 22:59 06:59 Intake Total 190 / 390 200 / 390 Output Total 1100 / 1450 350 / 1450 Balance 190 / -1060 -900 / -1060 -350 / -1060 Intake: IV 100 / 200 100 / 200 OFIRMEV 1,000 mg In 100 ml @ 100 / 100 400 mls/hr IV Q8H PRN Rx#: [id number] DIFLUCAN 200 m g In 100 ml @ 100 100 / 100 mls/hr IV WILBER Y CHERRY Rx#: [id number] Oral 90 / 190 100 / 190 Output: Urine 750 / 750 Urine Amount (Ca theter) 350 / 700 350 / 700 Albright/Indwelli ng 350 / 700 350 / 700 Gastric Drainage 0 / 0 Right Upper Qu adrant 0 / 0 Gastrostomy Constitutional: WD/WN, vitals as above no acute distress Results & Data Vital Signs (Past 12 Hours) Vital Signs Temp Pulse Resp BP Pulse Ox 12/12/18 00:05 36.7 C 68 18 101/56 L 96 Laboratory Results Laboratory Results WBC 9.45 K/uL (4.8-10.8) 12/12/18 05:48 RBC 3.00 M/uL (4.2-5.4) L 12/12/18 05:48 Hgb 8.7 g/dL (12.0-16.0) L 12/12/18 05:48 POC Hgb 11.6 g/dl (12.0-16.0) L 11/25/18 16:19 Hct 26.4 % (37-47) L 12/12/18 05:48 POC Hct 34 % (37-47) L 11/25/18 16:19 MCV 88.0 fL (80-100) 12/12/18 05:48 MCH 29.0 pg (25-34) 12/12/18 05:48 MCHC 33.0 g/dL (32-36) 12/12/18 05:48 RDW Std Deviation 46.9 fL (36.4-46.3) H 12/12/18 05:48 RDW Coeff of Tomas 14.5 % (11.5-14.5) 12/12/18 05:48 Plt Count 661 K/uL (130-400) H 12/12/18 05:48 MPV 8.8 fL (7.4-10.4) 12/12/18 05:48 Immature Gran % (Auto) 0.4 % 12/12/18 05:48 Neut % (Auto) 69.4 % 12/12/18 05:48 Lymph % (Auto) 16.4 % 12/12/18 05:48 [place] % (Auto) 10.1 % 12/12/18 05:48 Eos % (Auto) 3.3 % 12/12/18 05:48 Baso % (Auto) 0.4 % 12/12/18 05:48 Immature Gran # (Auto) 0.04 K/uL (0.00-0.02) H 12/12/18 05:48 Neut # (Auto) 6.56 K/uL (1.4-6.5) H 12/12/18 05:48 Lymph # (Auto) 1.55 K/uL (1.2-3.4) 12/12/18 05:48 [place] # (Auto) 0.95 K/uL (0.11-0.59) H 12/12/18 05:48 Eos # (Auto) 0.31 K/uL (0-0.5) 12/12/18 05:48 Baso # (Auto) 0.04 K/uL (0-0.2) 12/12/18 05:48 Ovalocytes 1+ 11/25/18 21:24 Echinocytes 1+ 11/25/18 21:24 PT 10.8 Seconds (9.0-12.0) 11/26/18 09:13 INR 1.1 (0.9-1.1) 11/26/18 09:13 APTT 27.6 Seconds (21.0-31.0) 11/26/18 09:13 PTT Ratio 1.0 11/26/18 09:13 Sample Site Art Line 11/26/18 05:16 POC pH 7.36 (7.35-7.45) 11/26/18 05:16 POC pCO2 35 mmHg (35-46) 11/26/18 05:16 POC pO2 81 mmHg (80-95) 11/26/18 05:16 POC HCO3 20 susan/L (19-24) 11/26/18 05:16 POC Total CO2 21 mEq/l (24-31) L 11/26/18 05:16 POC Base Excess -6.0 susan/L (-9-1.8) 11/26/18 05:16 POC ABG O2 Sat 96.0 % (90-95) H 11/26/18 05:16 Paul Test NA 11/26/18 05:16 O2 Delivery Device Ventilator 11/26/18 05:16 POC O2 Rate 12 11/26/18 05:16 Minute Ventilation 5.4 11/26/18 05:16 POC FiO2 30 % 11/26/18 05:16 Tidal Volume 450 11/26/18 05:16 PEEP 5 11/26/18 05:16 POC Sodium 141 mEq/L (135-144) 11/25/18 16:19 Sodium 138 mmol/L (136-145) 12/12/18 05:48 POC Potassium 2.9 mEq/L (3.3-5.0) L 11/25/18 16:19 Potassium 4.2 mmol/L (3.5-5.1) 12/12/18 05:48 POC Chloride 106 mEq/L (101-112) 11/25/18 16:19 Chloride 104 mmol/L (98-107) 12/12/18 05:48 Carbon Dioxide 34 mmol/L (21-32) H 12/12/18 05:48 POC Total CO2 23 mEq/l (24-31) L 11/25/18 16:19 Anion Gap 0 (3-11) L 12/12/18 05:48 POC Anion Gap 16.0 mmol/L (16-25) 11/25/18 16:19 POC BUN 13 mg/dl (7-18) 11/25/18 16:19 BUN 32 mg/dl (7-18) H 12/12/18 05:48 Creatinine 0.49 mg/dl (0.6-1.2) L 12/12/18 05:48 POC Creatinine 0.7 mg/dl (0.6-1.3) 11/25/18 16:19 Est Cr Clr Drug Dosing 97.8 ml/min 12/12/18 05:48 Est GFR ( Amer) 112.0 12/12/18 05:48 Est GFR (Non-Af Amer) 96.7 12/12/18 05:48 BUN/Creatinine Ratio 65.5 (10-20) H 12/12/18 05:48 Glucose 134 mg/dl (70-99) H 12/12/18 05:48 POC Glucose 159 (70-99) H 12/11/18 20:44 POC Glucose (other) 215 mg/dl (70-99) H 11/25/18 16:19 Estimat Average Glucose 114 mg/dl 11/26/18 03:41 Hemoglobin A1c 5.6 % (4.5-5.6) 11/26/18 03:41 Lactate 1.5 mmol/L (0.4-2.0) 11/26/18 08:19 Uric Acid 4.5 mg/dl (2.6-7.2) 12/09/18 16:04 Calcium 9.6 mg/dl (8.5-10.1) 12/12/18 05:48 POC Ioniz Calcium Sophie 1.23 mmol/l (1.12-1.32) 11/25/18 16:19 Phosphorus 2.5 mg/dl (2.5-4.9) 12/05/18 06:26 Magnesium 2.0 mg/dl (1.8-2.4) 12/05/18 06:26 Total Bilirubin 0.6 mg/dl (0.2-1) 12/03/18 06:06 Direct Bilirubin 0.3 mg/dl (0-0.2) H 11/29/18 06:24 AST 44 U/L (15-37) H 12/03/18 06:06 ALT 53 U/L (12-78) 12/03/18 06:06 Alkaline Phosphatase 112 U/L (45-117) 12/03/18 06:06 Ammonia 32.0 umol/L (11-32) 12/07/18 10:50 Troponin I 0.021 ng/ml (0-0.045) 11/28/18 03:39 Total Protein 4.9 gm/dl (6.4-8.2) L 12/03/18 06:06 Albumin 2.0 gm/dl (3.4-5.0) L 12/03/18 06:06 Globulin 2.9 gm/dl (2.5-4.0) 12/03/18 06:06 Albumin/Globulin Ratio 0.7 (0.9-2) L 12/03/18 06:06 Vitamin B1 17 nmol/L (8-30) 12/06/18 15:19 Vitamin B12 516 pg/ml (211-911) 12/06/18 15:19 Procalcitonin 2.39 ng/ml (0-0.5) H 11/26/18 22:01 TSH 6.250 uIu/ml (0.300-4.500) H 12/07/18 13:53 Free T4 1.23 ng/dl (0.8-1.6) 12/07/18 13:53 Thyroxine (T4) 5.7 mcg/dl (4.5-10.9) 12/07/18 13:53 Free T3 2.00 pg/ml (2.3-4.2) L 12/07/18 13:53 Random Cortisol 31.19 mcg/dl 11/27/18 09:32 Specimen Hemolysis 11/28/18 03:39 Urine Color Dark Yellow 12/07/18 08:50 Urine Appearance Clear (Clear) 12/07/18 08:50 Urine pH 5.5 (4.5-7.5) 12/07/18 08:50 Ur Specific Index 1.025 (1.000-1.030) 12/07/18 08:50 Urine Protein Trace (Negative) H 12/07/18 08:50 Urine Glucose (UA) Negative (Negative) 12/07/18 08:50 Urine Ketones Negative (Negative) 12/07/18 08:50 Urine Blood Negative (Negative) 12/07/18 08:50 Urine Nitrite Negative (Negative) 12/07/18 08:50 Urine Bilirubin Negative (Negative) 12/07/18 08:50 Urine Urobilinogen Negative (Negative) 12/07/18 08:50 Ur Leukocyte Esterase Trace (Negative) H 12/07/18 08:50 Urine WBC (Auto) 1-5 /hpf (0-5) 12/07/18 08:50 Urine RBC (Auto) 0-4 /hpf (0-4) 12/07/18 08:50 U Hyaline Cast (Auto) 5-10 /lpf (0-5) H 12/07/18 08:50 U Epithel Cells (Auto) 20-30 /lpf (0-5) H 12/07/18 08:50 Urine Bacteria (Auto) Negative (Negative) 12/07/18 08:50 Ur Renal Epithelial Cell 0-5 /lpf (0-5) 12/07/18 08:50 Urine Yeast Budding (None Prsent) H 12/07/18 08:50 Nasal Screen MRSA (PCR) Negative (Negative) 11/25/18 20:42 Blood Type B Negative 11/25/18 09:38 Antibody Screen NEGATIVE 11/25/18 09:38 Diagnostic Findings MRI OF THE LEFT FOREFOOT WITHOUT IV CONTRAST CLINICAL HISTORY: Left foot erythema and swelling. COMPARISON STUDY: Radiographs of the left foot dated 12/09/2018. TECHNIQUE: MRI of left forefoot is performed using various T1 and T2-weighted sequences in the axial, sagittal, and coronal planes. IV contrast was not administered for this examination. FINDINGS: There is no marrow signal abnormality identified throughout the forefoot typical in appearance for osteomyelitis. There is no MRI evidence of fracture. Mild arthritic change is present at the tarsometatarsal and first metatarsophalangeal joints. Mild soft tissue edema is present throughout the foot. There is no organized fluid collection. The visualized flexor and extensor tendons are intact. The visualized portions of the plantar fascia are normal in appearance. IMPRESSION: 1. No marrow signal abnormality is identified throughout the forefoot to suggest osteomyelitis. 2. There is no MRI evidence of fracture. 3. Mild diffuse soft tissue edema is noted and suggests cellulitis. Clinical correlation will be required. 4. No organized fluid collection is seen to indicate abscess.
[2018-12-12] MEDS: VENLAFAXINE HCL XR 150 MG CAPXR PO SCH (08:53)
[2018-12-12] MEDS: FUROSEMIDE 20 MG in SYRINGE 0 ML IV SCH ×2 (08:53→20:49)
[2018-12-12] MEDS: DICYCLOMINE HCL 20 MG TAB PO SCH ×2 (08:53→20:51)
[2018-12-12] MEDS: FLUCONAZOLE 200 MG/100 ML BAG IV SCH (08:54)
[2018-12-12] MEDS: ENALAPRIL MALEATE 10 MG TAB PO SCH (08:55)
[2018-12-12] MEDS: AMLODIPINE BESYLATE 5 MG TAB PO SCH (08:55)
[2018-12-12] MEDS: AMIODARONE 200 MG TAB PO SCH (08:55)
[2018-12-12] MEDS: LANSOPRAZOLE 15 MG SOLTAB PO SCH ×2 (08:56→20:51)
[2018-12-12] MEDS: HEPARIN SOD 5,000 UNIT/0.5 ML VIAL SQ SCH ×2 (08:56→20:50)
[2018-12-12] MEDS: PREGABALIN 75 MG CAP PO SCH ×2 (08:57→21:02)
[2018-12-12] MEDS: INSULIN ASPART 100 UNITS/ML 3 ML PEN SC SCH ×4 (08:58→20:51)
--- NOTE | 2018-12-12 11:37 | Progress Note ---
DATE: 12/12/2018 The patient was seen today on 12/12/2018. She is now postop day 17 status post her hiatal hernia repair with iatrogenic perforation of the esophagus. She looks fantastic today. She is alert, oriented and conversive. Apparently she waxes and wanes and at times will not answer questions or talk and other times is quite conversant; however, she was not very appropriate this morning. She also picked up a water pitcher and drank a significant amount to show me she can swallow without difficulty and had no coughing. Her lungs are clear. Her labs look great. The only concern I have is she may be a little dry with a BUN in the low 30s. Her white count is normal and she is afebrile. She is on room air. Quite frankly, I think that I am quite pleased. She is still getting her tube feedings, but I believe this patient is getting very close to being ready for rehab facility.
--- NOTE | 2018-12-12 12:09 | Surgery Progress Note ---
Date of Service December 12, 2018 Assessment & Plan (1) Cellulitis of left foot: management as per ortho (2) Hiatal hernia with GERD: POD#17 hiatal hernia repair with esophageal perforation/ repair. Swallow eval shows no leak/ aspiration. Diet via mouth is going well. On tube feeds at goal. Will need discharge planning. Subjective Starting to think about discharge and wants to go home. Tolerating po with no pain/ dysphagia. Tube feeds at goal. Still requiring significant assistance to be mobile. Physical Exam Respiratory: normal respiratory effort, lungs clear to auscultation Cardiovascular: RRR, no murmur, no edema Gastrointestinal (Abdomen): normal bowel sounds, soft, nontender, no hepatosplenomegaly j tube site clean, incision clean Neurologic: moves all extremities; no focal motor deficits Psychiatric: A+Ox3, euthymic affect Results & Data Vital Signs (Past 12 Hours) Vital Signs Temp Pulse Resp BP Pulse Ox 12/12/18 07:11 36.9 C 72 18 111/74 95
--- NOTE | 2018-12-12 15:34 | Hospitalist Progress Note ---
Date of Service December 12, 2018 Assessment & Plan (1) Esophageal tear: The patient suffered an esophageal tear intraoperatively during hiatal hernia repair. CT scan 12/03 and video swallow negative for leakage. Surgery is following and will order diet when appropriate.The patient has had intermittent fever and blood cultures and urine cultures are negative. She remains on intravenous Zosyn therapy and intravenous fluconazole therapy. WBC 10k, no fever continue antibiotics CXR normal 12/07, hold on further imaging since no fever and WBC trending down general surgery and thoracic surgery following (2) New onset a-fib: normal sinus rhythm ECHO WNL continue on Amiodarone per cardiology (3) Hypertension: Now on oral medications. Controlled (4) Hypophosphatemia: Corrected. (5) Phlebitis: Superficial left cephalic vein thrombosis being treated with Subcutaneous heparin therapy (6) Acute encephalopathy: Improving per son alert and now answers questions EEG 12/06 with evidence of encephalopathy CT head with prior ischemic damage, no acute stroke MRI brain without stroke continue supportive care, frequent re-orientation appropriate sleep wake cycle limit stimuli, limit tethers appreciate neuro consult, etiology likely multifactorial continue supportive care until it improves (7) Delirium: see above, her encephalopathy would appear to be delirium no obvious cause (8) Elevated TSH: up at 8, was 3.0 on admission, difficult to assess in the setting of acute illness TSH lower at 6 and T4 nml on 12/07 likely the changes are just due to acute illness, levels fluctuate can repeat TSH as outpatient in several weeks (9) DVT prophylaxis: Continue subcutaneous heparin therapy Subjective Pt with ongoing abd pain. Feels she is improving. Son is present. He states she continues to be a bit confused at times, but that this is also improving. She has nausea with the smell of chicken broth, but no emesis. She states that nausea to smells is a chronic issue for her. Pt denies fever, SOB, chest pain, v/c/d, LE pain or swelling. Review of Systems Review of Systems: Pertinent positives and negatives reviewed in HPI--all others negative Physical Exam Constitutional: WD/WN, vitals as above Eyes: normal visual shin by confrontation and + anicteric sclerae Neck: normal visual inspection and trachea midline Respiratory: normal respiratory effort, lungs clear to auscultation Cardiovascular: Rate/Rhythm: regular rate and regular rhythm Gastrointestinal (Abdomen): Inspection/Auscultation: abdomen not distended Percussion/Palpation: + abdomen tender (diffuse) and abdomen soft Musculoskeletal: Head/Neck/Chest: normocephalic and head atraumatic negative for edema, peripheral pulses intact Skin: no rashes, warm and dry Neurologic: awake and + confused (some statements do not make sense but answers questions appropriately) Speech / Cognition: normal speech Psychiatric: A+Ox3, euthymic affect Results & Data Vital Signs (Past 12 Hours) Vital Signs Temp Pulse Resp BP Pulse Ox 12/12/18 07:11 36.9 C 72 18 111/74 95 (1) Esophageal tear Encounter type: initial encounter Qualified Code(s): S11.21XA - Laceration without foreign body of pharynx and cervical esophagus, initial encounter
[2018-12-12] MEDS: ACETAMINOPHEN 1,000 MG/100 ML VIAL IV PRN (15:56)
[2018-12-12] MEDS: BETASERON SC SCH (19:38)
[2018-12-12] MEDS: PRAVASTATIN SOD 40 MG TAB PO SCH (20:51)
[2018-12-12] MEDS: ASPIRIN 81 MG CHEW PO SCH (21:02)
[2018-12-13] MEDS: ACETAMINOPHEN 1,000 MG/100 ML VIAL IV PRN (04:46)
[2018-12-13] MEDS: CEFAZOLIN 1000MG 1,000 MG/7.5 ML SYR IV SCH ×3 (05:07→22:33)
[2018-12-13] MEDS ORDERED: Nursing to Pharmacy Communication ONE (08:12)
--- NOTE | 2018-12-13 08:16 | Surgery Progress Note ---
Date of Service December 13, 2018 Assessment & Plan (1) Esophageal tear: s/p repair of esophageal tear pt. contines to tolerate TFS video swallow noted and no aspiration so liquids have been started: -advance diet further as directed by general surgery continue treatment of LE cellulitis (no osteo or abscess noted on LE MRI) continue to mobilize as able sub-q heparin is in place for DVT prevention Subjective pt. notes she feels well. No N/V or SOB. Discussed with RN and pt. tolerating liquids as well as TFs. Physical Exam Respiratory: BS are decreased at bases Gastrointestinal (Abdomen): soft and not distended Results & Data Vital Signs (Past 12 Hours) Vital Signs Temp Pulse Resp BP Pulse Ox 12/12/18 23:10 36.6 C 71 14 102/63 95 (1) Esophageal tear Encounter type: initial encounter Qualified Code(s): S11.21XA - Laceration without foreign body of pharynx and cervical esophagus, initial encounter
--- NOTE | 2018-12-13 08:19 | Surgery Progress Note ---
Date of Service December 13, 2018 Assessment & Plan (1) Esophageal tear: clinically doing much much better will need to d/w with speech pathology advancing her diet cont TF's for now will need aggressive PT/OT can initiate d/c planning. will need Rehab will d/c diflucan Subjective pt much more awake/alert. answering questions appropriately. "hungry" Physical Exam Physical Exam: alert. nad abd: soft. incision looks good. nt. Results & Data Vital Signs (Past 12 Hours) Vital Signs Temp Pulse Resp BP Pulse Ox 12/12/18 23:10 36.6 C 71 14 102/63 95 (1) Esophageal tear Encounter type: initial encounter Qualified Code(s): S11.21XA - Laceration without foreign body of pharynx and cervical esophagus, initial encounter
[2018-12-13] MEDS ORDERED: POTASSIUM CHLORIDE PWD 20 MEQ PACK PO SCH ×2 (09:00→21:00)
--- NOTE | 2018-12-13 09:06 | Orthopedic Progress Note ---
Date of Service December 13, 2018 Assessment & Plan (1) Cellulitis of left foot: Continue Ancef. Discussed possible indomethacin ER 75 mg BID prn if medicine is ok with use of this medicine. This may improve symptoms if they are gout related. May follow up prn with Dr. Mondragon's clinic. Subjective Painful left foot/ankle still. States this problem happens once a year or so. Had been on gout medicine previously by her "ortho." Physical Exam Constitutional: WD/WN, vitals as above Musculoskeletal: Left foot/ankle: 1-2+ edema of the foot and ankle. Mild to moderate erythema over the dorsolateral foot and anterolateral ankle. Tender at the erythematous areas. No pain with PROM of the great toe. Psychiatric: A+Ox3, euthymic affect Results & Data Vital Signs (Past 12 Hours) Vital Signs Temp Pulse Pulse Resp BP BP Pulse Ox 12/13/18 08:00 36.3 C L 70 14 100/64 97 12/12/18 23:10 36.6 C 71 14 102/63 95
[2018-12-13] MEDS: INSULIN ASPART 100 UNITS/ML 3 ML PEN SC SCH ×4 (10:12→22:21)
[2018-12-13] MEDS: HEPARIN SOD 5,000 UNIT/0.5 ML VIAL SQ SCH ×2 (10:14→21:57)
[2018-12-13] MEDS: IMPACT LIQD 1.0 CAL 1,000 ML BAG GT SCH (10:15)
[2018-12-13] MEDS: POTASSIUM CHLORIDE 20 MEQ/15 ML UDC PO SCH (10:19)
[2018-12-13] MEDS: LANSOPRAZOLE 15 MG SOLTAB PO SCH ×2 (10:20→21:57)
[2018-12-13] MEDS: VENLAFAXINE HCL XR 150 MG CAPXR PO SCH (10:20)
[2018-12-13] MEDS: DICYCLOMINE HCL 20 MG TAB PO SCH ×2 (10:20→22:23)
[2018-12-13] MEDS: ENALAPRIL MALEATE 10 MG TAB PO SCH (10:20)
[2018-12-13] MEDS: AMIODARONE 200 MG TAB PO SCH (10:21)
[2018-12-13] MEDS: AMLODIPINE BESYLATE 5 MG TAB PO SCH (10:21)
[2018-12-13] MEDS: FUROSEMIDE 20 MG in SYRINGE 0 ML IV SCH ×2 (10:22→22:21)
[2018-12-13] MEDS: PREGABALIN 75 MG CAP PO SCH ×2 (10:28→21:57)
--- NOTE | 2018-12-13 20:50 | Hospitalist Progress Note ---
Date of Service December 13, 2018 Assessment & Plan (1) Esophageal tear: The patient suffered an esophageal tear intraoperatively during hiatal hernia repair. CT scan 12/03 and video swallow negative for leakage. Surgery is following and will order diet when appropriate.The patient has had intermittent fever and blood cultures and urine cultures are negative. She remains on intravenous Zosyn therapy intravenous fluconazole d/c on 12/13 WBC 10k, no fever continue antibiotics CXR normal 12/07, hold on further imaging since no fever and WBC trending down general surgery and thoracic surgery following (2) New onset a-fib: normal sinus rhythm ECHO WNL continue on Amiodarone per cardiology (3) Hypertension: Now on oral medications. Controlled (4) Hypophosphatemia: Corrected. (5) Phlebitis: Superficial left cephalic vein thrombosis being treated with Subcutaneous heparin therapy (6) Acute encephalopathy: Improving per son alert and now answers questions EEG 12/06 with evidence of encephalopathy CT head with prior ischemic damage, no acute stroke MRI brain without stroke continue supportive care, frequent re-orientation appropriate sleep wake cycle limit stimuli, limit tethers appreciate neuro consult, etiology likely multifactorial continue supportive care until it improves (7) Delirium: see above, her encephalopathy would appear to be delirium no obvious cause (8) Elevated TSH: up at 8, was 3.0 on admission, difficult to assess in the setting of acute illness TSH lower at 6 and T4 nml on 12/07 likely the changes are just due to acute illness, levels fluctuate can repeat TSH as outpatient in several weeks (9) DVT prophylaxis: Continue subcutaneous heparin therapy Subjective Pt again doing better. Ongoing abd pain but less. Was advanced to pudding today and did well with that. Son is again present and notes ongoing brief spells of confusion that improve on their own. Feels she is still doing much better. Pt denies fever, SOB, chest pain, c/d, LE pain or swelling. Review of Systems Review of Systems: Pertinent positives and negatives reviewed in HPI--all others negative Physical Exam Constitutional: WD/WN, vitals as above Eyes: normal visual shin by confrontation and + anicteric sclerae Neck: normal visual inspection and trachea midline Respiratory: normal respiratory effort, lungs clear to auscultation Cardiovascular: Rate/Rhythm: regular rate and regular rhythm Gastrointestinal (Abdomen): Inspection/Auscultation: abdomen not distended Percussion/Palpation: + abdomen tender (diffuse) and abdomen soft Musculoskeletal: Head/Neck/Chest: normocephalic and head atraumatic Skin: no rashes, warm and dry Neurologic: awake and + confused (some statements do not make sense but answers questions appropriately) Speech / Cognition: normal speech Psychiatric: A+Ox3, euthymic affect Results & Data Vital Signs (Past 12 Hours) Vital Signs Temp Pulse Pulse Resp BP BP Pulse Ox 12/13/18 15:41 36.4 C L 76 16 95/57 L 95 12/13/18 11:40 36.8 C 76 19 104/67 95 (1) Esophageal tear Encounter type: initial encounter Qualified Code(s): S11.21XA - Laceration without foreign body of pharynx and cervical esophagus, initial encounter
[2018-12-13] MEDS: PRAVASTATIN SOD 40 MG TAB PO SCH (21:57)
[2018-12-13] MEDS: ASPIRIN 81 MG CHEW PO SCH (22:26)
[2018-12-14] MEDS: IMPACT LIQD 1.0 CAL 1,000 ML BAG GT SCH (00:39)
[2018-12-14] MEDS: CEFAZOLIN 1000MG 1,000 MG/7.5 ML SYR IV SCH ×3 (05:08→22:06)
--- NOTE | 2018-12-14 08:41 | Surgery Progress Note ---
Date of Service December 14, 2018 Assessment & Plan (1) Esophageal tear: doing much better the past 2-3 days will d/w speech path regarding advancing diet. hopefully if she can eat we can wean tube feeds in near future will need rehab. if she can eat we could consider d/c to rehab facility by the end of the week. Subjective awake /alert. slightly confused today but able to answer most questions appropriately. wants something to eat. at bedside. Physical Exam Physical Exam: overall looks good. abd: soft. wound looks good left foot erythema improving Results & Data Vital Signs (Past 12 Hours) Vital Signs Temp Pulse Pulse Resp BP BP Pulse Ox 12/14/18 07:44 36.6 C 75 18 118/68 96 12/13/18 23:37 36.8 C 80 16 100/65 92 12/13/18 21:48 80 95/60 L (1) Esophageal tear Encounter type: initial encounter Qualified Code(s): S11.21XA - Laceration without foreign body of pharynx and cervical esophagus, initial encounter
[2018-12-14] MEDS: INSULIN ASPART 100 UNITS/ML 3 ML PEN SC SCH ×4 (10:29→22:08)
[2018-12-14] MEDS: HEPARIN SOD 5,000 UNIT/0.5 ML VIAL SQ SCH ×2 (10:30→22:07)
[2018-12-14] MEDS: AMIODARONE 200 MG TAB PO SCH (10:43)
[2018-12-14] MEDS: DICYCLOMINE HCL 20 MG TAB PO SCH ×3 (10:43→22:06)
[2018-12-14] MEDS: FUROSEMIDE 20 MG in SYRINGE 0 ML IV SCH ×2 (10:43→22:06)
[2018-12-14] MEDS: POTASSIUM CHLORIDE 20 MEQ/15 ML UDC PO SCH (10:43)
[2018-12-14] MEDS: ENALAPRIL MALEATE 10 MG TAB PO SCH (10:43)
[2018-12-14] MEDS: AMLODIPINE BESYLATE 5 MG TAB PO SCH (10:43)
[2018-12-14] MEDS: VENLAFAXINE HCL XR 150 MG CAPXR PO SCH (10:43)
[2018-12-14] MEDS: PREGABALIN 75 MG CAP PO SCH ×2 (10:44→22:12)
[2018-12-14] MEDS: LANSOPRAZOLE 15 MG SOLTAB PO SCH ×2 (10:44→22:07)
--- NOTE | 2018-12-14 14:41 | Progress Note ---
DATE: 12/14/2018 Ms. Farooq was seen today. She continues to improve. I discussed this with her , who is pleased that she has gotten better. She is voiding and asking for the bedpan when she has to go without her Albright catheter in place. She has been afebrile. Her saturations on room air are 96%. At this point, I think she is ready for rehab. She is moving her left arm and left leg better. I believe that most of this is going to be a matter of her getting going in with physical therapy and she will be held back more by her multiple sclerosis than anything else.
[2018-12-14] MEDS: IMPACT LIQD 1.0 CAL 1,000 ML BAG JT SCH (19:00)
[2018-12-14] MEDS: BETASERON SC SCH (19:20)
--- NOTE | 2018-12-14 21:15 | Hospitalist Progress Note ---
Date of Service December 14, 2018 Assessment & Plan (1) Esophageal tear: The patient suffered an esophageal tear intraoperatively during hiatal hernia repair. CT scan 12/03 and video swallow negative for leakage. Surgery is following and will order diet when appropriate.The patient has had intermittent fever and blood cultures and urine cultures are negative. She remains on intravenous Zosyn therapy intravenous fluconazole d/c on 12/13 WBC 10k, no fever continue antibiotics CXR normal 12/07, hold on further imaging since no fever and WBC trending down general surgery and thoracic surgery following (2) New onset a-fib: normal sinus rhythm ECHO WNL continue on Amiodarone per cardiology (3) Hypertension: Now on oral medications. Controlled (4) Hypophosphatemia: Corrected. (5) Phlebitis: Superficial left cephalic vein thrombosis being treated with Subcutaneous heparin therapy (6) Acute encephalopathy: Improving per son alert and now answers questions EEG 12/06 with evidence of encephalopathy CT head with prior ischemic damage, no acute stroke MRI brain without stroke continue supportive care, frequent re-orientation appropriate sleep wake cycle limit stimuli, limit tethers appreciate neuro consult, etiology likely multifactorial continue supportive care until it improves (7) Delirium: see above, her encephalopathy would appear to be delirium no obvious cause (8) Elevated TSH: up at 8, was 3.0 on admission, difficult to assess in the setting of acute illness TSH lower at 6 and T4 nml on 12/07 likely the changes are just due to acute illness, levels fluctuate can repeat TSH as outpatient in several weeks (9) DVT prophylaxis: Continue subcutaneous heparin therapy Subjective No one is with pt today. She seems to be quite interactive and feels she is continuing to improve. Tolerating PO. Pt denies fever, SOB, chest pain, c/d, LE pain or swelling. Review of Systems Review of Systems: Pertinent positives and negatives reviewed in HPI--all others negative Physical Exam Constitutional: WD/WN, vitals as above Eyes: normal visual shin by confrontation and + anicteric sclerae Neck: normal visual inspection and trachea midline Respiratory: normal respiratory effort, lungs clear to auscultation Cardiovascular: Rate/Rhythm: regular rate and regular rhythm Gastrointestinal (Abdomen): Inspection/Auscultation: abdomen not distended Percussion/Palpation: + abdomen tender (diffuse) and abdomen soft Musculoskeletal: Head/Neck/Chest: normocephalic and head atraumatic Skin: no rashes, warm and dry Neurologic: awake and + confused (improving) Speech / Cognition: normal speech Psychiatric: A+Ox3, euthymic affect Results & Data Vital Signs (Past 12 Hours) Vital Signs Temp Pulse Resp BP Pulse Ox 12/14/18 16:07 36.8 C 75 18 100/66 93 (1) Esophageal tear Encounter type: initial encounter Qualified Code(s): S11.21XA - Laceration without foreign body of pharynx and cervical esophagus, initial encounter
[2018-12-14] MEDS: ASPIRIN 81 MG CHEW PO SCH (22:06)
[2018-12-14] MEDS: PRAVASTATIN SOD 40 MG TAB PO SCH (22:06)
[2018-12-15] MEDS: CEFAZOLIN 1000MG 1,000 MG/7.5 ML SYR IV SCH (05:04)
--- NOTE | 2018-12-15 08:21 | Surgery Progress Note ---
Date of Service December 15, 2018 Assessment & Plan (1) Esophageal tear: doing very well will advance diet to "minced and moist" can cap G-tube drainage only giving tube feeds at night. can probably stop these soon if she tolerates diet today d/c planning. will d/w case management. ? to Rehab facility Thursday? Subjective awake /alert. nad. denies pain. answers questions appropriately. Physical Exam Physical Exam: looks well abd: soft. wound looks good. left foot much improved. no tenderness. erythema resolved. Results & Data Vital Signs (Past 12 Hours) Vital Signs Temp Pulse Resp BP BP Pulse Ox 12/15/18 07:51 36.6 C 75 18 127/73 99 12/14/18 23:02 36.5 C 71 15 118/71 96 12/14/18 22:04 72 105/66 (1) Esophageal tear Encounter type: initial encounter Qualified Code(s): S11.21XA - Laceration without foreign body of pharynx and cervical esophagus, initial encounter
[2018-12-15] MEDS: INSULIN ASPART 100 UNITS/ML 3 ML PEN SC SCH ×4 (09:49→21:27)
[2018-12-15] MEDS: HEPARIN SOD 5,000 UNIT/0.5 ML VIAL SQ SCH ×2 (09:51→21:27)
[2018-12-15] MEDS: ENALAPRIL MALEATE 10 MG TAB PO SCH (09:53)
[2018-12-15] MEDS: AMLODIPINE BESYLATE 5 MG TAB PO SCH (09:53)
[2018-12-15] MEDS: VENLAFAXINE HCL XR 150 MG CAPXR PO SCH (09:53)
[2018-12-15] MEDS: FUROSEMIDE 20 MG in SYRINGE 0 ML IV SCH (09:55)
[2018-12-15] MEDS: AMIODARONE 200 MG TAB PO SCH (09:55)
[2018-12-15] MEDS: LANSOPRAZOLE 15 MG SOLTAB PO SCH ×2 (09:55→21:25)
[2018-12-15] MEDS: PREGABALIN 75 MG CAP PO SCH ×2 (09:57→21:31)
[2018-12-15] MEDS: POTASSIUM CHLORIDE 20 MEQ/15 ML UDC PO SCH (09:58)
[2018-12-15 11:15] LABS: Hematocrit (blood only) 29.8 % (37-47); Hemoglobin 9.8 g/dL (12.0-16.0); Mean Corpuscular Hgb Conc 32.9 g/dL (32-36); Mean Corpuscular Volume 86.9 fL (80-100); Mean Platelet Volume 9.5 fL (7.4-10.4); Platelet Count 798 K/uL (130-400); RDW Coefficient of Variation 14.5 % (11.5-14.5); RDW Standard Deviation 45.6 fL (36.4-46.3); Red Blood Count 3.43 M/uL (4.2-5.4); White Blood Count 12.46 K/uL (4.8-10.8)
[2018-12-15 11:17] LABS: BUN Creatinine Ratio 38.5 (10-20); Calcium 10.5 mg/dl (8.5-10.1); Creatinine Clr Calc Pharmacy 81.4 ml/min; Est GFR (African American) 105.2; Est GFR (Non-African American) 90.8; Potassium 4.5 mmol/L (3.5-5.1)
[2018-12-15] MEDS ORDERED: COLCHICINE 0.6 MG TAB PO ONE (12:33)
[2018-12-15] MEDS ORDERED: methylPREDNISolone 20 MG in SYRINGE 0 ML IV STA (13:25)
[2018-12-15] MEDS: IMPACT LIQD 1.0 CAL 1,000 ML BAG JT SCH (19:09)
[2018-12-15] MEDS: PRAVASTATIN SOD 40 MG TAB PO SCH (21:25)
[2018-12-15] MEDS: DICYCLOMINE HCL 20 MG TAB PO SCH (21:25)
[2018-12-15] MEDS: ASPIRIN 81 MG CHEW PO SCH (21:31)
[2018-12-15 22:33] LABS: Appearance Urine Turbid (Clear); Bacteria Urine Automated Negative (Negative); Bilirubin Urine Negative (Negative); Blood Urine Negative (Negative); Color Urine Yellow; Epithelial Cell Urine Auto >30 /lpf (0-5); Glucose Urine UA Negative (Negative); Ketones Urine Negative (Negative); Leukocyte Esterase Urine 2+ (Negative); Nitrite Urine Negative (Negative); Protein Urine Negative (Negative); RBC Urine Automated >30 /hpf (0-4); Specific Gravity Urine 1.016 (1.000-1.030); Urobilinogen Urine Negative (Negative); pH Urine 6.5 (4.5-7.5)
[2018-12-16] MEDS: DICYCLOMINE HCL 20 MG TAB PO SCH ×2 (07:43→21:33)
[2018-12-16] MEDS: VENLAFAXINE HCL XR 150 MG CAPXR PO SCH (07:44)
[2018-12-16] MEDS: LANSOPRAZOLE 15 MG SOLTAB PO SCH ×2 (07:44→21:34)
[2018-12-16] MEDS: POTASSIUM CHLORIDE 20 MEQ/15 ML UDC PO SCH (07:44)
[2018-12-16] MEDS: PREGABALIN 75 MG CAP PO SCH ×2 (07:48→21:33)
[2018-12-16] MEDS: AMIODARONE 200 MG TAB PO SCH (07:52)
[2018-12-16] MEDS: HEPARIN SOD 5,000 UNIT/0.5 ML VIAL SQ SCH ×2 (07:53→21:10)
[2018-12-16] MEDS: ENALAPRIL MALEATE 10 MG TAB PO SCH (07:53)
[2018-12-16] MEDS: AMLODIPINE BESYLATE 5 MG TAB PO SCH (07:53)
[2018-12-16] MEDS: INSULIN ASPART 100 UNITS/ML 3 ML PEN SC SCH ×4 (10:04→22:57)
--- NOTE | 2018-12-16 10:05 | Surgery Progress Note ---
Date of Service December 16, 2018 Assessment & Plan (1) Esophageal tear: -s/p surgical repair -continue diet as ordered and advance as directed by general surgery -continue TFs as ordered with plans to stop once caloric intake deemed adequate by oral intake Subjective Pt. notes she feels well today without complaints. Discussed with RN and pt. is tolerating diet as well as Tube Feeds Physical Exam Respiratory: no respiratory distress, no labored breathing and does not use accessory muscles BS decreased at abses Cardiovascular: RRR, no murmur, no edema Gastrointestinal (Abdomen): non-tender to palpation Results & Data Vital Signs (Past 12 Hours) Vital Signs Temp Pulse Pulse Resp BP BP Pulse Ox 12/16/18 07:40 36.5 C 68 16 113/68 91 12/15/18 23:22 36.8 C 75 15 121/66 92 (1) Esophageal tear Encounter type: initial encounter Qualified Code(s): S11.21XA - Laceration without foreign body of pharynx and cervical esophagus, initial encounter
--- NOTE | 2018-12-16 11:54 | Surgery Progress Note ---
Date of Service December 16, 2018 Assessment & Plan (1) Esophageal tear: doing well clinically d/w case magagement ( Radha)...ok with me for transfer to Rehab possibly tomorrow if family comfortable. should not need tube feeds at facility. will need to cap and flush twice daily. Subjective pt sleeping comfortably. per nursing no new issues/complaints. dianelys "minced and moist" diet Physical Exam Physical Exam: wound looks good. abd: soft. nd. Results & Data Vital Signs (Past 12 Hours) Vital Signs Temp Pulse Resp BP Pulse Ox 12/16/18 07:40 36.5 C 68 16 113/68 91 (1) Esophageal tear Encounter type: initial encounter Qualified Code(s): S11.21XA - Laceration without foreign body of pharynx and cervical esophagus, initial encounter
[2018-12-16] MEDS ORDERED: methylPREDNISolone 10 MG in SYRINGE 0.25 ML IV ONE (16:30)
[2018-12-16] MEDS: LACTOBACILLUS ACIDOPHILUS (FLORANEX) TAB PO SCH (16:53)
[2018-12-16] MEDS ORDERED: cefTRIAXone SODIUM 1,000 MG in DEXTROSE 5% 50 ML IV SCH (17:00)
[2018-12-16] MEDS: BETASERON SC SCH (18:22)
[2018-12-16] MEDS: IMPACT LIQD 1.0 CAL 1,000 ML BAG JT SCH ×2 (21:23→21:56)
[2018-12-16] MEDS: PRAVASTATIN SOD 40 MG TAB PO SCH (21:35)
[2018-12-16] MEDS: ASPIRIN 81 MG CHEW PO SCH (21:57)
--- NOTE | 2018-12-16 22:18 | Hospitalist Progress Note ---
Date of Service December 16, 2018 Assessment & Plan (1) Esophageal tear: The patient suffered an esophageal tear intraoperatively during hiatal hernia repair on 11/25/18. The repair was performed by the team of Dr Oconnell and Dr Alfaro. She is now back to eating, g-tube is capped, is moving bowels, and has overall done well from surgical standpoint. Present on Admission?: Yes (2) New onset a-fib: Remains in normal sinus rhythm ECHO WNL continue on Amiodarone daily (3) Hypertension: Cont amlodipine, enalapril. (4) Hypophosphatemia: resolved. (5) Phlebitis: Superficial left cephalic vein thrombosis being treated with Subcutaneous heparin therapy. No complaints of this today. 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 give solumedrol 10mg IV x 1 then 2-3 days of low-dose prednisone no evidence of any infectious process of the left ankle or foot (9) DVT prophylaxis: Heparin SC (10) UTI (urinary tract infection): 2nd GNR rocephin follow cx could have contributed to encephalopathy (11) Multiple sclerosis: stable on beta interferon at home qod will inquire with family about this dispo - [facility] vs [facility] for rehab Subjective patient's speech much more clear today. sentence structure is much more connected as well. states left ankle "feels great." eating ok. denies any new complaints. Review of Systems Respiratory: no dyspnea Cardiovascular: no chest pain Gastrointestinal: no abdominal pain, no nausea and no vomiting Physical Exam Constitutional: well developed and well nourished; no acute distress, not ill appearing and no altered mental status ENMT: external ear and nose normal, oropharynx normal Respiratory: normal respiratory effort, lungs clear to auscultation Au scultation: + crackles (minimal dry rales bases) Cardiovascular: Rate/Rhythm: regular rate and regular rhythm Heart Sounds: normal S1 and normal S2 Vessels: posterior tibial pulses present and dorsalis pedis pulses present; no JVD Gastrointestinal (Abdomen): normal bowel sounds, soft, nontender, no hepatosplenomegaly g-tube in place; steri strips intact Musculoskeletal: left ankle with minimal synovitis; swelling much improved in comparison to yesterday's exam; no erythema about the ankle or dorsum of foot Neurologic: speech more clear and fluent today Psychiatric: Orientation: alert Results & Data Vital Signs (Past 12 Hours) Vital Signs Temp Pulse Resp BP Pulse Ox 12/16/18 15:14 36.7 C 69 16 104/57 L 97 Laboratory Results Laboratory Results - last 24 hr 12/15/18 12/16/18 12/16/18 22:10 08:31 12:17 POC Glucose 133 H 114 H Urine Color Yellow Urine Appearance Turbid A Urine pH 6.5 Ur Specific [place] 1.016 Urine Protein Negative Urine Glucose (UA) Negative Urine Ketones Negative Urine Blood Negative Urine Nitrite Negative Urine Bilirubin Negative Urine Urobilinogen Negative Ur Leukocyte Esterase 2+ H Urine WBC (Auto) 1-5 Urine RBC (Auto) >30 H U Hyaline Cast (Auto) 1-5 U Epithel Cells (Auto) >30 H Urine Bacteria (Auto) Negative Urine Crystals Not Reportable Other [place] [facility] 12/16/18 17:39 POC Glucose 93 Urine Color Urine Appearance Urine pH Ur Specific [place] Urine Protein Urine Glucose (UA) Urine Ketones Urine Blood Urine Nitrite Urine Bilirubin Urine Urobilinogen Ur Leukocyte Esterase Urine WBC (Auto) Urine RBC (Auto) U Hyaline Cast (Auto) U Epithel Cells (Auto) Urine Bacteria (Auto) Urine Crystals Other Crystals (1) Esophageal tear Encounter type: initial encounter Qualified Code(s): S11.21XA - Laceration without foreign body of pharynx and cervical esophagus, initial encounter (2) Hypertension Hypertension type: essential hypertension Qualified Code(s): I10 - Essential (primary) hypertension (3) Gout of left ankle Gout etiology: unspecified cause Chronicity: acute Qualified Code(s): M10.9 - Gout, unspecified (4) UTI (urinary tract infection) Urinary tract infection type: acute cystitis Hematuria presence: without hematuria Qualified Code(s): N30.00 - Acute cystitis without hematuria
--- NOTE | 2018-12-16 22:19 | Hospitalist Progress Note ---
Date of Service late entry for visit on December 15, 2018 Assessment & Plan (1) Esophageal tear: The patient suffered an esophageal tear intraoperatively during hiatal hernia repair on 11/25/18. The repair was performed by the team of Dr Oconnell and Dr Alfaro. She is now back to eating, g-tube capped today. Progressing. (2) New onset a-fib: Remains in normal sinus rhythm ECHO WNL continue on Amiodarone daily to maintain NSR (3) Hypertension: Cont amlodipine, enalapril. Acceptable BPs (4) Hypophosphatemia: resolved. (5) Phlebitis: Superficial left cephalic vein thrombosis being treated with Subcutaneous heparin therapy. 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 most recent urine cx was negative plan to repeat a u/a and urine cx just to make sure no UTI is present (7) Elevated TSH: recommend repeat TSH in 1 month post-discharge (8) Gout of left ankle: suspected left ankle x-rays showed mild-moderate joint effusion doubt this is cellulitis and thus stop the [facility] check uric acid and sed rate spoke with Dr Oconnell - he is ok with IV steroids give solumedrol 20mg IV x 1 reassess in am (9) DVT prophylaxis: Heparin SC (10) Multiple sclerosis: stable on beta interferon at home qod dispo - [facility] vs [facility] for rehab Subjective pt's and son were at bedside they confirm she is still mildly confused and that her speech is off from baseline they state her left foot and ankle look a bit better but she has still been c/o pain in that location they mention she has had gout in the past during the visit the patient asked me very odd questions because of her confusion Review of Systems Constitutional: no fever and no chills Respiratory: no cough and no dyspnea Cardiovascular: no chest pain Gastrointestinal: no abdominal pain, no nausea and no vomiting Physical Exam Constitutional: well developed, well nourished and + altered mental status (confused, speech is broken with poor sentence structure; no true dysarthria); no acute distress and not ill appearing ENMT: external ear and nose normal, oropharynx normal Respiratory: normal respiratory effort, lungs clear to auscultation Cardiovascular: Rate/Rhythm: regular rate and regular rhythm Heart Sounds: normal S1 and normal S2 Vessels: posterior tibial pulses present and dorsalis pedis pulses present; no JVD Gastrointestinal (Abdomen): normal bowel sounds, soft, nontender, no hepatosplenomegaly g-tube in place Musculoskeletal: left ankle - synovitis present with mild warmth, redness, swelling, and tenderness to palpation and with passive ROM; minimal erythema extending onto the dorsum of the left foot Skin: steri strips intact on abdominal wall Psychiatric: Orientation: alert; + not oriented x 3 Results & Data Vital Signs (Past 12 Hours) Vital Signs Temp Pulse Resp BP BP Pulse Ox 12/15/18 07:51 36.6 C 75 18 127/73 99 12/14/18 23:02 36.5 C 71 15 118/71 96 12/14/18 22:04 72 105/66 (1) Esophageal tear Encounter type: initial encounter Qualified Code(s): S11.21XA - Laceration without foreign body of pharynx and cervical esophagus, initial encounter (2) Hypertension Hypertension type: essential hypertension Qualified Code(s): I10 - Essential (primary) hypertension (3) Gout of left ankle Gout etiology: unspecified cause Chronicity: acute Qualified Code(s): M10.9 - Gout, unspecified
[2018-12-17 07:22] LABS: Basophils # (auto) 0.01 K/uL (0-0.2); Basophils % (auto) 0.1 %; Eosinophils # (auto) 0.14 K/uL (0-0.5); Eosinophils % (auto) 1.3 %; Hematocrit (blood only) 26.5 % (37-47); Hemoglobin 8.7 g/dL (12.0-16.0); Immature Granulocytes # (auto) 0.06 K/uL (0.00-0.02); Immature Granulocytes % (auto) 0.6 %; Lymphocytes # (auto) 1.79 K/uL (1.2-3.4); Lymphocytes % (auto) 16.7 %; Mean Corpuscular Hgb Conc 32.8 g/dL (32-36); Mean Corpuscular Volume 87.7 fL (80-100); Monocytes # (auto) 0.93 K/uL (0.11-0.59); Monocytes % (auto) 8.7 %; Neutrophils # (auto) 7.78 K/uL (1.4-6.5); Neutrophils % (auto) 72.6 %; Platelet Count 619 K/uL (130-400); RDW Coefficient of Variation 15.2 % (11.5-14.5); RDW Standard Deviation 47.4 fL (36.4-46.3); Red Blood Count 3.02 M/uL (4.2-5.4); White Blood Count 10.71 K/uL (4.8-10.8)
--- NOTE | 2018-12-17 07:40 | Surgery Progress Note ---
Date of Service December 17, 2018 Assessment & Plan (1) Esophageal tear: doing great ok for transfer to Rehab when bed available. can stop tube feeds I greatly appreciate Dr. Alfaro's temendous help/expertise on this very difficult case. Subjective doing extremely well. completely alert/oriented. dianelys diet. still having some right foot pain but improved. Physical Exam Physical Exam: alert/oriented. nad abd: soft. incision looks good right foot looks back to normal. no more erythema. mild tenderness Results & Data Vital Signs (Past 12 Hours) Vital Signs Temp Pulse Resp BP Pulse Ox 12/17/18 00:28 36.9 C 72 15 101/63 91 (1) Esophageal tear Encounter type: initial encounter Qualified Code(s): S11.21XA - Laceration without foreign body of pharynx and cervical esophagus, initial encounter
[2018-12-17 07:52] LABS: BUN Creatinine Ratio 43.6 (10-20); Creatinine Clr Calc Pharmacy 82.5 ml/min; Est GFR (African American) 105.8; Est GFR (Non-African American) 91.3; Potassium 4.2 mmol/L (3.5-5.1)
[2018-12-17] MEDS: LACTOBACILLUS ACIDOPHILUS (FLORANEX) TAB PO SCH ×2 (08:38→12:21)
[2018-12-17] MEDS: VENLAFAXINE HCL XR 150 MG CAPXR PO SCH (08:39)
[2018-12-17] MEDS: DICYCLOMINE HCL 20 MG TAB PO SCH (08:39)
[2018-12-17] MEDS: HEPARIN SOD 5,000 UNIT/0.5 ML VIAL SQ SCH (08:40)
[2018-12-17] MEDS: AMIODARONE 200 MG TAB PO SCH (08:40)
[2018-12-17] MEDS: AMLODIPINE BESYLATE 5 MG TAB PO SCH (08:42)
[2018-12-17] MEDS: ENALAPRIL MALEATE 10 MG TAB PO SCH (08:42)
[2018-12-17] MEDS: INSULIN ASPART 100 UNITS/ML 3 ML PEN SC SCH ×2 (08:51→13:04)
--- NOTE | 2018-12-17 08:51 | Surgery Progress Note ---
Date of Service December 17, 2018 Assessment & Plan (1) Esophageal tear: -s/p surgical repair -leukocytosis has normalized -continue diet as directed by general surgery -plans noted for possible discharge today Subjective pt. state she is doing "great" today. Tolerating oral intake without difficulty. Physical Exam Respiratory: normal respiratory effort; no labored breathing slight decrease of BS at bases noted Gastrointestinal (Abdomen): soft with minimal tenderness Results & Data Vital Signs (Past 12 Hours) Vital Signs Temp Pulse Pulse Resp BP Pulse Ox 12/17/18 07:35 36.7 C 70 17 110/68 94 12/17/18 00:28 36.9 C 72 15 101/63 91 (1) Esophageal tear Encounter type: initial encounter Qualified Code(s): S11.21XA - Laceration without foreign body of pharynx and cervical esophagus, initial encounter
[2018-12-17] MEDS: POTASSIUM CHLORIDE 20 MEQ/15 ML UDC PO SCH (08:56)
[2018-12-17] MEDS: PREGABALIN 75 MG CAP PO SCH (08:56)
[2018-12-17] MEDS: LANSOPRAZOLE 15 MG SOLTAB PO SCH (12:20)
[2018-12-17] MEDS ORDERED: predniSONE 5 MG TAB PO ONE (12:24)
--- NOTE | 2018-12-17 12:24 | Hospitalist Progress Note ---
Date of Service December 17, 2018 Assessment & Plan (1) Esophageal tear: The patient suffered an esophageal tear intraoperatively during hiatal hernia repair on 11/25/18. The repair was performed by the team of Dr Oconnell and Dr Alfaro. She is now back to eating and tolerating w/o difficulty. g-tube continues to be capped. Doing well from surgical standpoint. (2) New onset a-fib: Remains in normal sinus rhythm ECHO WNL continue on Amiodarone daily to maintain NSR (3) Hypertension: Cont amlodipine, enalapril. Acceptable BPs (4) Hypophosphatemia: resolved. (5) Phlebitis: Superficial left cephalic vein thrombosis - clinically resolved. (6) Acute encephalopathy: Resolved. 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 feels good. left ankle pain resolved. speaking in clear sentences. denies any abdominal symptoms. Review of Systems Constitutional: no fever and no chills Respiratory: no cough and no dyspnea Cardiovascular: no chest pain Physical Exam Constitutional: well developed and well nourished; no acute distress, not ill appearing and no altered mental status ENMT: external ear and nose normal, oropharynx normal Respiratory: normal respiratory effort, lungs clear to auscultation Cardiovascular: Rate/Rhythm: regular rate and regular rhythm Heart Sounds: normal S1 and normal S2 Vessels: posterior tibial pulses present and dorsalis pedis pulses present; no JVD Gastrointestinal (Abdomen): normal bowel sounds, soft, nontender, no hepatosplenomegaly g-tube capped Musculoskeletal: left ankle - no erythema; minimal edema; no pain with passive ROM Psychiatric: Orientation: alert Results & Data Vital Signs (Past 12 Hours) Vital Signs Temp Pulse Pulse Resp BP Pulse Ox 12/17/18 07:35 36.7 C 70 17 110/68 94 12/17/18 00:28 36.9 C 72 15 101/63 91 Laboratory Results Laboratory Results - last 24 hr 12/16/18 12/16/18 12/17/18 17:39 20:45 06:56 WBC 10.71 RBC 3.02 L Hgb 8.7 L Hct 26.5 L MCV 87.7 MCH 28.8 MCHC 32.8 RDW Std Deviation 47.4 H RDW Coeff of Tomas 15.2 H Plt Count 619 H MPV 9.0 Immature Gran % (Auto) 0.6 Neut % (Auto) 72.6 Lymph % (Auto) 16.7 [place] % (Auto) 8.7 Eos % (Auto) 1.3 Baso % (Auto) 0.1 Immature Gran # (Auto) 0.06 H Neut # (Auto) 7.78 H Lymph # (Auto) 1.79 [place] # (Auto) 0.93 H Eos # (Auto) 0.14 Baso # (Auto) 0.01 Sodium Potassium Chloride Carbon Dioxide Anion Gap BUN Creatinine Est Cr Clr Drug Dosing Est GFR ( Amer) Est GFR (Non-Af Amer) BUN/Creatinine Ratio Glucose POC Glucose 93 111 H Calcium 12/17/18 12/17/18 06:56 08:06 WBC RBC Hgb Hct MCV MCH MCHC RDW Std Deviation RDW Coeff of Tomas Plt Count MPV Immature Gran % (Auto) Neut % (Auto) Lymph % (Auto) [place] % (Auto) Eos % (Auto) Baso % (Auto) Immature Gran # (Auto) Neut # (Auto) Lymph # (Auto) [place] # (Auto) Eos # (Auto) Baso # (Auto) Sodium 139 Potassium 4.2 Chloride 107 Carbon Dioxide 28 Anion Gap 4.0 BUN 25 H Creatinine 0.57 L Est Cr Clr Drug Dosing 82.5 Est GFR ( Amer) 105.8 Est GFR (Non-Af Amer) 91.3 BUN/Creatinine Ratio 43.6 H Glucose 135 H POC Glucose 170 H Calcium 10.0 (1) Gout of left ankle Chronicity: acute Gout etiology: unspecified cause Qualified Code(s): M10.9 - Gout, unspecified (2) Esophageal tear Encounter type: initial encounter Qualified Code(s): S11.21XA - Laceration without foreign body of pharynx and cervical esophagus, initial encounter (3) Hypertension Hypertension type: essential hypertension Qualified Code(s): I10 - Essential (primary) hypertension (4) Anemia Anemia type: unspecified type Qualified Code(s): D64.9 - Anemia, unspecified
--- NOTE | 2018-12-29 01:27 | Discharge Summary ---
PRIMARY DISCHARGE DIAGNOSES: 1. Hiatal hernia. 2. Esophageal perforation. 3. New onset atrial fibrillation. 4. Postoperative anemia. 5. Postoperative encephalopathy. 6. Cellulitis versus gout of the left foot. 7. Elevated thyroid stimulating hormone. 8. Hypertension. 9. Multiple sclerosis. PROCEDURES PERFORMED: Planned laparoscopic repair of hiatal hernia complicated by esophageal perforation; attempted laparoscopic repair, attempted insertion of esophageal stent; laparotomy with repair of distal esophageal perforation and buttress with fundus patch. CONSULTATIONS: 1. Thoracic Surgery intraoperative consultation for esophageal perforation, Dr. Alfaro. 2. [facility] for postoperative care. 3. [facility] for atrial fibrillation. 4. Neurology for postoperative encephalopathy. 5. Orthopedics, Dr. Mondragon for left foot cellulitis versus gout. HOSPITAL COURSE: The patient is a 73-year-old female with hiatal hernia taken to the Operating Room for laparoscopic repair. During placement of bougie, esophageal perforation occurred. We tried to repair this laparoscopically and also tried to place a stent unsuccessfully. Therefore laparotomy was performed for repair and buttress with gastric fundus. She remained intubated and was transferred to Intensive Care Unit. She was extubated on postoperative day 1, but remained somewhat sedated. She had had new-onset atrial fibrillation on day 2. By day 3, she converted to normal sinus rhythm, was continued on amiodarone drip. She had a persistent encephalopathy that lasted over a week. We had placed Arvizu gastrostomy tube intraoperatively. She was able to tolerate tube feeds. The gastric port was left to suction initially and later used for medications. She was medically stable to transfer to PCU on postoperative day 5. She was not making any significant gains in mental status. We had Neurology evaluate her who thought that she may have had a stroke although MRI was negative and her encephalopathy was considered to be multifactorial. Evaluation of the repair was postponed until she was alert enough on day 8 to have upper GI. There was no contrast extravasation. Oral intake was limited as she continued to have varying levels of orientation over the next several days. About 2 weeks postoperatively, she was evaluated by Speech Pathology also had a video swallow. She was able to begin thickened liquids at that time. Her J-tube feeds were also being continued. She made significant gains over the next several days to week. She was back to baseline around day 18. She was able to tolerate a moist minced diet. Her activity had been significantly limited. Arrangements for additional care and therapy were being made for discharge. On postoperative day 22, she was accepted and stable for transfer to [facility]. DISCHARGE INSTRUCTIONS: Transfer to [facility]. Follow up with Dr. Oconnell in approximately 2 weeks. Continue minced moist diet. Continue daily J-tube flushes 200 mL. She should have repeat complete blood count to follow her anemia and eventual thyroid stimulating hormone. Also, follow up with Cardiology in approximately 3 weeks. DISCHARGE MEDICATIONS: Amiodarone 200 mg daily, ferrous sulfate 325 mg b.i.d. and potassium chloride was changed to 20 mEq daily. Resume other home medications, amlodipine, benazepril 1 tablet daily, aspirin 81 mg daily, Betaseron injections every other day, Citracal 1 tablet b.i.d., Bentyl 20 mg b.i.d., Nexium 40 mg b.i.d., Lyrica 75 mg b.i.d., pravastatin 80 mg at bedtime, Zantac 150 mg at bedtime and Effexor 150 mg daily. MTDD
== END 2018-12-17 15:00 | DRG 326 ==
LOC: ASU 09:14 → 1E 14:55 → 2E 11-30 13:25 → 3N 12-10 15:23
DX: F32.9 Major depressive disorder, single episode, unspecified; G93.41 Metabolic encephalopathy; Y92.234 Operating room of hospital as the place of occurrence of the external cause; K44.0 Diaphragmatic hernia with obstruction, without gangrene; F41.9 Anxiety disorder, unspecified; E83.39 Other disorders of phosphorus metabolism; G25.81 Restless legs syndrome; Z91.19 Patient's noncompliance with other medical treatment and regimen; G35 Multiple sclerosis; J81.0 Acute pulmonary edema; Y99.8 Other external cause status; J98.2 Interstitial emphysema; Z79.899 Other long term (current) drug therapy; E78.5 Hyperlipidemia, unspecified; R29.898 Other symptoms and signs involving the musculoskeletal system; D62 Acute posthemorrhagic anemia; G47.33 Obstructive sleep apnea (adult) (pediatric); M79.7 Fibromyalgia; B37.0 Candidal stomatitis; K31.89 Other diseases of stomach and duodenum; K22.3 Perforation of esophagus; M10.072 Idiopathic gout, left ankle and foot; Y83.8 Other surgical procedures as the cause of abnormal reaction of the patient, or of later complication, without mention of misadventure at the time of the procedure; Z79.82 Long term (current) use of aspirin; K91.71 Accidental puncture and laceration of a digestive system organ or structure during a digestive system procedure; I82.612 Acute embolism and thrombosis of superficial veins of left upper extremity; Z51.81 Encounter for therapeutic drug level monitoring; I10 Essential (primary) hypertension; I48.91 Unspecified atrial fibrillation; M19.072 Primary osteoarthritis, left ankle and foot; K22.4 Dyskinesia of esophagus; K22.8 Other specified diseases of esophagus; E87.6 Hypokalemia; R73.9 Hyperglycemia, unspecified